=== PATIENT | male | born 1980 | race Caucasian/White ===

== ENCOUNTER 2024-03-30 12:58 | Outpatient (REF) | payer BC, OTHER, SELFPAY | END 2024-03-30 12:59 | disposition home or self-care (01) | LOC: HO.BBR 12:58 | PROVIDERS: PCP Internal Medicine; Visit Provider Internal Medicine | DX: Z13.89 Encounter for screening for other disorder (principal) ==

== ENCOUNTER 2024-04-08 13:11 | Outpatient (REF) | payer BC, OTHER, SELFPAY ==
[2024-04-08 13:31] LABS: MANUAL DIFF FLAG NO
[2024-04-08 13:33] LABS: Basophils Percent Auto 0.6 % (0-2); Eosinophils Percent Auto 0.8 % (0-4); Hematocrit 43.4 % (42.0-52.0); Hemoglobin 16.1 g/dl (14.0-18.0); Imm Gran Abs Auto 0.01 X10*3/uL (0.00-0.03); Imm Gran Pct Auto 0.2 % (0.0-0.4); Lymphocytes Absolute Auto 2.3 X10*3/uL (1.2-4.9); Lymphocytes Percent Auto 45.6 % (20-40); Mean Corpuscular HGB Conc 37.1 g/dl (31.0-36.0); Mean Corpuscular Hemoglobin 33.1 pg (27.0-33.0); Mean Corpuscular Volume 89.1 fL (80.0-98.0); Mean Platelet Volume 9.3 fL (9.4-12.4); Monocytes Absolute Auto 0.5 X10*3/uL (0.1-1.2); Neutrophils Absolute Auto 2.3 x10*3/uL (2.0-8.3); Neutrophils Percent Auto 43.8 % (45-73); Platelet Count 163 X10*3/uL (160-400); Red Blood Count 4.87 X10*6/uL (4.60-5.80); Red Cell Distribution Width 12.1 % (11.0-16.0); White Blood Count 5.1 X10*3/uL (4.8-10.8)
[2024-04-08 14:31] LABS: Iron 127 mcg/dL (45-160); Percent Iron Saturation 64 % (15-50); Total Iron Binding Capacity 197 mcg/dL (228-428); Unsaturated Iron Binding 70 ug/dL
[2024-04-08 14:41] LABS: Ferritin 592 ng/mL (20-250)
== END 2024-04-08 13:12 | disposition home or self-care (01) ==
LOC: HO.BBR 13:11
PROVIDERS: PCP Internal Medicine; Visit Provider Internal Medicine
DX: E83.110 Hereditary hemochromatosis (principal)
CPT/HCPCS: 36415; 82728; 83540; 85025

== ENCOUNTER 2024-05-15 08:05 | Outpatient (REF) | payer BC, OTHER, SELFPAY ==
[2024-05-15 08:32] LABS: MANUAL DIFF FLAG NO
[2024-05-15 08:33] LABS: Basophils Percent Auto 0.7 % (0-2); Eosinophils Percent Auto 0.9 % (0-4); Hematocrit 46.5 % (42.0-52.0); Imm Gran Abs Auto 0.01 X10*3/uL (0.00-0.03); Imm Gran Pct Auto 0.2 % (0.0-0.4); Lymphocytes Absolute Auto 2.1 X10*3/uL (1.2-4.9); Lymphocytes Percent Auto 47.6 % (20-40); Mean Corpuscular HGB Conc 36.6 g/dl (31.0-36.0); Mean Corpuscular Hemoglobin 33.2 pg (27.0-33.0); Mean Corpuscular Volume 90.8 fL (80.0-98.0); Mean Platelet Volume 9.5 fL (9.4-12.4); Monocytes Absolute Auto 0.3 X10*3/uL (0.1-1.2); Monocytes Percent Auto 7.8 % (2-11); Neutrophils Absolute Auto 1.9 x10*3/uL (2.0-8.3); Neutrophils Percent Auto 42.8 % (45-73); Platelet Count 190 X10*3/uL (160-400); Red Blood Count 5.12 X10*6/uL (4.60-5.80); Red Cell Distribution Width 12.2 % (11.0-16.0); White Blood Count 4.4 X10*3/uL (4.8-10.8)
[2024-05-15 09:01] LABS: Iron 145 mcg/dL (45-160); Percent Iron Saturation 69 % (15-50); Total Iron Binding Capacity 210 mcg/dL (228-428); Unsaturated Iron Binding 65 ug/dL
[2024-05-15 09:15] LABS: Ferritin 560 ng/mL (20-250)
== END 2024-05-15 08:06 | disposition home or self-care (01) ==
LOC: HO.BBR 08:05
PROVIDERS: PCP Internal Medicine; Visit Provider Internal Medicine
DX: E83.110 Hereditary hemochromatosis (principal)
CPT/HCPCS: 36415; 82728; 83540; 85025

== ENCOUNTER 2024-06-26 12:56 | Outpatient (REF) | payer BC, OTHER, SELFPAY ==
[2024-06-26 13:06] LABS: MANUAL DIFF FLAG NO
[2024-06-26 13:11] LABS: Basophils Percent Auto 0.5 % (0-2); Eosinophils Percent Auto 0.6 % (0-4); Hematocrit 43.8 % (42.0-52.0); Hemoglobin 15.9 g/dl (14.0-18.0); Imm Gran Abs Auto 0.01 X10*3/uL (0.00-0.03); Imm Gran Pct Auto 0.2 % (0.0-0.4); Lymphocytes Absolute Auto 2.8 X10*3/uL (1.2-4.9); Lymphocytes Percent Auto 44.7 % (20-40); Mean Corpuscular HGB Conc 36.3 g/dl (31.0-36.0); Mean Corpuscular Hemoglobin 32.9 pg (27.0-33.0); Mean Corpuscular Volume 90.5 fL (80.0-98.0); Mean Platelet Volume 9.3 fL (9.4-12.4); Monocytes Absolute Auto 0.5 X10*3/uL (0.1-1.2); Monocytes Percent Auto 8.1 % (2-11); Neutrophils Absolute Auto 2.9 x10*3/uL (2.0-8.3); Neutrophils Percent Auto 45.9 % (45-73); Platelet Count 217 X10*3/uL (160-400); Red Blood Count 4.84 X10*6/uL (4.60-5.80); Red Cell Distribution Width 11.7 % (11.0-16.0); White Blood Count 6.3 X10*3/uL (4.8-10.8)
[2024-06-26 13:59] LABS: Iron 161 mcg/dL (45-160); Percent Iron Saturation 81 % (15-50); Total Iron Binding Capacity 200 mcg/dL (228-428); Unsaturated Iron Binding 39 ug/dL
[2024-06-26 14:03] LABS: Ferritin 426 ng/mL (20-250)
== END 2024-06-26 12:57 | disposition home or self-care (01) ==
LOC: HO.BBR 12:56
PROVIDERS: PCP Internal Medicine; Visit Provider Internal Medicine
DX: E83.110 Hereditary hemochromatosis (principal)
CPT/HCPCS: 36415; 82728; 83540; 85025

== ENCOUNTER 2024-07-27 14:12 | Outpatient (REF) | payer BC, OTHER, SELFPAY ==
[2024-07-27 14:31] LABS: MANUAL DIFF FLAG NO
[2024-07-27 14:32] LABS: Basophils Percent Auto 0.3 % (0-2); Eosinophils Percent Auto 0.2 % (0-4); Hemoglobin 17.2 g/dl (14.0-18.0); Imm Gran Abs Auto 0.04 X10*3/uL (0.00-0.03); Imm Gran Pct Auto 0.4 % (0.0-0.4); Lymphocytes Percent Auto 18.7 % (20-40); Mean Corpuscular HGB Conc 36.6 g/dl (31.0-36.0); Mean Corpuscular Hemoglobin 32.8 pg (27.0-33.0); Mean Corpuscular Volume 89.5 fL (80.0-98.0); Mean Platelet Volume 9.3 fL (9.4-12.4); Monocytes Absolute Auto 0.8 X10*3/uL (0.1-1.2); Monocytes Percent Auto 7.5 % (2-11); Neutrophils Absolute Auto 7.8 x10*3/uL (2.0-8.3); Neutrophils Percent Auto 72.9 % (45-73); Platelet Count 197 X10*3/uL (160-400); Red Blood Count 5.25 X10*6/uL (4.60-5.80); Red Cell Distribution Width 11.9 % (11.0-16.0); White Blood Count 10.7 X10*3/uL (4.8-10.8)
[2024-07-27 15:06] LABS: Iron 198 mcg/dL (45-160); Percent Iron Saturation 85 % (15-50); Total Iron Binding Capacity 234 mcg/dL (228-428); Unsaturated Iron Binding 36 ug/dL
[2024-07-27 15:20] LABS: Ferritin 333 ng/mL (20-250)
--- OUTSIDE RECORDS SUMMARY | 2024-07-27 18:51 | XMS_ITS | Encounter Summary ---
Author Organization [facility] Address [phone] [facility] [place] [address] Care Team Providers Care Molding Engineer Name Role Phone Alvaro Blue MD Primary Care Provider [phone] Arnold Cox MD Primary Care Provider [phone] Arnold Cox MD Unavailable Encounter Details Date Type Department Care Team (Late Contact Info) Description 11/24/2022 Procedure Pass [facility] [address] [place] [address] Social History Tobacco Use Types Packs/Day Years Used Date Smoking Tobacco: Never Smokeless Tobacco: Never Alcohol Use Standard Drinks/Week Comments Yes 0 (1 standard drink = 0.6 oz pur e alcohol) occas Education Answer Date Recorded Are you interested in more education? Not on rula e 11/23/2022 Are you concerned about learning? Not on file 11/23/2022 No 11/23/2022 No 11/23/2022 Digital Access Answer Date Recorded No 11/23/2022 No 11/23/2022 Reliable internet access at home? Not on file 11/23/2022 Device with a working camera? Not on file Sex and Gender Information Value Date Recorded Sex Assigned at Male 11/23/2022 1:59 PM EDT Gender Identity Male 11/23/2022 1:59 PM EDT Sexual Orientation Not on file documented as of this encounter Plan of Treatment Upcoming Encounters Date Type Department Care Team (Late st Contact Info) Description 03/16/2024 Procedure Pass [facility] Card[facility] US [address] [place] [address] 06/02/2024 Procedure Pass [facility] Echo Lab 30 [place] [address] 09/08/2024 11:30 AM EDT Appointment [facility] Cardiac US 55 [place] [address] Frances Prescott MD [address] [place], [place] [phone] [place] [address] [email or web address] 09/08/2024 1:00 PM EDT Office Visit [facility]pertension Clinic 55 [facility] 201 [place] [address] Frances Prescott MD [address] [place] [address] [email or web address]@[email or web address] 09/22/2024 1:00 PM EDT Telemedicine [facility] Center for Hematology [address] [place] [address] 7[address] [place] [address] Sadia Santos MD [address] [place] [address] [email or web address] 12/01/2024 10:00 AM EDT Appointment Non-Invasive Cardiology 30 [place] [address] Ivy Ramires FNP [address] [place] [address] [email or web address] 12/01/2024 11:30 AM EDT Appointment [facility] Echo Lab 30 [place] [address] Ivy Ramires FNP [address] [place] [address] [email or web address]@[facility] 12/30/2024 1:30 PM EDT Appointment [facility] Internal Medicine 40 [place] [address] Arnold Cox MD 40 [place], [place] [phone] [email or web address] documented as of this encounter Visit Diagnoses Not on filedocumented in this encounter Care Teams Molding Engineer Relationship Specialty Start Date End Date Alvaro Blue MD [address] [place] [address] PCP - General Internal Medicine 11/24/22 01/23/24 Arnold Cox MD [address] [place] [address] PCP - General Internal Medicine 01/24/24 Arnold Cox MD [address] [place] [address] [email or web address] Insurance Assigned Provider 02/08/24 documented as of this encounter Additional Source Comments The information contained in this document represents components of the legal health record. It is not the complete legal health record.[facility]
--- OUTSIDE RECORDS SUMMARY | 2024-07-27 18:51 | XMS_ITS | Encounter Summary ---
Author Organization [facility] Address [phone] [facility] [employer] [place] [address] Care Team Providers Care Ui Application Developer Name Role Phone Alvaro Blue MD Primary Care Provider [phone] Arnold Cox MD Primary Care Provider [phone] Arnold Cox MD Unavailable Reason for Referral * Outpatient Procedure - Closed Specialty Diagnoses / Procedures Referred By Pete cline Referred To Contact Diagnoses Acute saddle pulmonary embolism with acute cor pulmonale Procedures Stress Echo Exercise Stress Echo Dobutamine Frances Prescott MD [address] [place] [address] Email: [email or web address] Referral ID Status Reason Start Date Expiration Date Visits Re quested Visits Authorized [id number] Closed 04/15/2023 1 1 Encounter Details Date Type Department Care Team (Late st Contact Info) Description 05/24/2023 Ancillary Orders [facility] [address] [place] [address] [address] [place] [address] Frances Prescott MD [address] [place] [address] CRUZ@ [facility] Acute saddle pulmonary embolism with acute cor pulmonale Social History Tobacco Use Types Packs/Day Years [...] st Contact Info) Description 03/16/2024 Procedure Pass [facility] Cardiac US 55 [place] [address] 06/02/2024 Procedure Pass [facility] Echo Lab [address] [place] [address] 09/08/2024 11:30 AM EDT Appointment [facility] Cardiac US 55 [place] [address] Frances Prescott MD 55 [facility] [address] [place] [address] [email or web address]@[facility] 09/08/2024 1:00 PM EDT Office Visit [facility] Pulmonary Hypertension Clinic [address] [place] [address] Frances Prescott MD 55 [facility] [address] [place] [address] [email or web address]@[facility] 09/22/2024 1:00 PM EDT Telemedicine [facility] Center for Hematology 55 [facility] [address] [place] [address] Sadia Santos MD 55 [facility] [address] [place] [address] [email or web address] 12/01/2024 10:00 AM EDT Appointment Non-Invasive Cardiology 30 [place] [address] Ivy Ramires, [facility] 55 [place] [address] [email or web address]@[facility] 12/01/2024 11:30 AM EDT Appointment [facility] Echo Lab 30 [place] [address] Ivy Ramires, [address] [address] [email or web address]@[facility] 12/30/2024 1:30 PM EDT Appointment [facility] Internal Medicine 40 [place] [address] Arnold Cox MD 40 [place] [address] [email or web address] documented as of this encounter Results * STRESS ECHO EXERCISE (05/24/2023 12:02 PM EST) Body Surface Area 2.25 m2 Raw LV EF% 60 % Left Ventricle Internal Diameter End Diastole 49 42 - 58 mm Left Ventricle Internal Diameter End Systole 31 25 - 40 mm Right Atrium Pressure Estimated 10 mmHg Left Ventricular Posterior Wall Thickness 10 mm Interventricular Septum Thickness 9 mm Left Atrium Dimension Anterior-Posterior 32 15 - 40 mm Ejection Fraction 70 50 - 75 % Resting BP Systolic 144 mmHg Resting BP Diastolic 78 mmHg Patient Age 42 Peak BP Systolic 230 mmHg Peak BP Diastolic 110 mmHg Resting HR 59 bpm Peak HR 120 bpm Anatomical Region Laterality Modality Heart Ultrasound Narrative 05/24/2023 1:10 PM EST ?No ECG or echocardiographic evidence of ischemia at the level of stress achieved (HR reached 68% of age-predicted maximum, peak rate-pressure product 27,600). ?Hypertension at baseline with hypertensive response to exercise (144/78 mmHg at rest ; 230/110 mmHg at peak stress). Stress ECG A stress test was performed following a supine bicycle protocol. The patient reached stage 5 of the protocol, exercising for 15 minutes 29 seconds. The heart rate changed from 59 bpm at rest to 120 bpm at peak stress (68% of the age predicted maximum heart rate). The blood pressure changed from 144/78 mmHg at rest to 230/110 mmHg at peak stress. [place] [address]. The test was terminated due to hypertension (BP 230/110 mmHg). The patient reported no symptoms during the stress test. The patient reported no angina during the stress test. Baseline ECG shows sinus rhythm. ECG during stress shows sinus tachycardia. ECG during stress shows infrequent PACs. ECG at stress shows non-specific ST-T wave changes. Post stress ECG shows sinus rhythm. During recovery infrequent PAC noted. General Findings - Resting The image quality was fair (3) . Comparison Findings - Stress No prior stress echocardiograms for comparison. Stress Study Data At peak stress all the jolly augmented appropriately. Interpretation of the echo images is negative for ischemia at the level of stress achieved. Baseline Echo The left ventricular cavity size is normal. The left ventricular wall thickness is normal. Left ventricular ejection fraction is normal. The ejection fraction at rest was measured by single dimension. The ejection fraction is 70% (Normal 50-75%). At rest, there are no segmental left ventricular wall motion abnormalities. On the limited views available RV systolic function appears to be within normal limits. There is trace mitral regurgitation detected by spectral and color Doppler at rest. There is no evidence of mitral valve prolapse. There is evidence of trace tricuspid regurgitation by color and spectral Doppler at rest. There is an insufficient tricuspid regurgitation Doppler profile to calculate a right ventricular systolic pressure. Stress Echo Left ventricular systolic function is hyperdynamic. There are no new inducible segmental left ventricular wall motion abnormalities noted at stress. Frances Prescott MD CV STRESS O RDERABLES documented in this encounter Visit Diagnoses Diagnosis Acute saddle pulmonary embolism with acute cor pulmonale Acute saddle pulmonary embolism with acute cor pulmonale documented in this encounter Care Teams Ui Application Developer Relationship Specialty Start Date End Date Alvaro Blue MD [address] [place] [address] PCP - General Internal Medicine 11/24/22 01/23/24 Arnold Cox MD [address] [place] [address] [email or web address] PCP - General Internal Medicine 01/24/24 Arnold Cox MD [address] [place] [address] [email or web address] Insurance Assigned Provider 02/08/24 documented as of this encounter Additional Source Comments The information contained in this document represents components of the legal health record. It is not the complete legal health record.[facility]
--- OUTSIDE RECORDS SUMMARY | 2024-07-27 18:51 | XMS_ITS | Encounter Summary ---
Author Organization [facility] Address [phone] [facility] [place] [address] Care Team Providers Care Senior Chemist Name Role Phone Alvaro Blue MD Primary Care Provider [phone] Arnold Cox MD Primary Care Provider [phone] Arnold Cox MD Unavailable Encounter Details Date Type Department Care Team ([facility] st Contact Info) Description 04/09/2023 Telephone [facility] Center for Hematology [address] [address] Ashley Polo MD, MPH 55 [place] [address] [email or web address] du Social History Tobacco Use Types Packs/Day Years [...] st Contact Info) Description 03/16/2024 Procedure Pass [facility] Cardiac US 55 [place] [address] 06/02/2024 Procedure Pass [facility] Echo Lab 30 [place] [address] 09/08/2024 11:30 AM EDT Appointment [facility] Cardiac US 55 [place] [address] Frances Prescott MD [address] [address] [email or web address] 09/08/2024 1:00 PM EDT Office Visit [facility] Pulmonary Hypertension Clinic 55 [facility] 201 [place] [address] Frances Prescott MD [address] [place] [address] [email or web address] 09/22/2024 1:00 PM EDT Telemedicine [facility] Center for Hematology [address] [place] [address] Sadia Santos MD [address] [place] [address] [email or web address] 12/01/2024 10:00 AM EDT Appointment Non-Invasive Cardiology 30 [place] [address] Ivy Ramires FNP [address] [place] [address] [email or web address] 12/01/2024 11:30 AM EDT Appointment [facility] Echo Lab 30 [place] [address] Ivy Ramires FNP [address] [place] [address] [email or web address] 12/30/2024 1:30 PM EDT Appointment [facility] Internal Medicine 40 [place] [address] Arnold Cox MD 40 [place], [place] [phone] [email or web address] documented as of this encounter Visit Diagnoses Not on filedocumented in this encounter Care Teams Senior Chemist Relationship Specialty Start Date End Date Alvaro Blue MD [address] [place] [address] PCP - General Internal Medicine 11/24/22 01/23/24 Arnold Cox MD [address] [place] [address] PCP - General Internal Medicine 01/24/24 Arnold Cox MD [address] [place] [address] [email or web address] Insurance Assigned Provider 02/08/24 documented as of this encounter Additional Source Comments The information contained in this document represents components of the legal health record. It is not the complete legal health record.[facility]
--- OUTSIDE RECORDS SUMMARY | 2024-07-27 18:51 | XMS_ITS | Encounter Summary ---
Author Organization [facility] Address [phone] [place] [address] Care Team Providers Care International Flight Attendant Name Role Phone Alvaro Blue MD Primary Care Provider [phone] Arnold Cox MD Primary Care Provider [phone] Arnold Cox MD Unavailable Encounter Details Date Type Department Care Team (Late st Contact Info) Description 04/09/2023 Telephone [facility] Center for Hematology 55 [facility] [address] [place] [address] Sadia Santos MD 55 [facility] [address] [place] [address] [email or web address] du Social History Tobacco Use Types Packs/Day [...] st Contact Info) Description 03/16/2024 Procedure Pass [facility] Cardiac US 55 [place] [address] 06/02/2024 Procedure Pass [facility] Echo Lab 30 [place] [address] 09/08/2024 11:30 AM EDT Appointment [facility] Cardiac US 55 [place] [address] Frances Prescott MD [address] [address] [email or web address]@[facility] 09/08/2024 1:00 PM EDT Office Visit [facility] Pulmonary Hypertension Clinic 55 [facility] 201 [place] [address] Frances Prescott MD [address] [place] [address] [email or web address]@[facility] 09/22/2024 1:00 PM EDT Telemedicine [facility] Center for Hematology [address] [place] [address] Sadia Santos MD [address] [place] [address] [email or web address] 12/01/2024 10:00 AM EDT Appointment Non-Invasive Cardiology 30 [place] [address] Ivy Ramires FNP [address] [place] [address] [email or web address] 12/01/2024 11:30 AM EDT Appointment [facility] Echo Lab 30 [place] [address] Ivy Ramires FNP [address] [place] [address] [email or web address]@[email or web address] 12/30/2024 1:30 PM EDT Appointment [facility] Internal Medicine 40 [place] [address] Arnold Cox MD 40 [place], [place] [phone] [email or web address] documented as of this encounter Visit Diagnoses Not on filedocumented in this encounter Care Teams International Flight Attendant Relationship Specialty Start Date End Date Alvaro Blue MD [address] [place] [address] PCP - General Internal Medicine 11/24/22 01/23/24 Arnold Cox MD [address] [place] [address] PCP - General Internal Medicine 01/24/24 Arnold Cox MD [address] [place] [address] [email or web address] Insurance Assigned Provider 02/08/24 documented as of this encounter Additional Source Comments The information contained in this document represents components of the legal health record. It is not the complete legal health record.[facility]
--- OUTSIDE RECORDS SUMMARY | 2024-07-27 18:51 | XMS_ITS | Encounter Summary ---
Author Organization [facility] Address [phone] [facility] [place] [address] Care Team Providers Care Principal Administrative Clerk Name Role Phone Alvaro Blue MD Primary Care Provider [phone] Arnold Cox MD Primary Care Provider [phone] Arnold Cox MD Unavailable Encounter Details Date Type Department Care Team (Late Contact Info) Description 06/13/2023 Procedure Pass [facility] 30 [place] [address] Social History Tobacco Use Types Packs/Day Years [...] st Contact Info) Description 03/16/2024 Procedure Pass [facility] Cardiac US [address] [place] [address] 06/02/2024 Procedure Pass [facility] Echo Lab 30 [place] [address] 09/08/2024 11:30 AM EDT Appointment [facility] Cardiac US [address] [place] [address] Frances Prescott MD [address] [place] [address] [email or web address] 09/08/2024 1:00 PM EDT Office Visit [facility] Pulmonary Hypertension Clinic 55 [facility] 201 [place] [address] Frances Prescott MD [address] [place] [address] [email or web address]@[facility] 09/22/2024 1:00 PM EDT Telemedicine [facility] Center for Hematology [address] [place] [address] 7[address] [place] [address] Sadia Santos MD [address] [place] [address] [email or web address] 12/01/2024 10:00 AM EDT Appointment Non-Invasive Cardiology 30 [place] [address] Ivy Ramires FNP [address] [place] [address] [email or web address]@[email or web address] 12/01/2024 11:30 AM EDT Appointment [facility] Echo Lab 30 [place] [address] Ivy Ramires FNP [address] [place] [address] FAVIOLA@[facility] 12/30/2024 1:30 PM EDT Appointment [facility] Internal Medicine 40 [place] [address] Arnold Cox MD 40 [place], [place] [phone] [email or web address] documented as of this encounter Visit Diagnoses Not on filedocumented in this encounter Care Teams Principal Administrative Clerk Relationship Specialty Start Date End Date Alvaro Blue MD [address] [place] [address] PCP - General Internal Medicine 11/24/22 01/23/24 Arnold Cox MD [address] [place] [address] PCP - General Internal Medicine 01/24/24 Arnold Cox MD [address] [place] [address] [email or web address] Insurance Assigned Provider 02/08/24 documented as of this encounter Additional Source Comments The information contained in this document represents components of the legal health record. It is not the complete legal health record.[facility]
--- OUTSIDE RECORDS SUMMARY | 2024-07-27 18:51 | XMS_ITS | Encounter Summary ---
Author Organization [facility] Address [phone] [facility] [employer] [place] [address] Care Team Providers Care Recreational Therapy Aide Name Role Phone Alvaro Blue MD Primary Care Provider [phone] Arnold Cox MD Primary Care Provider [phone] Arnold Cox MD Unavailable Encounter Details Date Type Department Care Team (Late st Contact Info) Description 01/19/2023 Telephone [facility] Center for Hematology 55 [facility] 7B [place] [address] Sadia Santos MD 55 [facility] [address] [place] [address] [email or web address] du Social History Tobacco Use Types Packs/Day [...] st Contact Info) Description 03/16/2024 Procedure Pass [facility] Cardiac US 55 [place] [address] 06/02/2024 Procedure Pass [facility] Echo Lab 30 [place] [address] 09/08/2024 11:30 AM EDT Appointment [facility] Cardiac US 55 [place] [address] Frances Prescott MD [address] [address] [email or web address] 09/08/2024 1:00 PM EDT Office Visit [facility] Pulmonary Hypertension Clinic 55 [facility] 201 [place] [address] Frances Prescott MD [address] [place] [address] CRUZ@[facility] 09/22/2024 1:00 PM EDT Telemedicine [facility] Center for Hematology [address] [place] [address] Sadia Santos MD [address] [place] [address] [email or web address] 12/01/2024 10:00 AM EDT Appointment Non-Invasive Cardiology 30 [place] [address] Ivy Ramires FNP [address] [place] [address] [email or web address]@[facility] 12/01/2024 11:30 AM EDT Appointment [facility] Echo Lab 30 [place] [address] Ivy Ramires FNP [address] [place] [address] [email or web address]@[email or web address] 12/30/2024 1:30 PM EDT Appointment [facility] Internal Medicine 40 [place] [address] Arnold oCx MD 40 [place], [place] [phone] [email or web address] documented as of this encounter Visit Diagnoses Not on filedocumented in this encounter Care Teams Recreational Therapy Aide Relationship Specialty Start Date End Date Alvaro Blue MD [address] [place] [address] PCP - General Internal Medicine 11/24/22 01/23/24 Arnold Cox MD [address] [place] [address] PCP - General Internal Medicine 01/24/24 Arnold Cox MD [address] [place] [address] [email or web address] Insurance Assigned Provider 02/08/24 documented as of this encounter Additional Source Comments The information contained in this document represents components of the legal health record. It is not the complete legal health record.[facility]
--- OUTSIDE RECORDS SUMMARY | 2024-07-27 18:51 | XMS_ITS | Clinical Summary ---
Author Organization [facility] [employer] Address [address] [place] [address] Care Team Providers Care Computer Field Technician Name Role Phone Pcp, No Primary Care Provider [phone] Social History Tobacco Use Types Packs/Day Years Used Date Smoking Tobacco: Never Assessed Sex and Gender Information Value Date Recorded Sex Assigned at Male 01/15/2022 11:40 AM EDT Legal Sex Male 2:34 PM EST Gender Identity Male 01/15/2022 11:40 AM EDT Sexual Orientation Straight 01/15/2022 11 :40 AM EDT Plan of Treatment Health Maintenance Due Date Last Done Comments Depression: Screening Annual ly using PHQ-2/9 in Adults 18 yrs or above (or HM Modifier)([facility]) 11/20/1997 Hepatitis C Virus Infection in Adolescents and Adults: Screening (or Modifier) ([facility]) 11/20/1997 SDOH Screening Reminder: Claudia chelsie for all adults ([facility]) 11/20/1997 Tobacco Smoking Cessation: i n Adults excluding Women: Behavioral and Pharmacotherapy Interventions ([facility]) 11/20/1997 DTaP/Tdap/Td Vaccines ([facility]) (1 - Tdap) 11/20/1998 Lipid Screening: Every 5 yrs for Men aged 35+ (or HM Modifier) ([facility]) 2015 Flu Vaccination: Yearly for ages 18mos through 64 years (or Modifier)([facility]) 01/30/2024 COVID-19 Vaccine Screening: Initial Series and Booster Status ([facility]) ( - 2023- season) 2024 Zoster/Shingles Vaccine Seri es Screening: Adults aged 18+ yrs (or HM Modifiers)([facility]) (1 of 2) 11/20/2029 Pneumococcal Vaccination Scr eening: Pts 0-19 & 19-64 yrs of age ([facility]) Aged Out No longer eligible based on patient's age to complete this topic Medical Devices Not on file Insurance [facility] Care Teams Computer Field Technician Relationship Specialty Start Date End Date Pcp, Neeru PCP - General Family Medicine 06/20/20
--- OUTSIDE RECORDS SUMMARY | 2024-07-27 18:52 | XMS_ITS | Encounter Summary ---
Author Organization [facility] Address [phone] [facility] [place] [address] Care Team Providers Care Consumer Loan Processor Name Role Phone Arnold Cox MD Primary Care Provider [phone] Arnold Cox MD Unavailable Encounter Details Date Type Department Care Team (Late st Contact Info) Description 01/24/2024 Procedure Pass [facility] [place] Imaging, [place] [address] [address] Social History Tobacco Use Types Packs/Day Years Used Date Smoking Tobacco: Never Passive Smoke Exposure: Never Smokeless Tobacco: Never Alcohol Use Standard Drinks/Week Comments Yes 0 (1 standard drink = 0.6 oz pur e alcohol) occas Child or Family Care Answer Date Record ed Do you have problems with on e of the following making it difficult for you to work, study, or receive health care? No 11/15/2023 Education Answer Date Recorded Are you interested in help w ith more adult education (for example, completing high school, GED, job training, learning the Nauruan language, technical skills, or developing parenting skills)? No 11/15/2023 Are you concerned about learning? Not on file 11/15/2023 No 11/15/2023 Yes 11/15/2023 Food Answer Date Recorded Within the past 6 months we worried whether our food would run out before we got money to buy more. Never True 11/15/2023 Within the past 6 months the food we bought just didn't last and we didn't have enough money to get more. Never True Residential Stability Answer Date Recor ded What is your housing situation today? I have maritza moses 11/15/2023 How many times have you move d in the past 12 months? Zero (I did not move) 11/15/2023 Paying for Meds Answer Date Recorded Do you have trouble paying for medicines? No 11/15/2023 Paying Utility Bills Answer Date Record ed Do you have trouble paying your heating or elect ricity bill? No 11/15/2023 Transportation Answer Date Recorded Has the lack of transportati on kept you from medical appointments or from getting medications? No 11/15/2023 Unemployment Answer Date Recorded Are you currently unemployed or working on a part-time or temporary basis, and looking for work? No 11/15/2023 Digital Access Answer Date Recorded No 11/15/2023 Yes 11/15/2023 Do you have reliable internet access at home? Ye s 11/15/2023 Do you have a device (e.g., phone, tablet, computer) with a working camera? Yes 11/15/2023 Intimate Partner Violence Answer Date R ecorded Are you denied basic needs s uch as food, clothing, or medical care? No 01/24/2024 In the past 12 months have y ou been in a relationship with a person who hurts, threatens, or tries to control you? No 01/24/2024 Are you denied basic needs s uch as food, clothing, or medical care? No 01/24/2024 In the past 12 months have y ou been in a relationship with a person who hurts, threatens, or tries to control you? No 01/24/2024 Sex and Gender Information Value Date Recorded Sex Assigned at Male 11/23/2022 1:59 PM EDT Gender Identity Male 11/23/2022 1:59 PM EDT Sexual Orientation Not on file documented as of this encounter Plan of Treatment Upcoming Encounters Date Type Department Care Team (Late st Contact Info) Description 03/16/2024 Procedure Pass [facility] [place] [facility] Cardiac US [address] [place] [address] 06/02/2024 Procedure Pass [facility] Echo Lab [address] [place] [address] 09/08/2024 11:30 AM EDT Appointment [facility] [place] [facility] Cardiac US 55 [place] [address] Frances Prescott MD 55 [facility] [place] [address] [email or web address] 09/08/2024 1:00 PM EDT Office Visit [facility] [place] Pulmonary Hypertension Clinic 55 [facility] [address] [place] [address] Frances Prescott MD 55 [facility] [place] [address] [email or web address] 09/22/2024 1:00 PM EDT Telemedicine [facility] [place] [facility] Center for Hematology 55 [facility] [address] [place] [address] Sadia Santos MD [address] [address] [email or web address] 12/01/2024 10:00 AM EDT Appointment Non-Invasive Cardiology 30 [place] [address] Ivy Ramires FNP 55 [place] [address] [email or web address] 12/01/2024 11:30 AM EDT Appointment [facility] Echo Lab 30 [place] [address] Ivy Ramires FNP [address] [place] [address] [email or web address] 12/30/2024 1:30 PM EDT Appointment [facility] [place] Internal Medicine 40 [place] [address] Arnold Cox MD 40 [place], [place] [id number] [email or web address] documented as of this encounter Visit Diagnoses Not on filedocumented in this encounter Additional Health Concerns Assessment Noted Time PHQ-2 Depression Total Score: 0 11/15/19 11:33 AM EDT documented as of this encounter Care Teams Consumer Loan Processor Relationship Specialty Start Date End Date Arnold Cox MD 40 [place] [address] PCP - General Internal Medicine 01/24/24 Arnold Cox MD 40 [place] [address] Insurance Assigned Provider 02/08/24 documented as of this encounter Additional Source Comments The information contained in this document represents components of the legal health record. It is not the complete legal health record.[facility]
--- OUTSIDE RECORDS SUMMARY | 2024-07-27 18:52 | XMS_ITS | Clinical Summary ---
Author Organization [facility] Address [phone] [facility] [employer] [place] [address] Care Team Providers Care Accounts Payables Clerk Name Role Phone Arnold Cox MD Primary Care Provider [phone] Arnold Cox MD Unavailable Allergies No known active allergies Medications Medication Sig Dispensed Refills Start Date End Date Status loratadine (CLARITIN) 10 mg tablet Take 10 mg by mouth daily. Active glucosamine-chondroi tin 500-400 mg Cap Take 1 capsule by mouth 3 (three) times a day. Active ascorbic acid, vitamin C, (VITAMIN C) 250 MG tablet Take 500 mg by mouth 2 (two) times a day. Active mometasone (ELOCON) 0.1 % cream Apply topically 2 (two) times a day. Apply to the hands BID x 2 weeks, break for 1 week, repeat prn 45 g 1 01/27/2024 Active omega-3 fatty acids-fish oil 340-1,000 mg Cap Take by mouth daily. Active metoprolol succinate (TOPROL-XL) 25 MG 24 hr tablet Take 1 tablet (25 mg total) by mouth daily. 90 tablet 3 04/06/2024 Active ELIQUIS 5 mg tablet Take 1 tablet (5 mg total) by mouth 2 (two) times a day. 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 Dx with hemochromatosis - f/u by heme Indefinite eliquis Persistent SHORTNESS OF BREATH in previously fit man CPET - developed WCT during test and was sent to the ED W/U included cCTA - CAD/RADs score of zero cMRI - normal Zio patch - no NSVT / VT Assessment & Plan (06/02/2024 2:40 PM EST): Will obtain ETT and echo and await those results No exercise restrictions at this time Elevated ferritin 01/31/2024 Assessment & Plan (01/31/2024 9:25 AM EDT): The most recent ferritin was in the 900s, with prominent maternal history of hemochromatosis including his uncle maternal and cousins a total of 5 people that he knew of. As such I have asked the patient to message to the program paraprofessional who is seeing him about hypercoagulation workup and see if lab work can be ordered regarding the hemochromatosis. That lab work can be done at [facility] and if patient is positive we can put in a referral locally. Arrhythmia 01/24/2024 Assessment & Plan (01/31/2024 9:23 AM EDT): Today heart rate is mildly bradycardic and regular rhythm. Continue metoprolol and patient has Zio patch ordered to assess for arrhythmias over time. He will follow the district sales manager order of not over exercising and limiting caffeine intake. He will continue on the Eliquis to prevent thromboi. Right ventricular enlargement 03/26/2023 Acute deep vein thrombosis ( DVT) of popliteal vein of right lower extremity 11/24/2022 Acute saddle pulmonary embolism with acute cor p ulmonale 11/23/2022 Assessment & Plan (11/22/2023 3:34 PM EDT): The patient is being managed with Eliquis for pulmonary embolism recurrence. At this point he will be on Eliquis indefinitely. Pulmonology is currently working up whether there is a strain on the right ventricle. That test is in December. 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 Going forward I can see him once a year for repeat physical. This visit was 35 minutes in length of [id number]-fi-[id number] time and 10 additional minutes to review chart. Encounters Date Type Department Care Team Description 06/02/2024 8:30 AM EST Office Visit [facility] Cardiac Arrhythmia Service [address] [place] [place] [address] Ivy Ramires FNP V tach (Primary Dx); Ventricular tachycardia 06/01/2024 Orders Only [facility] Cardiac Arrhythmia Service [address] [place] [address] Ivy Ramires FNP from Last 3 Months Immunizations Name Administration Dates Next Due Anthrax 04/13/2010, 4,09/05/2003,12/02,11/03/2002,10/15/2002 COVID-19 (Pre-04/22) Moderna Vaccine, mRNA, PF 03/29/2022 COVID-19 Moderna Spikevax Vaccine 12+ 05/22/2021 ,08/26/2020,07/25/2020 Hepatitis A, Adult 04/25/2001,10/18/2000 Hepatitis B Adult 11/12/1997,08/13/1997,07/09/18 98 IPV 10/10/2000 Influenza Quadrivalent Intranasal 04/04/2009,05/2005 Influenza Quadrivalent MDCK Preservative Free IM 04/26/2013 Influenza Quadrivalent MDCK w/Preservative IM 05/31/2017 Influenza Quadrivalent Prese rvative Free IM 04/15/2023,04/11/2022,05/30/2020,06/07,05/20/2018 Influenza Quadrivalent w/ Pr eservative IM 04/21/2016 Influenza Split (Incl. Purif ied Surface Antigen) 05/13/2008,05/30/2006 Influenza Trivalent w/ Preservative IM 4 Influenza, Injectable,aditya valent, Preservative Free, Ped 03/15/2021 Influenza, Unspecified Formulation 05/30,05/20/2018,05/06/2016,04/21,04/14/2015,03/07/2014,04/11/2012 ,05/06/2011,04/13/2010,05/03/2007,05/03,05/07/2005,06/21/2003, 2,09/05/2001,10/10/2000 Meningococcal MCV4P 11/16/2020,12/03/2015,2010 Meningococcal MPSV4 11/18/2005,10/10/2000 Novel [id number], Injectable 07/24/2009 PPD Test 11/13/2003, 3,11/11/2001,10/10 Smallpox 04/13/2010 Td (adult), not adsorbed 04/25/2001 Td (adult),2 Lf Tetanus Toxo id, PF, Adsorbed 01/31/2021,05/06/2011 Typhoid, ViCPs 07/11/2021, 9,05/31/2017,05/21,04/26/2013,05/06/2011,04/20/2009 ,06/04/2007 Typhoid, parenteral 06/04/2005,06/21/2003,2000 Yellow Fever 05/06/2011,04/25/2001 Family History Medical History Relation Comments No Known Problems Brother No Known Problems Father No Known Problems Mother No Known Problems Sister Venous thrombosis Neg Hx Relation Status Comments Brother Father Mother Sister Social History Tobacco Use Types Packs/Day Years Used Date Smoking Tobacco: Never Passive Smoke Exposure: Never Smokeless Tobacco: Never Tobacco Cessation:Counseling Given: Not Answered Alcohol Use Standard Drinks/Week Comments Not Currently 0 (1 standard drink = 0.6 oz pur e alcohol) none for the past year Child or Family Care Answer Date Record ed Do you have problems with on e of the following making it difficult for you to work, study, or receive health care? No 11/15/2023 Education Answer Date Recorded Are you interested in help w ith more adult education (for example, completing high school, GED, job training, learning the Hungarian language, technical skills, or developing parenting skills)? [...] your housing situation today? I have maritza sing 11/15/2023 How many times have you move [...] PM EDT Sexual Orientation Not on file Last Filed Vital Signs Vital Sign Reading Time Taken Comments Blood Pressure 147/91 06/02/2024 9:08 AM EST Pulse 64 06/02/2024 9:08 AM EST Temperature 36.2 ??C (97.1 ??F) 01/26/2024 12:20 PM E DT Respiratory Rate 19 01/31/2024 8:36 AM EDT Oxygen Saturation 98% 01/31/2024 8:36 AM EDT Inhaled Oxygen Concentration - - Weight 97.5 kg (215 lb) 06/02/2024 9:08 AM EST Height 193 cm (6' 3.98 ) 01/31/2024 8:36 AM EDT Body Mass Index 26.18 01/31/2024 8:36 AM EDT Plan of Treatment Upcoming Encounters Date Type Department Care Team (Late st Contact Info) Description 03/16/2024 Procedure Pass [facility] Cardiac US 55 [place] [address] 06/02/2024 Procedure Pass [facility] Echo Lab 30 [place] [address] 09/08/2024 11:30 AM EDT Appointment [facility] Cardiac US 55 [place] [address] Frances Prescott MD 55 [facility]148 [place] [address] [email or web address] 09/08/2024 1:00 PM EDT Office Visit [facility] Pulmonary Hypertension Clinic 55 [facility] [address] [place] [address] Frances Prescott MD 55 [facility] [address] [place] [address] [email or web address] 09/22/2024 1:00 PM EDT Telemedicine [facility] Center for Hematology 55 [facility] [address] [place] [address] Sadia Santos MD 55 [facility] [address] [place] [address] [email or web address] 12/01/2024 10:00 AM EDT Appointment Non-Invasive Cardiology 30 [place] [address] Ivy Ramires, [address] [address] [email or web address] 12/01/2024 11:30 AM EDT Appointment [facility] Echo Lab 30 [place] [address] Ivy Ramires, [address] [address] [email or web address] 12/30/2024 1:30 PM EDT Appointment [facility] Internal Medicine 40 [place] [address] Arnold Cox MD 40 [place] [address] [email or web address] Health Maintenance Due Date Last Done Comments HEPATITIS B SCREENING 11/20/1997 HEPATITIS C SCREENING 11/20/1997 HIV ONE-TIME SCREENING (18-65 YEARS) 11/20/1997 INFLUENZA VACCINE (#1) 2024 , 04/11/2022, 03/15/2021, Additional history exists COVID-19 VACCINE ( season) 2024 03/29/2022, 05/22/2021, 08/26/2020, Additional history exists DEPRESSION SCREENING 11/14/2024 11/15/2023 CREATININE LEVEL 01/23/2025 01/24/2024, , 06/03/2023, Additional history exists SCREENING FOR DIABETES 01/23/2027 01/24/2024, 2022 LIPID PANEL 06/03/2028 06/03/2023, 1209/2022, 06/03/2023 Adult Td,Tdap Booster 01/31/2031 01/31/2021 , 05/06/2011, 04/25/2001 HEPATITIS B VACCINES Completed 11/12/1997, 08/13/1997, 07/09/1997 HEPATITIS A VACCINES Aged Out 04/25/2001, 10/19/19 01 No longer eligible based on patient's age to complete this topic MENINGOCOCCAL VACCINES (ACWY) Aged Out 11/16/2020, 12/03/2015, 11/12/2010, Additional history exists No longer eligible based on patient's age to complete this topic SMOKING STATUS SCREENING (Once After 26 Yrs) Completed 06/02/2024 HIB VACCINES Aged Out No longer eligi ble based on patient's age to complete this topic PNEUMOCOCCAL VACCINES (0-49 years) Aged Out No longer eligible based on patient's age to complete this topic Medical Devices Not on file Procedures Procedure Name Priority Date/Time Associated Diagnosis Comments BASIC METABOLIC PANEL STAT 01/24/2024 12:57 PM EDT OUTSIDE HDL Routine 06/03/2023 OUTSIDE GLUCOSE FASTING Routine 06/03/2023 from Last 3 Months or Most Recently Relevant to Health Maintenance Results * (ABNORMAL) Basic metabolic panel (01/24/2024 12:57 PM EDT) SODIUM 136 135 - 145 mmol/L [facility] POTASSIUM 4.1 3.4 - 5.0 mmol/L [facility] CHLORIDE 99 98 - 108 mmol/L [facility] CO2 26 23 - 32 mmol/L [facility] BUN 13 8 - 25 mg/dL [facility] CREATININE 0.90 0.60 - 1.50 mg/dL [facility] GLUCOSE 116(H) 70 - 110 mg/dL [facility] CALCIUM 9.4 8.5 - 10.5 mg/dL [facility] EGFR 108 >59 mL/min/1. 73m2 [facility] Comment:Estimated glomerular filtration rate calculated using the CKD-EPI refit equation. ANION GAP 11 3 - 17 mmol/L [facility] Blood 01/24/2024 12:5 7 PM EDT 01/24/2024 1:08 PM EDT Rafita Yates MD LAB BLOOD ORDERABLES [facility] [address] [place] [address] * (ABNORMAL) Outside Glucose,Fasting (06/03/2023) Glucose, fasting - External 106(A) 65 - 99 mg/dL Historical Provider LAB BLOOD ORDERAB LES * Outside HDL (06/03/2023) HDL - External 52 40 - 80 mg/dL Historical Provider LAB BLOOD ORDERAB LES from Last 3 Months or Most Recently Relevant to Health Maintenance Advance Directives Documents on File Type Date Recorded Patient Crm Architect Expl anation Healthcare Proxy 11/28/2022 1:09 PM * Full Code (Latest Code Status on File) Date Activated Date Inactivated Comments 11/23/2022 8:36 PM Question Answer Comments Code Status Confirmed With: Patient Care Teams Accounts Payables Clerk Relationship Specialty Start Date End Date Arnold Cox MD [address] [place] [address] PCP - General Internal Medicine 01/24/24 Arnold Cox MD [address] [place] [address] [email or web address] Insurance Assigned Provider 02/08/24 Additional Source Comments The information contained in this document represents components of the legal health record. It is not the complete legal health record.[facility]
--- OUTSIDE RECORDS SUMMARY | 2024-07-27 18:52 | XMS_ITS | Encounter Summary ---
Author Organization [facility] Address [phone] [facility] [place] [address] Care Team Providers Care Bee Worker Name Role Phone Arnold Cox MD Primary Care Provider [phone] Arnold Cox MD Unavailable Encounter Details Date Type Department Care Team (Late st Contact Info) Description 01/25/2024 Procedure Pass [facility] [address] [place] [address] Social History Tobacco Use Types Packs/Day Years Used Date Smoking Tobacco: Never Passive Smoke Exposure: Never Smokeless Tobacco: Never Alcohol Use Standard Drinks/Week Comments Not Currently [...] high school, GED, job training, learning the Anguillan language, technical skills, or developing parenting skills)? [...] Contact Info) Description 03/16/2024 Procedure Pass [facility] Cardiac US 55 [place] [address] 06/02/2024 Procedure Pass [facility] Echo Lab [address] [place] [address] 09/08/2024 11:30 AM EDT Appointment [facility] Cardiac US 55 [place] [address] Frances Prescott MD 55 [facility] [address] [place] [address] [email or web address] 09/08/2024 1:00 PM EDT Office Visit [facility] Pulmonary Hypertension Clinic 55 [facility] 201 [place] [address] Frances Prescott MD 55 [facility] [place] [address] [email or web address] 09/22/2024 1:00 PM EDT Telemedicine [facility] Center for Hematology [address] [facility] [address] [place] [address] Sadia Santos MD [address] [address] [email or web address] 12/01/2024 10:00 AM EDT Appointment Non-Invasive Cardiology 30 [place] [address] Ivy Ramires FNP [address] [place] [address] [email or web address] 12/01/2024 11:30 AM EDT Appointment [facility] Echo Lab 30 [place] [address] Ivy Ramires FNP [address] [place] [address] [email or web address] 12/30/2024 1:30 PM EDT Appointment [facility] [place] Internal Medicine [address] [place] [address] Arnold Cox MD 40 [place] [address] [email or web address] documented as of this encounter Visit Diagnoses Not on filedocumented in this encounter Additional Health Concerns Assessment Noted Time PHQ-2 Depression Total Score: 0 11/15/19 11:33 AM EDT documented as of this encounter Care Teams Bee Worker Relationship Specialty Start Date End Date Arnold Cox MD 40 [place] [address] [email or web address] PCP - General Internal Medicine 01/24/24 Arnold Cox MD 40 [place] [address] [email or web address] Insurance Assigned Provider 02/08/24 documented as of this encounter Additional Source Comments The information contained in this document represents components of the legal health record. It is not the complete legal health record.[facility]
--- OUTSIDE RECORDS SUMMARY | 2024-07-27 18:52 | XMS_ITS | Encounter Summary ---
Author Organization [facility] Address [phone] Critical access [place] [address] Care Team Providers Care Distribution Associate Name Role Phone Arnold Cox MD Primary Care Provider [phone] Arnold Cox MD Unavailable Encounter Details Date Type Department Care Team (Late st Contact Info) Description 02/03/2024 Telephone [facility] Center for Hematology [address] [facility] [address] [place] [address] Sadia Santos MD [address] [place] [address] [email or web address] du Social History Tobacco Use Types Packs/Day [...] high school, GED, job training, learning the Qatari language, technical skills, or developing parenting skills)? [...] st Contact Info) Description 03/16/2024 Procedure Pass [facility] Cardiac US [address] [place] [address] 06/02/2024 Procedure Pass [facility] [address] [place] [address] 09/08/2024 11:30 AM EDT Appointment [facility] Cardiac US 55 [place] [address] Frnaces Prescott MD 55 [facility]148 [place] [address] [email or web address] 09/08/2024 1:00 PM EDT Office Visit [facility] Pulmonary Hypertension Clinic 55 [facility] 201 [place] [address] Frances Prescott MD [address] [place], [place] [id number] [place] [address] [email or web address]@[facility] 09/22/2024 1:00 PM EDT Telemedicine [facility] Center for Hematology 55 [facility] 7B [place] [address] Sadia Santos MD [address] [address] [email or web address] 12/01/2024 10:00 AM EDT Appointment Non-Invasive Cardiology 30 [place] [address] Ivy Ramires FNP 55 [place] [address] [email or web address] 12/01/2024 11:30 AM EDT Appointment [facility] 30 [place] [address] Ivy Ramires FNP 55 [place] [address] [email or web address] 12/30/2024 1:30 PM EDT Appointment [facility] Internal Medicine 40 [place] [address] Arnold Cox MD 40 [place] [address] [email or web address] documented as of this encounter Visit Diagnoses Not on filedocumented in this encounter Additional Health Concerns Assessment Noted Time PHQ-2 Depression Total Score: 0 11/15/19 11:33 AM EDT documented as of this encounter Care Teams Distribution Associate Relationship Specialty Start Date End Date Arnold Cox MD 40 [place] [address] [email or web address] PCP - General Internal Medicine 01/24/24 Arnold Cox MD 40 [place] [address] [email or web address] Insurance Assigned Provider 02/08/24 documented as of this encounter Additional Source Comments The information contained in this document represents components of the legal health record. It is not the complete legal health record.[facility]
--- OUTSIDE RECORDS SUMMARY | 2024-07-27 18:52 | XMS_ITS | Encounter Summary ---
Author Organization [facility] Address [phone] [facility] [place] [address] Care Team Providers Care Clearing Distribution Clerk Name Role Phone Arnold Cox MD Primary Care Provider Arnold Cox MD Unavailable Encounter Details Date Type Department Care Team (Late st Contact Info) Description 01/24/2024 Procedure Pass [facility] Cardiac Saw Superintendent [address] [place] [address] Social History Tobacco Use Types Packs/Day Years [...] high school, GED, job training, learning the Swazi language, technical skills, or developing parenting skills)? [...] st Contact Info) Description 03/16/2024 Procedure Pass [facility] Cardiac US 55 [place] [address] 06/02/2024 Procedure Pass [facility] Echo Lab [address] [place] [address] 09/08/2024 11:30 AM EDT Appointment [facility] Cardiac US 55 [place] [address] Frances Prescott MD 55 [facility]148 [place] [address] [email or web address]@[email or web address] 09/08/2024 1:00 PM EDT Office Visit [facility] Pulmonary Hypertension Clinic 55 [facility] 201 [place] [address] Frances Pres[place] MD 55 [facility]148 [place] [address] [email or web address]@[email or web address] 09/22/2024 1:00 PM EDT Telemedicine [facility] Center for Hematology [facility] [address] [place] [address] Sadia Santos MD [address] [address] [email or web address] 12/01/2024 10:00 AM EDT Appointment Non-Invasive Cardiology 30 [place] [address] Ivy Ramires FN[address] [address] [email or web address] 12/01/2024 11:30 AM EDT Appointment [facility] 30 [place] [address] Ivy Ramires FNP [address] [place] [address] [email or web address]@[facility] 12/30/2024 1:30 PM EDT Appointment [facility] Medical [facility] Internal Medicine 40 [place] [address] Arnold Cox MD 40 [place], [place] [id number] [email or web address] documented as of this encounter Visit Diagnoses Not on filedocumented in this encounter Additional Health Concerns Assessment Noted Time PHQ-2 Depression Total Score: 0 11/15/19 11:33 AM EDT documented as of this encounter Care Teams Clearing Distribution Clerk Relationship Specialty Start Date End Date Arnold Cox MD 40 [place] [address] [email or web address] PCP - General Internal Medicine 01/24/24 Arnold Cox MD 40 [place] [address] Insurance Assigned Provider 02/08/24 documented as of this encounter Additional Source Comments The information contained in this document represents components of the legal health record. It is not the complete legal health record.[facility]
--- OUTSIDE RECORDS SUMMARY | 2024-07-27 18:52 | XMS_ITS | Encounter Summary ---
Author Organization [facility] Address [phone] [facility] [place] [address] Care Team Providers Care Geriatric Assistant Name Role Phone Arnold Cox MD Primary Care Provider [phone] Arnold Cox MD Unavailable Encounter Details Date Type Department Care Team (Late st Contact Info) Description 03/09/2024 Telephone [facility] Center for Hematology [address] [facility] 7B [place] [address] Sadia Santos MD [address] [place] [address] [email or web address]. du Social History Tobacco Use Types Packs/Day [...] high school, GED, job training, learning the Dominican language, technical skills, or developing parenting skills)? [...] st Contact Info) Description 03/16/2024 Procedure Pass [facility] Cardiac US [address] [place] [address] 06/02/2024 Procedure Pass [facility] [address] [place] [address] 09/08/2024 11:30 AM EDT Appointment [facility] Cardiac US 55 [place] [address] Frances Prescott MD 55 [facility]148 [place] [address] [email or web address]@[facility] 09/08/2024 1:00 PM EDT Office Visit [facility] Pulmonary Hypertension Clinic 55 [facility] 201 [place] [address] Frances Prescott MD [address] [place], [place] [address] [place] [address] CRUZ@[facility] 09/22/2024 1:00 PM EDT Telemedicine [facility] Center for Hematology 55 [facility] 7B [place] [address] Sadia Santos MD [address] [address] [email or web address] 12/01/2024 10:00 AM EDT Appointment Non-Invasive Cardiology 30 [place] [address] Ivy Ramires FNP 55 [place] [address] [email or web address]@[email or web address] 12/01/2024 11:30 AM EDT Appointment [facility] 30 [place] [address] Ivy Ramires FNP 55 [place] [address] FAVIOLA@[email or web address] 12/30/2024 1:30 PM EDT Appointment [facility] Internal Medicine 40 [place] [address] Arnold Cox MD 40 [place] [address] [email or web address] documented as of this encounter Visit Diagnoses Not on filedocumented in this encounter Additional Health Concerns Assessment Noted Time PHQ-2 Depression Total Score: 0 11/15/19 11:33 AM EDT documented as of this encounter Care Teams Geriatric Assistant Relationship Specialty Start Date End Date Arnold Cox MD 40 [place] [address] [email or web address] PCP - General Internal Medicine 01/24/24 Arnold Cox MD 40 [place] [address] [email or web address] Insurance Assigned Provider 02/08/24 documented as of this encounter Additional Source Comments The information contained in this document represents components of the legal health record. It is not the complete legal health record.[facility]
--- OUTSIDE RECORDS SUMMARY | 2024-07-27 18:52 | XMS_ITS | Encounter Summary ---
Author Organization [facility] Address [phone] [facility] [place] [address] Care Team Providers Care Service Or Work Dispatcher Name Role Phone Arnold Cox MD Primary Care Provider [phone] Arnold Cox MD Unavailable Encounter Details Date Type Department Care Team (Late st Contact Info) Description 03/03/2024 Telephone [facility] Center for Hematology [address] [facility] 7[address] [place] [address] Sadia Santos MD [address] [place] [address] [email or web address]. du Social History Tobacco Use Types Packs/Day [...] high school, GED, job training, learning the British language, technical skills, or developing parenting skills)? [...] Contact Info) Description 03/16/2024 Procedure Pass [facility] Cardiac US [address] [place] [address] 06/02/2024 Procedure Pass [facility] [address] [place] [address] 09/08/2024 11:30 AM EDT Appointment [facility] Cardiac US 55 [place] [address] Frances Pres[place] MD 55 [facility]148 [place] [address] [email or web address]@[facility] 09/08/2024 1:00 PM EDT Office Visit [facility] Pulmonary Hypertension Clinic 55 [facility] 201 [place] [address] Frances [place] MD [address] [place], [place] [address] [place] [address] CRUZ@[facility] 09/22/2024 1:00 PM EDT Telemedicine [facility] Center for Hematology [address] [facility] 7B [place] [address] Sadia Santos MD [address] [address] [email or web address] 12/01/2024 10:00 AM EDT Appointment Non-Invasive Cardiology 30 [place] [address] Ivy Ramires FNP 55 [place] [address] [email or web address]@[facility] 12/01/2024 11:30 AM EDT Appointment [facility] Echo [facility] 30 [place] [address] Ivy Ramires FNP 55 [place] [address] [email or web address]@[facility] 12/30/2024 1:30 PM EDT Appointment [facility] Internal Medicine 40 [place] [address] Arnold Cox MD 40 [place] [address] [email or web address] documented as of this encounter Visit Diagnoses Not on filedocumented in this encounter Additional Health Concerns Assessment Noted Time PHQ-2 Depression Total Score: 0 11/15/19 11:33 AM EDT documented as of this encounter Care Teams Service Or Work Dispatcher Relationship Specialty Start Date End Date Arnold Cox MD 40 [place] [address] [email or web address] PCP - General Internal Medicine 01/24/24 Arnold Cox MD 40 [place] [address] [email or web address] Insurance Assigned Provider 02/08/24 documented as of this encounter Additional Source Comments The information contained in this document represents components of the legal health record. It is not the complete legal health record.[facility]
--- OUTSIDE RECORDS SUMMARY | 2024-07-27 18:52 | XMS_ITS | Encounter Summary ---
Author Organization [facility] Address [phone] [facility] [place] [address] Care Team Providers Care Wall Taper Helper Name Role Phone Pcp, Unknown Primary Care Provider UnavailAlvaro Shea MD Primary Care Provider [phone] Arnold Cox MD Primary Care Provider Arnold Cox MD Unavailable Encounter Details Date Type Department Care Team (Late st Contact Info) Description 11/23/2022 Procedure Pass [facility] 30 [place] [address] Social History Tobacco Use Types Packs/Day Years [...] st Contact Info) Description 03/16/2024 Procedure Pass [facility] Cardiac US [address] [place] [address] 06/02/2024 Procedure Pass [facility] Echo Lab 30 [place] [address] 09/08/2024 11:30 AM EDT Appointment [facility] Cardiac US 55 [place] [address] Frances [place] MD [address] [place], [place] [id number] [place] [address] CRUZ@[facility] 09/08/2024 1:00 PM EDT Office Visit [facility] Pulmonary Hypertension Clinic [address] [facility] 201 [place] [address] Frances [place] MD [address] [place] [address] CRUZ@[facility] 09/22/2024 1:00 PM EDT Telemedicine [facility] Center for Hematology [address] [place] [address] 7[address] [place] [address] Sadia Santos MD [address] [place] [address] [email or web address] 12/01/2024 10:00 AM EDT Appointment Non-Invasive Cardiology 30 [place] [address] Ivy Ramires FNP 55 [place] [address] FAVIOLA@[facility] 12/01/2024 11:30 AM EDT Appointment [facility] 30 [place] [address] Ivy Ramires FNP [address] [place] [address] FAVIOLA@[facility] 12/30/2024 1:30 PM EDT Appointment [facility] Internal Medicine 40 [place], [place] [phone] Arnold Cox MD 40 [place], [place] [address] [email or web address] documented as of this encounter Visit Diagnoses Not on filedocumented in this encounter Care Teams Wall Taper Helper Relationship Specialty Start Date End Date Pcp, Unknown PCP - General 11/23/22 11/23/22 Alvaro Blue MD [address] [place] [address] PCP - General Internal Medicine 11/24/22 01/23/24 Arnold Cox MD 40 [place] [address] PCP - General Internal Medicine 01/24/24 Arnold Cox MD [address] [place] [address] [email or web address] Insurance Assigned Provider 02/08/24 documented as of this encounter Additional Source Comments The information contained in this document represents components of the legal health record. It is not the complete legal health record.[facility]
--- OUTSIDE RECORDS SUMMARY | 2024-07-27 18:52 | XMS_ITS | Encounter Summary ---
Author Organization [facility] Address [phone] [facility] [place] [address] Care Team Providers Care Wash Driller Helper Name Role Phone Arnold Cox MD Primary Care Provider Arnold Cox MD Unavailable Encounter Details Date Type Department Care Team (Late st Contact Info) Description 01/26/2024 Procedure Pass [facility] Holter Lab [address] [place] [address] [place] [address] Social History Tobacco Use Types Packs/Day Years [...] high school, GED, job training, learning the Palauan language, technical skills, or developing parenting skills)? [...] st Contact Info) Description 03/16/2024 Procedure Pass [facility] Cardiac US 55 [place] [address] 06/02/2024 Procedure Pass [facility] Echo Lab 30 [place] [address] 09/08/2024 11:30 AM EDT Appointment [facility] Cardiac US 55 [place] [address] Frances [place] MD 55 [facility]148 [place] [address] CRUZ@[facility] 09/08/2024 1:00 PM EDT Office Visit [facility] Pulmonary Hypertension Clinic 55 [facility] 201 [place] [address] Frances [place] MD 55 [facility]148 [place] [address] CRUZ@[facility] 09/22/2024 1:00 PM EDT Telemedicine [facility] Center for Hematology 55 [facility] 7B [place] [address] Sadia Santos MD [address] [address] [email or web address]@[email or web address] 12/01/2024 10:00 AM EDT Appointment Non-Invasive Cardiology 30 [place] [address] Ivy Ramires FNP 55 [place] [address] FAVIOLA@[facility] 12/01/2024 11:30 AM EDT Appointment [facility] Echo [facility] 30 [place] [address] Ivy Ramires FNP [address] [place] [address] FAVIOLA@[facility] 12/30/2024 1:30 PM EDT Appointment [facility] [place] Internal Medicine 40 [place] [address] Arnold Cox MD 40 [place], [place] [phone] [email or web address] documented as of this encounter Visit Diagnoses Not on filedocumented in this encounter Additional Health Concerns Assessment Noted Time PHQ-2 Depression Total Score: 0 11/15/19 11:33 AM EDT documented as of this encounter Care Teams Wash Driller Helper Relationship Specialty Start Date End Date Arnold Cox MD 40 [place] [address] PCP - General Internal Medicine 01/24/24 Arnold Cox MD 40 [place] [address] Insurance Assigned Provider 02/08/24 documented as of this encounter Additional Source Comments The information contained in this document represents components of the legal health record. It is not the complete legal health record.[facility]
--- OUTSIDE RECORDS SUMMARY | 2024-07-27 18:52 | XMS_ITS | Continuity of Care Document ---
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 It does not include entries that were removed or entered in error. 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 Immunization Series Date Given Administered By Site Reaction Lot Number CVX Code Drug Ophthalmic Surgeon Status Comments Source influenza, injectable, quadrivalent- pf 2021 [id number] GlaxoSmithKli ne complet ed influenza , injectabl e, quadrival ent-pf 04/11/22 Given Ambulat ory Pharmac y SARS-CoV-2 (COVID-19) mRNA-Bivalent 2021 [id number] complet ed SARS-CoV- 2 (COVID-19 ) mRNA-Biva lent 03/29/22 Given Ambulat ory Pharmac y typhoid Vi capsular polysaccharid e vac 2021 [id number] 101 sanofi pasteur complet ed typhoid Vi capsular polysacch aride vac 07/11/21 Given Ambulat ory Pharmac y COVID Vaccine Moderna 2020 [id number] 207 complet ed COVID Vaccine Moderna 05/22/21 Given Ambulat ory Pharmac y influenza, injectable, quadrivalent 2020 [id number] 158 GlaxoSmithKli ne complet ed influenza , injectabl e, quadrival ent 03/15/21 Given Ambulat ory Pharmac y tetanus, diphtheria, acellular pertu is 2020 [id number] 115 sanofi pasteur complet ed tetanus, diphtheri a, acellular pertussis 01/31/21 Given Ambulat ory Pharmac y meningococcal A,C,Y,W-135 (MCV4P) 2020 [id number] 114 sanofi pasteur complet ed meningoco ccal A,C,Y,W-1 35 (MCV4P) 11/16/20 Given Ambulat ory Pharmac y COVID Vaccine Moderna 2020 [id number] 207 complet ed COVID Vaccine Moderna 08/26/20 Given Ambulat ory Pharmac y COVID Vaccine Moderna 2020 [id number] 207 complet ed COVID Vaccine Moderna 07/25/20 Given Ambulat ory Pharmac y influenza, seasonal, injectable 2019 [id number] 141 GlaxoSmithKli ne complet ed influenza , seasonal, injectabl e 05/30/20 Given Ambulat ory Pharmac y typhoid Vi capsular polysaccharid e vac 2018 [id number] 101 sanofi pasteur complet ed typhoid Vi capsular polysacch aride vac 06/07/19 Given Ambulat ory Pharmac y influenza, injectable, quadrivalent- pf 2018 [id number] 150 Seqirus complet ed influenza , injectabl e, quadrival ent-pf 06/07/19 Given Ambulat ory Pharmac y influenza, seasonal, injectable 2017 [id number] 141 sanofi pasteur complet ed influenza , seasonal, injectabl e 05/20/18 Given Ambulat ory Pharmac y typhoid Vi capsular polysaccharid e vac 2016 [id number] 101 sanofi pasteur complet ed typhoid Vi capsular polysacch aride vac 05/31/17 Given Ambulat ory Pharmac y Influenza, inj, MDCK, quadrivalent- pf 2016 [id number] 171 Seqirus complet ed Influenza , inj, MDCK, quadrival ent-pf 05/31/17 Given Ambulat ory Pharmac y influenza, seasonal, injectable-pf 2015 [id number] 140 CSL Behring complet ed influenza , seasonal, injectabl e-pf 05/06/16 Given Ambulat ory Pharmac y meningococcal A,C,Y,W-135 (MCV4P) 2015 [id number] 114 sanofi pasteur complet ed meningoco ccal A,C,Y,W-1 35 (MCV4P) 12/03/15 Given Ambulat ory Pharmac y typhoid Vi capsular polysaccharid e vac 2014 [id number] 101 sanofi pasteur complet ed typhoid Vi capsular polysacch aride vac 05/21/15 Given Ambulat ory Pharmac y influenza, seasonal, injectable-pf 2014 [id number] 140 CSL Behring complet ed influenza , seasonal, injectabl e-pf 04/14/15 Given Ambulat ory Pharmac y influenza, seasonal, injectable 2013 [id number] 141 CSL Behring complet ed influenza , seasonal, injectabl e 03/07/14 Given Ambulat ory Pharmac y typhoid Vi capsular polysaccharid e vac 2012 P5938-3 101 sanofi pasteur complet ed typhoid Vi capsular polysacch aride vac 04/26/13 Given Ambulat ory Pharmac y Influenza, injectable, MDCK-pf 2012 [id number] 153 Novartis Pharmaceutica complet ed Influenza , injectabl e, MDCK-pf 04/26/13 Given Ambulat ory Pharmac y influenza, seasonal, injectable-pf 2011 [id number] 140 L Behring complet ed influenza , seasonal, injectabl e-pf 04/11/12 Given Ambulat ory Pharmac y influenza, seasonal, injectable-pf 2010 [id number] 140 CSL Behring complet ed influenza , seasonal, injectabl e-pf 05/06/11 Given Ambulat ory Pharmac y tetanus, diphtheria, acellular pertu is 2010 [id number] 115 sanofi pasteur complet ed tetanus, diphtheri a, acellular pertussis 05/06/11 Given Ambulat ory Pharmac y typhoid Vi capsular polysaccharid e vac 2010 [id number] 101 sanofi pasteur complet ed typhoid Vi capsular polysacch aride vac 05/06/11 Given Ambulat ory Pharmac y yellow fever vaccine 2010 [id number] 37 sanofi pasteur complet ed yellow fever vaccine 05/06/11 Given Ambulat ory Pharmac y yellow fever vaccine 1 2010 [id number] 37 Sanofi Pasteur ([facility]) complet ed yellow fever vaccine DoD typhoid Vi capsular polysaccharid e vaccine 6 2010 [id number] 101 Sanofi Pasteur ([facility]) complet ed typhoid Vi capsular polysacch aride vaccine DoD tetanus toxoid, reduced diphtheria toxoid, and acellular pertu is vaccine, adsorbed 0 2010 [id number] 115 Sanofi Pasteur ([facility]) complet ed tetanus toxoid, reduced diphtheri a toxoid, and acellular pertussis vaccine, adsorbed DoD Influenza, seasonal, injectable, preservative free 12 2010 [id number] 140 [facility] [employer] (CS) complet ed Influenza , seasonal, injectabl e, preservat joelle free DoD meningococcal A,C,Y,W-135 (MCV4P) 2010 [id number] 114 sanofi pasteur complet ed meningoco ccal A,C,Y,W-1 35 (MCV4P) 11/12/10 Given Ambulat ory Pharmac y meningococcal polysaccharid e (groups A, C, Y and W-135) diphtheria toxoid conjugate vaccine (MCV4P) 1 2010 [id number] 114 Sanofi Pasteur ([facility]) complet ed meningoco ccal polysacch aride (groups A, C, Y and W-135) diphtheri a toxoid conjugate vaccine (MCV4P) DoD vaccinia (smallpox) vaccine 2009 VV04-00 3A 75 [employer] complet ed vaccinia (smallpox ) vaccine 04/13/10 Given Ambulat ory Pharmac y anthrax vaccine 2009 [id number] Emergent [employer] complet ed anthrax vaccine 04/13/10 Given Ambulat ory Pharmac y influenza virus vaccine,split 2009 [id number] 15 CSL Behring complet ed influenza virus vaccine,s plit 04/13/10 Given Ambulat ory Pharmac y influenza virus vaccine, split virus (incl. purified surface antigen)-reti red CODE 1 2009 [id number] 15 CS [employer] (CS) complet ed influenza virus vaccine, split virus (incl. purified surface antigen)- retired CODE DoD anthrax vaccine 5 2009 [id number] 24 [employer] [place] ([facility]) complet ed anthrax vaccine DoD vaccinia (smallpox) vaccine 1 2009 VV04-00 3A 75 [facility] ([facility]) complet ed vaccinia (smallpox ) vaccine DoD Novel influenza-H1N 1-09, injectable 2009 [id number] 1 127 Novartis Pharmaceutica ls complet ed Novel influenza -D1Y8-39, injectabl e 07/24/09 Given Ambulat ory Pharmac y Novel influenza-H1N 1-09, injectable 1 2009 [id number] 1 127 Novartis Pharmaceutica l Alec. (NOV) complet ed Novel influenza -J7B2-76, injectabl e DoD typhoid Vi capsular polysaccharid e vac 2008 [id number] 101 sanofi pasteur complet ed typhoid Vi capsular polysacch aride vac 04/20/09 Given Ambulat ory Pharmac y typhoid Vi capsular polysaccharid e vaccine 1 2008 [id number] 101 Sanofi Pasteur ([facility]) complet ed typhoid Vi capsular polysacch aride vaccine DoD influenza virus vaccine, live 2008 [id number] 111 [employer] comple t ed influenza virus vaccine, live 04/04/09 Given Ambulat ory Pharmac y influenza virus vaccine, live, attenuated, for intranasal use 1 2008 [id number] 111 [employer] (MED) complet ed influenza virus vaccine, live, attenuate d, for intranasa l use DoD influenza virus vaccine,split 2007 [id number] 15 GlaxoSmithKli ne complet ed influenza virus vaccine,s plit 05/13/08 Given Ambulat ory Pharmac y influenza virus vaccine, split virus (incl. purified surface antigen)-reti red CODE 1 2007 [id number] 15 [facility] (SKB) complet ed influenza virus vaccine, split virus (incl. purified surface antigen)- retired CODE DoD typhoid Vi capsular polysaccharid e vac 2006 [id number] 101 sanofi pasteur complet ed typhoid Vi capsular polysacch aride vac 06/04/07 Given Ambulat ory Pharmac y typhoid Vi capsular polysaccharid e vaccine 1 2006 [id number] 101 Sanofi Pasteur ([facility]) complet ed typhoid Vi capsular polysacch aride vaccine DoD influenza virus vaccine,split 2006 [id number] 15 GlaxoSmithKli ne complet ed influenza virus vaccine,s plit 05/03/07 Given Ambulat ory Pharmac y influenza virus vaccine, split virus (incl. purified surface antigen)-reti red CODE 1 2006 [id number] 15 [facility] (SKB) complet ed influenza virus vaccine, split virus (incl. purified surface antigen)- retired CODE DoD influenza virus vaccine, whole virus 2005 16 complet ed influenza virus vaccine, whole virus 05/30/06 Given Ambulat ory Pharmac y influenza virus vaccine,split 2005 15 complet ed influenza virus vaccine,s plit 05/30/06 Given Ambulat ory Pharmac y influenza virus vaccine, split virus (incl. purified surface antigen)-reti red CODE 1 2005 15 () complet ed influenza virus vaccine, split virus (incl. purified surface antigen)- retired CODE [facility] meningococcal polysaccharid e (MPSV4) 2005 [id number] 32 sanofi pasteur complet ed meningoco ccal polysacch aride (MPSV4) 11/18/05 Given Ambulat ory Pharmac y meningococcal polysaccharid e vaccine (MPSV4) 1 2005 [id number] 32 Sanofi Pasteur ([facility]) complet ed meningoco ccal polysacch aride vaccine (MPSV4) [facility] typhoid vaccine, parenteral 2004 [id number] 41 sanofi pasteur complet ed typhoid vaccine, parentera l 06/04/05 Given Ambulat ory Pharmac y typhoid vaccine, parenteral, other than acetone-kille d, dried 1 2004 [id number] 41 Sanofi Pasteur ([facility]) complet ed typhoid vaccine, parentera l, other than acetone-k illed, dried DoD influenza virus vaccine,split 2004 [id number] 15 sanofi pasteur complet ed influenza virus vaccine,s plit 05/07/05 Given Ambulat ory Pharmac y influenza virus vaccine, split virus (incl. purified surface antigen)-reti red CODE 1 2004 [id number] 15 Sanofi Pasteur ([facility]) complet ed influenza virus vaccine, split virus (incl. purified surface antigen)- retired CODE DoD influenza virus vaccine, live 2004 [id number] 111 [facility] comple t ed influenza virus vaccine, live 07/12/04 Given Ambulat ory Pharmac y influenza virus vaccine, live, attenuated, for intranasal use 0 2004 [id number] 111 [employer] ([facility]) complet ed influenza virus vaccine, live, attenuate d, for intranasa l use DoD anthrax vaccine 2003 [id number] 24 [employer] complet ed anthrax vaccine 04/15/04 Given Ambulat ory Pharmac y anthrax vaccine 5 2003 [id number] 24 [facility] ([facility]) complet ed anthrax vaccine DoD tuberculin purified protein derivative 2003 [id number] 96 sanofi pasteur complet ed tuberculi n purified protein derivativ e 11/13/03 Given Ambulat ory Pharmac y anthrax vaccine 2003 [id number] 24 [employer] complet ed anthrax vaccine 09/05/03 Given Ambulat ory Pharmac y anthrax vaccine 4 2003 [id number] 24 [facility] ([facility]) complet ed anthrax vaccine DoD typhoid vaccine, parenteral 2002 [id number] 41 sanofi pasteur complet ed typhoid vaccine, parentera l 06/21/03 Given Ambulat ory Pharmac y influenza virus vaccine, whole virus 2002 [id number] 16 sanofi pasteur complet ed influenza virus vaccine, whole virus 06/21/03 Given Ambulat ory Pharmac y influenza virus vaccine, whole virus 0 2002 [id number] 16 Sanofi Pasteur ([facility]) complet ed influenza virus vaccine, whole virus DoD typhoid vaccine, parenteral, other than acetone-kille d, dried 0 2002 [id number] 41 Sanofi Pasteur ([facility]) complet ed typhoid vaccine, parentera l, other than acetone-k illed, dried DoD anthrax vaccine 2002 [id number] 24 [employer] complet ed anthrax vaccine 12/02/02 Given Ambulat ory Pharmac y anthrax vaccine 3 2002 [id number] 24 [facility]) complet ed anthrax vaccine DoD tuberculin purified protein derivative 2002 [id number] 96 sanofi pasteur complet ed tuberculi n purified protein derivativ e 11/03/02 Given Ambulat ory Pharmac y anthrax vaccine 2002 [id number] 24 [employer] complet ed anthrax vaccine 11/03/02 Given Ambulat ory Pharmac y anthrax vaccine 2 2002 [id number] 24 [employer] [place] ([facility]) complet ed anthrax vaccine DoD anthrax vaccine 2002 [id number] 24 [employer] complet ed anthrax vaccine 10/15/02 Given Ambulat ory Pharmac y anthrax vaccine 1 2002 [id number] 24 Emergent Bio[employer] [facility] ([facility]) complet ed anthrax vaccine DoD influenza virus vaccine, whole virus 2001 [id number] 16 sanofi pasteur complet ed influenza virus vaccine, whole virus 04/05/02 Given Ambulat ory Pharmac y influenza virus vaccine, whole virus 0 2001 [id number] 16 Sanofi Pasteur ([facility]) complet ed influenza virus vaccine, whole virus DoD tuberculin purified protein derivative 2001 [id number] 96 sanofi pasteur complet ed tuberculi n purified protein derivativ e 11/11/01 Given Ambulat ory Pharmac y influenza virus vaccine, whole virus 2001 [id number] 16 sanofi pasteur complet ed influenza virus vaccine, whole virus 09/05/01 Given Ambulat ory Pharmac y influenza virus vaccine, whole virus 0 2001 [id number] 16 Sanofi Pasteur ([facility]) complet ed influenza virus vaccine, whole virus DoD typhoid vaccine, parenteral 2000 [id number] 41 GlaxoSmithKli ne complet ed typhoid vaccine, parentera l 04/25/01 Given Ambulat ory Pharmac y yellow fever vaccine 2000 [id number] 37 sanofi pasteur complet ed yellow fever vaccine 04/25/01 Given Ambulat ory Pharmac y hepatitis A adult vaccine 2000 [id number] 52 Merck & Company Inc complet ed hepatitis A adult vaccine 04/25/01 Given Ambulat ory Pharmac y tetanus-dipht h toxoids (Td) adult/adol 2000 [id number] 09 sanofi pasteur complet ed tetanus-d iphth toxoids (Td) adult/ado l 04/25/01 Given Ambulat ory Pharmac y tetanus and diphtheria toxoids, adsorbed, preservative free, for adult use (2 Lf of tetanus toxoid and 2 Lf of diphtheria toxoid) 0 2000 [id number] 09 Sanofi Pasteur ([facility]) complet ed tetanus and diphtheri a toxoids, adsorbed, preservat joelle free, for adult use (2 Lf of tetanus toxoid and 2 Lf of diphtheri a toxoid) DoD yellow fever vaccine 0 2000 [id number] 37 Sanofi Pasteur ([facility]) complet ed yellow fever vaccine DoD typhoid vaccine, parenteral, other than acetone-kille d, dried 0 2000 [id number] 41 [facility] ([facility]) complet ed typhoid vaccine, parentera l, other than acetone-k illed, dried DoD hepatitis A vaccine, adult dosage 2 2000 [id number] 52 Merck (MSD) complet ed hepatitis A vaccine, adult dosage DoD hepatitis A adult vaccine 2000 [id number] 52 Merck & Company Inc complet ed hepatitis A adult vaccine 10/18/00 Given Ambulat ory Pharmac y measles, mumps and rubella virus vaccine 0 2000 03 () Not Given measles, mumps and rubella virus vaccine DoD varicella virus vaccine 1 2000 21 () Not Given varicella virus vaccine DoD hepatitis A vaccine, adult dosage 1 2000 [id number] 52 Merck (MSD) complet ed hepatitis A vaccine, adult dosage DoD tuberculin purified protein derivative 2000 [id number] 96 [facility] ed tuberculi n purified protein derivativ e 10/10/00 Given Ambulat ory Pharmac y meningococcal polysaccharid e (MPSV4) 2000 [id number] 32 [facility] complet ed meningoco ccal polysacch aride (MPSV4) 10/10/00 Given Ambulat ory Pharmac y influenza virus vaccine, whole virus 2000 [id number] 16 [employer] complet ed influenza virus vaccine, whole virus 10/10/00 Given Ambulat ory Pharmac y poliovirus vaccine, inactivated 2000 [id number] 10 sanofi pasteur complet ed polioviru s vaccine, inactivat ed 10/10/00 Given Ambulat ory Pharmac y measles, mumps and rubella virus vaccine 0 2000 03 () Not Given measles, mumps and rubella virus vaccine DoD poliovirus vaccine, inactivated 0 2000 [id number] 10 Sanofi Pasteur ([facility]) complet ed polioviru s vaccine, inactivat ed DoD influenza virus vaccine, whole virus 0 2000 [id number] 16 Adelina ([facility]) complet ed influenza virus vaccine, whole virus DoD meningococcal polysaccharid e vaccine (MPSV4) 0 2000 [id number] 32 Mary (CON) complet ed meningoco ccal polysacch aride vaccine (MPSV4) DoD hepatitis B adult vaccine 1997 42 complet ed hepatitis B adult vaccine 11/12/97 Given Ambulat ory Pharmac y hepatitis B vaccine, adult dosage 3 1997 43 () complet ed hepatitis B vaccine, adult dosage DoD hepatitis B adult vaccine 1997 43 complet ed hepatitis B adult vaccine 08/13/97 Given Ambulat ory Pharmac y hepatitis B vaccine, adult dosage 2 1997 42 () complet ed hepatitis B vaccine, adult dosage DoD hepatitis B adult vaccine 1997 [id number] 43 complet ed hepatitis B adult vaccine 07/09/97 Given Ambulat ory Pharmac y hepatitis B vaccine, adult dosage 1 1997 [id number] 42 () complet ed hepatitis B vaccine, adult dosage DoD Vital Signs Combined list of inpatient and outpatient Vital Signs from Department of Defense and Veterans Affairs, ranging from 12 months to all on record, depending upon the facility. Vital Sign Value Date Comments Source No data available for this section Ambulatory Pharmacy Encounters Combined list of: 1) Encounters from Department of Veterans Affairs facilities going back up to thelast 18 months. 2) Encounters from the Department of Defense facilities going back up to 280 months. Location Location Details Encounter Type Encounter Number Reason For Visit Attending Provider ADM Date DC Date Status Disposition Source [id number] AMDS Outpatient [id number] CARA DENNIS 11/06 Discharge Disposition: Home or Self Care 8344R-4 39 AMDS [id number] AMDS Between Visit [id number] 11/07 Discharge Disposition: Home or Self Care 8344R-4 [id number] for examina tion and observa tion for other specifi ed reasons [place] 12/01 Discharge Disposition: Home or Self Care 0035C-N [facility] [id number] AMDS Between Visit [id number] 03/17 Discharge Disposition: Home or Self Care 8344R-4 39 AMDS [id number] AMDS Between Visit [id number] 05/13 Discharge Disposition: Home or Self Care 8344R-4 39 AMDS Procedures Combined list of: 1) Procedures from Department of Veterans Affairs facilities going back up to [facility], not all VA non-surgical procedures are included; 2) All procedures from the Department of Defense facilities. Procedure Procedure Type Code Date Perfomer Comments Sourc e INFECTIOUS AGENT ANTIGEN DETECTION BY IMMUNOASSAY WITH DIRECT OPTICAL (IE, VISUAL) OBSERVATION; INFLUENZA 06/24/2008 [facility] No data available for this section Ambulato ry Pharmacy Social History Combined list of available smoking, tobacco, and other social history from Department of Defense and Veterans Affairs facilities. 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 [facility] Sexual Orientation Ambula tory Pharmacy Gender identity Ambulator y Pharmacy Assessment and Plan Combined list of future care activities from Department of Defense and Veterans Affairs facilities (e.g., assessment and plan notes, appointments, orders, and referrals). Additional future care activities may be listed in the Plan of Care section. Result Assessment and Plan Date Source Assessment and Plan Extracted from:Title : Office Clinic Note Author: STEVEN WALDEN Date: 12/02/23 Encounter for examination and observation for other specified reasons Hearing WNL. Patient's left ear reference audiogram was re-established after follow-up program. A copy of hearing test was given to patient, and uploaded into [employer]. 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 ? Extracted from:Title: FLY PHA Author: WAN PEDRO Date: 11/07/23 Member arrived for FLY PHA. History of Refractive Surgery-?NO Contact Lenses-?N/A Enrolled in Contact Lens Program-?N/A Gas Mask Inserts ordered-?N/A Current SRX on file-?N/A DVA (uncorrected) OD: 20/20 OS:?20/20 NVA (uncorrected) OD: 20/20 OS: 20/20 Phorias: ESO _0_ EXO _0__ RH _0__ LH _0.5__ Depth Perception Uncorrected?Pass through _F__ IOP OD:11 OS:12 Time:?0930 Optometry findings meet standards- Yes Addendum by ANTONY VALDEZ on November 07, 2023 09:50 EDT ?Vitals: Blood Pressure:?130/84 Heart Rate: 51 Height: 76 Weight: 210lb BMI: 25.56 Medications: Eliquis Elocon cream Claritin Vit C Glucosamine Chondroitin Tylenol Chronic Problems: ?R leg DVT R ventricular enlargement SF 507: N/A Comments: No concerns Addendum by CARA NICOLE MD on November 07, 2023 10:55 EDT Chief Complaint: Member here for annual fly PHA. Patient is able to complete duties required by [employer]. No acute complaints.NO: Fly?waiver. Initial Waiver Date: Waiver Exp Date: ALANA?sharlene. Test results reviewed: Audio: Audiogram H-1, no asymmetric hearing loss, no significant threshhold shift Optometry:Meets vision standards for: Near and distant visual acuity, IOP, Depth perception, Phorias EKG:?Not Required PHYSICAL EXAM: HEENT:?Normal Valsalva:?Normal Joints:?Normal Spine:Normal Skin:Normal Neuro:?Normal Lungs:?Normal Heart:?Normal Abdomen:?Normal Comments: ANNUAL PERIODIC HEALTH ASSESSMENT I. 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 Last Name: MARK 2. First Name: JORDON 3. Middle Name: EDIL 4. Assessment Date: 5. : 6. Age: 42 7. Gender: M 8. DoD ID Number: [id number] 9. Service Branch: [employer] 10. 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 Unit Name: [address] [employer] 14. Duty Station/Location: [place] 15. UIC: [id number] 16. Is this your first Periodic Health Assessment (PHA)?: N 17. Are you enrolled in a secure messaging system with your health care provider?: Y 18. Current contact information: Preferred Method: Email 1 DSN: [id number] Day Time Phone: [phone] Night Time Phone: [phone] Email 1: [email or web address] Email 2: [email or web address] Address: [address] [place] [address]: [place] State: [place] Zip Code: [address] 19. Point of contact who can always reach you: Name: Cara Kramer Phone 1: [phone] Phone 2: EMAIL: [email or web address] Address: [address] [place] [address] City: [place] State: [place] Zip Code: [address] II. DEPLOYMENT INFORMATION (DEP) 1. [ 0 ] Total number of deployments in the PAST 5 YEARS 4. [ N ] Are you going to deploy within the NEXT 120 DAYS? III. 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 [ Yes ] Does your specialty require an operational duty physical exam? 4. [ Don't Know ] Are you currently enrolled in a medical surveillance/occupational health program?: Don't Know IV. MEDICAL CONDITIONS (EDDA): 1. Since your last PHA, have you experienced any of the following health conditions, and if so, what is your status? [ ] Conditions with no medical care [ ] Conditions with medical care, but no longer under treatment [ Chest pain, High blood pressure, Other lung problems ] Conditions with medical care, and NOW under treatment 2. Since your last PHA, have you experienced any of the following health conditions, and if so, what is your status? [ Recurring muscle, joint, or low back pain ] Conditions with no medical care [ ] Conditions with medical care, but no longer under treatment [ Wheezing, shortness of breath ] Conditions with medical care, and NOW under treatment 3. For any condition marked YES in question 1 or 2, are you currently on any profile or limited duty for that condition? [ Chest pain, High blood pressure, Other lung problems, Wheezing, shortness of breath ] Conditions 4. [ Yes ] Have you been based or stationed at a location where an open burn pit was used? 5. [ Yes ] Have you been exposed to toxic airborne chemicals or other airborne contaminants? 6. [ Yes ] Are you enrolled in the Airborne Hazards and Open Burn Pit Registry? 8. Have you had any surgery since your last PHA?: No 10.a. [ No ] Since your last PHA, has a health care provider recommended surgery(s) that you have not had? 11.a. [ No ] Do you currently require hearing aids, special medical supplies, CPAP, adaptive equipment, assistive technology devices, and/or other special accommodations? 12.a. [ Yes ] Do you have a waiver or profile for any part of your Service's physical fitness test? 12.b. [ Cardio EventCrunches/Sit-Ups, Push-Ups ] Which component(s) of your physical fitness test are waived/profiled? 13.a. [ No ] Do you have any problems wearing a gas mask, ballistic helmet, body armor, and/or chemical/biological protective garments? 14.a. [ No ] Have you ever been told by a health care provider that you SHOULD NOT receive an immunization for medical reasons? 15.a. [ Don't Know ] Do you have a permanent profile or an Assignment Limitation Code C? 16.a. [ No ] Are you on a temporary profile or limited duty? 17. [ 1 ] During the PAST 2 years, how many times have you been placed on a temporary profile or on limited duty? V. INDIVIDUAL MEDICAL READINESS (IMR) 1. [ Yes ] Do you have any allergies? 2. [ Adhesive ta ] Allergy List 3. [ Not required ] Do you have red medical warning dog tags? 4. [ No ] Do you wear corrective lenses? . BEHAVIORAL HEALTH (MHA) 1. a. [ financial, family/relationship, sleep financial, family/relationship, sleep ] Over the PAST MONTH, what major life stressors have you experienced that are a cause of significant concern or make it difficult for you to do your work, take care of things at home, or get along with other people (for example, serious conflicts with others, relationship problems, or a legal, disciplinary or financial problem)? 1. b. [ No ] Are you currently in treatment or getting professional help for this concern? 2. a. [ No ] In the PAST YEAR did you receive care for any mental health condition or concern such as, but not limited to post traumatic stress disorder (PTSD), depression, anxiety disorder, alcohol abuse or substance abuse? 3. [ None ] What prescription or over-the counter medications (including herbals/supplements) for sleep, pain, combat stress, or a mental health problem are you CURRENTLY taking? 4. a. [ No ] In the past 12 months, have you gambled? 5. a. [ Monthly or less ] How often do you have a drink containing alcohol? 5. b. [ 1 or 2 ] How many drinks containing alcohol do you have on a typical day when you are drinking? 5. c. [ Never ] How often do you have six or more drinks on one occasion? 6. Have you ever had any experience that was so frightening, horrible, or upsetting that in the PAST MONTH, you: 6. a. [ No ] Have had nightmares about it or thought about it when you did not want to? 6. b. [ No ] Tried hard not to think about it or went out of your way to avoid situations that remind you of it? 6. c. [ No ] Were constantly on guard, watchful or easily startled? 6. d. [ No ] [place] numb or detached from others, activities, or your surroundings? 6. e. [ Not answered ] [place] guilt or unable to stop blaming yourself or others for the event(s) or any problems the event(s) may have caused? 7. Over the LAST 2 WEEKS, how often have you been bothered by the following problems? 7. a. [ Not at all ] Little interest or pleasure in doing things 7. b. [ Not at all ] Feeling down, depressed, or hopeless 8. [ No ] Would you like to schedule an appointment with a health care provider to discuss any health concern(s)? 9. [ No ] Are you interested in receiving information or assistance for a stress, emotional or alcohol concern? 10. [ No ] Are you interested in receiving assistance for a family or relationship concern? 11. [ No ] Would you like to schedule a visit with a bundling machine operator, mental health care provider, or a community support counselor? VII. FAMILY HISTORY AND LIFESTYLE (LIF) 1. [ Fair ] Overall, how would you rate your health during the PAST MONTH? 2. [ Cancer, Heart-related conditio ] Member indicates that family members have the following problems 3. The following family members has/had a history of cancer: Unknown Type of Cancer: Grandmother, Grandfather 4. The following family members has/had a history of heart-related conditions: High Blood Pressure: Father, Brother 6. [ No ] I participate in moderate intensity physical activites at least 2.5 hours, or a combination of moderate and vigorous aerobic activites, for at least 75 minutes per week. 7. In a typical week, I do physical activities specifically designed to STRENGTHEN my muscles: [ 0 ] Day(s) per week 8. [ Tylenol ] What prescriptions or qdiv-tko-leafpan medications are you CURRENTLY taking for health problems on a ROUTINE BASIS? 9. Which of the following products have you taken since your last PHA: Individual Vitamins or Minerals: Two or more times a day [employer] Supplements: Two or more times a day Joint Care Supplements: Two or more times a day 11. Think about the PAST 30 DAYS. How often did you eat/drink the following foods/beverages? [ 1 serving per day ] Fruits [ 2 servings per day ] Vegetables [ 2 servings per day ] Starchy Vegetables [ 1 serving per day ] Whole Grains [ 1 serving per day ] Dairy and Calcium Containing Foods [ 1 or 2 servings per week ] Fish [ 3 to 6 servings per week ] Lean Protein [ Rarely or Never ] Sugar-Sweetened Beverages ] Have you had a cholesterol check by a health urgent care physician assistant within the PAST 5 YEARS? 13.a. In the PAST 30 DAYS, which of the following products have you used on at least one day? None 15. Which of the following best describes your past tobacco use? I have never used tobacco products. 16. [ No ] Are you regularly exposed to secondhand smoke? 17. [ 5 to less than 7 hours ] During the LAST 2 WEEKS, how many hours of sleep did you get on most days? 18. [ No ] During the LAST 2 WEEKS, have you felt impaired or unable to adequately perform due to sleepiness or poor quality sleep? 19. [ No ] Have you had any unexplained weight loss or gain since your last PHA? 20. Member is not at risk for sexually transmitted infections. 22. Since your last PHA, what, if anything, have you and your partner used to keep from getting ? [ Sterilization ] I am actively taking steps to prevent , including 23. [ No ] In the last year, have you or your partner had a scare, where you were not trying to get but were worried enough to use a home test? X. OTHER MEDICAL (OTH) 1. [ 4 ] Rate the amount of pain you have had, on average, over the PAST 24 HOURS 2. [ No ] Are you receiving treatment for pain? 3. [ No ] Since your last PHA, have you received care or treatment for any medical and/or mental health condition(s) from a civilian or non- facility? 5. Member acknowledged responsibility for reporting health issues. 6. [ Shoulder and back pain ] Member's concerns about health condition(s) or health risk exposures not already addressed 7. [ No ] Woud you like to schedule an appointment with a health care provider to discuss any health concerns? XI. SEPARATION AND USP 1. [ Yes ] Are you planning to separate or retire within the next year from Active Duty or [place] Duty (activated for greater than 30 continuous days) OR do you intend to file a claim for disability compensation with the [employer]? PART B. RECORD REVIEW AND RECOMMENDATIONS I. RECORD REVIEWER INFORMATION 1. Last Name: BRAULIO 2. First Name: SHILPA 3. Middle Name: CARMEN 4. Service Branch: [employer] 5. Status: 6. 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 EMAIL: [email or web address] 8. Facility: [facility] 9. Unit: [facility] 10. Address: [address] [place] [address] 11. State: [place] 12. Zip Code: [address] 13. Phone: [phone] 14. Date Record Review: II. MEDICAL SCREENING 1. [ ] Date of administrative appeals tribunal member's most recent PHA 2. [ 6 feet 2 inches Date: ] administrative appeals tribunal member's most recently documented height 3. [ 207 pounds Date: ] administrative appeals tribunal member's most recently documented weight 4. [ 133/84 Date: ] administrative appeals tribunal member's most recently documented blood pressure reading 5. [ Yes ] Does the administrative appeals tribunal member have a history of abnormal blood pressure since their last PHA? 6. [ Yes ] Does the administrative appeals tribunal member have a laboratory test of sickle cell trait documented in their permanent medical record? 7. [ No Cholesterol Test Documented ] What is the date of the administrative appeals tribunal member's most recently documented cholesterol test? 9. [ tylenol PRN Eliquis 5 mg, elocon 0.1% cream, Claritin 10 mg, glucosamine-chondroitin 500-400 mg, vitamin C 250 mg ] List of administrative appeals tribunal member's active medications listed in their permanent medical record 10. [ No ] Is there a discrepancy between the active medication record review and the administrative appeals tribunal member's self-reported list of medications? 11. [ Cardiac work ups following PE ] List documented significant care the administrative appeals tribunal member has received since their last PHA from a provider OUTSIDE the Health System 12. [ No ] Is there a discrepancy between the administrative appeals tribunal member's list of OUTSIDE care (from OTH5), and the OUTSIDE care found in the record? 13. [ No Inside Care Documented ] List documented significant care the administrative appeals tribunal member has received since their last PHA from a provider INSIDE the Health System 15. [ Not Answered ] Confirm that vaccine exemptions are listed in the medical record for each vaccine listed 16. [ No Discrepancies Noted ] Review available medical documentation of allergies and compare with administrative appeals tribunal member responses. Document any discrepancies III. OCCUPATION-SPECIFIC EXAMINATIONS 1. [ ] When was the administrative appeals tribunal member's most recently documented special operational duty physical exam? IV. FAMILY HISTORY AND LIFESTYLE 1. [ Yes ] Does the HI8207 reflect the administrative appeals tribunal member's reported family history? VII. INDIVIDUAL MEDICAL READINESS 1. [ No ] Does the administrative appeals tribunal member have an Assignment Limitation Code C? 3. [ Classification: 1 ] Most recently documented dental exam 4. [ Yes ] Is the administrative appeals tribunal member current on all required immunizations in the immunization tracking system? 6. Does the administrative appeals tribunal member have the following laboratory tests documented in their permanent medical record? [ Yes ] HIV test within the PAST 24 months [ Yes ] G6PD results on file [ Yes ] Blood type and Rh on file [ Yes ] DNA test on file IX. ADDITIONAL RECORD REVIEWER COMMENTS 1. This record review does NOT have a need for provider notification or referral.2. Additional comments about this record review that need to be forwarded to the Health Senior Integration Developer completing PART C: Currently DNIF and AF 469 (Code 37) for PE. Stressors: financial, family/relationship, sleep. Negative MH screening. Reports shoulder and back pain, cp, high bp, wheezing/dyspnea/SOB/other lung problems. Pain 10/08. Takes tylenol PRN. Supplements: individual vitamin/minerals, omega-3, joint care. Date Record Review Completed: --------- PART C. HEALTH CARE PROVIDER I. MENTAL HEALTH ASSESSMENT (MHA) PROVIDER INFORMATION 1. Last Name: COLLIN 2. First Name: CARA 3. Middle Name: 4. Service Branch: [employer] 5. 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 EMAIL: [email or web address] 8. Facility: [facility] 9. Unit: [facility] 10. Address: [address] [place] [address] 11. State: [place] 12. Zip Code: [address] 13. Phone: [phone] 14. Date HCP Review initiated: 09/May/2024 1. Member marked that they have a concern or a difficulty with a major life stressor: financial, family/relationship, sleep Additional info: Referral is not indicated because there is no significant impairment. 2. Address concerns identified on member questions 2 and 3. History of mental health care: N/A Member's response: Provider's comments: Medications: N/A Member's response: Provider's comments: 3. Member's AUDIT-C screening score was 1. (nothing required) 4. Member did not shameka yes on two or more of questions 6a through 6e. 5. Member did not shameka More than half the days or nearly every day on question 7a or 7b. 6. Suicide risk evaluation. 6. a. Ask: Over the past month, have you wished you were or wished you could go to sleep and not wake up?: No 6. b. Ask: Have you actually had any thoughts of killing yourself?: No 6. f. 1. Ask: In you lifetime, have you done anything, started to do anything, or prepared to do anything to end your life?: No 6. g. Further risk assessment comments: 7. Member states that they have not had thoughts or concerns over the past month that they might hurt or lose control with someone. 9. Summary of Provider's identified concerns needing referrals: None 11. Comments: no concerns 13. Supplemental services recommended/information provided: No supplemental services required Date MHA Certified: III. PERIODIC HEALTH ASSESSMENT (PHA) PROVIDER INFORMATION 1. Last Name: COLLIN 2. First Name: CARA 3. Middle Name: 4. 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 EMAIL: [email or web address] 8. Facility: 9 [facility] 9. Unit: [facility] 10. Address: [address] [place] [address] 11. State: [place] 12. Zip Code: [address] 13. Phone: [phone] 14. Date HCP Review initiated: IV. PERIODIC HEALTH ASSESSMENT PROVIDER RECOMMENDATIONS and REFERRALS 1. Provider concerns with this assessment: No issues or concerns identified V. SUMMARY AND COMMENTS 1. Additional information summarizing findings during the administrative appeals tribunal member assessment: 2. Provider Comments: Member continues to be followed by cardiology and heme. Next appt this month. . INDIVIDUAL MEDICAL READINESS DISPOSITION DETERMINATION EDDA: Not Ready DEN: Ready IMM: Ready LAB: Ready ME: Ready IMR Status: Partially Medically Ready VII. SERVICE MEDICAL DEPLOYABILITY EVALUATION INDICATED Based on your review of all documentation, is the administrative appeals tribunal member medically deployable without limitations? Reference Vinny 6490.07 No (administrative appeals tribunal member currently has a medical condition that DOES require duty limitation(s) AND limits deployability) Date PHA Completed: END OF LV9327 REPORT Impression: Does not Meet?FCIII?medical standards per DAFJUDY 48-123/MSD. Aeromedical Disposition: Continue DNIF. DD 2992?signed. No AF469 changes based on this encounter. Member is mobility restricted/C-coded. Code 37. 07/27/2024 Ambulatory Pharmacy Functional Status Combined list of recent functional and cognitive assessments recorded at Department of Defense and Veterans Affairs (VA).VA Functional [place] Measurement (FIM) Scale: 1 = Total Assistance (Subject = 0% +), 2 = Maximal Assistance (Subject = 25% +), 3 = Moderate Assistance (Subject = 50% +), 4 = Minimal Assistance (Subject = 75% +), 5 = Supervision, 6 = Modified [place] (Device), 7 = Complete [place] (Timely, Safely). Assessment Date/Time Source Assessment Type Assessment Skill Assessment Score Assessment Details No data available for this section
--- OUTSIDE RECORDS SUMMARY | 2024-07-27 18:52 | XMS_ITS | Encounter Summary ---
Author Organization [facility] Address [phone] [facility] [place] [address] Care Team Providers Care Day Care Home Provider Name Role Phone Arnold Cox MD Primary Care Provider [phone] Arnold Cox MD Unavailable Encounter Details Date Type Department Care Team (Late st Contact Info) Description 02/03/2024 Telephone [facility] [address] [facility] [address] [place] [address] Sadia Santos MD [address] [place] [address] [email or web address] Social History Tobacco Use Types Packs/Day [...] high school, GED, job training, learning the Armenian language, technical skills, or developing parenting skills)? [...] Contact Info) Description 03/16/2024 Procedure Pass [facility] [address] [place] [address] 06/02/2024 Procedure Pass [facility] [address] [place] [address] 09/08/2024 11:30 AM EDT Appointment [facility] 55 [place] [address] Frances Prescott MD [address] [facility] [place] [address] [email or web address] 09/08/2024 1:00 PM EDT Office Visit [facility] 55 [facility] 201 [place] [address] Frances Prescott MD [address] [place], [place] [id number] [place] [address] [email or web address] 09/22/2024 1:00 PM EDT Telemedicine [facility] 55 [facility] [address] [place] [address] Sadia Santos MD [address] [address] [email or web address] 12/01/2024 10:00 AM EDT Appointment Non-Invasive Cardiology 30 [place] [address] Ivy Ramires FNP 55 [place] [address] [email or web address] 12/01/2024 11:30 AM EDT Appointment [facility] 30 [place] [address] Ivy Ramires FNP 55 [place] [address] [email or web address] 12/30/2024 1:30 PM EDT Appointment [facility] Internal Medicine 40 [place] [address] Arnold Cox MD 40 [place] [address] [email or web address] documented as of this encounter Visit Diagnoses Not on filedocumented in this encounter Additional Health Concerns Assessment Noted Time PHQ-2 Depression Total Score: 0 11/15/19 11:33 AM EDT documented as of this encounter Care Teams Day Care Home Provider Relationship Specialty Start Date End Date Arnold Cox MD 40 [place] [address] [email or web address] PCP - General Internal Medicine 01/24/24 Arnold Cox MD 40 [place] [address] [email or web address] Insurance Assigned Provider 02/08/24 documented as of this encounter Additional Source Comments The information contained in this document represents components of the legal health record. It is not the complete legal health record.[facility]
--- OUTSIDE RECORDS SUMMARY | 2024-07-27 18:52 | XMS_ITS | Encounter Summary ---
Author Organization [facility] Address [phone] [facility] [place] [address] Care Team Providers Care Production Potter Name Role Phone Arnold Cox MD Primary Care Provider [phone] Arnold Cox MD Unavailable Reason for Visit * Reason Comments Medication Refill Encounter Details Date Type Department Care Team (Late st Contact Info) Description 04/06/2024 Refill [facility] Internal Medicine 40 [place], [place] [phone] Arnold Cox MD 40 [place], [place] [id number] [email or web address] Medication Refill Social History Tobacco Use Types Packs/Day Years [...] high school, GED, job training, learning the Croatian language, technical skills, or developing parenting skills)? [...] 01/24/2024 Are you denied basic needs [facility] as food, clothing, or medical care? No [...] st Contact Info) Description 03/16/2024 Procedure Pass [facility] [address] [place] [address] 06/02/2024 Procedure Pass [facility] 30 [place] [address] 09/08/2024 11:30 AM EDT Appointment [facility] 55 [place] [address] Frances Prescott MD [address] [place], [place] [id number] [place] [address] [email or web address] 09/08/2024 1:00 PM EDT Office Visit [facility] 55 [facility] 201 [place] [address] Frances Prescott MD [address] [place] [id number] [email or web address] 09/22/2024 1:00 PM EDT Telemedicine [facility] for Hematology [address] [place] [address] [address] [place] [address] Sadia Santos MD [address] [place] [email or web address] 12/01/2024 10:00 AM EDT Appointment Non-Invasive Cardiology 30 [place] [address] Ivy Ramires FNP [address] [place] [address] [email or web address] 12/01/2024 11:30 AM EDT Appointment [facility] 30 [place] [address] Ivy Ramires FNP [address] [place] [address] [email or web address] 12/30/2024 1:30 PM EDT Appointment [facility] Internal Medicine 40 [place] [address] Arnold Cox MD 40 [place], [place] [id number] [email or web address] documented as of this encounter Visit Diagnoses Not on filedocumented in this encounter Additional Health Concerns Assessment Noted Time PHQ-2 Depression Total Score: 0 11/15/19 11:33 AM EDT documented as of this encounter Care Teams Production Potter Relationship Specialty Start Date End Date Arnold Cox MD 40 [place] [address] [email or web address] PCP - General Internal Medicine 01/24/24 Arnold Cox MD 40 [place] [address] [email or web address] Insurance Assigned Provider 02/08/24 documented as of this encounter Additional Source Comments The information contained in this document represents components of the legal health record. It is not the complete legal health record.[facility]
== END 2024-07-27 14:13 | disposition home or self-care (01) ==
LOC: HO.BBR 14:12
PROVIDERS: PCP Internal Medicine; Visit Provider Internal Medicine
DX: E83.110 Hereditary hemochromatosis (principal)
CPT/HCPCS: 36415; 82728; 83540; 85025

== ENCOUNTER 2024-08-31 13:50 | Outpatient (REF) | payer BC, OTHER, SELFPAY ==
[2024-08-31 14:00] LABS: MANUAL DIFF FLAG NO
[2024-08-31 14:01] LABS: Basophils Percent Auto 0.5 % (0-2); Eosinophils Percent Auto 0.3 % (0-4); Hematocrit 45.9 % (42.0-52.0); Hemoglobin 16.9 g/dl (14.0-18.0); Imm Gran Abs Auto 0.01 X10*3/uL (0.00-0.03); Imm Gran Pct Auto 0.2 % (0.0-0.4); Lymphocytes Absolute Auto 2.5 X10*3/uL (1.2-4.9); Lymphocytes Percent Auto 41.4 % (20-40); Mean Corpuscular HGB Conc 36.8 g/dl (31.0-36.0); Mean Corpuscular Hemoglobin 33.3 pg (27.0-33.0); Mean Corpuscular Volume 90.5 fL (80.0-98.0); Mean Platelet Volume 9.1 fL (9.4-12.4); Monocytes Absolute Auto 0.4 X10*3/uL (0.1-1.2); Monocytes Percent Auto 7.2 % (2-11); Neutrophils Percent Auto 50.4 % (45-73); Platelet Count 204 X10*3/uL (160-400); Red Blood Count 5.07 X10*6/uL (4.60-5.80); Red Cell Distribution Width 11.9 % (11.0-16.0)
[2024-08-31 14:43] LABS: Iron 159 mcg/dL (45-160); Percent Iron Saturation 66 % (15-50); Total Iron Binding Capacity 242 mcg/dL (228-428); Unsaturated Iron Binding 83 ug/dL
[2024-08-31 14:59] LABS: Ferritin 206 ng/mL (20-250)
--- OUTSIDE RECORDS SUMMARY | 2024-08-31 16:22 | XMS_ITS | Encounter Summary ---
Author Organization [facility] Address [phone] [facility] [place] [address] Care Team Providers Care Scaffold Setter Name Role Phone Alvaro Blue MD Primary Care Provider [phone] Arnold Cox MD Primary Care Provider [phone] Arnold Cox MD Unavailable Encounter Details Date Type Department Care Team (Late st Contact Info) Description 04/09/2023 Telephone [facility] Center for Hematology 55 [facility] 7B [place] [address] Sadia Santos MD 55 [facility] 7[address] [place] [address] [email or web address]. du Social History Tobacco Use Types Packs/Day [...] [facility] [place] Cardiac US 55 [place] [address] 06/02/2024 Procedure Pass [facility] 30 [place] [address] 09/08/2024 11:30 AM EDT Appointment [facility] Cardiac US 55 [place] [address] Frances Prescott MD 55 [facility] [address]UL148 [place] [address] CRUZ@[facility] 09/08/2024 1:00 PM EDT Office Visit [facility] Pulmonary Hypertension Clinic 55 [facility] 201 [place] [address] Frances Prescott MD 55 [facility]148 [place] [address] CRUZ@[facility] 09/22/2024 1:00 PM EDT Telemedicine [facility] Center for Hematology 55 [facility] [address] [place] [address] Sadia Santos MD [address] [address] [email or web address] 10/14/2024 1:00 PM EDT Appointment [facility] [place] Internal Medicine 40 [place] [address] Arnold Cox MD 40 [place] [address] 12/01/2024 10:00 AM EDT Appointment Non-Invasive Cardiology 30 [place] [address] Ivy Ramires FNP 55 [place] [address] FAVIOLA@[facility] 12/01/2024 11:30 AM EDT Appointment [facility] Echo [facility] 30 [place] [address] Ivy Ramires Claudia, [facility] 55 [place] [address] FAVIOLA@[facility] documented as of this encounter Visit Diagnoses Not on filedocumented in this encounter Care Teams Scaffold Setter Relationship Specialty Start Date End Date Alvaro Blue MD [address] [place] [address] PCP - General Internal Medicine 11/24/22 01/23/24 Arnold Cox MD [address] [place] [address] [email or web address] PCP - General Internal Medicine 01/24/24 Arnold Cox MD [address] [place] [address] [email or web address] Insurance Assigned Provider 02/08/24 documented as of this encounter Additional Source Comments The information contained in this document represents components of the legal health record. It is not the complete legal health record.[facility]
--- OUTSIDE RECORDS SUMMARY | 2024-08-31 16:23 | XMS_ITS | Encounter Summary ---
Author Organization [facility] Address [phone] [facility] [place] [address] Care Team Providers Care Special Education Professional Name Role Phone Alvaro Blue MD Primary Care Provider [phone] Arnold Cox MD Primary Care Provider Arnold Cox MD Unavailable Encounter Details Date Type Department Care Team (Late Contact Info) Description 06/13/2023 Procedure Pass [facility] 30 [place] [address] Social History Tobacco Use Types Packs/Day Years [...] st Contact Info) Description 03/16/2024 Procedure Pass [facility] Cardiac US 55 [place] [address] 06/02/2024 Procedure Pass [facility] Echo [facility] 30 [place] [address] 09/08/2024 11:30 AM EDT Appointment [facility] Cardiac US 55 [place] [address] Frances Prescott MD [address] [place], [place] [address] [place] [address] CRUZ@[facility] 09/08/2024 1:00 PM EDT Office Visit [facility] Pulmonary Hypertension Clinic 55 [facility] 201 [place] [address] Frances Prescott MD [address] [place] [address] CRUZ@[facility] 09/22/2024 1:00 PM EDT Telemedicine [facility] Center for Hematology 55 [facility] 7B [place] [address] Sadia Santos MD [address] [place] [address] [email or web address] 10/14/2024 1:00 PM EDT Appointment [facility] [place] Internal Medicine 40 [place] [address] Arnold Cox MD 40 [place] [address] 12/01/2024 10:00 AM EDT Appointment Non-Invasive Cardiology 30 [place] [address] Ivy Ramires FNP 55 [place] [address] FAVIOLA@[email or web address] 12/01/2024 11:30 AM EDT Appointment [facility] Echo [facility] 30 [place] [address] Ivy Ramires, [address] [address] FAVIOLA@[email or web address].PRISCILLA [facility] documented as of this encounter Visit Diagnoses Not on filedocumented in this encounter Care Teams Special Education Professional Relationship Specialty Start Date End Date Alvaro Blue MD [address] [place] [address] PCP - General Internal Medicine 11/24/22 01/23/24 Arnold Cox MD 40 [place] [address] [email or web address] PCP - General Internal Medicine 01/24/24 Arnold Cox MD 40 [place] [address] [email or web address] Insurance Assigned Provider 02/08/24 documented as of this encounter Additional Source Comments The information contained in this document represents components of the legal health record. It is not the complete legal health record.[facility]
--- OUTSIDE RECORDS SUMMARY | 2024-08-31 16:23 | XMS_ITS | Encounter Summary ---
Author Organization [facility] Address [phone] [facility] [place] [address] Care Team Providers Care Accounting Reconciliation Clerk Name Role Phone Alvaro Blue MD Primary Care Provider [phone] Arnold Cox MD Primary Care Provider [phone] Arnold Cox MD Unavailable Encounter Details Date Type Department Care Team (Late Contact Info) Description 11/24/2022 Procedure Pass [facility] [place] [place] [address] Social History Tobacco Use Types Packs/Day Years [...] Contact Info) Description 03/16/2024 Procedure Pass [facility] Cardiac US [address] [place] [address] 06/02/2024 Procedure Pass [facility] 30 [place] [address] 09/08/2024 11:30 AM EDT Appointment [facility] Cardiac US 55 [place] [address] Frances Prescott MD 55 [facility]148 [place] [address] CRUZ@[facility] 09/08/2024 1:00 PM EDT Office Visit [facility] Pulmonary Hypertension Clinic 55 [facility] 201 [place] [address] Frances Prescott MD [address] [place] [address] CRUZ@[facility] 09/22/2024 1:00 PM EDT Telemedicine [facility] Center for Hematology 55 [facility] 7B [place] [address] Sadia Santos MD [address] [place] [address] RENE@[facility] 10/14/2024 1:00 PM EDT Appointment [facility] [place] Internal Medicine 40 [place] [address] Arnold Cox MD 40 [place] [address] 12/01/2024 10:00 AM EDT Appointment Non-Invasive Cardiology 30 [place] [address] Ivy Ramires FNP 55 [place] [address] FAVIOLA@[facility] 12/01/2024 11:30 AM EDT Appointment [facility] Echo [facility] 30 [place] [address] Ivy Ramires, [address] [address] FAVIOLA@[facility] documented as of this encounter Visit Diagnoses Not on filedocumented in this encounter Care Teams Accounting Reconciliation Clerk Relationship Specialty Start Date End Date Alvaro Blue MD [address] [place] [address] PCP - General Internal Medicine 11/24/22 01/23/24 Arnold Cox MD 40 [place] [address] [email or web address] PCP - General Internal Medicine 01/24/24 Arnold Cox MD 40 [place] [address] [email or web address] Insurance Assigned Provider 02/08/24 documented as of this encounter Additional Source Comments The information contained in this document represents components of the legal health record. It is not the complete legal health record.[facility]
--- OUTSIDE RECORDS SUMMARY | 2024-08-31 16:23 | XMS_ITS | Encounter Summary ---
Author Organization [facility] Address [phone] [facility] [place] [address] Care Team Providers Care Street Sweeper Name Role Phone Arnold Cox MD Primary Care Provider [phone] Arnold Cox MD Unavailable Encounter Details Date Type Department Care Team (Latest Contact Info) Description 08/10/2024 9:25 AM EST - 08/10/2024 11:59 PM [facility] Hospital Encounter [facility] EKG 30 [place] [address] Ivy Ramires, [facility] 55 [place] [address] [email or web address]@[facility] Discharge Disposition: Home or Self Care Social History Tobacco Use Types Packs/Day Years [...] high school, GED, job training, learning the [place]ots[place] language, technical skills, or developing parenting skills)? [...] on file documented as of this encounter Medications at Time of Discharge Medication Sig Dispensed Refills Start Date End Date ascorbic acid, vitamin C, (VITAMIN C) 250 MG tablet Take 500 mg by mouth 2 (two) times a day. ELIQUIS 5 mg tablet Take 1 tablet (5 mg total) by mouth 2 (two) times a day. 60 tablet 5 04/06/2024 glucosamine-chondroitin 500-400 mg Cap Take 1 capsule by mouth 3 (three) times a day. loratadine (CLARITIN) 10 mg tablet Take 10 mg by mouth daily. metoprolol succinate (TOPROL-XL) 25 MG 24 hr tablet Take 1 tablet (25 mg total) by mouth daily. 90 tablet 3 04/06/2024 mometasone (ELOCON) 0.1 % cream Apply topically 2 (two) times a day. Apply to the hands BID x 2 weeks, break for 1 week, repeat prn 45 g 1 01/27/2024 omega-3 fatty acids-fish oil 340-1,000 mg Cap Take by mouth daily. documented as of this encounter Plan of Treatment Upcoming Encounters Date Type Department Care Team (Late st Contact Info) Description 03/16/2024 Procedure Pass [facility] Cardiac US 55 [place] [address] 06/02/2024 Procedure Pass [facility] 30 [place] [address] 09/08/2024 11:30 AM EDT Appointment [facility] Cardiac US 55 [place] [address] Frances Prescott MD [address] [address] CRUZ@[facility] 09/08/2024 1:00 PM EDT Office Visit [facility] Pulmonary Hypertension Clinic 55 [facility] Ruth [facility]p 201 [place] [address] Frances Prescott MD 55 [facility]148 [place] [address] CRUZ@[facility] 09/22/2024 1:00 PM EDT Telemedicine [facility] Center for Hematology 55 [facility] [address] [facility] 7B [place] [address] Sadia Santos MD [address] [address] RENE@[email or web address] 10/14/2024 1:00 PM EDT Appointment [facility] [place] Internal Medicine 40 [place] [address] Arnold Cox MD 40 [place] [address] [email or web address] 12/01/2024 10:00 AM EDT Appointment Non-Invasive Cardiology 30 [place] [address] Ivy Ramires [address] [address] FAVIOLA@[email or web address] 12/01/2024 11:30 AM EDT Appointment [facility] Echo [facility] 30 [place] [address] Ivy Ramires [address] [address] FAVIOLA@[email or web address] documented as of this encounter Procedures Procedure Name Priority Date/Time Associated Diagnosis Comments ECG 12-LEAD Routine 08/10/2024 9:48 AM EST documented in this encounter Results * ECG 12-LEAD (08/10/2024 9:48 AM EST) Ventricular Rate EKG/MIN 55 BPM [facility] Atrial Rate 48 BPM [facility] NV Interval 206 ms [facility] QRS Duration 90 ms [facility] QT Interval 422 ms [facility] QTC Interval 403 ms [facility] P [place] 51 degrees [facility] R Wave [place] 55 degrees [facility] T Wave [place] 42 degrees [facility] 08/10/2024 9:48 AM EST 08/10/2024 3:28 PM EST Narrative [facility] - 08/10/2024 3:28 PM EST Sinus bradycardia with Premature atrial complexes with Aberrant conduction Otherwise normal ECG When compared with ECG of 20-Jan-2024 12:01, Aberrant conduction is now Present Confirmed by Chandan Raya ([id number]) on 08/10/2024 3:28:45 PM Ivy Ramires EXTENSION DIVISION DIRECTOR ECG ORDERABLES [facility] documented in this encounter Visit Diagnoses Not on filedocumented in this encounter Additional Health Concerns Assessment Noted Time PHQ-2 Depression Total Score: 0 11/15/19 11:33 AM EDT documented as of this encounter Care Teams Street Sweeper Relationship Specialty Start Date End Date Arnold Cox MD 40 [place] [address] PCP - General Internal Medicine 01/24/24 Arnold Cox MD 40 [place] [address] Insurance Assigned Provider 02/08/24 documented as of this encounter Additional Source Comments The information contained in this document represents components of the legal health record. It is not the complete legal health record.[facility]
--- OUTSIDE RECORDS SUMMARY | 2024-08-31 16:23 | XMS_ITS | Encounter Summary ---
Author Organization [facility] Address [phone] [facility] [place] [address] Care Team Providers Care Bottle And Glass Inspector Name Role Phone Arnold Cox MD Primary Care Provider [phone] Arnold Cox MD Unavailable Encounter Details Date Type Department Care Team (Late st Contact Info) Description 03/09/2024 Telephone [facility] for Hematology 55 [address] [facility] 7B [place] [address] Sadia Santos MD [address] [place] [address] [place] [address] RENE@[email or web address] du Social History Tobacco Use Types Packs/Day [...] high school, GED, job training, learning the [place] language, technical skills, or developing parenting skills)? [...] Contact Info) Description 03/16/2024 Procedure Pass [facility] [place] [address] [place] [address] 06/02/2024 Procedure Pass [facility] [address] [place] [address] 09/08/2024 11:30 AM EDT Appointment [facility] Cardiac US 55 [place] [address] Frances Prescott MD 55 [facility]148 [place] [address] [email or web address]@[facility] 09/08/2024 1:00 PM EDT Office Visit [facility]monary Hypertension Clinic 55 [facility] 201 [place] [address] Frances Prescott MD 55 [facility]148 [place] [address] CRUZ@[facility] 09/22/2024 1:00 PM EDT Telemedicine [facility] Center for Hematology 55 [facility] 7B [place] [address] Sadia Santos MD [address] [address] RENE@[email or web address] 10/14/2024 1:00 PM EDT Appointment [facility] [place] Internal Medicine 40 [place] [address] Arnold Cox MD 40 [place] [address] 12/01/2024 10:00 AM EDT Appointment Non-Invasive Cardiology 30 [place] [address] Ivy Ramires FNP 55 [place] [address] FAVIOLA@[facility]PRISCILLA [facility] 12/01/2024 11:30 AM EDT Appointment [facility] Echo Lab 30 [place] [address] Ivy Ramires, [address] [address] FAVIOLA@[facility]ellST[facility] documented as of this encounter Visit Diagnoses Not on filedocumented in this encounter Additional Health Concerns Assessment Noted Time PHQ-2 Depression Total Score: 0 11/15/19 24 11:33 AM EDT documented as of this encounter Care Teams Bottle And Glass Inspector Relationship Specialty Start Date End Date Arnold Cox MD 40 [place] [address] [email or web address] PCP - General Internal Medicine 01/24/24 Arnold Cox MD 40 [place] [address] [email or web address] Insurance Assigned Provider 02/08/24 documented as of this encounter Additional Source Comments The information contained in this document represents components of the legal health record. It is not the complete legal health record.[facility]
--- OUTSIDE RECORDS SUMMARY | 2024-08-31 16:23 | XMS_ITS | Encounter Summary ---
Author Organization [facility] Address [phone] [facility] [place] [address] Care Team Providers Care Database Management System Specialist Name Role Phone Alvaro Blue MD Primary Care Provider [phone] Arnold Cox MD Primary Care Provider [phone] Arnold Cox MD Unavailable Encounter Details Date Type Department Care Team ([facility] st Contact Info) Description 04/09/2023 Telephone [facility] Center for Hematology [address] [address] Ashley Polo MD, MPH 55 [place] [address] [email or web address] du Social History Tobacco Use Types Packs/Day [...] st Contact Info) Description 03/16/2024 Procedure Pass [facility] Cardiac US 55 [place] [address] 06/02/2024 Procedure Pass [facility] Echo [facility] 30 [place] [address] 09/08/2024 11:30 AM EDT Appointment [facility] Cardiac US 55 [place] [address] Frances Prescott MD 55 [facility] BUL148 [place] [address] CRUZ@[facility] 09/08/2024 1:00 PM EDT Office Visit [facility] Pulmonary Hypertension Clinic 55 [facility] 201 [place] [address] Frances Prescott MD 55 [facility]148 [place] [address] CRUZ@[facility] 09/22/2024 1:00 PM EDT Telemedicine [facility] Center for Hematology 55 [facility] 7[address] [place] [address] Sadia Santos MD [address] [address] RENE@[email or web address] 10/14/2024 1:00 PM EDT Appointment [facility] [place] Internal Medicine [address] [place] [address] Arnold Cox MD 40 [place] [address] 12/01/2024 10:00 AM EDT Appointment Non-Invasive Cardiology 30 [place] [address] Ivy Ramires FNP 55 [place] [address] FAVIOLA@[facility] 12/01/2024 11:30 AM EDT Appointment [facility] Echo [facility] 30 [place] [address] Ivy Ramires Claudia, [facility] 55 [place] [address] FAVIOLA@[facility] documented as of this encounter Visit Diagnoses Not on filedocumented in this encounter Care Teams Database Management System Specialist Relationship Specialty Start Date End Date Alvaro Blue MD [address] [place] [address] PCP - General Internal Medicine 11/24/22 01/23/24 Arnold Cox MD [address] [place] [address] [email or web address] PCP - General Internal Medicine 01/24/24 Arnold Cox MD [address] [place] [address] [email or web address] Insurance Assigned Provider 02/08/24 documented as of this encounter Additional Source Comments The information contained in this document represents components of the legal health record. It is not the complete legal health record.[facility]
--- OUTSIDE RECORDS SUMMARY | 2024-08-31 16:23 | XMS_ITS | Encounter Summary ---
Author Organization [facility] Address [phone] [facility] [address] Care Team Providers Care Battery Assembler Dry Cell Name Role Phone Arnold Cox MD Primary Care Provider [phone] Arnold Cox MD Unavailable Encounter Details Date Type Department Care Team (Late st Contact Info) Description 02/03/2024 Telephone [facility] [place] [facility] [address] [facility] 7[address] [place] [address] Sadia Santos MD [address] [place] [address] [place] [address] RENE@[email or web address]. du Social History Tobacco Use Types Packs/Day [...] high school, GED, job training, learning the [place] language, technical skills, or developing parenting skills)? [...] Info) Description 03/16/2024 Procedure Pass [facility] [place] [address] [place] [address] 06/02/2024 Procedure Pass [facility] Echo [facility] [address] [place] [address] 09/08/2024 11:30 AM EDT Appointment [facility] Cardiac US 55 [place] [address] Frances Prescott MD 55 [facility]148 [place] [address] CRUZ@[facility] 09/08/2024 1:00 PM EDT Office Visit [facility]monary Hypertension Clinic 55 [facility] 201 [place] [address] Frances Prescott MD 55 [facility]148 [place] [address] CRUZ@[facility] 09/22/2024 1:00 PM EDT Telemedicine [facility] for Hematology 55 [facility] 7B [place] [address] Sadia Santos MD [address] [address] [email or web address] 10/14/2024 1:00 PM EDT Appointment [facility] [place] Internal Medicine 40 [place] [address] Arnold Cox MD 40 [place] [address] 12/01/2024 10:00 AM EDT Appointment Non-Invasive Cardiology 30 [place] [address] Ivy Ramires FNP 55 [place] [address] FAVIOLA@[facility]LL[facility]sonAD[facility] 12/01/2024 11:30 AM EDT Appointment [facility] Echo [facility] 30 [place] [address] Ivy Ramires, [address] [address] FAVIOLA@[facility]ST[facility] documented as of this encounter Visit Diagnoses Not on filedocumented in this encounter Additional Health Concerns Assessment Noted Time PHQ-2 Depression Total Score: 0 11/15/19 24 11:33 AM EDT documented as of this encounter Care Teams Battery Assembler Dry Cell Relationship Specialty Start Date End Date Arnold Cox MD 40 [place] [address] [email or web address] PCP - General Internal Medicine 01/24/24 Arnold Cox MD 40 [place] [address] [email or web address] Insurance Assigned Provider 02/08/24 documented as of this encounter Additional Source Comments The information contained in this document represents components of the legal health record. It is not the complete legal health record.[facility]
--- OUTSIDE RECORDS SUMMARY | 2024-08-31 16:23 | XMS_ITS | Encounter Summary ---
Author Organization [facility] Address [phone] [facility] [place] [address] Care Team Providers Care Mental Health Clinician Name Role Phone Arnold Cox MD Primary Care Provider [phone] Arnold Cox MD Unavailable Encounter Details Date Type Department Care Team (Late st Contact Info) Description 01/24/2024 Procedure Pass [facility] Cardiac Supervisor Asbestos Removal [address] [place] [address] Social History Tobacco Use Types [...] high school, GED, job training, learning the Angolan language, technical skills, or developing parenting skills)? [...] st Contact Info) Description 03/16/2024 Procedure Pass [facility] Cardiac US 55 [place] [address] 06/02/2024 Procedure Pass [facility] Echo Lab [address] [place] [address] 09/08/2024 11:30 AM EDT Appointment [facility] Cardiac US 55 [place] [address] Frances Prescott MD 55 [facility] [place] [address] [email or web address] 09/08/2024 1:00 PM EDT Office Visit [facility] Pulmonary Hypertension Clinic [address] [facility] 201 [place] [address] Frances Prescott MD 55 [facility] [place] [address] [email or web address]@[facility] 09/22/2024 1:00 PM EDT Telemedicine [facility] Center for Hematology [address] [facility] 7B [place] [address] Sadia Santos MD 55 [facility] 7B [place] [address] [email or web address] 10/14/2024 1:00 PM EDT Appointment [facility] [place] Internal Medicine 40 [place] [address] Arnold Cox MD 40 [place] [address] [email or web address] 12/01/2024 10:00 AM EDT Appointment Non-Invasive Cardiology 30 [place] [address] Ivy Ramires [facility] 55 [place] [address] [email or web address]@[email or web address] 12/01/2024 11:30 AM EDT Appointment [facility] Echo Lab 30 [place] [address] Ivy Ramires [facility] 55 [place] [address] [email or web address]@[email or web address] documented as of this encounter Visit Diagnoses Not on filedocumented in this encounter Additional Health Concerns Assessment Noted Time PHQ-2 Depression Total Score: 0 11/15/19 11:33 AM EDT documented as of this encounter Care Teams Mental Health Clinician Relationship Specialty Start Date End Date Arnold Cox MD 40 [place] [address] [email or web address] PCP - General Internal Medicine 01/24/24 Arnold Cox MD 40 [place] [address] [email or web address] Insurance Assigned Provider 02/08/24 documented as of this encounter Additional Source Comments The information contained in this document represents components of the legal health record. It is not the complete legal health record.[facility]
--- OUTSIDE RECORDS SUMMARY | 2024-08-31 16:23 | XMS_ITS | Encounter Summary ---
Author Organization [facility] Address [phone] [facility] [place] [address] Care Team Providers Care Application Development Consultant Name Role Phone Alvaro Blue MD Primary Care Provider [phone] Arnold Cox MD Primary Care Provider [phone] Arnold Cox MD Unavailable Encounter Details Date Type Department Care Team (Late st Contact Info) Description 01/19/2023 Telephone [facility] Center for Hematology 55 [facility] 7B [place] [address] Sadia Santos MD 55 [facility] [address] [place] [address] [email or web address]. du Social History Tobacco Use Types Packs/Day [...] st Contact Info) Description 03/16/2024 Procedure Pass [facility] Cardiac US 55 [place] [address] 06/02/2024 Procedure Pass [facility] Echo Lab 30 [place] [address] 09/08/2024 11:30 AM EDT Appointment [facility] Cardiac US 55 [place] [address] Frances Prescott MD 55 [facility] [address]UL[address] [place] [address] [email or web address]@[email or web address] 09/08/2024 1:00 PM EDT Office Visit [facility] Pulmonary Hypertension Clinic 55 [facility] 201 [place] [address] Frances Prescott MD 55 [facility]148 [place] [address] [email or web address]@[email or web address] 09/22/2024 1:00 PM EDT Telemedicine [facility] Center for Hematology 55 [facility] 7B [place] [address] Sadia Santos MD [address] [address] [email or web address] 10/14/2024 1:00 PM EDT Appointment [facility] [place] Internal Medicine 40 [place] [address] Arnold Cox MD 40 [place] [address] 12/01/2024 10:00 AM EDT Appointment Non-Invasive Cardiology 30 [place] [address] Ivy Ramires FNP 55 [place] [address] [email or web address]@[facility] 12/01/2024 11:30 AM EDT Appointment [facility] Echo Lab 30 [place] [address] Ivy Ramires Claudia, [facility] 55 [place] [address] [email or web address]@[facility] documented as of this encounter Visit Diagnoses Not on filedocumented in this encounter Care Teams Application Development Consultant Relationship Specialty Start Date End Date Alvaro Blue MD [address] [place] [address] PCP - General Internal Medicine 11/24/22 01/23/24 Arnold Cox MD [address] [place] [address] [email or web address] PCP - General Internal Medicine 01/24/24 Arnold Cox MD [address] [place] [address] [email or web address] Insurance Assigned Provider 02/08/24 documented as of this encounter Additional Source Comments The information contained in this document represents components of the legal health record. It is not the complete legal health record.[facility]
--- OUTSIDE RECORDS SUMMARY | 2024-08-31 16:23 | XMS_ITS | Encounter Summary ---
Author Organization [facility] Address [phone] [facility] [place] [address] Care Team Providers Care Top Lift Compresser Name Role Phone Arnold Cox MD Primary Care Provider [phone] Arnold Cox MD Unavailable Encounter Details Date Type Department Care Team (Late st Contact Info) Description 01/26/2024 Procedure Pass [facility]ter [facility] [address] [place] [address] [place] [address] Social History Tobacco Use Types Packs/Day Years [...] high school, GED, job training, learning the Senegalese language, technical skills, or developing parenting skills)? [...] [facility] Cardiac US 55 [place] [address] 06/02/2024 Procedure Pass [facility] Echo Lab 30 [place] [address] 09/08/2024 11:30 AM EDT Appointment [facility] Card[facility] US 55 [place] [address] Frances Prescott MD 55 [facility] [address] [place] [address] [email or web address]@[facility] 09/08/2024 1:00 PM EDT Office Visit [facility] Pulmonary Hypertension Clinic 55 [facility] 201 [place] [address] Frances Prescott MD 55 [facility] [address] [place] [address] CRUZ@[facility] 09/22/2024 1:00 PM EDT Telemedicine [facility] Center for Hematology 55 [facility] 7B [place] [address] Sadia Santos MD 55 [facility] 7[address] [place] [address] [email or web address] 10/14/2024 1:00 PM EDT Appointment [facility] [place] Internal Medicine 40 [place] [address] Arnold Cox MD 40 [place] [address] [email or web address] 12/01/2024 10:00 AM EDT Appointment Non-Invasive Cardiology 30 [place] [address] Ivy Ramires [facility] 55 [place] [address] [email or web address] 12/01/2024 11:30 AM EDT Appointment [facility] Echo Lab 30 [place] [address] Ivy Ramires CLAIMS ADJUSTER 55 [place] [address] [email or web address]@[email or web address] documented as of this encounter Visit Diagnoses Not on filedocumented in this encounter Additional Health Concerns Assessment Noted Time PHQ-2 Depression Total Score: 0 11/15/19 11:33 AM EDT documented as of this encounter Care Teams Top Lift Compresser Relationship Specialty Start Date End Date Arnold Cox MD 40 [place] [address] [email or web address] PCP - General Internal Medicine 01/24/24 Arnold Cox MD 40 [place] [address] [email or web address] Insurance Assigned Provider 02/08/24 documented as of this encounter Additional Source Comments The information contained in this document represents components of the legal health record. It is not the complete legal health record.[facility]
--- OUTSIDE RECORDS SUMMARY | 2024-08-31 16:23 | XMS_ITS | Encounter Summary ---
Author Organization [facility] Address [phone] Replaced by [facility] [place] [address] Care Team Providers Care Yard Brakeman Name Role Phone Arnold Cox MD Primary Care Provider [phone] Arnold Cox MD Unavailable Encounter Details Date Type Department Care Team (Late st Contact Info) Description 02/03/2024 Telephone [facility] Center for Hematology [address] [facility] 7B [place] [address] Sadia Santos MD [address] [place] [address] [email or web address]. du Social History Tobacco Use Types Packs/Day [...] [facility] [address] [place] [address] 06/02/2024 Procedure Pass [facility] Echo [facility] [address] [place] [address] 09/08/2024 11:30 AM EDT Appointment [facility] Cardiac US 55 [place] [address] Frances Prescott MD 55 [facility]148 [place] [address] CRUZ@[facility] 09/08/2024 1:00 PM EDT Office Visit [facility] Pulmonary Hypertension Clinic 55 [facility] 201 [place] [address] Frances Prescott MD 55 [facility]148 [place] [address] CRUZ@[facility] 09/22/2024 1:00 PM EDT Telemedicine [facility] Center for Hematology 55 [facility] 7B [place] [address] Sadia Santos MD [address] [address] [email or web address] 10/14/2024 1:00 PM EDT Appointment [facility] [place] Internal Medicine 40 [place] [address] Arnold Cox MD 40 [place] [address] 12/01/2024 10:00 AM EDT Appointment Non-Invasive Cardiology 30 [place] [address] Ivy Ramires FNP 55 [place] [address] [email or web address].PRISCILLA [facility] 12/01/2024 11:30 AM EDT Appointment [facility] Echo Lab 30 [place] [address] Ivy Ramires, [address] [address] [email or web address]@[email or web address] documented as of this encounter Visit Diagnoses Not on filedocumented in this encounter Additional Health Concerns Assessment Noted Time PHQ-2 Depression Total Score: 0 11/15/19 24 11:33 AM EDT documented as of this encounter Care Teams Yard Brakeman Relationship Specialty Start Date End Date Arnold Cox MD 40 [place] [address] [email or web address] PCP - General Internal Medicine 01/24/24 Arnold Cox MD 40 [place] [address] [email or web address] Insurance Assigned Provider 02/08/24 documented as of this encounter Additional Source Comments The information contained in this document represents components of the legal health record. It is not the complete legal health record.[facility]
--- OUTSIDE RECORDS SUMMARY | 2024-08-31 16:23 | XMS_ITS | Encounter Summary ---
Author Organization [facility] Address [phone] [facility] [place] [address] Care Team Providers Care Ceramic Mold Designer Name Role Phone Arnold Cox MD Primary Care Provider [phone] Arnold Cox MD Unavailable Encounter Details Date Type Department Care Team (Late st Contact Info) Description 01/25/2024 Procedure Pass [facility] 70 [place] [address] Social History Tobacco Use Types Packs/Day Years [...] high school, GED, job training, learning the Surinamese language, technical skills, or developing parenting skills)? [...] st Contact Info) Description 03/16/2024 Procedure Pass [facility] Cardiac US 55 [place] [address] 06/02/2024 Procedure Pass [facility] Echo Lab [address] [place] [address] 09/08/2024 11:30 AM EDT Appointment [facility] Cardiac US 55 [place] [address] Frances Prescott MD [address] [facility] [address] [place] [address] CRUZ@Dway[facility] 09/08/2024 1:00 PM EDT Office Visit [facility] Pulmonary Hypertension Clinic 55 [facility] Ruth Jp 201 [place] [address] Frances Prescott MD 55 [facility] [address] [place] [address] CRUZ@[facility] 09/22/2024 1:00 PM EDT Telemedicine [facility] Center for Hematology 55 [facility] 7B [place] [address] Sadia Santos MD 55 [facility] 7B [place] [address] RENE@[email or web address] 10/14/2024 1:00 PM EDT Appointment [facility] [place] Internal Medicine 40 [place] [address] Arnold Cox MD 40 [place] [address] [email or web address] 12/01/2024 10:00 AM EDT Appointment Non-Invasive Cardiology 30 [place] [address] Ivy Ramires FNP 55 [place] [address] [email or web address]@[facility] 12/01/2024 11:30 AM EDT Appointment [facility] Echo Lab 30 [place] [address] Ivy Ramires FNP 55 [place] [address] [email or web address] documented as of this encounter Visit Diagnoses Not on filedocumented in this encounter Additional Health Concerns Assessment Noted Time PHQ-2 Depression Total Score: 0 11/15/19 11:33 AM EDT documented as of this encounter Care Teams Ceramic Mold Designer Relationship Specialty Start Date End Date Arnold Cox MD 40 [place] [address] [email or web address] PCP - General Internal Medicine 01/24/24 Arnold Cox MD 40 [place] [address] [email or web address] Insurance Assigned Provider 02/08/24 documented as of this encounter Additional Source Comments The information contained in this document represents components of the legal health record. It is not the complete legal health record.[facility]
--- OUTSIDE RECORDS SUMMARY | 2024-08-31 16:23 | XMS_ITS | Encounter Summary ---
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 Procedures Stress Echo Exercise Stress Echo Dobutamine Frances Prescott MD [address] [place] [address] Email: [email or web address] Referral ID Status Reason Start Date Expiration Date Visits Re quested Visits Authorized [id number] Closed 04/15/2023 1 1 Encounter Details Date Type Department Care Team (Late st Contact Info) Description 05/24/2023 Ancillary Orders [facility] [address] [place] [address] Jp 201 [place] [address] Frances Prescott MD [address] [place] [address] CRUZ@ [facility] Acute saddle pulmonary embolism with acute cor [...] [facility] Card[facility] [place] 55 [place] [address] 06/02/2024 Procedure Pass [facility] Echo Lab [address] [place] [address] 09/08/2024 11:30 AM EDT Appointment [facility] Cardiac US 55 [place] [address] Frances Prescott MD 55 [facility] [address] [place] [address] CRUZ[facility] 09/08/2024 1:00 PM EDT Office Visit [facility] Pulmonary Hypertension Clinic [address] [place] [address] Franecs Prescott MD 55 [facility] [address] [place] [address] CRUZ@[facility] 09/22/2024 1:00 PM EDT Telemedicine [facility] Center for Hematology 55 [facility] [address] [place] [address] Sadia Santos MD 55 [facility] YAW [address] [place] [address] RENE@[email or web address] 10/14/2024 1:00 PM EDT Appointment [facility] Internal Medicine 40 [place] [address] Arnold Cox MD 40 [place] [address] [email or web address] 12/01/2024 10:00 AM EDT Appointment Non-Invasive Cardiology 30 [place] [address] Ivy Ramires, [address] [address] FAVIOLA@[facility] 12/01/2024 11:30 AM EDT Appointment [facility] Echo Lab 30 [place] [address] Ivy Ramires, [address] [address] FAVIOLA@[facility] documented as of this encounter Results * [...] peak [place] [address]. The test was terminated due to hypertension [...] pulmonale documented in this encounter Care Teams Tick Sewer Relationship Specialty Start Date End Date Alvaro Blue MD [address] [place] [address] PCP - General Internal Medicine 11/24/22 01/23/24 Arnold Cox MD [address] [place] [address] [email or web address] PCP - General Internal Medicine 01/24/24 Arnold Cox MD [address] [place] [address] [email or web address] Insurance Assigned Provider 02/08/24 documented as of this encounter Additional Source Comments The information contained in this document represents components of the legal health record. It is not the complete legal health record.[facility]
--- OUTSIDE RECORDS SUMMARY | 2024-08-31 16:23 | XMS_ITS | Encounter Summary ---
Author Organization [facility] Address [phone] [facility] [place] [address] Care Team Providers Care Computer Specialist Name Role Phone Pcp, Unknown Primary Care Provider UnavailAlvaro Shea MD Primary Care Provider [phone] Arnold Cox MD Primary Care Provider [phone] Arnold Cox MD Unavailable Encounter Details Date Type Department Care Team (Late st Contact Info) Description 11/23/2022 Procedure Pass [facility] 30 [place] [address] Social History Tobacco Use Types Packs/Day Years [...] st Contact Info) Description 03/16/2024 Procedure Pass [facility] Card[facility] US [address] [place] [address] 06/02/2024 Procedure Pass [facility] Echo Lab 30 [place] [address] 09/08/2024 11:30 AM EDT Appointment [facility] Cardiac US 55 [place] [address] Frances Prescott MD 55 [facility]148 [place] [address] CRUZ@[facility] 09/08/2024 1:00 PM EDT Office Visit [facility] Hypertension Clinic 55 [facility] Ruth [facility] 201 [place] [address] Frances Prescott MD [address] [place], [place] [address] [place] [address] CRUZ@[facility] 09/22/2024 1:00 PM EDT Telemedicine [facility] Center for Hematology 55 [facility] 7B [place] [address] Sadia Santos MD [address] [address] RENE@[email or web address] 10/14/2024 1:00 PM EDT Appointment [facility] [place] Internal Medicine 40 [place] [address] Arnold Cox MD 40 [place] [address] 12/01/2024 10:00 AM EDT Appointment Non-Invasive Cardiology 30 [place] [address] Ivy Ramires, PARTS PICKER 55 [place] [address] FAVIOLA@[email or web address] 12/01/2024 11:30 AM EDT Appointment [facility] Echo Lab 30 [place] [address] Ivy Ramires, [address] [address] [email or web address]@[facility] documented as of this encounter Visit Diagnoses Not on filedocumented in this encounter Care Teams Computer Specialist Relationship Specialty Start Date End Date Pcp, Unknown PCP - General 11/23/22 11/23/22 Alvaro Blue MD [address] [place] [address] PCP - General Internal Medicine 11/24/22 01/23/24 Arnold Cox MD 40 [place] [address] [email or web address] PCP - General Internal Medicine 01/24/24 Arnold Cox MD 40 [place] [address] [email or web address] Insurance Assigned Provider 02/08/24 documented as of this encounter Additional Source Comments The information contained in this document represents components of the legal health record. It is not the complete legal health record.[facility]
--- OUTSIDE RECORDS SUMMARY | 2024-08-31 16:23 | XMS_ITS | Encounter Summary ---
Author Organization Formerly [facility] Address [phone] [facility] [place] [address] Care Team Providers Care Global Marketing Coordinator Name Role Phone Arnold Cox MD Primary Care Provider [phone] Arnold Cox MD Unavailable Encounter Details Date Type Department Care Team (Late st Contact Info) Description 01/24/2024 Procedure Pass [facility] Emergency Imaging, [place] [address] [address] Social History Tobacco Use Types Packs/Day Years [...] high school, GED, job training, learning the Mongolian language, technical skills, or developing parenting skills)? [...] Contact Info) Description 03/16/2024 Procedure Pass [facility] Cardiac US [address] [place] [address] 06/02/2024 Procedure Pass [facility] Echo Lab [address] [place] [address] 09/08/2024 11:30 AM EDT Appointment [facility] Cardiac US 55 [place] [address] Frances Prescott MD 55 [facility] [address] [place] [address] [email or web address]@[email or web address] [facility] 09/08/2024 1:00 PM EDT Office Visit [facility] Pulmonary Hypertension Clinic 55 [facility] 201 [place] [address] Frances Prescott MD 55 [facility] [address] [place] [address] [email or web address]@[email or web address] [facility] 09/22/2024 1:00 PM EDT Telemedicine [facility] Center for Hematology 55 [facility] [place] [address] [place] [address] Sadia Santos MD 55 [facility] [address] [place] [address] [email or web address] 10/14/2024 1:00 PM EDT Appointment [facility] [place] Internal Medicine 40 [place] [address] Arnold Cox MD 40 [place] [address] [email or web address] 12/01/2024 10:00 AM EDT Appointment Non-Invasive Cardiology 30 [place] [address] Ivy Ramires [facility] 55 [place] [address] [email or web address] 12/01/2024 11:30 AM EDT Appointment [facility] Echo Lab 30 [place] [address] Ivy Ramires SCHEDULING SPECIALIST 55 [place] [address] [email or web address] documented as of this encounter Visit Diagnoses Not on filedocumented in this encounter Additional Health Concerns Assessment Noted Time PHQ-2 Depression Total Score: 0 11/15/19 11:33 AM EDT documented as of this encounter Care Teams Global Marketing Coordinator Relationship Specialty Start Date End Date Arnold Cox MD 40 [place] [address] [email or web address] PCP - General Internal Medicine 01/24/24 Arnold Cox MD 40 [place] [address] [email or web address] Insurance Assigned Provider 02/08/24 documented as of this encounter Additional Source Comments The information contained in this document represents components of the legal health record. It is not the complete legal health record.[facility]
--- OUTSIDE RECORDS SUMMARY | 2024-08-31 16:23 | XMS_ITS | Encounter Summary ---
Author Organization [facility] Address [phone] [facility] [place] [address] Care Team Providers Care Growth Media Mixer Mushroom Name Role Phone Arnold Cox MD Primary Care Provider [phone] Arnold Cox MD Unavailable Encounter Details Date Type Department Care Team (Late st Contact Info) Description 08/10/2024 Transcribe Orders Non-Invasive Cardiology 30 [place] [address] Ivy Ramires, [facility] 55 [place] [address] [email or web address] Social History Tobacco Use Types Packs/Day Years [...] high school, GED, job training, learning the Jamaican language, technical skills, or developing parenting skills)? [...] st Contact Info) Description 03/16/2024 Procedure Pass [facility] Cardiac US [address] [place] [address] 06/02/2024 Procedure Pass [facility] Echo Lab 30 [place] [address] 09/08/2024 11:30 AM EDT Appointment [facility] Cardiac US 55 [place] [address] Frances Prescott MD 55 [facility]148 [place] [address] [email or web address] 09/08/2024 1:00 PM EDT Office Visit [facility] Pulmonary Hypertension Clinic 55 [facility] 201 [place] [address] Frances Prescott MD 55 [facility] [place] [address] [email or web address] [facility] 09/22/2024 1:00 PM EDT Telemedicine [facility] Center for Hematology 55 [facility] [address]B [place] [address] Sadia Santos MD [address] [address] [email or web address] 10/14/2024 1:00 PM EDT Appointment [facility] [place] Internal Medicine 40 [place] [address] Arnold Cox MD 40 [place] [address] 12/01/2024 10:00 AM EDT Appointment Non-Invasive Cardiology 30 [place] [address] Ivy Ramires FNP 55 [place] [address] [email or web address] 12/01/2024 11:30 AM EDT Appointment [facility] Echo Lab 30 [place] [address] Ivy Ramires FNP [address] [place] [address] [email or web address]@[email or web address] documented as of this encounter Procedures Procedure Name Priority Date/Time Associated Diagnosis Comments ECG 12-LEAD Routine 08/10/2024 9:48 AM EST documented in this encounter Results * ECG 12-LEAD (08/10/2024 9:48 AM EST) Ventricular Rate EKG/MIN 55 BPM [facility] Atrial Rate 48 BPM [facility] IA Interval 206 ms [facility] QRS Duration 90 ms [facility] QT Interval 422 ms [facility] QTC Interval 403 ms [facility] P [place] 51 degrees [facility] R Wave [place] 55 degrees [facility] T Wave [place] 42 degrees [facility] 08/10/2024 9:48 AM EST 08/10/2024 3:28 PM EST Narrative [facility] - 08/10/2024 3:28 PM EST Sinus bradycardia with Premature atrial complexes with Aberrant conduction Otherwise normal ECG When compared with ECG of 20-Jan-2024 12:01, Aberrant conduction is now Present Confirmed by Chandan Raya ([id number]) on 08/10/2024 3:28:[address] [facility] ECG ORDERABLES [facility] documented in this encounter Visit Diagnoses Not on filedocumented in this encounter Additional Health Concerns Assessment Noted Time PHQ-2 Depression Total Score: 0 11/15/19 24 11:33 AM EDT documented as of this encounter Care Teams Growth Media Mixer Mushroom Relationship Specialty Start Date End Date Arnold Cox MD 40 [place] [address] [email or web address] PCP - General Internal Medicine 01/24/24 Arnold Cox MD 40 [place] [address] [email or web address] Insurance Assigned Provider 02/08/24 documented as of this encounter Additional Source Comments The information contained in this document represents components of the legal health record. It is not the complete legal health record.[facility]
--- OUTSIDE RECORDS SUMMARY | 2024-08-31 16:23 | XMS_ITS | Clinical Summary ---
Author Organization [facility] Address [phone] [facility] [place] [address] Care Team Providers Care Stator Tester Name Role Phone Arnold Cox MD Primary Care Provider [phone] Arnold Cox MD Unavailable Allergies No known [...] asked the patient to message to the link trainer mechanic who is seeing him about hypercoagulation workup and see if lab work can be ordered regarding the hemochromatosis. That lab work can be done at [place] and if patient is positive we can put in a referral locally. Arrhythmia 01/24/2024 Assessment & Plan (01/31/2024 9:23 AM EDT): Today heart rate is mildly bradycardic and regular rhythm. Continue metoprolol and patient has Zio patch ordered to assess for arrhythmias over time. He will follow the storage worker order of not over exercising and limiting [...] December. 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 Going forward I can see him once a year for repeat physical. This visit was 35 minutes in length of uiui-hr-[id number] time and 10 additional minutes to review chart. Encounters Date Type Department Care Team Description 08/10/2024 9:25 AM EST - 08/10/2024 11:59 PM EST Hospital Encounter [facility] EKG 30 [place] [address] Ivy Ramires FNP Discharge Disposition: Home or Self Care 08/10/2024 Transcribe Orders Non-Invasive Cardiology 30 [place] [address] Ivy Ramires FNP 06/02/2024 8:30 AM EST Office Visit [facility] Cardiac Arrhythmia Service [address] [address] Ivy Ramires FNP V tach (Primary Dx); Ventricular tachycardia from Last 3 Months Immunizations Name Administration [...] Meningococcal MCV4P 11/16/2020,12/03/2015,2010 Meningococcal MPSV4 11/18/2005,10/10/2000 Novel [id number], Injectable 07/24/2009 PPD Test 11/13/2003, 3,11/11/2001,10/10 Smallpox [...] high school, GED, job training, learning the Bhutanese language, technical skills, or developing parenting skills)? [...] st Contact Info) Description 03/16/2024 Procedure Pass [facility] Cardiac US 55 [place] [address] 06/02/2024 Procedure Pass [place] Echo Lab 30 [place] [address] 09/08/2024 11:30 AM EDT Appointment [facility] Cardiac US 55 [place] [address] Frances Prescott MD 55 [facility] [place] [address] [email or web address] 09/08/2024 1:00 PM EDT Office Visit [facility] Pulmonary Hypertension Clinic 55 [facility] [place] [address] Frances Prescott MD 55 [facility] [address] [place] [address] [email or web address]@Dwayne [facility] 09/22/2024 1:00 PM EDT Telemedicine [facility] Center for Hematology 55 [facility] [address] [place] [address] Sadia Santos MD [address] [address] [email or web address] 10/14/2024 1:00 PM EDT Appointment [facility] Internal Medicine 40 [place] [address] Arnold Cox MD 40 [place] [address] [email or web address] 12/01/2024 10:00 AM EDT Appointment Non-Invasive Cardiology 30 [place] [address] Ivy Ramires [address] [address] [email or web address] 12/01/2024 11:30 AM EDT Appointment [facility] Echo Lab 30 [place] [address] Ivy Ramires [address] [address] [email or web address] Health Maintenance Due Date Last Done Comments [...] ECG 12-LEAD Routine 08/10/2024 9:48 AM EST BASIC METABOLIC PANEL STAT 01/24/2024 12:57 PM EDT OUTSIDE HDL Routine 06/03/2023 OUTSIDE GLUCOSE FASTING Routine 06/03/2023 from Last 3 Months or Most Recently Relevant to Health Maintenance Results * ECG 12-LEAD (08/10/2024 9:48 AM EST) Ventricular Rate EKG/MIN 55 BPM [facility] Atrial Rate 48 BPM [facility] CO Interval 206 ms [facility] QRS Duration 90 ms [facility] QT Interval 422 ms [facility] QTC Interval 403 ms [facility] P [place] 51 degrees [facility] R Wave [place] 55 degrees [facility] T Wave [place] 42 degrees [facility] 08/10/2024 9:48 AM EST 08/10/2024 3:28 PM EST Narrative [facility] - 08/10/2024 3:28 PM EST Sinus bradycardia with Premature atrial complexes with Aberrant conduction Otherwise normal ECG When compared with ECG of 20-Jan-2024 12:01, Aberrant conduction is now Present Confirmed by Chandan Raya ([id number]) on 08/10/2024 3:28:45 PM Ivy Ramires MID LEVEL PROJECT MANAGER ECG ORDERABLES SANGEETA_WEN * (ABNORMAL) Basic metabolic panel (01/24/2024 12:57 PM EDT) SODIUM 136 135 - 145 mmol/L [facility] POTASSIUM 4.1 3.4 - 5.0 mmol/L [facility] CHLORIDE 99 98 - 108 mmol/L [facility] CO2 26 23 - 32 mmol/L [facility] BUN 13 8 - 25 mg/dL [facility] CREATININE 0.90 0.60 - 1.50 mg/dL [facility] GLUCOSE 116(H) 70 - 110 mg/dL [facility] CALCIUM 9.4 8.5 - 10.5 mg/dL [facility] EGFR 108 >59 mL/min/1. 73m2 [facility] Comment:Estimated glomerular filtration rate calculated using the CKD-EPI refit equation. ANION GAP 11 3 - 17 mmol/L [facility] Blood 01/24/2024 12:5 7 PM EDT 01/24/2024 1:08 PM EDT Rafita Yates MD LAB BLOOD ORDERABLES [facility] 55 [place] [address] * (ABNORMAL) Outside Glucose,Fasting (06/03/2023) Glucose, fasting - External 106(A) 65 - 99 mg/dL Historical Provider LAB BLOOD ORDERAB LES * Outside HDL (06/03/2023) HDL - External 52 40 - 80 mg/dL Historical Provider LAB BLOOD ORDERAB LES from Last 3 Months or Most Recently Relevant to Health Maintenance Advance Directives Documents on File Type Date Recorded Patient Newspaper Stuffer Expl anation Healthcare Proxy 11/28/2022 1:09 PM * Full Code (Latest Code Status on File) Date Activated Date Inactivated Comments 11/23/2022 8:36 PM Question Answer Comments Code Status Confirmed With: Patient Care Teams Stator Tester Relationship Specialty Start Date End Date Arnold Cox MD 40 [place] [address] [email or web address] PCP - General Internal Medicine 01/24/24 Arnold Cox MD 40 [place] [address] [email or web address] Insurance Assigned Provider 02/08/24 Additional Source Comments The information contained in this document represents components of the legal health record. It is not the complete legal health record.[facility]
== END 2024-08-31 13:51 | disposition home or self-care (01) ==
LOC: HO.BBR 13:50
PROVIDERS: PCP Internal Medicine; Visit Provider Internal Medicine
DX: E83.110 Hereditary hemochromatosis (principal)
CPT/HCPCS: 36415; 82728; 83540; 85025

== ENCOUNTER 2024-10-02 13:47 | Outpatient (REF) | payer BC, OTHER, SELFPAY ==
[2024-10-02 14:00] LABS: Basophils Percent Auto 0.4 % (0-2); Eosinophils Percent Auto 0.2 % (0-4); Hemoglobin 15.9 g/dl (14.0-18.0); Lymphocytes Absolute Auto 2.4 X10*3/uL (1.2-4.9); Lymphocytes Percent Auto 46.9 % (20-40); MANUAL DIFF FLAG NO; Mean Corpuscular HGB Conc 36.1 g/dl (31.0-36.0); Mean Corpuscular Hemoglobin 33.2 pg (27.0-33.0); Mean Corpuscular Volume 91.9 fL (80.0-98.0); Mean Platelet Volume 9.1 fL (9.4-12.4); Monocytes Absolute Auto 0.4 X10*3/uL (0.1-1.2); Monocytes Percent Auto 8.5 % (2-11); Neutrophils Absolute Auto 2.3 x10*3/uL (2.0-8.3); Platelet Count 176 X10*3/uL (160-400); Red Blood Count 4.79 X10*6/uL (4.60-5.80); Red Cell Distribution Width 12.1 % (11.0-16.0); White Blood Count 5.2 X10*3/uL (4.8-10.8)
[2024-10-02 14:56] LABS: Iron 207 mcg/dL (45-160); Percent Iron Saturation 89 % (15-50); Total Iron Binding Capacity 232 mcg/dL (228-428); Unsaturated Iron Binding < 25 ug/dL
[2024-10-02 15:12] LABS: Ferritin 155 ng/mL (20-250)
--- OUTSIDE RECORDS SUMMARY | 2024-10-02 15:34 | XMS_ITS | Encounter Summary ---
Author Organization [facility] Address [address] [place] [address] [place] [address] Phone Care Team Providers Care Seasonal Package Handler Name Role Phone Alvaro Blue MD Primary Care Provider [phone] Arnold Cox MD Primary Care Provider [phone] Arnold Cox MD Unavailable Encounter Details Date Type Department Care Team ([facility] st Contact Info) Description 04/09/2023 Telephone [facility] Center for Hematology 32 [facility] [address] [place] [address] Sadia Santos MD 55 [facility] [address] [place] [address] [email or web address] Social History Tobacco Use Types Packs/Day [...] Upcoming Encounters Date Type Department Care Team (Latest Contact Info) Description 06/02/2024 Procedure Pass [facility] Echo Lab 30 [place] [address] 10/14/2024 1:00 PM EDT Appointment [facility] Internal Medicine 40 [place] [address] Arnold Cox MD 40 [place] [address] [email or web address] 10/15/2024 Procedure Pass [facility] Cardiac Hand Plug Shaper 55 [place] [address] 10/15/2024 11:55 AM EDT Hospital Encounter [facility] Cardiac Hand Plug Shaper 55 [place] [address] Praful Torres MD, MSc 55 [facility] [address] [address] [email or web address] 10/15/2024 11:55 AM EDT - 10/15/2024 3:45 PM EDT Surgery [facility] Cardiac Hand Plug Shaper 55 [place] [address] Praful Torres MD, MSc [address] [place] [address] [address] [email or web address] Balloon Pulmonary Angioplasty with Possible Additional Vessels 12/01/2024 10:00 AM EDT Appointment Non-Invasive Cardiology 30 [place] [address] Ivy Ramires FNP 55 [place] [address] [email or web address] 12/01/2024 11:30 AM EDT Appointment [facility] Echo Lab 30 [place] [address] Ivy Ramires FNP 55 [place] [address] [email or web address] 03/23/2025 11:00 AM EDT Office Visit [facility] Pulmonary Hypertension Clinic 55 [facility] Ruth [facility] [place] [address] Frances Prescott MD 55 [facility] [address] [place] [address] MISAEL [email or web address] [place] documented as of this encounter Visit Diagnoses Not on filedocumented in this encounter Care Teams Seasonal Package Handler Relationship Specialty Start Date End Date Alvaro Blue MD 95 [place] [address] PCP - General Internal Medicine 11/24/22 01/23/24 Arnold Cox MD 40 [place] [address] [email or web address] PCP - General Internal Medicine 01/24/24 Arnold Cox MD 40 [place] [address] [email or web address] Insurance Assigned Provider 02/08/24 documented as of this encounter Additional Source Comments The information contained in this document represents components of the legal health record. It is not the complete legal health record.[facility]
--- OUTSIDE RECORDS SUMMARY | 2024-10-02 15:35 | XMS_ITS | Encounter Summary ---
Author Organization [facility] Address [address] [place] [address] Phone Care Team Providers Care Acetone Button Paster Name Role Phone Arnold Cox MD Primary Care Provider Arnold Cox MD Unavailable Encounter Details Date Type Department Care Team (Late st Contact Info) Description 08/10/2024 Transcribe Orders Non-Invasive Cardiology 30 [place] [address] Ivy Ramires, [facility] 55 [place] [address] [email or web address] Social History Tobacco Use Types Packs/Day Years [...] high school, GED, job training, learning the Sammarinese language, technical skills, or developing parenting skills)? [...] 06/02/2024 Procedure Pass [facility] Echo Lab 30 [place] [address] 10/14/2024 1:00 PM EDT Appointment [facility] [place] Internal Medicine 40 [place] [address] Arnold Cox MD 40 [place] [address] [email or web address] 10/15/2024 Procedure Pass [facility] Cardiac Machinery Engineer 55 [place] [address] 10/15/2024 11:55 AM EDT Hospital Encounter [facility] Cardiac Machinery Engineer 55 [place] [address] Praful Torres MD, MSc [address] [place] [address] [address] [email or web address] 10/15/2024 11:55 AM EDT - 10/15/2024 3:45 PM EDT Surgery [facility] Cardiac Machinery Engineer 55 [place] [address] Praful Torres MD, MSc [address] [place] [address] [address] [email or web address] Balloon Pulmonary Angioplasty with Possible Additional Vessels 12/01/2024 10:00 AM EDT Appointment Non-Invasive Cardiology 30 [place] [address] Ivy Ramires FNP 55 [place] [address] [email or web address] 12/01/2024 11:30 AM EDT Appointment [facility] Echo Lab 30 [place] [address] Ivy Ramires FNP [address] [place] [address] [email or web address]@[email or web address] 03/23/2025 11:00 AM EDT Office Visit [facility] Pulmonary Hypertension Clinic 55 [facility] [address] [place] [address] Frances Prescott MD 55 [facility] [address] [place] [address] MISAEL [email or web address] [place] documented as of this encounter Procedures Procedure [...] [facility] QTC Interval 403 ms [facility] P [place] 51 degrees [facility] R Wave [place] 55 degrees [facility] T Wave [facility] [place] 42 degrees [facility] 08/10/2024 9:48 AM EST 08/10/2024 3:28 PM EST Narrative [facility] - 08/10/2024 3:28 PM EST Sinus bradycardia with Premature atrial complexes with Aberrant conduction Otherwise normal ECG When compared with ECG of 20-Jan-2024 12:01, Aberrant conduction is now Present Confirmed by Chandan Raya ([id number]) on 08/10/2024 3:28:45 PM Ivy Ramires TOLL LINE REPAIRER ECG ORDERABLES [facility] documented in this encounter Visit Diagnoses Not on filedocumented in this encounter Additional Health Concerns Assessment Noted Time PHQ-2 Depression Total Score: 0 11/15/19 24 11:33 AM EDT documented as of this encounter Care Teams Acetone Button Paster Relationship Specialty Start Date End Date Arnold Cox MD 40 [place] [address] [email or web address] PCP - General Internal Medicine 01/24/24 Arnold Cox MD [address] [place] [address] [email or web address] Insurance Assigned Provider 02/08/24 documented as of this encounter Additional Source Comments The information contained in this document represents components of the legal health record. It is not the complete legal health record.[facility]
--- OUTSIDE RECORDS SUMMARY | 2024-10-02 15:35 | XMS_ITS | Encounter Summary ---
Author Organization [facility] Address [address] [place] [address] [place] [address] Phone Care Team Providers Care Sql Data Architect Name Role Phone Alvaro Blue MD Primary Care Provider [phone] Arnold Cox MD Primary Care Provider [phone] Arnold Cox MD Unavailable Encounter Details Date Type Department Care Team ([facility] st Contact Info) Description 04/09/2023 Telephone [facility] [address] [facility] [address] [place] [address] Ashley Polo MD, MPH [address] [place] [address] [email or web address] Social History Tobacco Use Types Packs/Day [...] 06/02/2024 Procedure Pass [facility] [address] [place] [address] 10/14/2024 1:00 PM EDT Appointment [facility] Internal Medicine 40 [place] [address] Arnold Cox MD 40 [place] [address] [email or web address] 10/15/2024 Procedure Pass [facility] Cardiac General Office Clerk [address] [place] [address] 10/15/2024 11:55 AM EDT Hospital Encounter [facility] Cardiac General Office Clerk [address] [place] [address] Praful Torres MD, MSc 55 [facility] [address] [address] [email or web address] 10/15/2024 11:55 AM EDT - 10/15/2024 3:45 PM EDT Surgery [facility] Cardiac General Office Clerk 55 [place] [address] Praful Torres MD, MSc [address] [place] [address] [address] [email or web address] Pulmonary Angioplasty with Possible Additional Vessels 12/01/2024 10:00 AM EDT Appointment Non-Invasive Cardiology 30 [place] [address] Ivy Ramires FNP 55 [place] [address] [email or web address] 12/01/2024 11:30 AM EDT Appointment [facility] [address] [place] [address] Ivy Ramires FNP [address] [place] [address] [email or web address] 03/23/2025 11:00 AM EDT Office Visit [facility]pertension [facility] 55 [facility] Ruth Jp [address] [place] [address] Frances Prescott MD 55 [facility] [address] [place] [address] MISAEL [email or web address] documented as of this encounter Visit Diagnoses Not on filedocumented in this encounter Care Teams Sql Data Architect Relationship Specialty Start Date End Date Alvaro Blue MD 95 [place] [address] PCP - General Internal Medicine 11/24/22 01/23/24 Arnold Cox MD [address] [place] [address] [email or web address] PCP - General Internal Medicine 01/24/24 Arnold Cox MD 40 [place] [address] [email or web address] Insurance Assigned Provider 02/08/24 documented as of this encounter Additional Source Comments The information contained in this document represents components of the legal health record. It is not the complete legal health record.[facility]
--- OUTSIDE RECORDS SUMMARY | 2024-10-02 15:35 | XMS_ITS | Encounter Summary ---
Author Organization [facility] Address [address] [place] [address] Phone Care Team Providers Care Hydraulic Oil Tool Operator Name Role Phone Alvaro Blue MD Primary Care Provider [phone] Arnold Cox MD Primary Care Provider [phone] Arnold Cox MD Unavailable Encounter Details Date Type Department Care Team (Late st Contact Info) Description 11/24/2022 Procedure Pass [facility] [address] [place], [place] [id number] Social History Tobacco Use Types Packs/Day Years [...] (Latest Contact Info) Description 06/02/2024 Procedure Pass [facility] Echo Lab [address] [place] [address] 10/14/2024 1:00 PM EDT Appointment [facility] Internal Medicine 40 [place] [address] Arnold Cox MD 40 [place] [address] 10/15/2024 Procedure Pass [facility]iac Veneer Splicer 55 [place] [address] 10/15/2024 11:55 AM EDT Hospital Encounter [facility] Cardiac Veneer Splicer 55 [place] [address] Praful Torres MD, MSc [address] [place] [address] [address] [email or web address] 10/15/2024 11:55 AM EDT - 10/15/2024 3:45 PM EDT Surgery [facility] Cardiac Veneer Splicer 55 [place] [address] Praful Torres MD, MSc [address] [place] [address] [email or web address] Balloon Pulmonary Angioplasty with Possible Additional Vessels 12/01/2024 10:00 AM EDT Appointment Non-Invasive Cardiology 30 [place] [address] Ivy Ramires FNP 55 [place] [address] [email or web address] 12/01/2024 11:30 AM EDT Appointment [facility] 30 [place] [address] Ivy Ramires FNP 55 [place] [address] [email or web address] 03/23/2025 11:00 AM EDT Office Visit [facility]pertension Clinic 55 [facility] Ruth Jp [address] [place] [address] Frances Prescott MD 55 [facility] [address] [place] [address] MISAEL [email or web address] [place] documented as of this encounter Visit Diagnoses Not on filedocumented in this encounter Care Teams Hydraulic Oil Tool Operator Relationship Specialty Start Date End Date Alvaro Blue MD 95 [place] [address] PCP - General Internal Medicine 11/24/22 01/23/24 Arnold Cox MD 40 [place] [address] [email or web address] PCP - General Internal Medicine 01/24/24 Arnold Cox MD 40 [place] [address] [email or web address] Insurance Assigned Provider 02/08/24 documented as of this encounter Additional Source Comments The information contained in this document represents components of the legal health record. It is not the complete legal health record.[facility]
--- OUTSIDE RECORDS SUMMARY | 2024-10-02 15:35 | XMS_ITS | Encounter Summary ---
Author Organization [facility] Address [address] [place] [address] Phone Care Team Providers Care Strip Feeder Name Role Phone Alvaro Blue MD Primary Care Provider [phone] Arnold Cox MD Primary Care Provider [phone] Arnold Cox MD Unavailable Reason for Referral * Outpatient Procedure - Closed Specialty Diagnoses / Procedures Referred By Pete cline Referred To Contact Diagnoses Acute saddle pulmonary embolism with acute cor pulmonale Procedures Stress Echo Exercise Stress Echo Dobutamine Frances Prescott MD [address] [place] [address] Email: [email or web address] Referral ID Status Reason Start Date Expiration Date Visits Re quested Visits Authorized [id number] Closed 04/15/2023 1 1 Encounter Details Date Type Department Care Team (Late st Contact Info) Description 05/24/2023 Ancillary Orders [facility] 55 [facility] [address] [place] [address] Frances Prescott MD [address] [place], [place] [id number] [place] [address] [email or web address] Acute saddle pulmonary embolism with acute [...] (Latest Contact Info) Description 06/02/2024 Procedure Pass [facility] Echo Lab 30 [place] [address] 10/14/2024 1:00 PM EDT Appointment [facility] Internal Medicine 40 [place] [address] Arnold Cox MD 40 [place] [address] [email or web address] 10/15/2024 Procedure Pass [facility] Cardiac Technical Expert 55 [place] [address] 10/15/2024 11:55 AM EDT Hospital Encounter [facility] Cardiac Technical Expert 55 [place] [address] Praful Torres MD, MSc 55 [facility] [address] [place] [address] [email or web address] 10/15/2024 11:55 AM EDT - 10/15/2024 3:45 PM EDT Surgery [facility] Cardiac Technical Expert 55 [place] [address] Praful Torres MD, MSc 55 [facility] GRB [address] [place] [address] [email or web address] Balloon Pulmonary Angioplasty with Possible Additional Vessels 12/01/2024 10:00 AM EDT Appointment Non-Invasive Cardiology 30 [place] [address] Ivy Ramires [facility] 55 [place] [address] [email or web address] 12/01/2024 11:30 AM EDT Appointment [facility] 30 [place] [address] Iyv Ramires [facility] 55 [place] [address] [email or web address] 03/23/2025 11:00 AM EDT Office Visit [facility] Pulmonary Hypertension Clinic 55 [facility] Ruth [address]p [address] [place] [address] Frances Prescott MD [address] [place] [address] [address] [place] [address] [email or web address] [email or web address] documented as of this encounter Results * [...] [place] [address]. 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 It is not the complete legal health record.[facility]
--- OUTSIDE RECORDS SUMMARY | 2024-10-02 15:36 | XMS_ITS | Continuity of Care Document ---
Author Name [facility] Organization [facility] Care Team Providers Care Film Reader Name Role Phone [facility] Unavailable Unavailable Problems Combined list of problems from Department of Defense and Veterans Affairs facilities. It does not include entries that were removed or entered in error. 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 Immunization Series Date Given Administered By Site Reaction Lot Number CVX Code Drug Profiler Status Comments Source influenza, injectable, quadrivalent- pf 2021 [id number] GlaxoSmithKli ne complet ed influenza , injectabl e, quadrival ent-pf 04/11/22 Given Ambulat ory Pharmac y SARS-CoV-2 (COVID-19) mRNA-Bivalent 2021 [id number] 229 complet ed SARS-CoV- 2 (COVID-19 ) mRNA-Biva lent 03/29/22 Given Ambulat ory Pharmac y typhoid Vi capsular polysaccharid e vac 2021 [id number] 101 sanofi pasteur complet ed typhoid Vi capsular polysacch aride vac 07/11/21 Given Ambulat ory Pharmac y COVID Vaccine Moderna 2020 [id number] 207 complet ed COVID Vaccine Moderna 05/22/21 Given Ambulat ory Pharmac y influenza, injectable, quadrivalent 2020 [id number] 158 GlaxoSmithKli ne complet ed influenza , injectabl e, quadrival ent 03/15/21 Given Ambulat ory Pharmac y tetanus, diphtheria, acellular pertu is 2020 [id number] 115 sanofi pasteur complet ed tetanus, diphtheri a, acellular pertussis 01/31/21 Given Ambulat ory Pharmac y meningococcal A,C,Y,W-135 (MCV4P) 2020 [id number] 114 sanofi pasteur complet ed meningoco ccal A,C,Y,W-1 35 (MCV4P) 11/16/20 Given Ambulat ory Pharmac y COVID Vaccine Moderna 2020 [id number] 207 complet ed COVID Vaccine Moderna 08/26/20 Given Ambulat ory Pharmac y COVID Vaccine Moderna 2020 [id number] 207 complet ed COVID Vaccine Moderna 07/25/20 Given Ambulat ory Pharmac y influenza, seasonal, injectable 2019 [id number] 141 GlaxoSmithKli ne complet ed influenza , seasonal, injectabl e 05/30/20 Given Ambulat ory Pharmac y typhoid Vi capsular polysaccharid e vac 2018 [id number] 101 sanofi pasteur complet ed typhoid Vi capsular polysacch aride vac 06/07/19 Given Ambulat ory Pharmac y influenza, injectable, quadrivalent- pf 2018 [id number] 150 Seqirus complet ed influenza , injectabl e, quadrival ent-pf 06/07/19 Given Ambulat ory Pharmac y influenza, seasonal, injectable 2017 [id number] 141 sanofi pasteur complet ed influenza , seasonal, injectabl e 05/20/18 Given Ambulat ory Pharmac y typhoid Vi capsular polysaccharid e vac 2016 [id number] 101 sanofi pasteur complet ed typhoid Vi capsular polysacch aride vac 05/31/17 Given Ambulat ory Pharmac y Influenza, inj, MDCK, quadrivalent- pf 2016 [id number] 171 Seqirus complet ed Influenza , inj, MDCK, quadrival ent-pf 05/31/17 Given Ambulat ory Pharmac y influenza, seasonal, injectable-pf 2015 [id number] 140 CSL Behring complet ed influenza , seasonal, injectabl e-pf 05/06/16 Given Ambulat ory Pharmac y meningococcal A,C,Y,W-135 (MCV4P) 2015 [id number] 114 sanofi pasteur complet ed meningoco ccal A,C,Y,W-1 35 (MCV4P) 12/03/15 Given Ambulat ory Pharmac y typhoid Vi capsular polysaccharid e vac 2014 [id number] 101 sanofi pasteur complet ed typhoid Vi capsular polysacch aride vac 05/21/15 Given Ambulat ory Pharmac y influenza, seasonal, injectable-pf 2014 [id number] 140 CSL Behring complet ed influenza , seasonal, injectabl e-pf 04/14/15 Given Ambulat ory Pharmac y influenza, seasonal, injectable 2013 [id number] 141 CSL Behring complet ed influenza , seasonal, injectabl e 03/07/14 Given Ambulat ory Pharmac y typhoid Vi capsular polysaccharid e vac 2012 [id number] 101 sanofi pasteur complet ed typhoid Vi capsular polysacch aride vac 04/26/13 Given Ambulat ory Pharmac y Influenza, injectable, MDCK-pf 2012 [id number] 153 Novartis Pharmaceutica complet ed Influenza , injectabl e, MDCK-pf 04/26/13 Given Ambulat ory Pharmac y influenza, seasonal, injectable-pf 2011 [id number] 140 CSL Behring complet ed influenza , seasonal, injectabl e-pf 04/11/12 Given Ambulat ory Pharmac y influenza, seasonal, injectable-pf 2010 [id number] 140 CSL Behring complet ed influenza , seasonal, injectabl e-pf 05/06/11 Given Ambulat ory Pharmac y tetanus, diphtheria, acellular pertu is 2010 [id number] 115 sanofi pasteur complet ed tetanus, diphtheri a, acellular pertussis 05/06/11 Given Ambulat ory Pharmac y typhoid Vi capsular polysaccharid e vac 2010 [id number] 101 sanofi pasteur complet ed typhoid Vi capsular polysacch aride vac 05/06/11 Given Ambulat ory Pharmac y yellow fever vaccine 2010 [id number] 37 sanofi pasteur complet ed yellow fever vaccine 05/06/11 Given Ambulat ory Pharmac y meningococcal A,C,Y,W-135 (MCV4P) 2010 [id number] 114 sanofi pasteur complet ed meningoco ccal A,C,Y,W-1 35 (MCV4P) 11/12/10 Given Ambulat ory Pharmac y vaccinia (smallpox) vaccine 2009 [id number] 75 [employer] complet ed vaccinia (smallpox ) vaccine 04/13/10 Given Ambulat ory Pharmac y anthrax vaccine 2009 [id number] 24 Emergent [employer] complet ed anthrax vaccine 04/13/10 Given Ambulat ory Pharmac y influenza virus vaccine,split 2009 [id number] 15 CSL Behring complet ed influenza virus vaccine,s plit 04/13/10 Given Ambulat ory Pharmac y Novel influenza-H1N 1-09, injectable 2009 [id number] 127 Novartis Pharmaceutica ls complet ed Novel influenza -Q0E8-07, injectabl e 07/24/09 Given Ambulat ory Pharmac y typhoid Vi capsular polysaccharid e vac 2008 [id number] 101 sanofi pasteur complet ed typhoid Vi capsular polysacch aride vac 04/20/09 Given Ambulat ory Pharmac y influenza virus vaccine, live 2008 [id number] 111 Naehas comple t ed influenza virus vaccine, live 04/04/09 Given Ambulat ory Pharmac y influenza virus vaccine,split 2007 [id number] 15 GlaxoSmithKli ne complet ed influenza virus vaccine,s plit 05/13/08 Given Ambulat ory Pharmac y typhoid Vi capsular polysaccharid e vac 2006 [id number] 101 sanofi pasteur complet ed typhoid Vi capsular polysacch aride vac 06/04/07 Given Ambulat ory Pharmac y influenza virus vaccine,split 2006 [id number] 15 GlaxoSmithKli ne complet ed influenza virus vaccine,s plit 05/03/07 Given Ambulat ory Pharmac y influenza virus vaccine, whole virus 2005 16 complet ed influenza virus vaccine, whole virus 05/30/06 Given Ambulat ory Pharmac y influenza virus vaccine,split 2005 15 complet ed influenza virus vaccine,s plit 05/30/06 Given Ambulat ory Pharmac y meningococcal polysaccharid e (MPSV4) 2005 [id number] 32 sanofi pasteur complet ed meningoco ccal polysacch aride (MPSV4) 11/18/05 Given Ambulat ory Pharmac y typhoid vaccine, parenteral 2004 [id number] 41 sanofi pasteur complet ed typhoid vaccine, parentera l 06/04/05 Given Ambulat ory Pharmac y influenza virus vaccine,split 2004 [id number] 15 sanofi pasteur complet ed influenza virus vaccine,s plit 05/07/05 Given Ambulat ory Pharmac y influenza virus vaccine, live 2004 [id number] 111 Naehas comple t ed influenza virus vaccine, live 07/12/04 Given Ambulat ory Pharmac y anthrax vaccine 2003 [id number] 24 [employer] complet ed anthrax vaccine 04/15/04 Given Ambulat ory Pharmac y tuberculin purified protein derivative 2003 [id number] 96 sanofi pasteur complet ed tuberculi n purified protein derivativ e 11/13/03 Given Ambulat ory Pharmac y anthrax vaccine 2003 [id number] 24 [employer] complet ed anthrax vaccine 09/05/03 Given Ambulat ory Pharmac y typhoid vaccine, parenteral 2002 [id number] 41 sanofi pasteur complet ed typhoid vaccine, parentera l 06/21/03 Given Ambulat ory Pharmac y influenza virus vaccine, whole virus 2002 [id number] 16 sanofi pasteur complet ed influenza virus vaccine, whole virus 06/21/03 Given Ambulat ory Pharmac y anthrax vaccine 2002 [id number] 24 [employer] complet ed anthrax vaccine 12/02/02 Given Ambulat ory Pharmac y tuberculin purified protein derivative 2002 [id number] 96 sanofi pasteur complet ed tuberculi n purified protein derivativ e 11/03/02 Given Ambulat ory Pharmac y anthrax vaccine 2002 [id number] 24 [employer] complet ed anthrax vaccine 11/03/02 Given Ambulat ory Pharmac y anthrax vaccine 2002 [id number] 24 [employer] complet ed anthrax vaccine 10/15/02 Given Ambulat ory Pharmac y influenza virus vaccine, whole virus 2001 [id number] 16 sanofi pasteur complet ed influenza virus vaccine, whole virus 04/05/02 Given Ambulat ory Pharmac y tuberculin purified protein derivative 2001 [id number] 96 sanofi pasteur complet ed tuberculi n purified protein derivativ e 11/11/01 Given Ambulat ory Pharmac y influenza virus vaccine, whole virus 2001 [id number] 16 sanofi pasteur complet ed influenza virus vaccine, whole virus 09/05/01 Given Ambulat ory Pharmac y typhoid vaccine, parenteral 2000 [id number] 41 GlaxoSmithKli ne complet ed typhoid vaccine, parentera l 04/25/01 Given Ambulat ory Pharmac y yellow fever vaccine 2000 [id number] 37 sanofi pasteur complet ed yellow fever vaccine 04/25/01 Given Ambulat ory Pharmac y hepatitis A adult vaccine 2000 [id number] 52 Merck & Company Inc complet ed hepatitis A adult vaccine 04/25/01 Given Ambulat ory Pharmac y tetanus-dipht h toxoids (Td) adult/adol 2000 [id number] 09 sanofi pasteur complet ed tetanus-d iphth toxoids (Td) adult/ado l 04/25/01 Given Ambulat ory Pharmac y hepatitis A adult vaccine 2000 [id number] 52 Merck & Company Inc complet ed hepatitis A adult vaccine 10/18/00 Given Ambulat ory Pharmac y tuberculin purified protein derivative 2000 [id number] 96 [employer] complet ed tuberculi n purified protein derivativ e 10/10/00 Given Ambulat ory Pharmac y meningococcal polysaccharid e (MPSV4) 2000 [id number] 32 [employer] complet ed meningoco ccal polysacch aride (MPSV4) 10/10/00 Given Ambulat ory Pharmac y influenza virus vaccine, whole virus 2000 [id number] 16 [email or web address] complet ed influenza virus vaccine, whole virus 10/10/00 Given Ambulat ory Pharmac y poliovirus vaccine, inactivated 2000 [id number] 10 sanofi pasteur complet ed polioviru s vaccine, inactivat ed 10/10/00 Given Ambulat ory Pharmac y hepatitis B adult vaccine 1997 43 complet ed hepatitis B adult vaccine 11/12/97 Given Ambulat ory Pharmac y hepatitis B adult vaccine 1997 43 complet ed hepatitis B adult vaccine 08/13/97 Given Ambulat ory Pharmac y hepatitis B adult vaccine 1997 [id number] complet ed hepatitis B adult vaccine 07/09/97 Given Ambulat ory Pharmac y Encounters Combined list of: 1) Encounters from Department of Veterans Affairs facilities going backup to the last 18 months, not all ID inpatient encounters are included; 2) Encounters from the [facility] facilities going backup to 280 months. Location Location Details Encounter Type Encounter Number Reason For Visit Attending Provider ADM Date DC Date Status Disposition Source [id number] AMDS Between Visit [id number] 11/07 Discharge Disposition: Home or Self Care 8344R[id number] for examina tion and observa tion for other specifi ed reasons [place] 12/01 Discharge Disposition: Home or Self Care 0035C-[facility] 8344R-439 AMDS Between Visit [id number] 03/17 Discharge Disposition: Home or Self Care 8344R-4 39 AMDS 8344R-439 AMDS Between Visit [id number] 05/13 Discharge Disposition: Home or Self Care 8344R-4 39 AMDS 8344R-439 AMDS Preclinic [id number] 10/02 8344R-4 39 AMDS Procedures Combined list of: 1) Procedures from Department of Veterans Affairs facilities going back up to thelast 18 months, not all ID non-surgical procedures are included; 2) All procedures from the [facility] facilities. Procedure Procedure Type Code Date Perfomer Comments Sourc e No data available for this section Ambulatory P harmacy Social History Combined list of available smoking, tobacco, and other social history from Department of [facility] and Veterans Affairs facilities. Social History Type Response Date Comment Sourc e Sex Representation Male (finding) 07/12/2022 Un known Organization Tobacco smoking status NHIS LIFETIME NON-SMOKER 02/13/2005 [facility] History of tobacco use LIFETIME NON-TOBACCO USER 02/13/2005 [facility] Sexual Orientation Ambula tory Pharmacy Gender identity Ambulator y Pharmacy Assessment and Plan Combined list of future care activities from Department of Defense and Veterans Affairs facilities (e.g., assessment and plan notes, appointments, orders, and referrals). Additional future care activities may be listed in the Plan of Care section. Result Assessment and Plan Date Source Assessment and Plan Extracted from:Title : SHPE/PHA Author: ROYA DERAS Date: 10/02/24 Mbr came in for appointment. Addendum by ANTONY VALDEZ on October 02, 2024 09:20 EDT ?Vitals: Blood Pressure:???130/78 Heart Rate: 51 Height: 76 Weight: 212lbs BMI: 25.81 Medications: eliquis, metoprolol, claritin, vit c, glucosamine, [place] cream, tylenol Chronic Problems: PE, vtech SF 507: N/A Comments: Additional heart cath procedure needed. MEB complete, member waiting for usp order. Addendum by CARA NICOLE MD on October 02, 2024 10:27 EDT Chief Complaint: Member here for annual PHA.?No acute complaints.?IMR?green. HEENT:?Normal Joints:?Normal Lungs:?Normal Heart:?Normal Comments: ?ANNUAL PERIODIC HEALTH ASSESSMENT I. 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 Last Name: MARK 2. First Name: JORDON 3. Middle Name: EDIL 4. Assessment Date: 5. : 6. Age: 43 7. Sex: M 8. DoD ID Number: [id number] 9. Service Branch: [employer] 10. 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 Status: Active [employer] [place] 12. 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 Unit Name: [address] [employer] 14. Duty Station/Location: [place] 15. UIC: [id number] 16. Is this your first Periodic Health Assessment (PHA)?: N 17. Are you enrolled in a secure messaging system with your health care provider?: Y 18. Current contact information: Preferred Method: Email 1 DSN: [id number] Day Time Phone: [phone] Night Time Phone: [phone] Email 1: [email or web address] Email 2: Address: [address] [place] [address] City: [place] State: [place] Zip Code: [address] 19. Point of contact who can always reach you: Name: Cara Kramer Phone 1: [phone] Phone 2: EMAIL: [email or web address] Address: [address] [place] [address] City: [place] State: [place] Zip Code: [address] II. DEPLOYMENT INFORMATION (DEP) 1. [ 0 ] Total number of deployments in the PAST 5 YEARS 4. [ N ] Are you going to deploy within the NEXT 120 DAYS? III. 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 [ Yes ] Does your specialty require an operational duty physical exam? 4. [ Don't Know ] Are you currently enrolled in a medical surveillance/occupational health program?: Don't Know IV. MEDICAL CONDITIONS (EDDA): 1. Since your last PHA, have you experienced any of the following health conditions, and if so, what is your status? [ Persistent or recurring noises in head or ears ] Conditions with no medical care [ ] Conditions with medical care, but no longer under treatment [ Chest pain, Abnormal heart beat, High blood pressure, Other lung problems, Periods of dizziness, fainting, or loss of consciousness ] Conditions with medical care, and NOW under treatment 2. Since your last PHA, have you experienced any of the following health conditions, and if so, what is your status? [ Recurring muscle, joint, or low back pain ] Conditions with no medical care [ ] Conditions with medical care, but no longer under treatment [ Wheezing, shortness of breath, New skin condition, Blood problems ] Conditions with medical care, and NOW under treatment 3. For any condition marked YES in question 1 or 2, are you currently on any profile or limited duty for that condition? [ Chest pain, Abnormal heart beat, High blood pressure, Other lung problems, Periods of dizziness, fainting, or loss of consciousness, Wheezing, shortness of breath ] Conditions 4. [...] had any surgery since your last PHA?: Yes 9. What was the condition(s) for which you had surgery and the type of surgery? 9.a. Condition: Chronic Pulmonary Embolisms 5.a.1 Type of Surgery: Right Heart Catheterization with PA Line 9.b. Condition: 5.b.1 Type of Surgery: 9.c. Condition: 5.c.1 Type of Surgery: 10.a. [ Yes ] Since your last PHA, has a health care provider recommended surgery(s) that you have not had? 10.b. [ Chronic Pulm. Embolisms ] For what condition(s) was surgery recommended? 11.a. [ No ] Do you currently require hearing aids, special medical supplies, CPAP, adaptive equipment, assistive technology devices, and/or other special accommodations? 12.a. [ Yes ] Do you have a waiver or profile for any part of your Service's physical fitness test? 12.b. [ Cardio EventCrunches/Sit-Ups, Push-Ups ] Which component(s) of your physical fitness test are waived/profiled? 13.a. [ Yes ] Do you have any problems wearing a gas mask, ballistic helmet, body armor, and/or chemical/biological protective garments? 13.b. [ SOB due to Embolisms ] Please comment on these problems 14.a. [ No ] Have you ever been told by a health care provider that you SHOULD NOT receive an immunization for medical reasons? 15.a. [ Yes ] Do you have a permanent profile or an Assignment Limitation Code C? 15.b. [ Chronic Pulmonary Embolisms ] Why 16.a. [ No ] Are you on a temporary profile or limited duty? 17. [ 0 ] During the PAST 2 years, how many times have you been placed on a temporary profile or on limited duty? V. INDIVIDUAL MEDICAL READINESS (IMR) 1. [ No ] Do you have any allergies? 3. [ Not required ] Do you have red medical warning dog tags? 4. [ No ] Do you wear corrective lenses? . BEHAVIORAL HEALTH (MHA) 1. a. [ None ] Over the PAST MONTH, what major life stressors have you experienced that are a cause of significant concern or make it difficult for you to do your work, take care of things at home, or get along with other people (for example, serious conflicts with others, relationship problems, or a legal, disciplinary or financial problem)? 2. a. [ No ] In the [...] months, have you gambled? 5. a. [ Never ] How often do you have a drink containing alcohol? 6. Have you ever had any experience [...] easily startled? 6. d. [ No ] [place] numb or detached from others, activities, or your surroundings? 6. e. [ Not answered ] [place] guilt or unable to stop blaming yourself [...] like to schedule a visit with a manager case management, mental health care provider, or a community [...] High Blood Pressure: Father, Brother 6. [ Yes ] I participate in moderate intensity physical activites at least 2.5 hours, or a combination of moderate and vigorous aerobic activites, for at least 75 minutes per week. 7. In a typical week, I do physical activities specifically designed to STRENGTHEN my muscles: [ 4 ] Day(s) per week 8. [ Metoprolol, Eliquis ] What prescriptions or kfid-cjs-tplxocw medications are you CURRENTLY taking for health problems on a ROUTINE BASIS? 9. Which of the following products have you taken since your last PHA: Protein Supplements/Creatine: Once a day Joint Care Supplements: Once a day 11. Think about the PAST 30 DAYS. How often did you eat/drink the following foods/beverages? [ 1 serving per day ] Fruits [ 1 serving per day ] Vegetables [ 1 serving per day ] Starchy Vegetables [ 1 or 2 servings per week ] Whole Grains [ 1 serving per day ] Dairy and Calcium Containing Foods [ 1 or 2 servings per week ] Fish [ 3 to 6 servings per week ] Lean Protein [ Rarely or Never ] Sugar-Sweetened Beverages ] Have you had a cholesterol check by a health critical care paramedic within the PAST 5 YEARS? 13.a. In [...] test? X. OTHER MEDICAL (OTH) 1. [ 2 ] Rate the amount of pain you have had, on average, over the PAST 24 HOURS 2. [ No ] Are you receiving treatment for pain? 3. [ Yes ] Since your last PHA, have you received care or treatment for any medical and/or mental health condition(s) from a civilian or non- facility? 4. List the condition(s) treated and where the care was provided: Conditions: [facility] Where: Chronic Pulm. Embolism, Arrythmia / Phlebotomy 5. Member acknowledged responsibility for reporting health issues. 6. [ Lower Back Pain ] Member's concerns about health condition(s) or health risk exposures not already addressed 7. [ No ] Woud you like to schedule an appointment with a health care provider to discuss any health concerns? XI. SEPARATION AND CARE HOME 1. [ Yes ] Are you planning to separate or retire within the next year from Active Duty or [place] Duty (activated for greater than 30 continuous days) OR do you intend to file a claim for disability compensation with the [employer]? ---- PART B. RECORD REVIEW AND RECOMMENDATIONS I. RECORD REVIEWER INFORMATION 1. Last Name: KEVIN 2. First Name: CASIE 3. Middle Name: Ashley 4. Service Branch: [employer] 5. 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 EMAIL: [email or web address] 8. Facility: [facility] 9. Unit: [address] [facility] 10. Address: [place] 11. State: [place] 12. Zip Code: [address] 13. 14. Date Record Review: II. MEDICAL SCREENING 1. 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 [ 6 feet 3 inches Date: ] adjunct communications faculty member's most recently documented height 3. [ 213 pounds Date: ] adjunct communications faculty member's most recently documented weight 4. 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 [ Yes ] Does the adjunct communications faculty member have a history of abnormal blood pressure since their last PHA? 6. [ Yes ] Does the adjunct communications faculty member have a laboratory test of sickle cell trait documented in their permanent medical record? 7. [ ] What is the date of the adjunct communications faculty member's most recently documented cholesterol test? 9. [ Eliquis 5mg metoprolol ] List of adjunct communications faculty member's active medications listed in their permanent medical record 10. [ No ] Is there a discrepancy between the active medication record review and the adjunct communications faculty member's self-reported list of medications? 11. [ seen for hemochromatosis, PE, dyspnea, V tach, HTN, DVT ] List documented significant care the adjunct communications faculty member has received since their last PHA from a provider OUTSIDE the Health System 12. [ Yes: seen for hemochromatosis, PE, dyspnea, V tach, HTN, DVT ] Is there a discrepancy between the adjunct communications faculty member's list of OUTSIDE care (from OT5), and the OUTSIDE care found in the record? 13. 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 Is there documentation in the record for each surgery listed below? Chronic Pulmonary Embolisms/Right Heart Catheterization with PA Line: Yes 15. [ Not Answered ] Confirm that vaccine exemptions are listed in the medical record for each vaccine listed III. OCCUPATION-SPECIFIC EXAMINATIONS 1. 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 IV. FAMILY HISTORY AND LIFESTYLE 1. [ Yes ] Does the [id number] reflect the adjunct communications faculty member's reported family history? VII. INDIVIDUAL MEDICAL READINESS 1. [ Yes ] Does the adjunct communications faculty member have an Assignment Limitation Code C? 3. [ Classification: 1 ] Most recently documented dental exam 4. [ Yes ] Is the adjunct communications faculty member current on all required immunizations in the immunization tracking system? 6. Does the adjunct communications faculty member have the following laboratory tests documented in their permanent medical record? [ Yes ] HIV test within the PAST 24 months [ Yes ] G6PD results on file [ Yes ] Blood type and Rh on file [ Yes ] DNA test on file IX. ADDITIONAL RECORD REVIEWER COMMENTS 1. This record review indicates the potential need for provider notification or referral: Provider Notified 2. Additional comments about this record review that need to be forwarded to the [facility] completing PART C: Pending MEB pulmonary embolism Concerns about lower back pain. Reported multiple health conditions Surgery since last PHA R heart catheterization w/ PA line Medication: metoprolol, Eliquis. Supplements: protein/creatine, joint care Pain scale 2/10 seen for hemochromatosis, PE, dyspnea, V tach, HTN, DVT per JLV Date Record Review Completed: - PART C. HEALTH CARE PROVIDER I. MENTAL HEALTH ASSESSMENT (MHA) PROVIDER INFORMATION 1. Last Name: COLLIN 2. First Name: CARA 3. Middle Name: 4. Service Branch: [employer] 5. 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 EMAIL: [email or web address] 8. Facility: [facility] 9. Unit: [address] [place], [place] [address] 10. Address: [address] [place] [address] 11. State: [place] 12. Zip Code: [address] 13. Phone: [phone] 14. Date HCP Review initiated: 1. Member marked that they did not have a concern or a difficulty with a major life stressor. 2. Address concerns identified on member questions 2 and 3. History of mental health care: N/A Member's response: Provider's comments: Medications: N/A Member's response: Provider's comments: 3. Member's AUDIT-C screening score was 0. (nothing required) 4. Member did not shameka [...] identified concerns needing referrals: None 11. Comments: 13. Supplemental services recommended/information provided: No supplemental services required Date MHA Certified: ------ III. PERIODIC HEALTH ASSESSMENT (PHA) PROVIDER INFORMATION 1. Last Name: COLLIN 2. First Name: CARA 3. Middle Name: 4. 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 EMAIL: [email or web address] 8. Facility: [facility] 9. Unit: [facility] 10. Address: [address] [place] [address] 11. State: [place] 12. Zip Code: [address] 13. Phone: [phone] 14. Date HCP Review initiated: IV. PERIODIC HEALTH ASSESSMENT PROVIDER RECOMMENDATIONS and REFERRALS 1. Provider concerns with this assessment: No issues or concerns identified V. SUMMARY AND COMMENTS 1. 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 Provider Comments: Member is stable on current regimen. MEB October 2024. . INDIVIDUAL MEDICAL READINESS DISPOSITION DETERMINATION EDDA: Not Ready DEN: Ready IMM: Ready LAB: Ready ME: Ready IMR Status: Not Medically Ready VII. SERVICE MEDICAL DEPLOYABILITY EVALUATION INDICATED Based on your review of all documentation, is the adjunct communications faculty member medically deployable without limitations? Reference [facility] 6490.07 No (adjunct communications faculty member currently has a medical condition that DOES require duty limitation(s) AND limits deployability) Date PHA Completed: END OF [id number] REPORT Impression:Does not meet?medical standards per DAFMAN 48-123/MSD. Disposition:?No AF469 changes based on this encounter.Member is mobility restricted/C-coded.pending MEB Extracted from:Title: Office Clinic Note Author: STEVEN WALDEN Date: 12/02/23 Encounter for examination and observation for other specified reasons Hearing WNL. Patient's left ear reference audiogram was re-established after follow-up program. A copy of hearing test was given to patient, and uploaded into [employer]. Steven Walden, Procurement Specialist Moto Mix Operator [facility], [place], [place] ? ? Extracted from:Title: FLY PHA [...] Perception Uncorrected?Pass through _F__ IOP OD:11 OS:12 Time:?929 Optometry findings meet standards- Yes Addendum by [...] is able to complete duties required by AFAK. No acute complaints.NO: Fly?waiver. Initial Waiver Date: Waiver Exp Date: ?. Test results reviewed: Audio: Audiogram H-1, no asymmetric hearing loss, no significant threshhold shift Optometry:Meets vision standards for: Near and distant visual acuity, IOP, Depth perception, Phorias EKG:?Not Required PHYSICAL EXAM: HEENT:?Normal Valsalva:?Normal Joints:?Normal Spine:Normal Skin:Normal Neuro:?Normal Lungs:?Normal Heart:?Normal Abdomen:?Normal Comments: ANNUAL PERIODIC HEALTH ASSESSMENT I. 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 Last Name: MARK 2. First Name: JORDON 3. Middle Name: EDIL 4. Assessment Date: 5. : 6. Age: 42 7. Gender: M 8. DoD ID Number: [id number] 9. Service Branch: [employer] 10. 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 Unit Name: [address] 14. Duty Station/Location: [place] 15. UIC: [id number] 16. Is this your first Periodic Health Assessment (PHA)?: N 17. Are you enrolled in a secure messaging system with your health care provider?: Y 18. Current contact information: Preferred Method: Email 1 DSN: [id number] Day Time Phone: [phone] Night Time Phone: [phone] Email 1: [email or web address] Email 2: [email or web address] Address: [address] [place] [address]: [place] Zip Code: [address] 19. Point of contact who can always reach you: Name: Cara Gera Kramer Phone 1: [phone] Phone 2: EMAIL: [email or web address] Address: [address] [place] [address]: [facility]: [place] Zip Code: [address] II. DEPLOYMENT INFORMATION (DEP) 1. [ 0 ] Total number of deployments in the PAST 5 YEARS 4. [ N ] Are you going to deploy within the NEXT 120 DAYS? III. OCCUPATIONAL INFORMATION (OCC) 1 [ [id number] ] What is your occupational code 2. [...] easily startled? 6. d. [ No ] [place] numb or detached from others, activities, or your surroundings? 6. e. [ Not answered ] [place] guilt or unable to stop blaming yourself [...] like to schedule a visit with a manager case management, mental health care provider, or a community [...] 8. [ Tylenol ] What prescriptions or rtmu-qjd-vgfainw medications are you CURRENTLY taking for health problems on a ROUTINE BASIS? 9. Which of the following products have you taken since your last PHA: Individual Vitamins or Minerals: Two or more times a day [place]-3 Supplements: Two or more times a day [...] had a cholesterol check by a health critical care paramedic within the PAST 5 YEARS? 13.a. In [...] discuss any health concerns? XI. SEPARATION AND CARE HOME 1. [ Yes ] Are you planning to separate or retire within the next year from Active Duty or [place] Duty (activated for greater than 30 continuous days) OR do you intend to file a claim for disability compensation with the Veterans Benefits Administration? ---- PART B. RECORD REVIEW AND RECOMMENDATIONS I. RECORD REVIEWER INFORMATION 1. Last Name: BRAULIO 2. First Name: SHILPA 3. Middle Name: CARMEN 4. Service Branch: [employer] 5. Status: 6. 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 EMAIL: [email or web address] 8. Facility: [facility] 9. Unit: [facility] 10. Address: [address] [place] [address] 11. State: [place] 12. Zip Code: [address] 13. Phone: [phone] 14. Date Record Review: II. MEDICAL SCREENING 1. 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 [ 6 feet 2 inches Date: ] adjunct communications faculty member's most recently documented height 3. [ 207 pounds Date: ] adjunct communications faculty member's most recently documented weight 4. [ 133/84 Date: ] adjunct communications faculty member's most recently documented blood pressure reading 5. [ Yes ] Does the adjunct communications faculty member have a history of abnormal blood pressure since their last PHA? 6. [ Yes ] Does the adjunct communications faculty member have a laboratory test of sickle cell trait documented in their permanent medical record? 7. [ No Cholesterol Test Documented ] What is the date of the adjunct communications faculty member's most recently documented cholesterol test? 9. [ tylenol PRN Eliquis 5 mg, elocon 0.1% cream, Claritin 10 mg, glucosamine-chondroitin 500-400 mg, vitamin C 250 mg ] List of adjunct communications faculty member's active medications listed in their permanent medical record 10. [ No ] Is there a discrepancy between the active medication record review and the adjunct communications faculty member's self-reported list of medications? 11. [ Cardiac work ups following PE ] List documented significant care the adjunct communications faculty member has received since their last PHA from a provider OUTSIDE the Health System 12. [ No ] Is there a discrepancy between the adjunct communications faculty member's list of OUTSIDE care (from OTH5), and the OUTSIDE care found in the record? 13. [ No Inside Care Documented ] List documented significant care the adjunct communications faculty member has received since their last PHA from a provider INSIDE the Health System 15. [ Not Answered ] Confirm that vaccine exemptions are listed in the medical record for each vaccine listed 16. [ No Discrepancies Noted ] Review available medical documentation of allergies and compare with adjunct communications faculty member responses. Document any discrepancies III. OCCUPATION-SPECIFIC EXAMINATIONS 1. 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 IV. FAMILY HISTORY AND LIFESTYLE 1. [ Yes ] Does the [id number] reflect the adjunct communications faculty member's reported family history? VII. INDIVIDUAL MEDICAL READINESS 1. [ No ] Does the adjunct communications faculty member have an Assignment Limitation Code C? 3. [ Classification: 1 ] Most recently documented dental exam 4. [ Yes ] Is the adjunct communications faculty member current on all required immunizations in the immunization tracking system? 6. Does the adjunct communications faculty member have the following laboratory tests documented [...] need to be forwarded to the [facility] completing PART C: Currently DNIF and AF 469 (Code 37) for PE. Stressors: financial, family/relationship, sleep. Negative MH screening. Reports shoulder and back pain, cp, high bp, wheezing/dyspnea/SOB/other lung problems. Pain 4/10. Takes tylenol PRN. Supplements: individual vitamin/minerals, omega-3, joint care. Date Record Review Completed: - PART C. HEALTH CARE PROVIDER I. MENTAL HEALTH ASSESSMENT (MHA) PROVIDER INFORMATION 1. Last Name: COLLIN 2. First Name: CARA 3. Middle Name: 4. Service Branch: [employer] 5. 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 EMAIL: [email or web address] 8. Facility: [facility] 9. Unit: [facility] 10. Address: [place] 11. State: [place] 12. Zip Code: [address] 13. Phone: [phone] 14. Date HCP Review initiated: 1. Member marked that they have a [...] No supplemental services required Date MHA Certified: ------ III. PERIODIC HEALTH ASSESSMENT (PHA) PROVIDER INFORMATION 1. Last Name: COLLIN 2. First Name: CARA 3. Middle Name: 4. Service Branch: [employer] 5. 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 EMAIL: [email or web address] 8. Facility: [facility] 9. Unit: [facility] 10. Address: [address] [place] [address] 11. State: [place] 12. Zip Code: [address] 13. Phone: [phone] 14. Date HCP Review initiated: IV. PERIODIC HEALTH ASSESSMENT PROVIDER RECOMMENDATIONS and REFERRALS 1. Provider concerns with this assessment: No issues or concerns identified V. SUMMARY AND COMMENTS 1. 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 Provider Comments: Member continues to be followed by cardiology and heme. Next appt this month. . INDIVIDUAL MEDICAL READINESS DISPOSITION DETERMINATION EDDA: Not Ready DEN: Ready IMM: Ready LAB: Ready ME: Ready IMR Status: Partially Medically Ready VII. SERVICE MEDICAL DEPLOYABILITY EVALUATION INDICATED Based on your review of all documentation, is the adjunct communications faculty member medically deployable without limitations? Reference [facility] 6490.07 No (adjunct communications faculty member currently has a medical condition that DOES require duty limitation(s) AND limits deployability) Date PHA Completed: END OF [id number] REPORT Impression: Does not Meet?FCIII?medical standards per REJI 48-123/MSD. Aeromedical Disposition: Continue DNIF. DD 2992?signed. No AF469 changes based on this encounter. Member is mobility restricted/C-coded. Code 37. Future Appointments Appointment Date: 10/02/2024 09:00:00 AM Scheduled Provider: Location: [address] [place] [address] Appointment Type: NG/R FTR 10/02/[address] [place] [address] AMDS Assessment and Plan Extracted from:Title : SHPE/PHA Author: ROYA DERAS Date: 10/02/24 Mbr came in for appointment. Addendum by ANTONY VALDEZ on October 02, 2024 09:20 EDT ?Vitals: Blood Pressure:???130/78 Heart Rate: 51 Height: 76 Weight: 212lbs BMI: 25.81 Medications: eliquis, metoprolol, claritin, vit c, glucosamine, elocon cream, tylenol Chronic Problems: PE, vtech SF 507: N/A Comments: Additional heart cath procedure needed. MEB complete, member waiting for usp order. Addendum by CARA NICOLE MD on October 02, 2024 10:27 EDT Chief Complaint: Member here for annual PHA.?No acute complaints.?IMR?green. HEENT:?Normal Joints:?Normal Lungs:?Normal Heart:?Normal Comments: ?ANNUAL PERIODIC HEALTH ASSESSMENT I. 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 Last Name: MARK 2. First Name: JORDON 3. Middle Name: EDIL 4. Assessment Date: 5. : 6. Age: 43 7. Sex: M 8. DoD ID Number: [id number] 9. Service Branch: [employer] 10. 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 Status: Active [employer] [place] 12. 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 Unit Name: [address] 14. Duty Station/Location: [place] 15. [facility]: [id number] 16. Is this your first Periodic Health Assessment (PHA)?: N 17. Are you enrolled in a secure messaging system with your health care provider?: Y 18. Current contact information: Preferred Method: Email 1 DSN: [id number] Day Time Phone: [phone] Night Time Phone: [phone] Email 1: [email or web address] Email 2: Address: [address] [place] [address]: [place] State: [place] Zip Code: [address] 19. Point of contact who can always reach you: Name: Cara Kramer Phone 1: [phone] Phone 2: EMAIL: [email or web address] Address: [address] [place] [address]: [place] State: [place] Zip Code: [address] II. DEPLOYMENT INFORMATION (DEP) 1. [ 0 ] Total number of deployments in the PAST 5 YEARS 4. [ N ] Are you going to deploy within the NEXT 120 DAYS? III. 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 [ Yes ] Does your specialty require an operational duty physical exam? 4. [ Don't Know ] Are you currently enrolled in a medical surveillance/occupational health program?: Don't Know IV. MEDICAL CONDITIONS (EDDA): 1. Since your last PHA, have you experienced any of the following health conditions, and if so, what is your status? [ Persistent or recurring noises in head or ears ] Conditions with no medical care [ ] Conditions with medical care, but no longer under treatment [ Chest pain, Abnormal heart beat, High blood pressure, Other lung problems, Periods of dizziness, fainting, or loss of consciousness ] Conditions with medical care, and NOW under treatment 2. Since your last PHA, have you experienced any of the following health conditions, and if so, what is your status? [ Recurring muscle, joint, or low back pain ] Conditions with no medical care [ ] Conditions with medical care, but no longer under treatment [ Wheezing, shortness of breath, New skin condition, Blood problems ] Conditions with medical care, and NOW under treatment 3. For any condition marked YES in question 1 or 2, are you currently on any profile or limited duty for that condition? [ Chest pain, Abnormal heart beat, High blood pressure, Other lung problems, Periods of dizziness, fainting, or loss of consciousness, Wheezing, shortness of breath ] Conditions 4. [...] had any surgery since your last PHA?: Yes 9. What was the condition(s) for which you had surgery and the type of surgery? 9.a. Condition: Chronic Pulmonary Embolisms 5.a.1 Type of Surgery: Right Heart Catheterization with PA Line 9.b. Condition: 5.b.1 Type of Surgery: 9.c. Condition: 5.c.1 Type of Surgery: 10.a. [ Yes ] Since your last PHA, has a health care provider recommended surgery(s) that you have not had? 10.b. [ Chronic Pulm. Embolisms ] For what condition(s) was surgery recommended? 11.a. [ No ] Do you currently require hearing aids, special medical supplies, CPAP, adaptive equipment, assistive technology devices, and/or other special accommodations? 12.a. [ Yes ] Do you have a waiver or profile for any part of your Service's physical fitness test? 12.b. [ Cardio EventCrunches/Sit-Ups, Push-Ups ] Which component(s) of your physical fitness test are waived/profiled? 13.a. [ Yes ] Do you have any problems wearing a gas mask, ballistic helmet, body armor, and/or chemical/biological protective garments? 13.b. [ SOB due to Embolisms ] Please comment on these problems 14.a. [ No ] Have you ever been told by a health care provider that you SHOULD NOT receive an immunization for medical reasons? 15.a. [ Yes ] Do you have a permanent profile or an Assignment Limitation Code C? 15.b. [ Chronic Pulmonary Embolisms ] Why 16.a. [ No ] Are you on a temporary profile or limited duty? 17. [ 0 ] During the PAST 2 years, how many times have you been placed on a temporary profile or on limited duty? V. INDIVIDUAL MEDICAL READINESS (IMR) 1. [ No ] Do you have any allergies? 3. [ Not required ] Do you have red medical warning dog tags? 4. [ No ] Do you wear corrective lenses? . BEHAVIORAL HEALTH (MHA) 1. a. [ None ] Over the PAST MONTH, what major life stressors have you experienced that are a cause of significant concern or make it difficult for you to do your work, take care of things at home, or get along with other people (for example, serious conflicts with others, relationship problems, or a legal, disciplinary or financial problem)? 2. a. [ No ] In the [...] months, have you gambled? 5. a. [ Never ] How often do you have a drink containing alcohol? 6. Have you ever had any experience [...] easily startled? 6. d. [ No ] [place] numb or detached from others, activities, or your surroundings? 6. e. [ Not answered ] [place] guilt or unable to stop blaming yourself [...] like to schedule a visit with a manager case management, mental health care provider, or a community [...] High Blood Pressure: Father, Brother 6. [ Yes ] I participate in moderate intensity physical activites at least 2.5 hours, or a combination of moderate and vigorous aerobic activites, for at least 75 minutes per week. 7. In a typical week, I do physical activities specifically designed to STRENGTHEN my muscles: [ 4 ] Day(s) per week 8. [ Metoprolol, Eliquis ] What prescriptions or zwaw-rcz-ovxcbre medications are you CURRENTLY taking for health problems on a ROUTINE BASIS? 9. Which of the following products have you taken since your last PHA: Protein Supplements/Creatine: Once a day Joint Care Supplements: Once a day 11. Think about the PAST 30 DAYS. How often did you eat/drink the following foods/beverages? [ 1 serving per day ] Fruits [ 1 serving per day ] Vegetables [ 1 serving per day ] Starchy Vegetables [ 1 or 2 servings per week ] Whole Grains [ 1 serving per day ] Dairy and Calcium Containing Foods [ 1 or 2 servings per week ] Fish [ 3 to 6 servings per week ] Lean Protein [ Rarely or Never ] Sugar-Sweetened Beverages ] Have you had a cholesterol check by a health critical care paramedic within the PAST 5 YEARS? 13.a. In [...] test? X. OTHER MEDICAL (OTH) 1. [ 2 ] Rate the amount of pain you have had, on average, over the PAST 24 HOURS 2. [ No ] Are you receiving treatment for pain? 3. [ Yes ] Since your last PHA, have you received care or treatment for any medical and/or mental health condition(s) from a civilian or non- facility? 4. List the condition(s) treated and where the care was provided: Conditions: [facility] Where: Chronic Pulm. Embolism, Arrythmia / Phlebotomy 5. Member acknowledged responsibility for reporting health issues. 6. [ Lower Back Pain ] Member's concerns about health condition(s) or health risk exposures not already addressed 7. [ No ] Woud you like to schedule an appointment with a health care provider to discuss any health concerns? XI. SEPARATION AND CARE HOME 1. [ Yes ] Are you planning to separate or retire within the next year from Active Duty or [place] Duty (activated for greater than 30 continuous days) OR do you intend to file a claim for disability compensation with the Veterans Benefits Administration? ---- PART B. RECORD REVIEW AND RECOMMENDATIONS I. RECORD REVIEWER INFORMATION 1. Last Name: KEVIN 2. First Name: CASIE 3. Middle Name: Ashley 4. Service Branch: [employer] 5. 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 EMAIL: [email or web address] 8. Facility: [facility] 9. Unit: [facility] 10. Address: [place] 11. State: [place] 12. Zip Code: [address] 13. 14. Date Record Review: II. MEDICAL SCREENING 1. 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 [ 6 feet 3 inches Date: ] adjunct communications faculty member's most recently documented height 3. [ 213 pounds Date: ] adjunct communications faculty member's most recently documented weight 4. 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 [ Yes ] Does the adjunct communications faculty member have a history of abnormal blood pressure since their last PHA? 6. [ Yes ] Does the adjunct communications faculty member have a laboratory test of sickle cell trait documented in their permanent medical record? 7. [ ] What is the date of the adjunct communications faculty member's most recently documented cholesterol test? 9. [ Eliquis 5mg metoprolol ] List of adjunct communications faculty member's active medications listed in their permanent medical record 10. [ No ] Is there a discrepancy between the active medication record review and the adjunct communications faculty member's self-reported list of medications? 11. [ seen for hemochromatosis, PE, dyspnea, V tach, HTN, DVT ] List documented significant care the adjunct communications faculty member has received since their last PHA from a provider OUTSIDE the Health System 12. [ Yes: seen for hemochromatosis, PE, dyspnea, V tach, HTN, DVT ] Is there a discrepancy between the adjunct communications faculty member's list of OUTSIDE care (from OTH5), and the OUTSIDE care found in the record? 13. 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 Is there documentation in the record for each surgery listed below? Chronic Pulmonary Embolisms/Right Heart Catheterization with PA Line: Yes 15. [ Not Answered ] Confirm that vaccine exemptions are listed in the medical record for each vaccine listed III. OCCUPATION-SPECIFIC EXAMINATIONS 1. 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 IV. FAMILY HISTORY AND LIFESTYLE 1. [ Yes ] Does the [id number] reflect the adjunct communications faculty member's reported family history? VII. INDIVIDUAL MEDICAL READINESS 1. [ Yes ] Does the adjunct communications faculty member have an Assignment Limitation Code C? 3. [ Classification: 1 ] Most recently documented dental exam 4. [ Yes ] Is the adjunct communications faculty member current on all required immunizations in the immunization tracking system? 6. Does the adjunct communications faculty member have the following laboratory tests documented in their permanent medical record? [ Yes ] HIV test within the PAST 24 months [ Yes ] G6PD results on file [ Yes ] Blood type and Rh on file [ Yes ] DNA test on file IX. ADDITIONAL RECORD REVIEWER COMMENTS 1. This record review indicates the potential need for provider notification or referral: Provider Notified 2. Additional comments about this record review that need to be forwarded to the Health Cage Fighter completing PART C: Pending MEB pulmonary embolism Concerns about lower back pain. Reported multiple health conditions Surgery since last PHA R heart catheterization w/ PA line Medication: metoprolol, Eliquis. Supplements: protein/creatine, joint care Pain scale 2/10 seen for hemochromatosis, PE, dyspnea, V tach, HTN, DVT per [facility] Date Record Review Completed: - PART C. HEALTH CARE PROVIDER I. MENTAL HEALTH ASSESSMENT (MHA) PROVIDER INFORMATION 1. Last Name: COLLIN 2. First Name: CAAR 3. Middle Name: 4. Service Branch: [employer] 5. 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 EMAIL: [email or web address] 8. Facility: [address] 9. Unit: [address] [address] 10. Address: [facility] [address] [place] 11. State: [place] 12. Zip Code: [address] 13. Phone: [phone] 14. Date HCP Review initiated: 1. Member marked that they did not have a concern or a difficulty with a major life stressor. 2. Address concerns identified on member questions 2 and 3. History of mental health care: N/A Member's response: Provider's comments: Medications: N/A Member's response: Provider's comments: 3. Member's AUDIT-C screening score was 0. (nothing required) 4. Member did not shameka [...] identified concerns needing referrals: None 11. Comments: 13. Supplemental services recommended/information provided: No supplemental services required Date MHA Certified: ------ III. PERIODIC HEALTH ASSESSMENT (PHA) PROVIDER INFORMATION 1. Last Name: COLLIN 2. First Name: CARA 3. Middle Name: 4. Service Branch: [employer] 5. 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 EMAIL: [email or web address] 8. Facility: [facility] 9. Unit: [facility] 10. Address: [address] [place] [address] 11. State: [place] 12. Zip Code: [address] 13. Phone: [phone] 14. Date HCP Review initiated: IV. PERIODIC HEALTH ASSESSMENT PROVIDER RECOMMENDATIONS and REFERRALS 1. Provider concerns with this assessment: No issues or concerns identified V. SUMMARY AND COMMENTS 1. 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 Provider Comments: Member is stable on current regimen. MEB October 2024. . INDIVIDUAL MEDICAL READINESS DISPOSITION DETERMINATION EDDA: Not Ready DEN: Ready IMM: Ready LAB: Ready ME: Ready IMR Status: Not Medically Ready VII. SERVICE MEDICAL DEPLOYABILITY EVALUATION INDICATED Based on your review of all documentation, is the adjunct communications faculty member medically deployable without limitations? Reference [facility] 6490.07 No (adjunct communications faculty member currently has a medical condition that DOES require duty limitation(s) AND limits deployability) Date PHA Completed: END OF [id number] REPORT Impression:Does not meet?medical standards per REJI 48-123/MSD. Disposition:?No AF469 changes based on this encounter.Member is mobility restricted/C-coded.pending MEB Extracted from:Title: Office Clinic Note Author: STEVEN WALDEN Date: 12/02/23 Encounter for examination and observation for other specified reasons Hearing WNL. Patient's left ear reference audiogram was re-established after follow-up program. A copy of hearing test was given to patient, and uploaded into [employer]. Steven Walden, Procurement Specialist Moto Mix Operator [facility], [place], [place] ? ? Extracted from:Title: FLY PHA [...] is able to complete duties required by AFAK. No acute complaints.NO: Fly?waiver. Initial Waiver Date: Waiver Exp Date: ALANA?sharlene. Test results reviewed: Audio: Audiogram H-1, no asymmetric hearing loss, no significant threshhold shift Optometry:Meets vision standards for: Near and distant visual acuity, IOP, Depth perception, Phorias EKG:?Not Required PHYSICAL EXAM: HEENT:?Normal Valsalva:?Normal Joints:?Normal Spine:Normal Skin:Normal Neuro:?Normal Lungs:?Normal Heart:?Normal Abdomen:?Normal Comments: ANNUAL PERIODIC HEALTH ASSESSMENT I. 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 Last Name: MARK 2. First Name: JORDON 3. Middle Name: EDIL 4. Assessment Date: 5. : 6. Age: 42 7. Gender: M 8. DoD ID Number: [id number] 9. Service Branch: [employer] 10. 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 Unit Name: [address] 14. Duty Station/Location: [place] 15. UIC: [id number] 16. Is this your first Periodic Health Assessment (PHA)?: N 17. Are you enrolled in a secure messaging system with your health care provider?: Y 18. Current contact information: Preferred Method: Email 1 DSN: [id number] Day Time Phone: [phone] Night Time Phone: [phone] Email 1: [email or web address] Email 2: [email or web address] Address: [address] [place] [address] State: [place] Zip Code: [address] 19. Point of contact who can always reach you: Name: Cara Kramer Phone 1: [phone] Phone 2: EMAIL: [email or web address] Address: [address] [place] [address]: [facility]: [place] Zip Code: [address] II. DEPLOYMENT INFORMATION (DEP) 1. [ 0 ] Total number of deployments in the PAST 5 YEARS 4. [ N ] Are you going to deploy within the NEXT 120 DAYS? III. OCCUPATIONAL INFORMATION (OCC) 1 [ [id number] ] What is your occupational code 2. [...] easily startled? 6. d. [ No ] [place] numb or detached from others, activities, or your surroundings? 6. e. [ Not answered ] [place] guilt or unable to stop blaming yourself [...] like to schedule a visit with a manager case management, mental health care provider, or a community [...] 8. [ Tylenol ] What prescriptions or mowp-qja-whhaosi medications are you CURRENTLY taking for health problems on a ROUTINE BASIS? 9. Which of the following products have you taken since your last PHA: Individual Vitamins or Minerals: Two or more times a day [place]-3 Supplements: Two or more times a day [...] had a cholesterol check by a health critical care paramedic within the PAST 5 YEARS? 13.a. In [...] discuss any health concerns? XI. SEPARATION AND CARE HOME 1. [ Yes ] Are you planning to separate or retire within the next year from Active Duty or [place] Duty (activated for greater than 30 continuous days) OR do you intend to file a claim for disability compensation with the Veterans Benefits Administration? ---- PART B. RECORD REVIEW AND RECOMMENDATIONS I. RECORD REVIEWER INFORMATION 1. Last Name: BRAULIO 2. First Name: SHILPA 3. Middle Name: CARMEN 4. Service Branch: [employer] 5. Status: 6. 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 EMAIL: [email or web address] 8. Facility: [facility] 9. Unit: [address] [facility] 10. Address: [address] [place] [address] 11. State: [place] 12. Zip Code: [address] 13. Phone: [phone] 14. Date Record Review: II. MEDICAL SCREENING 1. 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 [ 6 feet 2 inches Date: ] adjunct communications faculty member's most recently documented height 3. [ 207 pounds Date: ] adjunct communications faculty member's most recently documented weight 4. [ 133/84 Date: ] adjunct communications faculty member's most recently documented blood pressure reading 5. [ Yes ] Does the adjunct communications faculty member have a history of abnormal blood pressure since their last PHA? 6. [ Yes ] Does the adjunct communications faculty member have a laboratory test of sickle cell trait documented in their permanent medical record? 7. [ No Cholesterol Test Documented ] What is the date of the adjunct communications faculty member's most recently documented cholesterol test? 9. [ tylenol PRN Eliquis 5 mg, elocon 0.1% cream, Claritin 10 mg, glucosamine-chondroitin 500-400 mg, vitamin C 250 mg ] List of adjunct communications faculty member's active medications listed in their permanent medical record 10. [ No ] Is there a discrepancy between the active medication record review and the adjunct communications faculty member's self-reported list of medications? 11. [ Cardiac work ups following PE ] List documented significant care the adjunct communications faculty member has received since their last PHA from a provider OUTSIDE the Health System 12. [ No ] Is there a discrepancy between the adjunct communications faculty member's list of OUTSIDE care (from OTH5), and the OUTSIDE care found in the record? 13. [ No Inside Care Documented ] List documented significant care the adjunct communications faculty member has received since their last PHA from a provider INSIDE the Health System 15. [ Not Answered ] Confirm that vaccine exemptions are listed in the medical record for each vaccine listed 16. [ No Discrepancies Noted ] Review available medical documentation of allergies and compare with adjunct communications faculty member responses. Document any discrepancies III. OCCUPATION-SPECIFIC EXAMINATIONS 1. 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 IV. FAMILY HISTORY AND LIFESTYLE 1. [ Yes ] Does the NO6017 reflect the adjunct communications faculty member's reported family history? VII. INDIVIDUAL MEDICAL READINESS 1. [ No ] Does the adjunct communications faculty member have an Assignment Limitation Code C? 3. [ Classification: 1 ] Most recently documented dental exam 4. [ Yes ] Is the adjunct communications faculty member current on all required immunizations in the immunization tracking system? 6. Does the adjunct communications faculty member have the following laboratory tests documented [...] need to be forwarded to the Health Cage Fighter completing PART C: Currently DNIF and AF 469 (Code 37) for PE. Stressors: financial, family/relationship, sleep. Negative MH screening. Reports shoulder and back pain, cp, high bp, wheezing/dyspnea/SOB/other lung problems. Pain 4/10. Takes tylenol PRN. Supplements: individual vitamin/minerals, omega-3, joint care. Date Record Review Completed: - PART C. HEALTH CARE PROVIDER I. MENTAL HEALTH ASSESSMENT (MHA) PROVIDER INFORMATION 1. Last Name: COLLIN 2. First Name: CARA 3. Middle Name: 4. 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 EMAIL: [email or web address] 8. Facility: [facility] 9. Unit: [address] [place], [place] [address] 10. Address: [address] [place] [address] 11. State: [place] 12. Zip Code: [address] 13. Phone: [phone] 14. Date HCP Review initiated: 1. Member marked that they have a [...] No supplemental services required Date MHA Certified: ------ III. PERIODIC HEALTH ASSESSMENT (PHA) PROVIDER INFORMATION 1. Last Name: COLLIN 2. First Name: CARA 3. Middle Name: 4. Service Branch: [employer] 5. 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 EMAIL: [email or web address] 8. Facility: [facility] 9. Unit: [address] [place], [place] [address] 10. Address: [address] [place] [address] 11. State: [place] 12. Zip Code: [address] 13. Phone: [phone] 14. Date HCP Review initiated: IV. PERIODIC HEALTH ASSESSMENT PROVIDER RECOMMENDATIONS and REFERRALS 1. Provider concerns with this assessment: No issues or concerns identified V. SUMMARY AND COMMENTS 1. 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 Provider Comments: Member continues to be followed by cardiology and heme. Next appt this month. . INDIVIDUAL MEDICAL READINESS DISPOSITION DETERMINATION EDDA: Not Ready DEN: Ready IMM: Ready LAB: Ready ME: Ready IMR Status: Partially Medically Ready VII. SERVICE MEDICAL DEPLOYABILITY EVALUATION INDICATED Based on your review of all documentation, is the adjunct communications faculty member medically deployable without limitations? Reference Vinny 6490.07 No (adjunct communications faculty member currently has a medical condition that DOES require duty limitation(s) AND limits deployability) Date PHA Completed: END OF [id number] REPORT Impression: Does not Meet?FCIII?medical standards per REJI 48-123/MSD. Aeromedical Disposition: Continue DNIF. DD 2992?signed. No AF469 changes based on this encounter. Member is mobility restricted/C-coded. Code 37. Future Appointments Appointment Date: 10/02/2024 09:00:00 AM Scheduled Provider: Location: [address] [place] [address] Appointment Type: NG/R FTR 10/02/[address] [place] [address] Functional Status Combined list of recent functional and cognitive assessments recorded at Department of Defense and Veterans Affairs (VA).VA Functional [place] Measurement (FIM) Scale: 1 = Total Assistance (Subject = 0% +), 2 = Maximal Assistance (Subject = 25% +), 3 = Moderate Assistance (Subject = 50% +), 4 = Minimal Assistance (Subject = 75% +), 5 = Supervision, 6 = Modified [place] (Device), 7 = Complete [place] (Timely, Safely). Assessment Date/Time Source Assessment Type Assessment Skill Assessment Score Assessment Details No data available for this section
--- OUTSIDE RECORDS SUMMARY | 2024-10-02 15:36 | XMS_ITS | Encounter Summary ---
Author Organization [facility] Address [address] [place] [address] [place] [address] Phone Care Team Providers Care Smt Machine Operator Name Role Phone Arnold Cox MD Primary Care Provider [phone] Arnold Cox MD Unavailable Encounter Details Date Type Department Care Team (Late st Contact Info) Description 01/25/2024 Procedure Pass [facility] [address] [place] [address] Social History Tobacco Use Types Packs/Day Years [...] high school, GED, job training, learning the Tristanian language, technical skills, or developing parenting skills)? [...] 06/02/2024 Procedure Pass [facility] [address] [place] [address] 10/14/2024 1:00 PM EDT Appointment [facility] [place] Internal Medicine [address] [place] [address] Arnold Cox MD 40 [place] [address] [email or web address] 10/15/2024 Procedure Pass [facility] Cardiac Duck Farmer [address] [place] [address] 10/15/2024 11:55 AM EDT Hospital Encounter [facility] Cardiac Duck Farmer [address] [place] [phone] Praful Torres MD, MSc 55 [facility] [address] [place] [address] [email or web address] 10/15/2024 11:55 AM EDT - 10/15/2024 3:45 PM EDT Surgery [facility] Cardiac Duck Farmer [address] [place] [address] Praful Torres MD, MSc [address] [place] [address] [address] [place] [address] [email or web address] Balloon Pulmonary Angioplasty with Possible Additional Vessels 12/01/2024 10:00 AM EDT Appointment Non-Invasive Cardiology [address] [place] [address] Ivy Ramires [address] [address] [email or web address] 12/01/2024 11:30 AM EDT Appointment [facility] [address] [place] [address] [address]aimres [address] [address] [email or web address] 03/23/2025 11:00 AM EDT Office Visit [facility] Pulmonary Hypertension Clinic 55 [facility] Ruth Jp [address] [place] [address] Frances Prescott MD [address] [place] [address] MISAEL [email or web address] [email or web address]. [place] documented as of this encounter Visit Diagnoses Not on filedocumented in this encounter Additional Health Concerns Assessment Noted Time PHQ-2 Depression Total Score: 0 11/15/19 24 11:33 AM EDT documented as of this encounter Care Teams Smt Machine Operator Relationship Specialty Start Date End Date Arnold Cox MD [address] [place] [address] [email or web address] PCP - General Internal Medicine 01/24/24 Arnold Cox MD [address] [place] [address] [email or web address] Insurance Assigned Provider 02/08/24 documented as of this encounter Additional Source Comments The information contained in this document represents components of the legal health record. It is not the complete legal health record.[facility]
--- OUTSIDE RECORDS SUMMARY | 2024-10-02 15:36 | XMS_ITS | Encounter Summary ---
Author Organization [facility] Address [address] [place] [address] Phone Care Team Providers Care Ditch Worker Name Role Phone Arnold Cox MD Primary Care Provider [phone] Arnold Cox MD Unavailable Encounter Details Date Type Department Care Team ([facility] Contact Info) Description 03/03/2024 Telephone [facility] Center for Hematology 32 [facility] [address] [place] [address] Sadia Santos MD 55 [facility] [address] [place] [address] [email or web address] Social History Tobacco Use Types Packs/Day [...] high school, GED, job training, learning the Macedonian language, technical skills, or developing parenting skills)? [...] 06/02/2024 Procedure Pass [facility] [address] [place] [address] 10/14/2024 1:00 PM EDT Appointment [facility] [place] Internal [facility] 40 [place] [address] Arnodl Cox MD [address] [place] [address] [email or web address] 10/15/2024 Procedure Pass [facility] Cardiac Clinical Nurse Leader [address] [place] [address] 10/15/2024 11:55 AM EDT Hospital Encounter [facility] Cardiac Clinical Nurse Leader [address] [place] [address] Praful Torres MD, MSc [address] [place] [address] [address] [email or web address] 10/15/2024 11:55 AM EDT - 10/15/2024 3:45 PM EDT Surgery [facility] Cardiac Clinical Nurse Leader [address] [place] [address] Praful Torres MD, MSc [address] [place] [address] [address] [email or web address] Balloon Pulmonary Angioplasty with Possible Additional Vessels 12/01/2024 10:00 AM EDT Appointment Non-Invasive Cardiology 30 [place] [address] Ivy Ramires FNP [address] [place] [address] [email or web address] 12/01/2024 11:30 AM EDT Appointment [facility] 30 [place] [address] Ivy Ramires FNP [address] [place] [address] [email or web address] 03/23/2025 11:00 AM EDT Office Visit [facility] Hypertension Clinic 55 [facility] Ruth Jp [address] [place] [address] Frances Prescott MD 55 [facility] [address] [place] [address] [email or web address] [email or web address] documented as of this encounter Visit Diagnoses Not on filedocumented in this encounter Additional Health Concerns Assessment Noted Time PHQ-2 Depression Total Score: 0 11/15/19 11:33 AM EDT documented as of this encounter Care Teams Ditch Worker Relationship Specialty Start Date End Date Arnold Cox MD [address] [place] [address] [email or web address] PCP - General Internal Medicine 01/24/24 Arnold Cox MD [address] [place] [address] [email or web address] Insurance Assigned Provider 02/08/24 documented as of this encounter Additional Source Comments The information contained in this document represents components of the legal health record. It is not the complete legal health record.[facility]
--- OUTSIDE RECORDS SUMMARY | 2024-10-02 15:36 | XMS_ITS | Encounter Summary ---
Author Organization [facility] Address [address] [place] [address] Phone Care Team Providers Care Venetian Blind Installer Name Role Phone Arnold Cox MD Primary Care Provider [phone] Arnold Cox MD Unavailable Encounter Details Date Type Department Care Team (Late st Contact Info) Description 03/16/2024 Procedure Pass [facility] US [address] [place] [address] Social History Tobacco Use Types Packs/Day Years [...] high school, GED, job training, learning the Israeli language, technical skills, or developing parenting skills)? [...] 06/02/2024 Procedure Pass [facility] 30 [place] [address] 10/14/2024 1:00 PM EDT Appointment [facility] [place] [facility] Medicine [address] [place] [address] Arnold Cox MD [address] [place] [address] [email or web address] 10/15/2024 Procedure Pass [facility] Cardiac Nuclear Power Plant Engineer [address] [place] [phone] 10/15/2024 11:55 AM EDT Hospital Encounter [facility] Cardiac Nuclear Power Plant Engineer [address] [place] [phone] Praful Torres MD, MSc [address] [place] [address] [address] [place] [address] [email or web address] 10/15/2024 11:55 AM EDT - 10/15/2024 3:45 PM EDT Surgery [facility] Cardiac Nuclear Power Plant Engineer 55 [place] [address] Praful Torres MD, MSc [address] [place] [address] [address] [email or web address] Pulmonary Angioplasty with Possible Additional Vessels 12/01/2024 10:00 AM EDT Appointment Non-Invasive Cardiology 30 [place] [address] Ivy Ramires FNP [address] [place] [address] [email or web address] 12/01/2024 11:30 AM EDT Appointment [facility] [address] [place] [address] Ivy Ramires [address] [address] [email or web address] 03/23/2025 11:00 AM EDT Office Visit [facility] Hypertension Clinic 55 [facility] Ruth Jp [address] [place] [address] Frances Prescott MD [address] [place] [address] [email or web address] documented as of this encounter Visit Diagnoses Not on filedocumented in this encounter Additional Health Concerns Assessment Noted Time PHQ-2 Depression Total Score: 0 11/15/19 24 11:33 AM EDT documented as of this encounter Care Teams Venetian Blind Installer Relationship Specialty Start Date End Date Arnold Cox MD [address] [place] [address] [email or web address] PCP - General Internal Medicine 01/24/24 Arnold Cox MD [address] [place] [address] [email or web address] Insurance Assigned Provider 02/08/24 documented as of this encounter Additional Source Comments The information contained in this document represents components of the legal health record. It is not the complete legal health record.[facility]
--- OUTSIDE RECORDS SUMMARY | 2024-10-02 15:36 | XMS_ITS | Encounter Summary ---
Author Organization [facility] Address [address] [place] [address] Phone Care Team Providers Care Group Home Manager Name Role Phone Alvaro Blue MD Primary Care Provider [phone] Arnold Cox MD Primary Care Provider [phone] Arnold Cox MD Unavailable Encounter Details Date Type Department Care Team (Late st Contact Info) Description 06/13/2023 Procedure Pass [facility], Ct Scan - [facility] [address] [place] [address] Social History Tobacco Use Types Packs/Day Years [...] 06/02/2024 Procedure Pass [facility] 30 [place] [address] 10/14/2024 1:00 PM EDT Appointment [facility] [place] [facility] 40 [place] [address] Arnold Cox MD 40 [place] [address] [email or web address] 10/15/2024 Procedure Pass [facility] Cardiac Room Clerk [address] [place] [address] 10/15/2024 11:55 AM EDT Hospital Encounter [facility] Cardiac Room Clerk [address] [place] [address] Praful Torres MD, MSc [address] [place] [address] [address] [email or web address] 10/15/2024 11:55 AM EDT - 10/15/2024 3:45 PM EDT Surgery [facility] Cardiac Room Clerk [address] [place] [address] Praful Torres MD, MSc [address] [place] [address] [email or web address] Pulmonary Angioplasty with Possible Additional Vessels 12/01/2024 10:00 AM EDT Appointment Non-Invasive Cardiology 30 [place] [address] Ivy Ramires FNP 55 [place] [address] [email or web address] 12/01/2024 11:30 AM EDT Appointment [facility] [address] [place] [address] Ivy Ramires FNP [address] [place] [address] [email or web address] 03/23/2025 11:00 AM EDT Office Visit [facility] Pulmonary Hypertension Clinic 55 [facility] [address] [place] [address] Frances Prescott MD 55 [facility] [address] [place] [address] [email or web address] [email or web address] [place] documented as of this encounter Visit Diagnoses Not on filedocumented in this encounter Care Teams Group Home Manager Relationship Specialty Start Date End Date Alvaro Blue MD [address] [place] [address] PCP - General Internal Medicine 11/24/22 01/23/24 Arnold Cox MD [address] [place] [address] [email or web address] PCP - General Internal Medicine 01/24/24 Arnold Cox MD [address] [place] [address] [email or web address] Insurance Assigned Provider 02/08/24 documented as of this encounter Additional Source Comments The information contained in this document represents components of the legal health record. It is not the complete legal health record.[facility]
--- OUTSIDE RECORDS SUMMARY | 2024-10-02 15:36 | XMS_ITS | Clinical Summary ---
Author Organization [facility] Address [address] [place] [address] Phone Care Team Providers Care Ticket Dispatcher Name Role Phone Arnold Cox MD Primary Care Provider [phone] Arnold Cox MD Unavailable Allergies No known [...] asked the patient to message to the security tester who is seeing him about hypercoagulation workup and see if lab work can be ordered regarding the hemochromatosis. That lab work can be done at [facility] and if patient is positive we can put in a referral locally. Arrhythmia 01/24/2024 Assessment & Plan (01/31/2024 9:23 AM EDT): Today heart rate is mildly bradycardic and regular rhythm. Continue metoprolol and patient has Zio patch ordered to assess for arrhythmias over time. He will follow the administration clerk order of not over exercising and limiting [...] December. He has lab work for the copywriter, he can do a fasting lipid profile in the context of his physical exam which we will set for May given that the last 1 was done then as well. Going forward I can see him once a year for repeat physical. This visit was 35 minutes in length of grpd-[id number] time and 10 additional minutes to review chart. Encounters Date Type Department Care Team Description 10/01/2024 10:44 AM EDT - 10/01/2024 11:59 PM EDT Hospital Encounter [facility] [address] [place] [address] Frances Prescott MD Discharge Disposition: Home or Self Care 10/01/2024 10:23 AM EDT - 10/01/2024 10:43 AM EDT Hospital Encounter [facility] E[facility] 30 [place] [address] Frances Prescott MD Arrived Discharge Disposition: Home or Self Care 09/30/2024 Telephone [facility]pertension Clinic [address] [place] [address] Cara Guerrero, WU 09/30/2024 Documentation [facility]pertension Clinic [address] [place] [address] Cara Guerrero, WU 09/29/2024 Documentation [facility]ension Clinic [address] [place] [address] Thalia Wang, WU 09/29/2024 Orders Only [facility]pertension Clinic [address] [place] [address] Thalia Wang, WU PAH (pulmonary artery hypertension) (Primary Dx); CTEPH (chronic thromboembolic pulmonary hypertension); Pre-op testing 09/23/2024 1:14 PM EDT - 09/23/2024 11:59 PM EDT Hospital Encounter Non-Invasive Cardiology 30 [place] [address] Rosina Bass FNP Discharge Disposition: Home or Self Care 09/22/2024 1:00 PM EDT Telemedicine [facility] Center for Hematology [address] [facility] [address] [place] [address] Sadia Santos MD Hereditary hemochromatosis (Primary Dx); History of pulmonary embolism 09/14/2024 Procedure Pass Non-Invasive Cardiology 30 [place] [address] 09/14/2024 Documentation [facility] Cardiac Arrhythmia Service [address] [facility] [address] [place] [address] Rosina Bass FNP 09/08/2024 1:00 PM EDT Office Visit [facility] Pulmonary Hypertension Clinic 55 [facility] [address] [place] [address] Frances Prescott MD STILL (dyspnea on exertion) (Primary Dx); Chronic thromboembolic disease; Right ventricular enlargement; V tach 09/08/2024 10:59 AM EDT - 09/08/2024 11:59 PM EDT Hospital Encounter [facility] Cardiac US 55 [place] [address] Frances Prescott MD Discharge Disposition: Home or Self Care 08/10/2024 9:25 AM EST - 08/10/2024 11:59 PM EST Hospital Encounter [facility] EKG 30 [place] [address] Ivy Ramires FNP Discharge Disposition: Home or Self Care 08/10/2024 Transcribe Orders Non-Invasive Cardiology 30 [place] [address] Ivy Ramires FNP 03/16/2024 Procedure Pass [facility] Cardiac US [address] [place] [address] from Last 3 Months Immunizations Name Administration [...] Meningococcal MCV4P 11/16/2020,12/03/2015,2010 Meningococcal MPSV4 11/18/2005,10/10/2000 Novel [id number], Injectable 07/24/2009 PPD Test 11/13/2003, 3,11/11/2001,10/10 Smallpox [...] high school, GED, job training, learning the German language, technical skills, or developing parenting skills)? [...] Sign Reading Time Taken Comments Blood Pressure 124/77 09/08/2024 1:11 PM EDT Pulse 59 09/08/2024 1:11 PM EDT Temperature 36.3 ??C (97.4 ??F) 09/08/2024 1:11 PM ED T Respiratory Rate 19 01/31/2024 8:36 AM EDT Oxygen Saturation 97% 09/08/2024 1:11 PM EDT RA Inhaled Oxygen Concentration - - Weight 97.5 kg (215 lb) 09/08/2024 10:59 AM EDT Height 193 cm (6' 3.98 ) 09/08/2024 10:59 AM EDT Body Mass Index 26.18 09/08/2024 10:59 AM EDT Plan of Treatment Upcoming Encounters Date Type Department Care Team (Latest Contact Info) Description 06/02/2024 Procedure Pass [facility] Echo Lab 30 [place] [address] 10/14/2024 1:00 PM EDT Appointment [facility] [place] Internal Medicine 40 [place] [address] Arnold Cox MD 40 [place] [address] 10/15/2024 Procedure Pass [facility] Cardiac Mechanic Senior [address] [place] [address] 10/15/2024 11:55 AM EDT Hospital Encounter [facility] Cardiac Mechanic Senior [address] [place] [address] Praful Torres MD, MSc 55 [facility] [address] [place] [address] [email or web address] 10/15/2024 11:55 AM EDT - 10/15/2024 3:45 PM EDT Surgery [facility] Cardiac Mechanic Senior [address] [place] [address] Praful Torres MD, MSc [address] [place] [address] [address] [place] [address] [email or web address] Balloon Pulmonary Angioplasty with Possible Additional Vessels 12/01/2024 10:00 AM EDT Appointment Non-Invasive Cardiology 30 [place] [address] Ivy Ramires FNP [address] [place] [address] [email or web address] 12/01/2024 11:30 AM EDT Appointment [facility] Echo [facility] 30 [place] [address] Ivy Ramires FNP [address] [place] [address] [email or web address] 03/23/2025 11:00 AM EDT Office Visit [facility] Pulmonary Hypertension Clinic 55 [facility] [address] [place] [address] Frances Prescott MD [address] [place] [address] [address] [place] [address] [email or web address] Health Maintenance Due Date Last Done Comments HEPATITIS C SCREENING 11/20/1997 HIV ONE-TIME SCREENING (18-65 YEARS) 11/20/1997 INFLUENZA VACCINE (#1) 2024 , 04/11/2022, 03/15/2021, Additional history exists COVID-19 VACCINE ( season) 2024 03/29/2022, 05/22/2021, 08/26/2020, Additional history exists DEPRESSION SCREENING 11/14/2024 11/15/2023 CREATININE LEVEL 10/01/2025 10/01/2024, , 01/20/2024, Additional history exists SCREENING FOR DIABETES 10/02/2027 10/01/2024, 2022 LIPID PANEL 06/03/2028 06/03/2023, 1209/2022, 06/03/2023 Adult Td,Tdap Booster 01/31/2031 01/31/2021 , 05/06/2011, 04/25/2001 HEPATITIS A VACCINES Aged Out 04/25/2001, 10/19/19 No longer eligible based on patient's age [...] Procedure Name Priority Date/Time Associated Diagnosis Comments CBC AND DIFFERENTIAL Routine 10/01/2024 10:48 AM EDT Pre-op testing BASIC METABOLIC PANEL Routine 10/01/2024 10:48 AM EDT Pre-op testing PT-INR Routine 10/01/2024 10:48 AM EDT Pre-op testing NT-PROBNP Routine 10/01/2024 10:48 AM EDT Pre-op testing ECG 12-LEAD Routine 10/01/2024 10:35 AM EDT Pre-op testing TTE COMPREHENSIVE Routine 09/08/2024 12: 19 PM EDT Pulmonary hypertension, unspecified ECG 12-LEAD Routine 08/10/2024 9:48 AM EST OUTSIDE HDL Routine 06/03/2023 OUTSIDE GLUCOSE FASTING Routine 06/03/2023 from Last 3 Months or Most Recently Relevant to Health Maintenance Results * (ABNORMAL) PT-INR (10/01/2024 10:48 AM EDT) PT 13.9(H) 10.2 - 12.9 sec [facility] INR 1.1 0.9 - 1.1 [facility] Comment:Therapeutic range fo r oral Vitamin K antagonists: 2.0-3.5 Blood 10/01/2024 10:4 8 AM EDT 10/01/2024 11:03 AM EDT Frances Prescott MD LAB BLOOD O RDERABLES [address] [address] * (ABNORMAL) CBC and differential (10/01/2024 10:48 AM EDT) WBC 4.53 4.00 - 11.00 K/uL [facility] RBC 5.00 4.50 - 5.90 M/uL [facility] HGB 16.8 13.5 - 17.5 g/dL [facility] HCT 45.8 41.0 - 53.0 % [facility] PLT 184 150 - 450 K/uL [facility] MCV 91.6 80.0 - 100.0 fL [facility] MCH 33.6(H) 27.0 - 31.0 pg [facility] MCHC 36.7(H) 32.0 - 36.0 g/dL [facility] RDW 12.2 11.5 - 14.5 % [facility] MPV 9.2 8.4 - 12.0 fL [facility] NRBC 0.00 0.00 /100 WBCs [facility] ABSOLUTE NRBC 0.00 0.00 K/uL [facility] DIFF METHOD Auto [facility] NEUTS 35.8(L) 48.0 - 76.0 % [facility] LYMPHS 54.7(H) 18.0 - 41.0 % [facility] MONOS 8.6 4.0 - 11.0 % [facility] EOS 0.2 0.0 - 5.0 % [facility] BASOS 0.7 0.0 - 1.5 % [facility] Granulocytes, immature (%) 0.0 0.0 - 0.9 % [facility] ABSOLUTE NEUTS 1.62(L) 1.92 - 7.60 K/uL [facility] ABSOLUTE LYMPHS 2.48 0.72 - 4.10 K/uL [facility] ABSOLUTE MONOS 0.39 0.16 - 1.10 K/uL [facility] ABSOLUTE EOS 0.01 0.00 - 0.50 K/uL [facility] ABSOLUTE BASOS 0.03 0.00 - 0.15 K/uL [facility] Granulocytes, immature 0.00 0.00 - 0.09 K/uL [facility] Blood 10/01/2024 10:4 8 AM EDT 10/01/2024 11:03 AM EDT Frances Prescott MD LAB BLOOD O RDERABLES [facility] [address] [place] [address] * NT-proBNP (10/01/2024 10:48 AM EDT) NT-PROBNP <36 0 - 125 pg/mL [facility] Blood 10/01/2024 10:4 8 AM EDT 10/01/2024 11:03 AM EDT Frances Prescott MD LAB BLOOD O RDERABLES Performing Organization Address City/[facility] Co de Phone Number [address] [address] * Basic metabolic panel (10/01/2024 10:48 AM EDT) SODIUM 139 133 - 146 mmol/L [facility] CHLORIDE 100 96 - 108 mmol/L [facility] POTASSIUM 4.4 3.3 - 5.1 mmol/L [facility] Comment:Specimen slightly he molyzed, result may be falsely elevated. CO2 28 21 - 35 mmol/L [facility] BUN 16 6 - 19 mg/dL [facility] CREATININE 0.90 0.5 - 1.5 mg/dL [facility] GLUCOSE 94 70 - 99 mg/dL [facility] CALCIUM 9.3 8.4 - 10.3 mg/dL [facility] EGFR 108 >59 mL/min/1.7 3m2 [facility] Comment:Estimated glomerular filtration rate calculated using the CKD-EPI refit equation. ANION GAP 15 10 - 20 mmol/L [facility] Blood 10/01/2024 10:4 8 AM EDT 10/01/2024 11:03 AM EDT Frances Prescott MD LAB BLOOD O RDERABLES Performing Organization Address [facility] Co de Phone Number [address] [address] * ECG 12-LEAD (10/01/2024 10:35 AM EDT) Only the most recent of2 resultswithin the time period is included. Ventricular Rate EKG/MIN 51 BPM [facility] Atrial Rate 51 BPM [facility] HI Interval 170 ms [facility] QRS Duration 104 ms [facility] QT Interval 452 ms [facility] QTC Interval 416 ms [facility] P [place] -7 degrees [facility] R Wave [place] 62 degrees [facility] T Wave [place] 41 degrees [facility] 10/01/2024 10:3 5 AM EDT 10/02/2024 9:38 AM EDT Narrative [facility] - 10/02/2024 9:38 AM EDT Sinus bradycardia Otherwise normal ECG When compared with ECG of 10-Aug-2024 09:48, Aberrant conduction is no longer Present Confirmed by Sundar STINSON ([id number]) on 10/02/2024 9:38:18 AM Frances Prescott MD ECG ORDERAB LES [facility] * TTE COMPREHENSIVE (09/08/2024 12:19 PM EDT) Body Surface Area 2.28 m2 Right Ventricle Peak Systolic Pressure 29 mmHg Tricuspid Valve Peak Velocity 2.2 m/s Right Atrium Pressure Estimated 10 mmHg Right Ventricle to Right Atrium Pressure Gradient 19 mmHg Right Ventricle Peak Systolic Pressure (Assuming RAP 10) 29 mmHg MGB CV ECHO TV RVSP (ASSUMING RAP OF 5) 24 mmHg RVSP (Exclusive of RAP) 19 mmHg Right Ventricle TAPSE 19 >=17 mm Right Ventricle Pulse Doppler S Wave 13.0 >=9.5 cm/s Right Ventricle Basal Diameter 37 25 - 41 mm Pulmonary Artery Main - Dimension 21 mm Left Ventricle Internal Diameter End Diastole 45 42 - 58 mm Interventricular Septum Thickness 10 6 - 11 mm Aortic Sinus Diameter 34 <40 mm Height 193 cm Left Ventricle Internal Diameter End Systole 30 <40 mm Left Ventricular Posterior Wall Thickness 8 6 - 11 mm Ascending Aorta Diameter 32 <36 mm Weight 98.00 kg Raw LV EF% 56 % Left Atrium Dimension Anterior-Posterior 36 15 - 40 mm Left Ventricular Apical Contribution 10 Left Atrial Volume Index 18 16 - 34 mL/m2 Ejection Fraction 66 50 - 75 % Relative Wall Thickness 0.36 0.22 - 0.42 Left Ventricular Mass 132.8 g Left Ventricle indexed to BSA 58.3 g/m2 Left Ventricular Outflow Tract Velocity 1.5 m/s Left Atrial Volume 41 mL Left Atrial Volume Index by Height 21 mL/m Right Atrium Dimension Superior-Inferior 53 mm Right Atrium Index Superior-Inferior 23 19 - 30 mm/m2 Right Atrium Dimension Medial-Lateral 37 mm Right Atrium Dimension Medial-Lateral 16 13 - 25 mm/m2 Inferior Vena Cava Diameter 17 <21 mm Aortic Valve Sinus Index by BSA 15 mm/m2 Aorta Sinus Index by Height 1.76 cm/m Aorta Sinus CSA index by Height 4.70 cm2/m Ascending Aorta Index 14 mm/m2 Asc Aorta CSA Index by Height 4.16 cm2/m Ascending Aorta Index 14 mm Aortic Sinus Index 15 mm Ascending Aorta Diameter 14 mm Aortic Valve Sinus Index 1 15 20 - 32 mm AO ASC DIAM BSA INDEX 14.04 Right Atrium Dimension Medial-Lateral 16 mm/m2 Right Atrium Index Superior-Inferior 23 mm/m2 Anatomical Region Laterality Modality Heart Ultrasound Narrative 09/09/2024 8:42 AM EDT -Normal biventricular size and systolic function (LV EF 66%) -No hemodynamically significant valvular disease -Borderline anterior mitral valve prolapse with trace MR -Estimated RVSP 29mmHg Left Ventricle The left ventricle is normal in size. There is normal wall thickness. There is normal left ventricular systolic function. The LV ejection fraction is 66% (calculated via the single dimension method). There are no wall motion abnormalities. Right Ventricle The right ventricle is normal in size. There is a prominent moderator band. There is normal right ventricular systolic function. TAPSE is 19 mm (normal: >= 17 mm). RV S' wave is 13.0 cm/s (normal: >= 9.5 cm/s). Left Atrium The left atrium is normal in size. The left atrial volume is 41 mL. The left atrial volume index by BSA is 18 mL/m2 (normal: 16-34 mL/m2). Right Atrium The right atrium is normal in size. The IVC is normal in size with normal inspiratory collapse. This is consistent with normal RA pressure. Mitral Valve There is anterior borderline mitral valve prolapse. There is diffuse thickening of the anterior mitral leaflet. There is trace mitral regurgitation. Tricuspid Valve There is trace tricuspid regurgitation. The RV systolic pressure was calculated at 29 mmHg (using TR peak velocity of 2.2 m/s and assuming an RA pressure of 10 mmHg). Aortic Valve The aortic valve is tricuspid. There is no aortic stenosis. There is no aortic regurgitation. The visualized portions of the thoracic aorta appear normal in size. Pulmonic Valve There is trace pulmonic regurgitation. There is no echocardiographic evidence of pulmonary hypertension. Pericardium There is no pericardial effusion. Coronary Arteries The origin of the left coronary artery appears to arise normally by 2D echocardiography. The origin of the right coronary artery appears to arise normally by 2D echocardiography. General Findings The image quality was fair (3). Comparison Findings There are no prior [facility] studies for comparison. 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 It is not the complete legal health record.[facility]
--- OUTSIDE RECORDS SUMMARY | 2024-10-02 15:36 | XMS_ITS | Encounter Summary ---
Author Organization [facility] Address [address] [place] [address] [place] [address] Phone Care Team Providers Care Electronic Tech Name Role Phone Alvaro Blue MD Primary Care Provider [phone] Arnold Cox MD Primary Care Provider [phone] Arnold Cox MD Unavailable Encounter Details Date Type Department Care Team (Late st Contact Info) Description 01/19/2023 Telephone [facility] Center for Hematology [address] [facility] [address] [place] [address] Sadia Santos MD [address] [facility] [address] [place] [address] [email or web address] Social History Tobacco Use Types Packs/Day [...] 06/02/2024 Procedure Pass [facility] 30 [place] [address] 10/14/2024 1:00 PM EDT Appointment [facility] Internal Medicine [address] [place] [address] Arnold oCx MD [address] [place] [address] [email or web address] 10/15/2024 Procedure Pass [facility] Cardiac Bridge Inspector [address] [place] [address] 10/15/2024 11:55 AM EDT Hospital Encounter [facility] Cardiac Bridge Inspector [address] [place] [address] Praful Torres MD, MSc 55 [facility] [address] [address] [email or web address] 10/15/2024 11:55 AM EDT - 10/15/2024 3:45 PM EDT Surgery [facility] Cardiac Bridge Inspector [address] [place] [address] Praful Torres MD, MSc [address] [place] [address] [address] [email or web address] Balloon Pulmonary Angioplasty with Possible Additional Vessels 12/01/2024 10:00 AM EDT Appointment Non-Invasive Cardiology [address] [place] [address] Ivy Ramires FNP [address] [place] [address] [email or web address] 12/01/2024 11:30 AM EDT Appointment [facility] [address] [place] [address] Ivy Ramires FNP [address] [place] [address] [email or web address] 03/23/2025 11:00 AM EDT Office Visit [facility] Pulmonary Hypertension Clinic 55 [facility] [address] [place] [address] Frances Prescott MD 55 [facility] [address] [place] [address] MISAEL [email or web address] documented as of this encounter Visit Diagnoses Not on filedocumented in this encounter Care Teams Electronic Tech Relationship Specialty Start Date End Date Alvaro Blue MD [address] [place] [address] PCP - General Internal Medicine 11/24/22 01/23/24 Arnold Cox MD [address] [place] [address] [email or web address] PCP - General Internal Medicine 01/24/24 Arnold Cox MD [address] [place] [address] [email or web address] Insurance Assigned Provider 02/08/24 documented as of this encounter Additional Source Comments The information contained in this document represents components of the legal health record. It is not the complete legal health record.[facility]
--- OUTSIDE RECORDS SUMMARY | 2024-10-02 15:36 | XMS_ITS | Encounter Summary ---
Author Organization [facility] Address [address] [facility] [address] [place] [address] Phone Care Team Providers Care Commercial Lines Insurance Agent Name Role Phone Arnold Cox MD Primary Care Provider [phone] Arnold Cox MD Unavailable Encounter Details Date Type Department Care Team ([facility] Contact Info) Description 02/03/2024 Telephone [facility] Center for Hematology [address] [facility] [address] [place] [address] Sadia Santos MD 55 [facility] [address] [place] [address] [email or web address] Social History Tobacco Use Types Packs/Day [...] 06/02/2024 Procedure Pass [facility] 30 [place] [address] 10/14/2024 1:00 PM EDT Appointment [facility] [place] Internal Medicine 40 [place] [address] Arnold Cox MD 40 [place] [address] [email or web address] 10/15/2024 Procedure Pass [facility] Cardiac Package Sorter 55 [place] [address] 10/15/2024 11:55 AM EDT Hospital Encounter [facility] Cardiac Package Sorter 55 [place] [address] Praful Torres MD, MSc [address] [place] [address] [address] [email or web address] 10/15/2024 11:55 AM EDT - 10/15/2024 3:45 PM EDT Surgery [facility] Cardiac Package Sorter 55 [place] [address] Praful Torres MD, MSc [address] [place] [address] [address] [email or web address] Balloon Pulmonary Angioplasty with Possible Additional Vessels 12/01/2024 10:00 AM EDT Appointment Non-Invasive Cardiology 30 [place] [address] Ivy Ramires FNP 55 [place] [address] [email or web address] 12/01/2024 11:30 AM EDT Appointment [facility] 30 [place] [address] Ivy Ramires FNP [address] [place] [address] [email or web address]@[facility] 03/23/2025 11:00 AM EDT Office Visit [facility] Pulmonary Hypertension Clinic 55 [facility] Ruth Jp 201 [place] [address] Frances Prescott MD 55 [facility] [address] [place] [address] MISAEL [email or web address]@[email or web address].[place].E DU documented as of this encounter Visit Diagnoses Not on filedocumented in this encounter Additional Health Concerns Assessment Noted Time PHQ-2 Depression Total Score: 0 11/15/19 11:33 AM EDT documented as of this encounter Care Teams Commercial Lines Insurance Agent Relationship Specialty Start Date End Date Arnold Cox MD 40 [place] [address] [email or web address] PCP - General Internal Medicine 01/24/24 Arnold Cox MD 40 [place] [address] [email or web address] Insurance Assigned Provider 02/08/24 documented as of this encounter Additional Source Comments The information contained in this document represents components of the legal health record. It is not the complete legal health record.[facility]
--- OUTSIDE RECORDS SUMMARY | 2024-10-02 15:36 | XMS_ITS | Encounter Summary ---
Author Organization [facility] Address [address] [place] [address] Phone Care Team Providers Care Physiotherapy Practice Manager Name Role Phone Arnold Cox MD Primary Care Provider Arnold Cox MD Unavailable Encounter Details Date Type Department Care Team (Late st Contact Info) Description 09/14/2024 Procedure Pass Non-Invasive Cardiology 30 [place] [address] Social History Tobacco Use Types Packs/Day Years [...] high school, GED, job training, learning the Cymraes language, technical skills, or developing parenting skills)? [...] 06/02/2024 Procedure Pass [facility] 30 [place] [address] 10/14/2024 1:00 PM EDT Appointment [facility] [place] Internal Medicine 40 [place] [address] Arnold Cox MD 40 [place] [address] [email or web address] 10/15/2024 Procedure Pass [facility] Cardiac Direct Care Supervisor 55 [place] [address] 10/15/2024 11:55 AM EDT Hospital Encounter [facility] Cardiac Direct Care Supervisor 55 [place] [address] Praful Torres MD, MSc 55 [facility] [address]GRB [address] [place] [address] [email or web address] 10/15/2024 11:55 AM EDT - 10/15/2024 3:45 PM EDT Surgery [facility] Cardiac Direct Care Supervisor 55 [place] [address] Praful Torres MD, MSc [address] [place] [address] [address] [place] [address] [email or web address] Balloon Pulmonary Angioplasty with Possible Additional Vessels 12/01/2024 10:00 AM EDT Appointment Non-Invasive Cardiology 30 [place] [address] Ivy Ramires [address] [address] [email or web address] 12/01/2024 11:30 AM EDT Appointment [facility] 30 [place] [address] Ivy Ramires [address] [address] [email or web address]@[email or web address] 03/23/2025 11:00 AM EDT Office Visit [facility] Pulmonary Hypertension Clinic 55 [facility] Ruth Jp 201 [place] [address] Frances Prescott MD [address] [place] [address] MISAEL [email or web address]@[email or web address]. [place] documented as of this encounter Visit Diagnoses Not on filedocumented in this encounter Additional Health Concerns Assessment Noted Time PHQ-2 Depression Total Score: 0 11/15/19 24 11:33 AM EDT documented as of this encounter Care Teams Physiotherapy Practice Manager Relationship Specialty Start Date End Date Arnold Cox MD [address] [place] [address] [email or web address] PCP - General Internal Medicine 01/24/24 Arnold Cox MD 40 [place] [address] [email or web address] Insurance Assigned Provider 02/08/24 documented as of this encounter Additional Source Comments The information contained in this document represents components of the legal health record. It is not the complete legal health record.[facility]
--- OUTSIDE RECORDS SUMMARY | 2024-10-02 15:36 | XMS_ITS | Encounter Summary ---
Author Organization [facility] Address [address] [facility] [place] [address] Phone Care Team Providers Care Hydramatic Specialist Name Role Phone Arnold Cox MD Primary Care Provider [phone] Arnold Cox MD Unavailable Encounter Details Date Type Department Care Team ([facility] Contact Info) Description 02/03/2024 Telephone [facility] Center for Hematology [address] [facility] [address] [place] [address] Sadia Santos MD 55 [facility] [address] [place] [address] [email or web address] Social History Tobacco Use Types Packs/Day [...] high school, GED, job training, learning the Colombian language, technical skills, or developing parenting skills)? [...] 06/02/2024 Procedure Pass [facility] 30 [place] [address] 10/14/2024 1:00 PM EDT Appointment [facility] [place] Internal Medicine 40 [place] [address] Arnold Cox MD 40 [place] [address] [email or web address] 10/15/2024 Procedure Pass [facility] Cardiac Network Operations Specialist 55 [place] [address] 10/15/2024 11:55 AM EDT Hospital Encounter [facility] Cardiac Network Operations Specialist 55 [place] [address] Praful Torres MD, MSc [address] [place] [address] [address] [email or web address] 10/15/2024 11:55 AM EDT - 10/15/2024 3:45 PM EDT Surgery [facility] Cardiac Network Operations Specialist 55 [place] [address] Praful Torres MD, MSc [address] [place] [address] [address] [email or web address] Balloon Pulmonary Angioplasty with Possible Additional Vessels 12/01/2024 10:00 AM EDT Appointment Non-Invasive Cardiology 30 [place] [address] Ivy Ramires FNP 55 [place] [address] [email or web address] 12/01/2024 11:30 AM EDT Appointment [facility] 30 [place] [address] Ivy Ramires FNP [address] [place] [address] [email or web address]@[facility] 03/23/2025 11:00 AM EDT Office Visit [facility] Pulmonary Hypertension Clinic 55 [facility] Ruth Jp 201 [place] [address] Frances Prescott MD 55 [facility] [address] [place] [address] MISAEL Nix@[email or web address] DU documented as of this encounter Visit Diagnoses Not on filedocumented in this encounter Additional Health Concerns Assessment Noted Time PHQ-2 Depression Total Score: 0 11/15/19 11:33 AM EDT documented as of this encounter Care Teams Hydramatic Specialist Relationship Specialty Start Date End Date Arnold Cox MD 40 [place] [address] [email or web address] PCP - General Internal Medicine 01/24/24 Arnold Cox MD 40 [place] [address] [email or web address] Insurance Assigned Provider 02/08/24 documented as of this encounter Additional Source Comments The information contained in this document represents components of the legal health record. It is not the complete legal health record.[facility]
--- OUTSIDE RECORDS SUMMARY | 2024-10-02 15:37 | XMS_ITS | Encounter Summary ---
Author Organization [facility] Address [address] [place] [address] Phone Care Team Providers Care Horticulturalist Name Role Phone Arnold Cox MD Primary Care Provider [phone] Arnold Cox MD Unavailable Encounter Details Date Type Department Care Team (Late st Contact Info) Description 01/26/2024 Procedure Pass [facility] [address] [place] [address] [place] [address] Social History Tobacco Use Types Packs/Day Years [...] high school, GED, job training, learning the Kosovan language, technical skills, or developing parenting skills)? [...] 06/02/2024 Procedure Pass [facility] Echo [facility] 30 [place] [address] 10/14/2024 1:00 PM EDT Appointment [facility] [place] Internal Medicine 40 [place] [address] Arnold Cox MD 40 [place] [address] [email or web address] 10/15/2024 Procedure Pass [facility] Cardiac Enamel Drier 55 [place] [address] 10/15/2024 11:55 AM EDT Hospital Encounter [facility] Cardiac Enamel Drier 55 [place] [address] Praful Torres MD, MSc [address] [place] [address] [place] [address] [email or web address] 10/15/2024 11:55 AM EDT - 10/15/2024 3:45 PM EDT Surgery [facility] Cardiac Enamel Drier 55 [place] [address] Praful Torres MD, MSc [address] [place] [address] [address] [email or web address] Balloon Pulmonary Angioplasty with Possible Additional Vessels 12/01/2024 10:00 AM EDT Appointment Non-Invasive Cardiology 30 [place] [address] Ivy Ramires FNP [address] [place] [address] [email or web address] 12/01/2024 11:30 AM EDT Appointment [facility] 30 [place] [address] Ivy Ram[address] [address] [email or web address]@[email or web address] 03/23/2025 11:00 AM EDT Office Visit [facility]pertension Clinic 55 [facility] Ruth Jp 201 [place] [address] Frances Prescott MD [address] [place] [address] MISAEL [email or web address]@[email or web address]. [place] documented as of this encounter Visit Diagnoses Not on filedocumented in this encounter Additional Health Concerns Assessment Noted Time PHQ-2 Depression Total Score: 0 11/15/19 24 11:33 AM EDT documented as of this encounter Care Teams Horticulturalist Relationship Specialty Start Date End Date Arnold Cox MD [address] [place] [address] [email or web address] PCP - General Internal Medicine 01/24/24 Arnold Cox MD [address] [place] [address] [email or web address] Insurance Assigned Provider 02/08/24 documented as of this encounter Additional Source Comments The information contained in this document represents components of the legal health record. It is not the complete legal health record.[facility]
--- OUTSIDE RECORDS SUMMARY | 2024-10-02 15:37 | XMS_ITS | Encounter Summary ---
Author Organization [facility] Address [address] [place] [address] Phone Care Team Providers Care Herpetology Teacher Name Role Phone Arnold Cox MD Primary Care Provider [phone] Arnold Cox MD Unavailable Encounter Details Date Type Department Care Team (Late st Contact Info) Description 09/29/2024 Documentation [facility] Hypertension Clinic [address] [facility] Jp 201 [place] [address] Thalia Wang, WU 90 [place] [address] [email or web address] Social History Tobacco Use Types Packs/Day Years [...] high school, GED, job training, learning the Mauritanian language, technical skills, or developing parenting skills)? [...] on file documented as of this encounter Progress Notes * Thalia Wang RN - 09/29/2024 11:54 AM EDT Pt scheduled for RIGHT HEART CATHETERIZATION/Pagram,+/- BPA on 10/[address] Torres Labs/EKG to be done at [facility] this week LD Eliquis 4/16 AM documented in this encounter Plan of Treatment Upcoming Encounters Date Type Department Care Team (Latest Contact Info) Description 06/02/2024 Procedure Pass [facility] Echo [facility] 30 [place] [address] 10/14/2024 1:00 PM EDT Appointment [facility] Internal Medicine 40 [place] [address] Arnodl Cox MD 40 [place] [address] [email or web address] 10/15/2024 Procedure Pass [facility] Cardiac Small Battery Plate Assembler 55 [place] [address] 10/15/2024 11:55 AM EDT Hospital Encounter [facility] Cardiac Small Battery Plate Assembler 55 [place] [address] Praful Torres MD, MSc 55 [facility] [address] [place] [address] [email or web address] 10/15/2024 11:55 AM EDT - 10/15/2024 3:45 PM EDT Surgery [facility] Cardiac Small Battery Plate Assembler 55 [place] [address] Praful Torres MD, MSc [address] [place] [address] [address] [email or web address] Balloon Pulmonary Angioplasty with Possible Additional Vessels 12/01/2024 10:00 AM EDT Appointment Non-Invasive Cardiology 30 [place] [address] Ivy Ramires FNP 55 [place] [address] [email or web address] 12/01/2024 11:30 AM EDT Appointment [facility] Echo [facility] 30 [place] [address] Ivy Ramires FNP 55 [place] [address] [email or web address]@[email or web address] 03/23/2025 11:00 AM EDT Office Visit [facility] Pulmonary Hypertension Clinic 55 [facility] Ruth Jp [address] [place] [address] Frances Prescott MD 55 [facility] [address] [place] [address] MISAEL [email or web address] BYRON documented as of this encounter Visit Diagnoses Not on filedocumented in this encounter Additional Health Concerns Assessment Noted Time PHQ-2 Depression Total Score: 0 11/15/19 11:33 AM EDT documented as of this encounter Care Teams Herpetology Teacher Relationship Specialty Start Date End Date Arnold Cox MD 40 [place] [address] [email or web address] PCP - General Internal Medicine 01/24/24 Arnold Cox MD 40 [place] [address] [email or web address] Insurance Assigned Provider 02/08/24 documented as of this encounter Additional Source Comments The information contained in this document represents components of the legal health record. It is not the complete legal health record.[facility]
--- OUTSIDE RECORDS SUMMARY | 2024-10-02 15:37 | XMS_ITS | Encounter Summary ---
Author Organization [facility] Address [address] [place] [address] Phone Care Team Providers Care Music Composition Teacher Name Role Phone Arnold Cox MD Primary Care Provider [phone] Arnold Cox MD Unavailable Encounter Details Date Type Department Care Team (Late st Contact Info) Description 09/30/2024 Documentation [facility] Pulmonary Hypertension Clinic 55 [facility] [address] [address] Cara Guerrero, RN 100 [place] [address] [email or web address] Social History Tobacco Use Types Packs/Day Years [...] high school, GED, job training, learning the Tanzanian language, technical skills, or developing parenting skills)? [...] as of this encounter Progress Notes * Cara Guerrero, WU - 09/30/2024 9:44 AM EDT Patient reached out to this office via GW to request date change for upcoming BPA. Patient requested date change FROM 10/16/24 TO 10/15/24. CCL accommodated change and patient notified via GW that request was granted and that patient's LD of Eliquis will now be 415 AM. documented in this encounter Plan of Treatment Upcoming Encounters Date Type Department Care Team (Latest Contact Info) Description 06/02/2024 Procedure Pass [facility] 30 [place] [address] 10/14/2024 1:00 PM EDT Appointment [facility] Internal Medicine 40 [place] [address] Arnold Cox MD 40 [place] [address] [email or web address] 10/15/2024 Procedure Pass [facility] Cardiac Pole Peeling Machine Operator Helper 55 [place] [address] 10/15/2024 11:55 AM EDT Hospital Encounter [facility] Cardiac Pole Peeling Machine Operator Helper 55 [place] [address] Praful Torres MD, MSc [address] [place] [address] [email or web address] 10/15/2024 11:55 AM EDT - 10/15/2024 3:45 PM EDT Surgery [facility] Cardiac Pole Peeling Machine Operator Helper 55 [place] [address] Praful Torres MD, MSc [address] [place] [address] [address] [email or web address] Balloon Pulmonary Angioplasty with Possible Additional Vessels 12/01/2024 10:00 AM EDT Appointment Non-Invasive Cardiology 30 [place] [address] Ivy Ramires FNP 55 [place] [address] [email or web address] 12/01/2024 11:30 AM EDT Appointment [facility] 30 [place] [address] Ivy Ramires FNP 55 [place] [address] [email or web address] 03/23/2025 11:00 AM EDT Office Visit [facility] Pulmonary Hypertension Clinic 55 [facility] [address] [address] Frances Prescott MD 55 [facility] [address] [address] MISAEL [email or web address] BYRON documented as of this encounter Visit Diagnoses Not on filedocumented in this encounter Additional Health Concerns Assessment Noted Time PHQ-2 Depression Total Score: 0 11/15/19 11:33 AM EDT documented as of this encounter Care Teams Music Composition Teacher Relationship Specialty Start Date End Date Arnold Cox MD 40 [place] [address] [email or web address] PCP - General Internal Medicine 01/24/24 Arnold Cox MD 40 [place] [address] [email or web address] Insurance Assigned Provider 02/08/24 documented as of this encounter Additional Source Comments The information contained in this document represents components of the legal health record. It is not the complete legal health record.[facility]
--- OUTSIDE RECORDS SUMMARY | 2024-10-02 15:37 | XMS_ITS | Encounter Summary ---
Author Organization [facility] Address [address] [place] [address] Phone Care Team Providers Care Woodenware Assembler Name Role Phone Arnold Cox MD Primary Care Provider [phone] Arnold Cox MD Unavailable Encounter Details Date Type Department Care Team (Late st Contact Info) Description 01/24/2024 Procedure Pass [facility] Emergency Imaging, [facility] [address] [address] Social History Tobacco Use Types Packs/Day Years [...] 06/02/2024 Procedure Pass [facility] Echo [facility] 30 [place] [address] 10/14/2024 1:00 PM EDT Appointment [facility] [place] Internal Medicine 40 [place] [address] Arnold Cox MD 40 [place] [address] [email or web address] 10/15/2024 Procedure Pass [facility] Cardiac Foil Spinner 55 [place] [address] 10/15/2024 11:55 AM EDT Hospital Encounter [facility] Cardiac Foil Spinner 55 [place] [address] Praful Torres MD, MSc [address] [place] [address] [place] [address] [email or web address]@[facility] 10/15/2024 11:55 AM EDT - 10/15/2024 3:45 PM EDT Surgery [facility] Cardiac Foil Spinner 55 [place] [address] Praful Torres MD, MSc [address] [place] [address] [address] [email or web address] Balloon Pulmonary Angioplasty with Possible Additional Vessels 12/01/2024 10:00 AM EDT Appointment Non-Invasive Cardiology 30 [place] [address] Ivy Ramires FNP [address] [place] [address] FAVIOLA@[email or web address] 12/01/2024 11:30 AM EDT Appointment [facility] 30 [place] [address] Ivy Ramires [address] [address] FAVIOLA@[email or web address] 03/23/2025 11:00 AM EDT Office Visit [facility] Pulmonary Hypertension Clinic 55 [facility] Ruth Jp 201 [place] [address] Frances Prescott MD [address] [place] [address] MISAEL [email or web address]. [place] documented as of this encounter Visit Diagnoses Not on filedocumented in this encounter Additional Health Concerns Assessment Noted Time PHQ-2 Depression Total Score: 0 11/15/19 24 11:33 AM EDT documented as of this encounter Care Teams Woodenware Assembler Relationship Specialty Start Date End Date Arnold Cox MD [address] [place] [address] [email or web address] PCP - General Internal Medicine 01/24/24 Arnold Cox MD [address] [place] [address] [email or web address] Insurance Assigned Provider 02/08/24 documented as of this encounter Additional Source Comments The information contained in this document represents components of the legal health record. It is not the complete legal health record.[facility]
--- OUTSIDE RECORDS SUMMARY | 2024-10-02 15:37 | XMS_ITS | Encounter Summary ---
Author Organization Formerly [facility] Address [address] [place] [address] Phone Care Team Providers Care Signal Inspector Name Role Phone Arnold Cox MD Primary Care Provider [phone] Arnold Cox MD Unavailable Encounter Details Date Type Department Care Team (Latest Contact Info) Description 10/01/2024 10:44 AM EDT - 10/01/2024 11:59 PM EDT Hospital Encounter [facility] [address] [place] [address] Frances Prescott MD [address] [place] [id number] [email or web address] Discharge Disposition: Home or Self Care Social [...] high school, GED, job training, learning the Ghanaian language, technical skills, or developing parenting skills)? [...] (Latest Contact Info) Description 06/02/2024 Procedure Pass [facility] Echo Lab 30 [place] [address] 10/14/2024 1:00 PM EDT Appointment [facility] Internal Medicine 40 [place] [address] Arnold Cox MD 40 [place] [address] [email or web address] 10/15/2024 Procedure Pass [facility] Cardiac Button Maker [address] [place] [address] 10/15/2024 11:55 AM EDT Hospital Encounter [facility] Cardiac Button Maker [address] [place] [address] Praful Torres MD, MSc 55 [facility] 800GRB [address] [place] [address] [email or web address] 10/15/2024 11:55 AM EDT - 10/15/2024 3:45 PM EDT Surgery [facility] Cardiac Button Maker [address] [place] [address] Praful Torres MD, MSc [address] [place] [address] GRB 800GRB [address] [place] [address] [email or web address] Balloon Pulmonary Angioplasty with Possible Additional Vessels 12/01/2024 10:00 AM EDT Appointment Non-Invasive Cardiology 30 [place] [address] Ivy Ramires FNP 55 [place] [address] [email or web address] 12/01/2024 11:30 AM EDT Appointment [facility] Echo Lab 30 [place] [address] Ivy Ramires [facility] 55 [place] [address] [email or web address] 03/23/2025 11:00 AM EDT Office Visit [facility] Pulmonary Hypertension Clinic 55 [facility] Ruth Jp [address] [place] [address] Frances Prescott MD [address] [place] [address] [address] [place] [address] [email or web address] [email or web address] DU documented as of this encounter Procedures Procedure Name Priority Date/Time Associated Diagnosis Comments PT-INR Routine 10/01/2024 10:48 AM EDT Pre-op testing CBC AND DIFFERENTIAL Routine 10/01/2024 10:48 AM EDT Pre-op testing NT-PROBNP Routine 10/01/2024 10:48 AM EDT Pre-op testing BASIC METABOLIC PANEL Routine 10/01/2024 10:48 AM EDT Pre-op testing documented in this encounter Results * (ABNORMAL) CBC and differential (10/01/2024 10:48 AM EDT) WBC 4.53 4.00 - 11.00 K/uL [facility] RBC 5.00 4.50 - 5.90 M/uL [facility] HGB 16.8 13.5 - 17.5 g/dL [facility] HCT 45.8 41.0 - 53.0 % [facility] PLT 184 150 - 450 K/uL [facility] MCV 91.6 80.0 - 100.0 fL [facility] MCH 33.6(H) 27.0 - 31.0 pg [facility] MCHC 36.7(H) 32.0 - 36.0 g/dL [facility] RDW 12.2 11.5 - 14.5 % [facility] MPV 9.2 8.4 - 12.0 fL [facility] NRBC 0.00 0.00 /100 WBCs [facility] ABSOLUTE NRBC 0.00 0.00 K/uL [facility] DIFF METHOD Auto [facility] NEUTS 35.8(L) 48.0 - 76.0 % [facility] LYMPHS 54.7(H) 18.0 - 41.0 % [facility] MONOS 8.6 4.0 - 11.0 % [facility] EOS 0.2 0.0 - 5.0 % [facility] BASOS 0.7 0.0 - 1.5 % [facility] Granulocytes, immature (%) 0.0 0.0 - 0.9 % [facility] ABSOLUTE NEUTS 1.62(L) 1.92 - 7.60 K/uL [facility] ABSOLUTE LYMPHS 2.48 0.72 - 4.10 K/uL [facility] ABSOLUTE MONOS 0.39 0.16 - 1.10 K/uL [facility] ABSOLUTE EOS 0.01 0.00 - 0.50 K/uL [facility] ABSOLUTE BASOS 0.03 0.00 - 0.15 K/uL [facility] Granulocytes, immature 0.00 0.00 - 0.09 K/uL [facility] Blood 10/01/2024 10:4 8 AM EDT 10/01/2024 11:03 AM EDT Frances Prescott MD LAB BLOOD O RDGISSELLE Performing Organization Address [facility]/ZIP Co de Phone Number [address] [address] * Basic metabolic panel (10/01/2024 10:48 AM EDT) SODIUM 139 133 - 146 mmol/L [facility] CHLORIDE 100 96 - 108 mmol/L [facility] POTASSIUM 4.4 3.3 - 5.1 mmol/L [facility] Comment:Specimen slightly he molyzed, result may be falsely elevated. CO2 28 21 - 35 mmol/L [facility] BUN 16 6 - 19 mg/dL [facility] CREATININE 0.90 0.5 - 1.5 mg/dL [facility] GLUCOSE 94 70 - 99 mg/dL [facility] CALCIUM 9.3 8.4 - 10.3 mg/dL [facility] EGFR 108 >59 mL/min/1.7 3m2 [facility] Comment:Estimated glomerular filtration rate calculated using the CKD-EPI refit equation. ANION GAP 15 10 - 20 mmol/L [facility] Blood 10/01/2024 10:4 8 AM EDT 10/01/2024 11:03 AM EDT Frances Prescott MD LAB BLOOD O MARK Performing Organization Address City/[facility] Co de Phone Number [address] [address] * (ABNORMAL) PT-INR (10/01/2024 10:48 AM EDT) PT 13.9(H) 10.2 - 12.9 sec [facility] INR 1.1 0.9 - 1.1 [facility] Comment:Therapeutic range fo r oral Vitamin K antagonists: 2.0-3.5 Blood 10/01/2024 10:4 8 AM EDT 10/01/2024 11:03 AM EDT Frances Prescott MD LAB BLOOD O RDERABLES [address] [address] * NT-proBNP (10/01/2024 10:48 AM EDT) NT-PROBNP <36 0 - 125 pg/mL [facility] Blood 10/01/2024 10:4 8 AM EDT 10/01/2024 11:03 AM EDT Frances Prescott MD LAB BLOOD O RDERAPATRICK Performing Organization Address [facility] Co de Phone Number [address] [address] documented in this encounter Visit Diagnoses Diagnosis CTEPH (chronic thromboembolic pulmonary hypertension) Pre-op testing Unspecified pre-operative examination CTEPH (chronic thromboembolic pulmonary hypertension) documented in this encounter Additional Health Concerns Assessment Noted Time PHQ-2 Depression Total Score: 0 11/15/19 24 11:33 AM EDT documented as of this encounter Care Teams Signal Inspector Relationship Specialty Start Date End Date Arnold Cox MD [address] [place] [address] [email or web address] PCP - General Internal Medicine 01/24/24 Arnold Cox MD [address] [place] [address] Insurance Assigned Provider 02/08/24 documented as of this encounter Additional Source Comments The information contained in this document represents components of the legal health record. It is not the complete legal health record.[facility]
--- OUTSIDE RECORDS SUMMARY | 2024-10-02 15:37 | XMS_ITS | Encounter Summary ---
Author Organization [facility] Address [address] [place] [address] Phone Care Team Providers Care Poultry Hatchery Laborer Name Role Phone Arnold Cox MD Primary Care Provider [phone] Arnold Cox MD Unavailable Encounter Details Date Type Department Care Team (Late st Contact Info) Description 09/29/2024 Orders Only [facility] Hypertension Clinic [address] Ruth Jp [address] [place] [address] Thalia Wang, RN 90 [place] [address] [email or web address] PAH (pulmonary artery hypertension) (Primary Dx); CTEPH (chronic thromboembolic pulmonary hypertension); Pre-op testing Social History Tobacco Use Types Packs/Day Years [...] high school, GED, job training, learning the Solomon Islander language, technical skills, or developing parenting skills)? [...] 06/02/2024 Procedure Pass [facility] Echo Lab 30 [place] [address] 10/14/2024 1:00 PM EDT Appointment [facility] Internal Medicine 40 [place] [address] Arnold Cox MD 40 [place] [address] [email or web address] 10/15/2024 Procedure Pass [facility] Cardiac Aeronautics Commission Director 55 [place] [address] 10/15/2024 11:55 AM EDT Hospital Encounter [facility] Cardiac Aeronautics Commission Director 55 [place] [address] Praful Torres MD, MSc [address] [place] [address] [address] [email or web address] 10/15/2024 11:55 AM EDT - 10/15/2024 3:45 PM EDT Surgery [facility] Cardiac Aeronautics Commission Director 55 [place] [address] Praful Torres MD, MSc [address] [place] [address] [address] [email or web address] Balloon Pulmonary Angioplasty with Possible Additional Vessels 12/01/2024 10:00 AM EDT Appointment Non-Invasive Cardiology 30 [place] [address] Ivy Ramires FNP 55 [place] [address] [email or web address] 12/01/2024 11:30 AM EDT Appointment [facility] Echo Lab 30 [place] [address] Ivy Ramires FNP [address] [place] [address] [email or web address] 03/23/2025 11:00 AM EDT Office Visit [facility] Pulmonary Hypertension Clinic 55 [facility] Ruth Jp [address] [place] [address] Frances Prescott MD 55 [facility] [address] [place] [address] HALLIEUMESH [email or web address]. DU documented as of this encounter Results * NT-proBNP (10/01/2024 10:48 AM EDT) NT-PROBNP <36 0 - 125 pg/mL [facility] Blood 10/01/2024 10:4 8 AM EDT 10/01/2024 11:03 AM EDT Frances Prescott MD LAB BLOOD O RDERAPATRICK Performing Organization Address City/[facility]/ZIP Co de Phone Number [address] [address] * (ABNORMAL) PT-INR (10/01/2024 10:48 AM EDT) Pathologist [facility] PT 13.9(H) 10.2 - 12.9 sec [facility] INR 1.1 0.9 - 1.1 [facility] Comment:Therapeutic range fo r oral Vitamin K antagonists: 2.0-3.5 Blood 10/01/2024 10:4 8 AM EDT 10/01/2024 11:03 AM EDT Frances Prescott MD LAB BLOOD O RDERAPATRICK [address] [address] * Basic metabolic panel (10/01/2024 10:48 AM EDT) Pathologist [facility] SODIUM 139 133 - 146 mmol/L [facility] CHLORIDE 100 96 - 108 mmol/L [facility] POTASSIUM 4.4 3.3 - 5.1 mmol/L [facility] Comment:Specimen slightly he molyzed, result may be falsely elevated. CO2 28 21 - 35 mmol/L [facility] BUN 16 6 - 19 mg/dL [facility] CREATININE 0.90 0.5 - 1.5 mg/dL [facility] GLUCOSE 94 70 - 99 mg/dL [facility] CALCIUM 9.3 8.4 - 10.3 mg/dL [facility] EGFR 108 >59 mL/min/1.7 3m2 [facility] Comment:Estimated glomerular filtration rate calculated using the CKD-EPI refit equation. ANION GAP 15 10 - 20 mmol/L [facility] Blood 10/01/2024 10:4 8 AM EDT 10/01/2024 11:03 AM EDT Frances Prescott MD LAB BLOOD O RDERABLES Performing Organization Address City/State/[facility] Co de Phone Number [address] [address] * (ABNORMAL) CBC and differential (10/01/2024 10:48 AM EDT) WBC 4.53 4.00 - 11.00 K/uL [facility] RBC 5.00 4.50 - 5.90 M/uL [facility] HGB 16.8 13.5 - 17.5 g/dL [facility] HCT 45.8 41.0 - 53.0 % [facility] PLT 184 150 - 450 K/uL [facility] MCV 91.6 80.0 - 100.0 fL [facility] MCH 33.6(H) 27.0 - 31.0 pg [facility] MCHC 36.7(H) 32.0 - 36.0 g/dL [facility] RDW 12.2 11.5 - 14.5 % [facility] MPV 9.2 8.4 - 12.0 fL [facility] NRBC 0.00 0.00 /100 WBCs [facility] ABSOLUTE NRBC 0.00 0.00 K/uL [facility] DIFF METHOD Auto [facility] NEUTS 35.8(L) 48.0 - 76.0 % [facility] LYMPHS 54.7(H) 18.0 - 41.0 % [facility] MONOS 8.6 4.0 - 11.0 % [facility] EOS 0.2 0.0 - 5.0 % [facility] BASOS 0.7 0.0 - 1.5 % [facility] Granulocytes, immature (%) 0.0 0.0 - 0.9 % [facility] ABSOLUTE NEUTS 1.62(L) 1.92 - 7.60 K/uL [facility] ABSOLUTE LYMPHS 2.48 0.72 - 4.10 K/uL [facility] ABSOLUTE MONOS 0.39 0.16 - 1.10 K/uL [facility] ABSOLUTE EOS 0.01 0.00 - 0.50 K/uL [facility] ABSOLUTE BASOS 0.03 0.00 - 0.15 K/uL [facility] Granulocytes, immature 0.00 0.00 - 0.09 K/uL [facility] Blood 10/01/2024 10:4 8 AM EDT 10/01/2024 11:03 AM EDT Frances Prescott MD LAB BLOOD O RDERABLES [address] [address] * ECG 12-LEAD (10/01/2024 10:35 AM EDT) Ventricular Rate EKG/MIN 51 BPM [facility] Atrial Rate 51 BPM [facility] HI Interval 170 ms [facility] QRS Duration 104 ms [facility] QT Interval 452 ms [facility] QTC Interval 416 ms [facility] P Docena -7 degrees [facility] R Wave Docena 62 degrees [facility] T Wave Docena 41 degrees [facility] 10/01/2024 10:3 5 AM EDT 10/02/2024 9:38 AM EDT Narrative [facility] - 10/02/2024 9:38 AM EDT Sinus bradycardia Otherwise normal ECG When compared with ECG of 10-Aug-2024 09:48, Aberrant conduction is no longer Present Confirmed by Sundar STINSON ([id number]) on 10/02/2024 9:38:18 AM Frances Prescott MD ECG ORDERAB LES [facility] documented in this encounter Visit Diagnoses Diagnosis PAH (pulmonary artery hypertension)- Primary Other chronic pulmonary heart diseases CTEPH (chronic thromboembolic pulmonary hypertension) Pre-op testing Unspecified pre-operative examination CTEPH (chronic thromboembolic pulmonary hypertension) Pre-op testing Unspecified pre-operative examination CTEPH (chronic thromboembolic pulmonary hypertension) documented in this encounter Additional Health Concerns Assessment Noted Time PHQ-2 Depression Total Score: 0 11/15/19 24 11:33 AM EDT documented as of this encounter Care Teams Poultry Hatchery Laborer Relationship Specialty Start Date End Date Arnold Cox MD [address] [place] [address] [email or web address] PCP - General Internal Medicine 01/24/24 Arnold Cox MD [address] [place] [address] Insurance Assigned Provider 02/08/24 documented as of this encounter Additional Source Comments The information contained in this document represents components of the legal health record. It is not the complete legal health record.[facility]
--- OUTSIDE RECORDS SUMMARY | 2024-10-02 15:37 | XMS_ITS | Encounter Summary ---
Author Organization [facility] Address [address] [place] [address] Phone Care Team Providers Care Processing Talc And Borate Supervisor Name Role Phone Arnold Cox MD Primary Care Provider [phone] Arnold Cox MD Unavailable Encounter Details Date Type Department Care Team (Late st Contact Info) Description 01/24/2024 Procedure Pass [facility] Cardiac Ceramic Tile Setter [address] [place] [address] Social History Tobacco Use Types [...] 06/02/2024 Procedure Pass [facility] Echo Lab 30 [place] [address] 10/14/2024 1:00 PM EDT Appointment [facility] Internal Medicine 40 [place], [place] [id number] Arnold Cox MD 40 [place] [address] [email or web address] 10/15/2024 Procedure Pass [facility] Cardiac Ceramic Tile Setter 55 [place] [address] 10/15/2024 11:55 AM EDT Hospital Encounter [facility] Cardiac Ceramic Tile Setter 55 [place] [address] Praful Torres MD, MSc [address] [place] [address] [place] [address] [email or web address] 10/15/2024 11:55 AM EDT - 10/15/2024 3:45 PM EDT Surgery [facility] Cardiac Ceramic Tile Setter 55 [place] [address] Praful Torres MD, MSc [address] [place] [address] [address] [email or web address] Balloon Pulmonary Angioplasty with Possible Additional Vessels 12/01/2024 10:00 AM EDT Appointment Non-Invasive Cardiology 30 [place] [address] Ivy Ramires FNP [address] [place] [address] [email or web address] 12/01/2024 11:30 AM EDT Appointment [facility] Echo Lab 30 [place] [address] Ivy Ramires PRINTED FORMS PROOFREADER [address] [place] [address] [email or web address] 03/23/2025 11:00 AM EDT Office Visit [facility] Pulmonary Hypertension Clinic 55 [facility] [address] [place] [address] Frances Prescott MD [address] [address] MISAEL [email or web address] documented as of this encounter Visit Diagnoses Not on filedocumented in this encounter Additional Health Concerns Assessment Noted Time PHQ-2 Depression Total Score: 0 11/15/19 11:33 AM EDT documented as of this encounter Care Teams Processing Talc And Borate Supervisor Relationship Specialty Start Date End Date Arnold Cox MD [address] [place] [address] [email or web address] PCP - General Internal Medicine 01/24/24 Arnold Cox MD [address] [place] [address] [email or web address] Insurance Assigned Provider 02/08/24 documented as of this encounter Additional Source Comments The information contained in this document represents components of the legal health record. It is not the complete legal health record.[facility]
--- OUTSIDE RECORDS SUMMARY | 2024-10-02 15:37 | XMS_ITS | Encounter Summary ---
Author Organization [facility] Address [address] [place] [address] Phone Care Team Providers Care Engraver Hand Hard Metals Name Role Phone Arnold Cox MD Primary Care Provider [phone] Arnold Cox MD Unavailable Encounter Details Date Type Department Care Team ([facility] st Contact Info) Description 09/30/2024 Telephone [facility]monary Hypertension Clinic 55 [facility] [address] [place] [address] Cara Guerrero, RN [address] [place] [address] [email or web address] Social History Tobacco Use Types Packs/Day Years [...] high school, GED, job training, learning the Kittitian language, technical skills, or developing parenting skills)? [...] Notes * Cara Guerrero, WU - 09/30/2024 10:32 AM EDT For scheduling purposes, reached out to patient to confirm he was aware request for date change hadbeen granted. Procedure date 4/17/25, LD of Eliquis will be 4/15 AM dose. Patient aware, verbalizedunderstanding, and in agreement with plan. documented in this encounter Plan of Treatment Upcoming Encounters Date Type Department Care Team (Latest Contact Info) Description 06/02/2024 Procedure Pass [facility] Echo Lab [address] [place] [address] 10/14/2024 1:00 PM EDT Appointment [facility] Internal Medicine 40 [place] [address] Arnold Cox MD 40 [place] [address] [email or web address] 10/15/2024 Procedure Pass [facility] Cardiac Tire Rebuilder [address] [place] [address] 10/15/2024 11:55 AM EDT Hospital Encounter [facility] Cardiac Tire Rebuilder [address] [place] [address] Praful Torres MD, MSc [address] [place] [address] [address] [email or web address] 10/15/2024 11:55 AM EDT - 10/15/2024 3:45 PM EDT Surgery [facility] Cardiac Tire Rebuilder [address] [place] [address] Praful Torres MD, MSc [address] [place] [address] [address] [email or web address] Balloon Pulmonary Angioplasty with Possible Additional Vessels 12/01/2024 10:00 AM EDT Appointment Non-Invasive Cardiology [address] [place] [address] Ivy Ramires FNP 55 [place] [address] [email or web address] 12/01/2024 11:30 AM EDT Appointment [facility] Echo Lab [address] [place] [address] Ivy Ramires FNP 55 [place] [address] [email or web address] 03/23/2025 11:00 AM EDT Office Visit [facility] Pulmonary Hypertension Clinic 55 [facility] Ruth Jp [address] [place] [address] Frances Prescott MD 55 [facility] [address] [place] [address] MISAEL [email or web address] DU documented as of this encounter Visit Diagnoses Not on filedocumented in this encounter Additional Health Concerns Assessment Noted Time PHQ-2 Depression Total Score: 0 11/15/19 24 11:33 AM EDT documented as of this encounter Care Teams Engraver Hand Hard Metals Relationship Specialty Start Date End Date Arnold Cox MD [address] [place] [address] [email or web address] PCP - General Internal Medicine 01/24/24 Arnold Cox MD [address] [place] [address] [email or web address] Insurance Assigned Provider 02/08/24 documented as of this encounter Additional Source Comments The information contained in this document represents components of the legal health record. It is not the complete legal health record.[facility]
--- OUTSIDE RECORDS SUMMARY | 2024-10-02 15:37 | XMS_ITS | Encounter Summary ---
Author Organization [facility] Address [address] [place] [address] Phone Care Team Providers Care Manager Inpatient Name Role Phone Arnold Cox MD Primary Care Provider [phone] Arnold Cox MD Unavailable Encounter Details Date Type Department Care Team ([facility] Contact Info) Description 03/09/2024 Telephone [facility] for H[facility]ology [address] [facility] [address] [place] [address] Sadia Santos MD 55 [facility] [address] [place] [address] [email or web address] Social History Tobacco Use Types Packs/Day [...] high school, GED, job training, learning the [place] language, technical skills, or developing parenting skills)? [...] Procedure Pass [facility] Echo Lab 30 [place] [address] 10/14/2024 1:00 PM EDT Appointment [facility] [place] Internal Medicine 40 [place] [address] Arnold Cox MD 40 [place] [address] [email or web address] 10/15/2024 Procedure Pass [facility] Cardiac Sort Supervisor 55 [place] [address] 10/15/2024 11:55 AM EDT Hospital Encounter [facility] Cardiac Sort Supervisor [address] [place] [address] Praful Torres MD, MSc [address] [place] [address] [address] [email or web address] 10/15/2024 11:55 AM EDT - 10/15/2024 3:45 PM EDT Surgery [facility] Cardiac Sort Supervisor 55 [place] [address] Praful Torres MD, MSc [address] [place] [address] [address] [email or web address] Balloon Pulmonary Angioplasty with Possible Additional Vessels 12/01/2024 10:00 AM EDT Appointment Non-Invasive Cardiology 30 [place] [address] Ivy Ramires FNP 55 [place] [address] [email or web address] 12/01/2024 11:30 AM EDT Appointment [facility] Echo Lab 30 [place] [address] Ivy Ramires FNP [address] [place] [address] [email or web address]@[email or web address] 03/23/2025 11:00 AM EDT Office Visit [facility] 55 [facility] Ruth J[address] [place] [address] Frances Prescott MD 55 [facility] [address] [place] [address] MISAEL [email or web address] [place] documented as of this encounter Visit Diagnoses Not on filedocumented in this encounter Additional Health Concerns Assessment Noted Time PHQ-2 Depression Total Score: 0 11/15/19 11:33 AM EDT documented as of this encounter Care Teams Manager Inpatient Relationship Specialty Start Date End Date Arnold Cox MD 40 [place] [address] [email or web address] PCP - General Internal Medicine 01/24/24 Arnold Cox MD 40 [place] [address] [email or web address] Insurance Assigned Provider 02/08/24 documented as of this encounter Additional Source Comments The information contained in this document represents components of the legal health record. It is not the complete legal health record.[facility]
--- OUTSIDE RECORDS SUMMARY | 2024-10-02 15:37 | XMS_ITS | Encounter Summary ---
Author Organization [facility] Address [address] [place] [address] Phone Care Team Providers Care Licensed Mortgage Loan Officer Name Role Phone Arnold Cox MD Primary Care Provider [phone] Arnold Cox MD Unavailable Encounter Details Date Type Department Care Team (Latest Contact Info) Description 10/01/2024 10:23 AM EDT - 10/01/2024 10:43 AM EDT Hospital Encounter [facility] EKG 30 [place] [address] Frances Prescott MD [address] [place] [address] CRUZ @[email or web address] [place] [place] Arrived Discharge Disposition: Home or Self Care Social [...] (Latest Contact Info) Description 06/02/2024 Procedure Pass [facility] Echo Lab 30 [place] [address] 10/14/2024 1:00 PM EDT Appointment [facility] [place] Internal Medicine 40 [place] [address] Arnold Cox MD 40 [place] [address] [email or web address] 10/15/2024 Procedure Pass [facility] [place] [place] Cardiac Corporate Aircraft Mechanic [address] [place] [address] 10/15/2024 11:55 AM EDT Hospital Encounter [facility] [place] [place] Cardiac Corporate Aircraft Mechanic 55 [place] [address] Praful Torres MD, MSc 55 [facility] [address] [place] [address] [email or web address] 10/15/2024 11:55 AM EDT - 10/15/2024 3:45 PM EDT Surgery [facility] [place] [place] Cardiac Corporate Aircraft Mechanic 55 [place] [address] Praful Torres MD, MSc 55 [facility] GRB [address] [place] [address] [email or web address] Balloon Pulmonary Angioplasty with Possible Additional Vessels 12/01/2024 10:00 AM EDT Appointment Non-Invasive Cardiology 30 [place] [address] Ivy Ramires, [facility] 55 [place] [address] [email or web address] 12/01/2024 11:30 AM EDT Appointment [facility] Echo Lab 30 [place] [address] Ivy Ramires [address] [address] [email or web address] 03/23/2025 11:00 AM EDT Office Visit [facility] [place] [place] Pulmonary Hypertension Clinic 55 [facility] Ruth Jp [address] [place] [address] Frances Prescott MD [address] [place] [address] [address] [place] [address] MISAEL [email or web address] DU documented as of this encounter Procedures Procedure Name Priority Date/Time Associated Diagnosis Comments ECG 12-LEAD Routine 10/01/2024 10:35 AM EDT Pre-op testing documented in this encounter Results * ECG 12-LEAD (10/01/2024 10:35 AM EDT) Ventricular Rate EKG/MIN 51 BPM [facility] Atrial Rate 51 BPM [facility] SC Interval 170 ms [facility] QRS Duration 104 ms [facility] QT Interval 452 ms [facility] QTC Interval 416 ms [facility] P Ramsay -7 degrees [facility] R Wave Ramsay 62 degrees [facility] T Wave Ramsay 41 degrees [facility] 10/01/2024 10:3 5 AM [...] documented as of this encounter Care Teams Licensed Mortgage Loan Officer Relationship Specialty Start Date End Date Arnold Cox MD 40 [place] [address] [email or web address] PCP - General Internal Medicine 01/24/24 Arnold Cox MD 40 [place] [address] Insurance Assigned Provider 02/08/24 documented as of this encounter Additional Source Comments The information contained in this document represents components of the legal health record. It is not the complete legal health record.[facility]
--- OUTSIDE RECORDS SUMMARY | 2024-10-02 15:37 | XMS_ITS | Encounter Summary ---
Author Organization [facility] Address [address] [place] [address] Phone Care Team Providers Care Mechanical Project Manager Name Role Phone Pcp, Unknown Primary Care Provider UnavailAlvaro Shea MD Primary Care Provider [phone] Arnold Cox MD Primary Care Provider Arnold Cox MD Unavailable Encounter Details Date Type Department Care Team (Late st Contact Info) Description 11/23/2022 Procedure Pass [facility], Ct Scan - [address] [address] Social History Tobacco Use Types Packs/Day Years [...] 06/02/2024 Procedure Pass [facility] Echo Lab 30 [place] [address] 10/14/2024 1:00 PM EDT Appointment [facility] Internal Medicine 40 [place] [address] Arnold Cox MD 40 [place] [address] [email or web address] 10/15/2024 Procedure Pass [facility] Cardiac Manager Real Estate 55 [place] [address] 10/15/2024 11:55 AM EDT Hospital Encounter [facility] Cardiac Manager Real Estate 55 [place] [address] Praful Torres MD, MSc [address] [place] [address] [address] [email or web address]@[email or web address] 10/15/2024 11:55 AM EDT - 10/15/2024 3:45 PM EDT Surgery [facility] Cardiac Manager Real Estate 55 [place] [address] Praful Torres MD, MSc [address] [place] [address] [email or web address] Balloon Pulmonary Angioplasty with Possible Additional Vessels 12/01/2024 10:00 AM EDT Appointment Non-Invasive Cardiology 30 [place] [address] Ivy Ramires FNP [address] [place] [address] [email or web address] 12/01/2024 11:30 AM EDT Appointment [facility] Echo Lab 30 [place] [address] Ivy Ramires FNP [address] [place] [address] [email or web address] 03/23/2025 11:00 AM EDT Office Visit [facility] Pulmonary Hypertension Clinic [address] [place] [address] Frances Prescott MD 55 [facility] [address] [place] [address] MISAEL [email or web address] documented as of this encounter Visit Diagnoses Not on filedocumented in this encounter Care Teams Mechanical Project Manager Relationship Specialty Start Date End Date Pcp, Unknown PCP - General 11/23/22 11/23/22 Alvaro Blue MD 95 [place] [address] PCP - General Internal Medicine 11/24/22 01/23/24 Arnold Cox MD 40 [place] [address] [email or web address] PCP - General Internal Medicine 01/24/24 Arnold Cox MD 40 [place] [address] [email or web address] Insurance Assigned Provider 02/08/24 documented as of this encounter Additional Source Comments The information contained in this document represents components of the legal health record. It is not the complete legal health record.[facility]
== END 2024-10-02 13:48 | disposition home or self-care (01) ==
LOC: HO.BBR 13:47
PROVIDERS: PCP Internal Medicine; Visit Provider Internal Medicine
DX: E83.110 Hereditary hemochromatosis (principal)
CPT/HCPCS: 36415; 82728; 83540; 85025

== ENCOUNTER 2024-11-06 14:07 | Outpatient (REF) | payer BC, OTHER, SELFPAY ==
--- OUTSIDE RECORDS SUMMARY | 2024-11-06 14:11 | XMS_ITS | Encounter Summary ---
Author Organization [facility] Address [address] [place] [address] [address] [place] [address] Phone Care Team Providers Care Patient Services Specialist Name Role Phone Arnold Cox MD Primary Care Provider [phone] Arnold Cox MD Unavailable Encounter Details Date Type Department Care Team ([facility] Contact Info) Description 03/09/2024 Telephone [facility] Center for Hematology [address] [facility], 7th Floor, [address] [place] [address] Sadia Santos MD 55 [facility] [address] [place] [address] [email or web address] Social History Tobacco Use Types Packs/Day [...] high school, GED, job training, learning the [place] language, technical skills, or developing parenting skills)? [...] 06/02/2024 Procedure Pass [facility] Echo Lab 30 [place] [address] 12/01/2024 10:00 AM EDT Appointment Non-Invasive Cardiology 30 [place] [address] Ivy Ramires FNP 55 [place] [address] [email or web address] 12/01/2024 11:30 AM EDT Appointment [facility] Echo Lab 30 [place] [address] Ivy Ramires DELIVERY TRUCK DRIVER 55 [place] [address] [email or web address] 12/24/2024 10:00 AM EDT Telemedicine - audio only [facility] Cardiac Arrhythmia Service [address] [facility], 5th Floor, [address] [place] [address] Rosina Bass DELIVERY TRUCK DRIVER [address] [place] [address] [email or web address] 01/21/2025 3:30 PM EDT Office Visit [facility] Pulmonary Hypertension Clinic 55 [facility], 2nd Floor, [address] [place] [address] Frances Prescott MD [address] [place] [address] CRUZ @[facility] 03/23/2025 11:00 AM EDT Office Visit [facility] Pulmonary Hypertension Clinic 55 [facility], 2nd Floor, [address] [place] [address] Frances Prescott MD [address] [place] [address] CRUZ @[facility] 10/18/2025 1:30 PM EDT Appointment [facility] Internal Medicine 40 [place] [address] Arnold Cox MD 40 [place] [address] [email or web address] documented as of this encounter Visit Diagnoses Not on filedocumented in this encounter Additional Health Concerns Assessment Noted Time PHQ-2 Depression Total Score: 0 11/15/19 11:33 AM EDT documented as of this encounter Care Teams Patient Services Specialist Relationship Specialty Start Date End Date Arnold Cox MD 40 [place] [address] [email or web address] PCP - General Internal Medicine 01/24/24 Arnold Cox MD 40 [place] [address] Insurance Assigned Provider 02/08/24 documented as of this encounter Additional Source Comments The information contained in this document represents components of the legal health record. It is not the complete legal health record.[facility]
--- OUTSIDE RECORDS SUMMARY | 2024-11-06 14:11 | XMS_ITS | Encounter Summary ---
Author Organization [facility] Address [address] [place] [address] Phone Care Team Providers Care Control Room Agent Name Role Phone Alvaro Blue MD Primary Care Provider Arnold Cox MD Primary Care Provider [phone] Arnold Cox MD Unavailable Encounter Details Date Type Department Care Team (Late st Contact Info) Description 06/13/2023 Procedure Pass [facility], Ct Scan - [facility] 30 [place] [address] Social History Tobacco Use Types Packs/Day Years [...] 06/02/2024 Procedure Pass [facility] Echo Lab 30 [place] [address] 12/01/2024 10:00 AM EDT Appointment Non-Invasive Cardiology 30 [place] [address] Ivy Ramires, [facility] 55 [place] [address] [email or web address] 12/01/2024 11:30 AM EDT Appointment [facility] Echo Lab 30 [place] [address] Ivy Ramires, [facility] 55 [place] [address] [email or web address] 12/24/2024 10:00 AM EDT Telemedicine - audio only [facility] Cardiac Arrhythmia Service 32 [facility], 5th Floor, [address] [place] [address] Rosina Bass, [facility] [address] [place] [address] [email or web address] 01/21/2025 3:30 PM EDT Office Visit [facility] Pulmonary Hypertension Clinic 55 [facility], 2nd Floor, [address] [place] [address] Frances Prescott MD [address] [place] [address] CRUZ @[facility] 03/23/2025 11:00 AM EDT Office Visit [facility] Hypertension Clinic 55 [facility], 2nd Floor, [address] [place] [address] Frances Prescott MD [address] [place] [address] CRUZ @[facility] 10/18/2025 1:30 PM EDT Appointment [facility] Internal Medicine 40 [place] [address] Arnold Cox MD 40 [place], [place] [address] [email or web address] documented as of this encounter Visit Diagnoses Not on filedocumented in this encounter Care Teams Control Room Agent Relationship Specialty Start Date End Date Alvaro Blue MD [address] [place] [address] PCP - General Internal Medicine 11/24/22 01/23/24 Arnold Cox MD [address] [place] [address] PCP - General Internal Medicine 01/24/24 Arnold Cox MD [address] [place] [address] [email or web address] Insurance Assigned Provider 02/08/24 documented as of this encounter Additional Source Comments The information contained in this document represents components of the legal health record. It is not the complete legal health record.[facility]
--- OUTSIDE RECORDS SUMMARY | 2024-11-06 14:11 | XMS_ITS | Clinical Summary ---
Author Organization [facility] Address [address] [place] [address] Phone Care Team Providers Care Sound Truck Operator Name Role Phone Arnold Cox MD Primary Care Provider [phone] Arnold Cox MD Unavailable Allergies Active Allergy Reactions Criticality Noted Date Comments Other Erythema Low 10/15/2024 Medical tape - redness if left on for a day or two Medications Medication Sig Dispensed Refills Start Date End Date Status loratadine (CLARITIN) 10 mg tablet Take 10 mg by mouth daily as needed for allergies. Active glucosamine-cho ndroitin 500-400 mg Cap Take 1 capsule by mouth 3 (three) times a day. Active ascorbic acid, vitamin C, (VITAMIN C) 250 MG tablet Take 500 mg by mouth 3 (three) times a week. Active mometasone (ELOCON) 0.1 % cream Apply topically 2 (two) times a day. Apply to the hands BID x 2 weeks, break for 1 week, repeat prn 45 g 1 4 Active metoprolol succinate (TOPROL-XL) 25 MG 24 hr tablet Take 1 tablet (25 mg total) by mouth daily. 90 tablet 3 4 Active Additional Information Patient taking differently:25 mg OralNightly, Reported on 10/15/2024 ELIQUIS 5 mg tablet Take 1 tablet (5 mg total) by mouth 2 (two) times a day. 180 tablet 3 5 Active omega-3 fatty acids-fish oil 340-1,000 mg Cap Take by mouth daily. 10/15/19 25 Discontinued(No longer taking) ELIQUIS 5 mg tablet Take 1 tablet (5 mg total) by mouth 2 (two) times a day. 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 There was no bruising regarding the Eliquis. Most recent labs done including a Chem-7 CBC and a PT/INR. Last cholesterol was done back in 2022 so we will order a new one. Also order a lumbar x-ray to see if he has malalignment regarding the right lumbar pain. I can see him back in 1 years time but he cautions me he might be 100% going through leads near [place]. That might be due to his insurance changing. Please see HPI for details. Hereditary hemochromatosis 03/09/2024 History of pulmonary embolism [...] results No exercise restrictions at this time Arrhythmia 01/24/2024 Assessment & Plan (01/31/2024 9:23 AM EDT): Today heart rate is mildly bradycardic and regular rhythm. Continue metoprolol and patient has Zio patch ordered to assess for arrhythmias over time. 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 Going forward I can see him once a year for repeat physical. This visit was 35 minutes in length of nldn-sd-lsck time and 10 additional minutes to review chart. Resolved Problems Problem Noted Date Diagnosed Date Resolved Date Elevated ferritin 01/31/2024 10/14/2024 Assessment & Plan (01/31/2024 9:25 AM EDT): The most recent ferritin was in the 900s, with prominent maternal history of hemochromatosis including his uncle maternal and cousins a total of 5 people that he knew of. As such I have asked the patient to message to the audio visual aide who is seeing him about hypercoagulation workup and see if lab work can be ordered regarding the hemochromatosis. That lab work can be done at [facility] and if patient is positive we can put in a referral locally. Encounters Date Type Department Care Team Description 10/27/2024 Orders Only [facility] [address] [place] [address], 7th Floor, [address] [place] [address] Sadia Santos MD 10/23/2024 8:47 AM EDT - 10/23/2024 11:59 PM EDT Hospital Encounter [facility], X-Ray - [facility] [address] [place] [address] Arnold Cox MD Discharge Disposition: Home or Self Care 10/22/2024 Refill [facility] [address] [facility], 7th Floor, [address] [place] [address] Elli Garcias CNP Medication Refill 10/15/2024 2:35 PM EDT - 10/15/2024 6:25 PM EDT Surgery [facility] Cardiac Polymer Chemist [address] [facility], Floor 9, [address] [place] [address] Praful Torres MD, MSc Balloon Pulmonary Angioplasty with Possible Additional Vessels 10/15/2024 10:29 AM EDT - 10/16/2024 11:04 AM EDT Hospital Encounter [facility] [address] [place] [address] Praful Torres MD, MSc Didi See MD Eswarakrishnan, Shekar, MD Discharge Disposition: Home or Self Care 10/15/2024 Procedure Pass [facility] Cardiac Polymer Chemist [address] [facility], Floor 9, [address] [place] [address] 10/14/2024 1:00 PM EDT Office Visit [facility] Internal Medicine [address] [place] [address] Arnold Cox MD Routine general medical examination at a health care facility (Primary Dx); Need for hepatitis C screening test; Screening for human immunodeficiency virus; Acute saddle pulmonary embolism with acute cor pulmonale; Hereditary hemochromatosis; Contact dermatitis, unspecified contact dermatitis type, unspecified trigger; Lumbar pain 10/13/2024 Orders Only [facility] Pul[facility]pertension [facility] [address] [facility], 2nd Floor, [address] [place] [address] Frances Prescott MD 10/01/2024 10:44 AM EDT - 10/01/2024 11:59 PM EDT Hospital Encounter [facility] [address] [place] [address] Frances Prescott MD Discharge Disposition: Home or Self Care 10/01/2024 10:23 AM EDT - 10/01/2024 10:43 AM EDT Hospital Encounter [facility] [address] [place] [address] Frances Prescott MD Discharge Disposition: Home or Self Care 09/30/2024 Telephone [facility] [address] [facility], 2nd Floor, [address] [place] [address] Cara Guerrero, WU 09/30/2024 Documentation [facility] [address] [facility], 2nd Floor, [address] [place] [address] Cara Guerrero, WU 09/29/2024 Documentation [facility] [address] [facility], 2nd Floor, [address] [place] [address] Thalia Wang RN 09/29/2024 Orders Only [facility] [address] [facility], 2nd Floor, [address] [place] [address] Thalia Wang, WU PAH (pulmonary artery hypertension) (Primary Dx); CTEPH (chronic thromboembolic pulmonary hypertension); Pre-op testing 09/23/2024 1:14 PM EDT - 09/23/2024 11:59 PM EDT Hospital Encounter Non-Invasive Cardiology [address] [place] [address] Rosina Bass FNP Discharge Disposition: Home or Self Care 09/22/2024 1:00 PM EDT Telemedicine [facility] [address] [facility], 7th Floor, [address] [place] [address] Sadia Santos MD Hereditary hemochromatosis (Primary Dx); History of pulmonary embolism 09/14/2024 Procedure Pass Non-Invasive Cardiology [address] [place] [address] 09/14/2024 Documentation [facility] Cardiac Arrhythmia Service [address] [facility], 5th Floor, [address] [place] [address] Rsoina Bass FNP 09/08/2024 1:00 PM EDT Office Visit [facility] [address] [facility], 2nd Floor, [address] [place] [address] Frances Prescott MD STILL (dyspnea on exertion) (Primary Dx); Chronic thromboembolic disease; Right ventricular enlargement; V tach 09/08/2024 10:59 AM EDT - 09/08/2024 11:59 PM EDT Hospital Encounter [facility] Cardiac US [address] [place] [address] Frances Prescott MD Discharge Disposition: Home or Self Care 08/10/2024 9:25 AM EST - 08/10/2024 11:59 PM EST Hospital Encounter [facility] [address] [place] [address] Ivy Ramires FNP Discharge Disposition: Home or Self Care 08/10/2024 Transcribe Orders Non-Invasive Cardiology [address] [place] [address] Ivy Ramires FNP 03/16/2024 Procedure Pass [facility] Cardiac US [address] [place] [address] from Last 3 Months Immunizations Name Administration [...] Preservative Free, Ped 03/15/2021 Influenza, Unspecified Formulation 06/23,05/30/2020,05/20/2018,05/06,04/21/2016,04/14/2015,03/07/2014 ,04/11/2012,05/06/2011,04/13/2010,08/2006,05/30/2006,05/07/2005, 3,04/05/2002,09/05/2001,10/10/2000 Meningococcal MCV4P 11/16/2020,12/03/2015,2010 Meningococcal MPSV4 11/18/2005,10/10/2000 Novel [id number], Injectable 07/24/2009 PPD Test 11/13/2003, 3,11/11/2001,10/10 Smallpox [...] high school, GED, job training, learning the Ethiopian language, technical skills, or developing parenting skills)? No 11/15/2023 Are you concerned about learning? Not on file 11/15/2023 No 11/15/2023 Yes 11/15/2023 Food Answer Date Recorded Within the past 6 months we worried whether our food would run out before we got money to buy more. Never True 10/15/2024 Within the past 6 months the food we bought just didn't last and we didn't have enough money to get more. Never True Residential Stability Answer Date Recor ded What is your housing situation today? I have maritza sing 10/15/2024 How many times have you move d in the past 12 months? Zero (I did not move) 10/15/2024 Paying for Meds Answer Date Recorded Do you have trouble paying for medicines? No 10/15/2024 Paying Utility Bills Answer Date Record ed Do you have trouble paying your heating or elect ricity bill? No 10/15/2024 Transportation Answer Date Recorded Has the lack of transportati on kept you from medical appointments or from getting medications? No 10/15/2024 Unemployment Answer Date Recorded Are you currently unemployed or working on a part-time or temporary basis, and looking for work? No 11/15/2023 Digital Access Answer Date Recorded No 10/15/2024 Yes 10/15/2024 Do you have reliable internet access at home? Ye s 10/15/2024 Do you have a device (e.g., phone, tablet, computer) with a working camera? Yes 10/15/2024 Intimate Partner Violence Answer Date R ecorded Are you denied basic needs s uch as food, clothing, or medical care? No 10/15/2024 In the past 12 months have y ou been in a relationship with a person who hurts, threatens, or tries to control you? No 10/15/2024 Are you denied basic needs s uch as food, clothing, or medical care? No 10/15/2024 In the past 12 months have y ou been in a relationship with a person who hurts, threatens, or tries to control you? No 10/15/2024 Sex and Gender Information Value Date Recorded Sex Assigned at Male 11/23/2022 1:59 PM EDT Gender Identity Male 11/23/2022 1:59 PM EDT Sexual Orientation Not on file Last Filed Vital Signs Vital Sign Reading Time Taken Comments Blood Pressure 134/82 10/16/2024 8:07 AM EDT Pulse 74 10/16/2024 10:00 AM EDT Temperature 36.4 ??C (97.6 ??F) 10/16/2024 8:07 AM ED T Respiratory Rate 18 10/16/2024 10:00 AM EDT Oxygen Saturation 98% 10/16/2024 8:07 AM EDT Inhaled Oxygen Concentration - - Weight 96.2 kg (212 lb) 10/15/2024 9:09 PM EDT Height 193 cm (6' 4 ) 10/15/2024 9:09 PM EDT Body Mass Index 25.81 10/15/2024 9:09 PM EDT Plan of Treatment Upcoming Encounters Date Type Department Care Team (Latest Contact Info) Description 06/02/2024 Procedure Pass [facility] Echo Lab [address] [place] [address] 12/01/2024 10:00 AM EDT Appointment Non-Invasive Cardiology [address] [place] [address] Ivy Ramires [address] [address] [email or web address] 12/01/2024 11:30 AM EDT Appointment [facility] Echo Lab [address] [place] [address] Ivy Ramires [address] [address] [email or web address] 12/24/2024 10:00 AM EDT Telemedicine - audio only [facility] Cardiac Arrhythmia Service [address] [facility], 5th Floor, [address] [place] [address] Rosina Bass FNP [address] [facility] [address] [place] [address] [email or web address] 01/21/2025 3:30 PM EDT Office Visit [facility] Pul[facility]pertension Clinic [address] [facility], 2nd Floor, [address] [place] [address] Frances Prescott MD [address] [facility] [address] [place] [address] [email or web address] 03/23/2025 11:00 AM EDT Office Visit [facility]pertension [facility] [address] [facility], 2nd Floor, [address] [place] [address] Frances Prescott MD [address] [facility] [address] [place] [address] [email or web address] 10/18/2025 1:30 PM EDT Appointment [facility] [address] [place] [address] Arnold Cox MD [address] [place] [address] [email or web address] Health Maintenance Due Date Last Done Comments HEPATITIS C SCREENING 11/20/1997 HIV ONE-TIME SCREENING (18-65 YEARS) 11/20/1997 COVID-19 VACCINE ( season) 2024 03/29/2022, 05/22/2021, 08/26/2020, Additional history exists DEPRESSION SCREENING 10/08/2025 10/08/2024 CREATININE LEVEL 10/16/2025 10/16/2024, 08/2024, 01/24/2024, Additional history exists SCREENING FOR DIABETES 10/17/2027 10/16/2024, 2022 LIPID PANEL 10/16/2029 10/16/2024, 12/0 09/2022, 06/03/2023, Additional history exists Adult Td,Tdap Booster 01/31/2031 01/31/2021 , 05/06/2011, 04/25/2001 HEPATITIS A VACCINES Aged Out 04/25/2001, 10/19/19 No longer eligible based on patient's age to complete this topic MENINGOCOCCAL VACCINES (ACWY) Aged Out 11/16/2020, 12/03/2015, 11/12/2010, Additional history exists No longer eligible based on patient's age to complete this topic SMOKING STATUS SCREENING (Once After 26 Yrs) Completed 10/15/2024 HIB VACCINES Aged Out No longer eligi ble based on patient's age to complete this topic PNEUMOCOCCAL VACCINES (0-49 years) Aged Out No longer eligible based on patient's age to complete this topic Medical Devices Not on file Procedures Procedure Name Priority Date/Time Associated Diagnosis Comments MCT (MOBILE CARDIAC TELEMETRY) Routine 10/28/2024 1:39 PM EDT Chest pain, unspecified type XR LUMBOSACRAL SPINE 2-3 VIEWS Routine 10/23/2024 8:56 AM EDT Lumbar pain XR CHEST PA AND LATERAL 2 VIEWS Imaging in AM 10/16/2024 7:24 AM EDT MAGNESIUM Routine 10/16/2024 6:55 AM EDT BASIC METABOLIC PANEL Routine 10/16/2024 6:55 AM EDT PT-INR Routine 10/16/2024 6:55 AM EDT CBC Routine 10/16/2024 6:55 AM EDT LIPID PANEL Routine 10/16/2024 6:55 AM EDT ECG 12-LEAD Routine 10/15/2024 9:04 PM EDT POCT ACTIVATED CLOTTING TIME Routine 10/15/2024 8:46 PM EDT TYPE AND SCREEN (ABO,RH,ANTIBODY SCREEN) STAT 10/15/2024 11:49 AM EDT CBC AND DIFFERENTIAL Routine 10/01/2024 10:48 AM [...] 12-LEAD Routine 08/10/2024 9:48 AM EST OUTSIDE GLUCOSE FASTING Routine 06/03/2023 from Last 3 Months or Most Recently Relevant to Health Maintenance Results * MCT (Mobile Cardiac Telemetry) (10/28/2024 1:39 PM EDT) Anatomical Region Laterality Modality Heart Other Narrative 10/29/2024 7:17 AM EDT Impression: All normal sinus rhythm with a minimum heart rate of 37 bpm being sinus bradycardia the average heart rate was on the lower side of 57 bpm. ??There were brief episodes of asymptomatic SVT but no evidence of atrial fibrillation flutter or heart block. Rosina Bass UR COORDINATOR CV CARDIAC SERV ICES ORDERABLES * XR LUMBOSACRAL SPINE 2-3 VIEWS (10/23/2024 8:56 AM EDT) Anatomical Region Laterality Modality L-spine Computed Radiogr aphy 10/23/2024 2:29 PM EDT Impressions 10/23/2024 2:31 PM EDT No evidence of acute fracture or malalignment. Degenerative change as described above. Narrative 10/23/2024 2:31 PM EDT XR LUMBOSACRAL SPINE 2-3 VIEWS 10/23/2024 8:48 AM Referring clinician's provided indication for this examination in Epic: Pain; right lumbar lateral pain COMPARISON: None FINDINGS: There is straightening of the usual lumbar lordosis. There is no evidence of acute fracture or malalignment. There is minimal anterior degenerative endplate marginal osteophytosis at L4-L5 and L5-S1. There is mild to moderate asymmetric right loss of disc space height at L4-L5. The facet joints are unremarkable. The sacroiliac joints are congruent. Procedure Note Rosemarie Rosales MD - 10/23/2024 XR LUMBOSACRAL SPINE 2-3 VIEWS 10/23/2024 8:48 AM Referring clinician's provided indication for this examination in Epic:Pain; right lumbar lateral pain COMPARISON: None FINDINGS: There is straightening of the usual lumbar lordosis. There is no evidenceof acute fracture or malalignment. There is minimal anterior degenerativeendplate marginal osteophytosis at L4-L5 and L5-S1. There is mild tomoderate asymmetric right loss of disc space height at L4-L5. The facetjoints are unremarkable. The sacroiliac joints are congruent. IMPRESSION: No evidence of acute fracture or malalignment. Degenerative change asdescribed above. Arnold Cox MD IMG XR SPINE * XR CHEST PA AND LATERAL 2 VIEWS (10/16/2024 7:24 AM EDT) Anatomical Region Laterality Modality Chest Computed Radiogr aphy 10/16/2024 9:14 AM EDT Impressions 10/16/2024 9:14 AM EDT Clear lungs. No radiographic evidence of acute or chronic cardiopulmonary disease. 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 Lungs: Normal. The lungs are clear. No focal consolidation or pulmonary edema. Pleura: Normal. No pleural effusion or pneumothorax. Heart/Mediastinum: Normal heart and mediastinum. Bones/Soft Tissues: Normal. No significant skeletal abnormality. 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 Lungs: Normal. The lungs are clear. No focal consolidation or pulmonaryedema. Pleura: Normal. No pleural effusion or pneumothorax. Heart/Mediastinum: Normal heart and mediastinum. Bones/Soft Tissues: Normal. No significant skeletal abnormality. IMPRESSION: Clear lungs. No radiographic evidence of acute or chronic cardiopulmonarydisease. Margaret Adhikari CNP IMG XR CHES T * PT-INR (10/16/2024 6:55 AM EDT) Only the most recent of2 resultswithin the time period is included. PT 12.5 10.0 - 13.0 sec [facility] INR 1.1 0.9 - 1.1 [facility] Blood 10/16/2024 6:55 AM EDT 10/16/2024 7:16 AM EDT Margaret Adhikari CNP LAB BLOOD O RDERABLES [facility] [address] [place] [address] * (ABNORMAL) CBC (10/16/2024 6:55 AM EDT) WBC 6.01 4.00 - 11.00 K/uL [facility] RBC 4.57 4.50 - 5.90 M/uL [facility] HGB 15.3 13.5 - 17.5 g/dL [facility] HCT 41.9 41.0 - 53.0 % [facility] PLT 163 150 - 450 K/uL [facility] MCV 91.7 80.0 - 100.0 fL [facility] MCH 33.5(H) 27.0 - 31.0 pg [facility] MCHC 36.5(H) 32.0 - 36.0 g/dL [facility] RDW 12.2 11.5 - 14.5 % [facility] MPV 9.5 8.4 - 12.0 fL [facility] NRBC 0.00 0.00 /100 WBCs [facility] ABSOLUTE NRBC 0.00 0.00 K/uL [facility] Blood 10/16/2024 6:55 AM EDT 10/16/2024 7:16 AM EDT [facility] R[facility] Performing Organization Address City/[facility] Co de Phone Number [address] [address] * Magnesium (10/16/2024 6:55 AM EDT) Pathologist [facility] MAGNESIUM 1.9 1.7 - 2.4 mg/dL [facility] Blood 10/16/2024 6:55 AM EDT 10/16/2024 7:16 AM EDT [facility] LAB BLOOD O RDERABLES Performing Organization Address City/[facility] Co de Phone Number [address] [address] * Lipid panel (10/16/2024 6:55 AM EDT) HDL 43 35 - 100 mg/dL [facility] CHOLESTEROL 162 <200 mg/dL [facility] TRIGLYCERIDES 109 40 - 150 mg/dL [facility] LDL 97 50 - 129 mg/dL [facility] CARDIAC RISK RATIO 3.8 0.0 - 5.0 [facility] NON-HDL CHOLESTEROL 119 mg/dL [facility] Comment:Guidelines suggest a non-HDL cholesterol goal 30 mg/dL higher than the patient-specific LDL goal. Blood 10/16/2024 6:55 AM EDT 10/16/2024 7:16 AM EDT Margaret Adihkari QUALITY ASSURANCE MONITOR [facility] LAB BLOOD O RDERABLES Performing Organization Address [facility] de Phone Number [address] [address] * Basic metabolic panel (10/16/2024 6:55 AM EDT) Only the most recent of2 resultswithin the time period is included. SODIUM 139 135 - 145 mmol/L [facility] POTASSIUM 4.2 3.4 - 5.0 mmol/L [facility] CHLORIDE 106 98 - 108 mmol/L [facility] CO2 24 23 - 32 mmol/L [facility] BUN 14 8 - 25 mg/dL [facility] CREATININE 0.94 0.60 - 1.30 mg/dL [facility] GLUCOSE 99 70 - 110 mg/dL [facility] CALCIUM 8.8 8.5 - 10.5 mg/dL [facility] EGFR 103 >59 mL/min/1.7 3m2 [facility] Comment:Estimated glomerular filtration rate calculated using the CKD-EPI refit equation. ANION GAP 9 3 - 17 mmol/L [facility] Blood 10/16/2024 6:55 AM EDT 10/16/2024 7:16 AM EDT Margaret Adhikari [facility] LAB BLOOD O RDERABLES Performing Organization Address [facility] Co de Phone Number [address] [address] * ECG 12-LEAD (10/15/2024 9:04 PM EDT) Only the most recent of3 resultswithin the time period is included. Systolic Blood Pressure [facility] Diastolic Blood Pressure [facility] Ventricular Rate EKG/MIN 67 BPM [facility] Atrial Rate 67 BPM [facility] IL Interval 210 ms [facility] QRS Duration 86 ms [facility] QT Interval 404 ms [facility] QTC Interval 426 ms [facility] P Anthon 78 degrees [facility] R Wave Anthon 80 degrees [facility] T Wave Anthon 71 degrees [facility] 10/15/2024 9:04 PM EDT 10/18/2024 8:56 PM EDT Narrative [facility] - 10/18/2024 8:56 PM EDT LOC: ELLD[facility]ruv DX: ARRHYTHMIA REF: MARGARET ADHIKARI SINUS RHYTHM WITH FIRST DEGREE ATRIOVENTRICULAR BLOCK ST SEGMENT AND T WAVE ABNORMALITIES WHEN COMPARED WITH ECG OF 2023 09:06 [place] INTERVAL HAS INCREASED Electronically Signed in MUSE system. Confirmed by MD Vince, Fernando Holden ([id number]) on 10/18/2024 8:56:50 PM Margaret Adhikari QUALITY ASSURANCE MONITOR [facility] ECG ORDERAB LES Performing Organization Address City/[facility]/ZIP Co de Phone Number [facility] * (ABNORMAL) POCT Activated Clotting Time (10/15/2024 8:46 PM EDT) ACTIVATED CLOT TIME 216(H) 90 - 130 sec [facility] 10/15/2024 8:46 PM EDT 10/15/2024 8:50 PM EDT Praful Torres MD, MSc POINT OF CARE TEST ORDERABLES Performing Organization Address [facility] Co de Phone Number [address] [address] * Type and Screen (ABO,Rh,Antibody Screen) (10/15/2024 11:49 AM EDT) Expiration Date of Sample 10/18/2024 11:59 PM Antibody Screen Negative 10/15/2024 1:06 PM EDT [facility] Resulting Agency [facility] ABO A 10/15/2024 12:50 PM EDT [facility] Rh Positive 10/15/2024 12:50 PM EDT [facility] Blood 10/15/2024 11:4 9 AM EDT 10/15/2024 12:03 PM EDT Praful Torres MD, MSc BLOOD BANK TE ST ORDERABLES Performing Organization Address City/[facility] Co de Phone Number [address] [address] * (ABNORMAL) CBC and differential (10/01/2024 10:48 AM EDT) WBC 4.53 4.00 - 11.00 K/uL [facility] RBC 5.00 4.50 - 5.90 M/uL [facility] HGB 16.8 13.5 - 17.5 g/dL [facility] HCT 45.8 41.0 - 53.0 % [facility] PLT 184 150 - 450 K/uL [facility] MCV 91.6 80.0 - 100.0 fL [facility] MCH 33.6(H) 27.0 - 31.0 pg [facility] MCHC 36.7(H) 32.0 - 36.0 g/dL [facility] RDW 12.2 11.5 - 14.5 % [facility] MPV 9.2 8.4 - 12.0 fL [facility] NRBC 0.00 0.00 /100 WBCs [facility] ABSOLUTE NRBC 0.00 0.00 K/uL [facility] DIFF METHOD Auto [facility] NEUTS 35.8(L) 48.0 - 76.0 % [facility] LYMPHS 54.7(H) 18.0 - 41.0 % [facility] MONOS 8.6 4.0 - 11.0 % [facility] EOS 0.2 0.0 - 5.0 % [facility] BASOS 0.7 0.0 - 1.5 % [facility] Granulocytes, immature (%) 0.0 0.0 - 0.9 % [facility] ABSOLUTE NEUTS 1.62(L) 1.92 - 7.60 K/uL [facility] ABSOLUTE LYMPHS 2.48 0.72 - 4.10 K/uL [facility] ABSOLUTE MONOS 0.39 0.16 - 1.10 K/uL [facility] ABSOLUTE EOS 0.01 0.00 - 0.50 K/uL [facility] ABSOLUTE BASOS 0.03 0.00 - 0.15 K/uL [facility] Granulocytes, immature 0.00 0.00 - 0.09 K/uL [facility] Blood 10/01/2024 10:4 8 AM EDT 10/01/2024 11:03 AM EDT Frances Prescott MD LAB BLOOD O RDERABLES [address] [address] * NT-proBNP (10/01/2024 10:48 AM EDT) NT-PROBNP <36 0 - 125 pg/mL [facility] Blood 10/01/2024 10:4 8 AM EDT 10/01/2024 11:03 AM EDT Frances Prescott MD LAB BLOOD O RDERAPATRICK Performing Organization Address City/[facility] Co de Phone Number [address] [address] * TTE COMPREHENSIVE (09/08/2024 12:19 PM EDT) [...] (3). Comparison Findings There are no prior [facility] studies for comparison. 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 Healthcare Proxy 11/28/2022 1:09 PM * Full Code (Latest Code Status on File) Date Activated Date Inactivated Comments 10/15/2024 9:57 PM Question Answer Comments Code Status Confirmed With: PatientFamily * Full Code Date Activated Date Inactivated Comments 11/23/2022 8:36 PM 10/15/2024 9:57 PM Question Answer Comments Code Status Confirmed With: Patient Care Teams Sound Truck Operator Relationship Specialty Start Date End Date Arnold Cox MD [address] [place] [address] PCP - General Internal Medicine 01/24/24 Arnold Cox MD [address] [place] [address] Insurance Assigned Provider 02/08/24 Additional Source Comments The information contained in this document represents components of the legal health record. It is not the complete legal health record.[facility]
--- OUTSIDE RECORDS SUMMARY | 2024-11-06 14:11 | XMS_ITS | Encounter Summary ---
Author Organization [facility] Address [address] [place] [address] Phone Care Team Providers Care Electronic Technician Name Role Phone Alvaro Blue MD Primary Care Provider [phone] Arnold Cox MD Primary Care Provider [phone] Arnold Cox MD Unavailable Encounter Details Date Type Department Care Team (Late st Contact Info) Description 11/24/2022 Procedure Pass [facility] [place] [address] [place], [place] [id number] Social History Tobacco Use Types Packs/Day Years [...] (Latest Contact Info) Description 06/02/2024 Procedure Pass [facility] Echo Lab [address] [place] [address] 12/01/2024 10:00 AM EDT Appointment Non-Invasive Cardiology [address] [place] [address] Ivy Ramires BUDGET ASSISTANT [address] [place] [address] [email or web address] 12/01/2024 11:30 AM EDT Appointment [facility] Echo Lab [address] [place] [address] Ivy Ramires [facility] [address] [place] [address] [email or web address] 12/24/2024 10:00 AM EDT Telemedicine - audio only [facility] Cardiac Arrhythmia Service 32 [facility], 5th Floor, [address] [place] [address] Rosina Bass [facility] [address] [place] [address] [email or web address] 01/21/2025 3:30 PM EDT Office Visit [facility] Pulmonary Hypertension Clinic 55 [facility], 2nd Floor, [address] [place] [address] Frances Prescott MD [address] [place] [phone] CRUZ @[email or web address], located within [facility] 03/23/2025 11:00 AM EDT Office Visit [facility] Pulmonary Hypertension Clinic [address] [facility], 2nd Floor, [address] [place] [address] Frances Prescott MD [address] [place] [address] CRUZ @[email or web address], located within [facility] 10/18/2025 1:30 PM EDT Appointment [facility] Internal Medicine [address] [place] [address] Arnold Cox MD [address] [place], [place] [phone] [email or web address] documented as of this encounter Visit Diagnoses Not on filedocumented in this encounter Care Teams Electronic Technician Relationship Specialty Start Date End Date Alvaro Blue MD [address] [place] [address] PCP - General Internal Medicine 11/24/22 01/23/24 Arnold Cox MD [address] [place] [address] PCP - General Internal Medicine 01/24/24 Arnold Cox MD [address] [place] [address] [email or web address] Insurance Assigned Provider 02/08/24 documented as of this encounter Additional Source Comments The information contained in this document represents components of the legal health record. It is not the complete legal health record.[facility]
--- OUTSIDE RECORDS SUMMARY | 2024-11-06 14:11 | XMS_ITS | Encounter Summary ---
Author Organization [facility] Address [address] [place] [address] [address] [place] [address] Phone Care Team Providers Care Assistant Professor Name Role Phone Arnold Cox MD Primary Care Provider [phone] Arnold Cox MD Unavailable Encounter Details Date Type Department Care Team ([facility] Contact Info) Description 02/03/2024 Telephone [facility] Center for Hematology 32 [facility], 7th Floor, [address] [place] [address] Sadia Santos MD [address] [facility] [address] [place] [address] [email or web address] Social History Tobacco Use Types Packs/Day [...] high school, GED, job training, learning the Samoan language, technical skills, or developing parenting skills)? [...] 06/02/2024 Procedure Pass [facility] Echo Lab [address] [place] [address] 12/01/2024 10:00 AM EDT Appointment Non-Invasive Cardiology [address] [place] [address] Ivy Ramires FNP [address] [place] [address] [email or web address] 12/01/2024 11:30 AM EDT Appointment [facility] Echo Lab [address] [place] [address] Ivy Ramires LAUNDRY WORKER [address] [place] [address] [email or web address] 12/24/2024 10:00 AM EDT Telemedicine - audio only [facility] Cardiac Arrhythmia Service 32 [facility], 5th Floor, [address] [place] [address] Rosina Bass LAUNDRY WORKER [address] [place] [address] [email or web address] 01/21/2025 3:30 PM EDT Office Visit [facility] Pulmonary Hypertension Clinic 55 [facility], 2nd Floor, [address] [place] [address] Frances Prescott MD [address] [place] [phone] CRUZ @[email or web address] 03/23/2025 11:00 AM EDT Office Visit [facility] Pulmonary Hypertension Clinic 55 [facility], 2nd Floor, [address] [place] [address] Frances Prescott MD [address] [place] [phone] CRUZ @[email or web address] 10/18/2025 1:30 PM EDT Appointment [facility] Internal Medicine [address] [place] [address] Arnold Cox MD [address] [place] [address] [email or web address] documented as of this encounter Visit Diagnoses Not on filedocumented in this encounter Additional Health Concerns Assessment Noted Time PHQ-2 Depression Total Score: 0 11/15/19 11:33 AM EDT documented as of this encounter Care Teams Assistant Professor Relationship Specialty Start Date End Date Arnold Cox MD [address] [place] [address] [email or web address] PCP - General Internal Medicine 01/24/24 Arnold Cox MD [address] [place] [address] Insurance Assigned Provider 02/08/24 documented as of this encounter Additional Source Comments The information contained in this document represents components of the legal health record. It is not the complete legal health record.[facility]
--- OUTSIDE RECORDS SUMMARY | 2024-11-06 14:11 | XMS_ITS | Encounter Summary ---
Author Organization [facility] Address [address] [place] [phone] Phone Care Team Providers Care Hooker On Name Role Phone Arnold Cox MD Primary Care Provider [phone] Arnold Cox MD Unavailable Encounter Details Date Type Department Care Team (Late st Contact Info) Description 09/14/2024 Procedure Pass Non-Invasive Cardiology [address] [place] [address] Social History Tobacco Use Types Packs/Day Years [...] high school, GED, job training, learning the Japanese language, technical skills, or developing parenting skills)? [...] 06/02/2024 Procedure Pass [facility] Echo Lab [address] [place] [address] 12/01/2024 10:00 AM EDT Appointment Non-Invasive Cardiology [address] [place] [address] Ivy Ramires, ASHLEIGH [address] [place] [address] [email or web address] 12/01/2024 11:30 AM EDT Appointment [facility] Echo Lab [address] [place] [address] Ivy Ramires, MANAGEMENT LIAISON 55 [place] [address] [email or web address] 12/24/2024 10:00 AM EDT Telemedicine - audio only [facility] Cardiac Arrhythmia Service 32 [facility], 5th Floor, [address] [place] [address] Rosina Bass, [facility] [address] [place] [address] [email or web address] 01/21/2025 3:30 PM EDT Office Visit [facility] Pulmonary Hypertension Clinic 55 [facility], 2nd Floor, [address] [place] [address] Frances Prescott MD [address] [phone] CRUZ @[email or web address] 03/23/2025 11:00 AM EDT Office Visit [facility] Pulmonary Hypertension Clinic 55 [facility], 2nd Floor, [address] [place] [address] Frances Prescott MD [address] [address] CRUZ @[email or web address] 10/18/2025 1:30 PM EDT Appointment [facility] Internal Medicine [address] [place] [address] Arnold Cox MD [address] [place], [place] [email or web address] documented as of this encounter Visit Diagnoses Not on filedocumented in this encounter Additional Health Concerns Assessment Noted Time PHQ-2 Depression Total Score: 0 11/15/19 11:33 AM EDT documented as of this encounter Care Teams Hooker On Relationship Specialty Start Date End Date Arnold Cox MD [address] [place] [address] [email or web address] PCP - General Internal Medicine 01/24/24 Arnold Cox MD [address] [place] [address] [email or web address] Insurance Assigned Provider 02/08/24 documented as of this encounter Additional Source Comments The information contained in this document represents components of the legal health record. It is not the complete legal health record.[facility]
--- OUTSIDE RECORDS SUMMARY | 2024-11-06 14:11 | XMS_ITS | Continuity of Care Document ---
Author Name [facility] Organization [facility] Care Team Providers Care Polarity Tester Name Role Phone [facility] Unavailable Unavailable Problems Combined list of problems from Department of Defense and Veterans Affairs facilities. It does not include entries that were removed or entered in error. 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 Immunization Series Date Given Administered By Site Reaction Lot Number CVX Code Drug Underwater Trapper Status Comments Source influenza, injectable, quadrivalent- pf 2021 [id number] GlaxoSmithKli ne complet ed influenza , injectabl e, quadrival ent-pf 04/11/22 Given Ambulat ory Pharmac y SARS-CoV-2 (COVID-19) mRNA-Bivalent 2021 [id number] complet ed SARS-CoV- 2 (COVID-19 ) mRNA-Biva lent 03/29/22 Given Ambulat ory Pharmac y typhoid Vi capsular polysaccharid e vac 2021 [id number] 101 sanofi pasteur complet ed typhoid Vi capsular polysacch aride vac 07/11/21 Given Ambulat ory Pharmac y COVID Vaccine Moderna 2020 [id number] 207 complet ed COVID Vaccine Moderna 05/22/21 Given Ambulat ory Pharmac y influenza, injectable, quadrivalent 2020 [id number] 158 GlaxoSmithKli ne complet ed influenza , injectabl e, quadrival ent 03/15/21 Given Ambulat ory Pharmac y tetanus, diphtheria, acellular pertu is 2020 [id number] 115 sanofi pasteur complet ed tetanus, diphtheri a, acellular pertussis 01/31/21 Given Ambulat ory Pharmac y meningococcal A,C,Y,W-135 (MCV4P) 2020 [id number] 114 sanofi pasteur complet ed meningoco ccal A,C,Y,W-1 35 (MCV4P) 11/16/20 Given Ambulat ory Pharmac y COVID Vaccine Moderna 2020 [id number] 207 complet ed COVID Vaccine Moderna 08/26/20 Given Ambulat ory Pharmac y COVID Vaccine Moderna 2020 [id number] 207 complet ed COVID Vaccine Moderna 07/25/20 Given Ambulat ory Pharmac y influenza, seasonal, injectable 2019 [id number] 141 NN LABSKli ne complet ed influenza , seasonal, injectabl e 05/30/20 Given Ambulat ory Pharmac y typhoid Vi capsular polysaccharid e vac 2018 [id number] 101 sanofi pasteur complet ed typhoid Vi capsular polysacch aride vac 06/07/19 Given Ambulat ory Pharmac y influenza, injectable, quadrivalent- pf 2018 [id number] 150 Seqirus complet ed influenza , injectabl e, quadrival ent-pf 06/07/19 Given Ambulat ory Pharmac y influenza, seasonal, injectable 2017 [id number] 141 sanofi pasteur complet ed influenza , seasonal, injectabl e 05/20/18 Given Ambulat ory Pharmac y typhoid Vi capsular polysaccharid e vac 2016 [id number] 101 sanofi pasteur complet ed typhoid Vi capsular polysacch aride vac 05/31/17 Given Ambulat ory Pharmac y Influenza, inj, MDCK, quadrivalent- pf 2016 [id number] 171 Seqirus complet ed Influenza , inj, MDCK, quadrival ent-pf 05/31/17 Given Ambulat ory Pharmac y influenza, seasonal, injectable-pf 2015 [id number] 140 CSL Behring complet ed influenza , seasonal, injectabl e-pf 05/06/16 Given Ambulat ory Pharmac y meningococcal A,C,Y,W-135 (MCV4P) 2015 [id number] 114 sanofi pasteur complet ed meningoco ccal A,C,Y,W-1 35 (MCV4P) 12/03/15 Given Ambulat ory Pharmac y typhoid Vi capsular polysaccharid e vac 2014 [id number] 101 sanofi pasteur complet ed typhoid Vi capsular polysacch aride vac 05/21/15 Given Ambulat ory Pharmac y influenza, seasonal, injectable-pf 2014 [id number] 140 CSL Behring complet ed influenza , seasonal, injectabl e-pf 04/14/15 Given Ambulat ory Pharmac y influenza, seasonal, injectable 2013 [id number] 141 CSL Behring complet ed influenza , seasonal, injectabl e 03/07/14 Given Ambulat ory Pharmac y typhoid Vi capsular polysaccharid e vac 2012 [id number] 101 sanofi pasteur complet ed typhoid Vi capsular polysacch aride vac 04/26/13 Given Ambulat ory Pharmac y Influenza, injectable, MDCK-pf 2012 [id number] 153 Novartis Pharmaceutica complet ed Influenza , injectabl e, MDCK-pf 04/26/13 Given Ambulat ory Pharmac y influenza, seasonal, injectable-pf 2011 [id number] 140 CSL Behring complet ed influenza , seasonal, injectabl e-pf 04/11/12 Given Ambulat ory Pharmac y influenza, seasonal, injectable-pf 2010 [id number] 140 CS Behring complet ed influenza , seasonal, injectabl e-pf 05/06/11 Given Ambulat ory Pharmac y tetanus, diphtheria, acellular pertu is 2010 [id number] 115 sanofi pasteur complet ed tetanus, diphtheri a, acellular pertussis 05/06/11 Given Ambulat ory Pharmac y typhoid Vi capsular polysaccharid e vac 2010 [id number] 101 sanofi pasteur complet ed typhoid Vi capsular polysacch aride vac 05/06/11 Given Ambulat ory Pharmac y yellow fever vaccine 2010 [id number] 37 sanofi pasteur complet ed yellow fever vaccine 05/06/11 Given Ambulat ory Pharmac y yellow fever vaccine 1 2010 [id number] 37 Sanofi Pasteur ([facility]) complet ed yellow fever vaccine DoD typhoid Vi capsular polysaccharid e vaccine 6 2010 [id number] 101 Sanofi Pasteur ([facility]) complet ed typhoid Vi capsular polysacch aride vaccine DoD tetanus toxoid, reduced diphtheria toxoid, and acellular pertu is vaccine, adsorbed 0 2010 [id number] 115 Sanofi Pasteur ([facility]) complet ed tetanus toxoid, reduced diphtheri a toxoid, and acellular pertussis vaccine, adsorbed DoD Influenza, seasonal, injectable, preservative free 12 2010 [id number] 140 CS [employer] (CSL) complet ed Influenza , seasonal, injectabl e, preservat joelle free DoD meningococcal A,C,Y,W-135 (MCV4P) 2010 [id number] 114 sanofi pasteur complet ed meningoco ccal A,C,Y,W-1 35 (MCV4P) 11/12/10 Given Ambulat ory Pharmac y meningococcal polysaccharid e (groups A, C, Y and W-135) diphtheria toxoid conjugate vaccine (MCV4P) 1 2010 [id number] 114 Sanofi Pasteur ([facility]) complet ed meningoco ccal polysacch aride (groups A, C, Y and W-135) diphtheri a toxoid conjugate vaccine (MCV4P) DoD vaccinia (smallpox) vaccine 2009 VV04-00 3A 75 28msec complet ed vaccinia (smallpox ) vaccine 04/13/10 Given Ambulat ory Pharmac y anthrax vaccine 2009 [id number] 24 Emergent Biosolutions complet ed anthrax vaccine 04/13/10 Given Ambulat ory Pharmac y influenza virus vaccine,split 2009 [id number] 15 CSL Behring complet ed influenza virus vaccine,s plit 04/13/10 Given Ambulat ory Pharmac y influenza virus vaccine, split virus (incl. purified surface antigen)-reti red CODE 1 2009 [id number] 15 CS [employer] (CS) complet ed influenza virus vaccine, split virus (incl. purified surface antigen)- retired CODE DoD anthrax vaccine 5 2009 [id number] 24 [employer] [place] ([facility]) complet ed anthrax vaccine DoD vaccinia (smallpox) vaccine 1 2009 VV04-00 3A 75 [facility] [employer] [facility] ([facility]) complet ed vaccinia (smallpox ) vaccine DoD Novel influenza-H1N injectable 2009 [id number] 127 Novartis Pharmaceutica ls complet ed Novel influenza -P5R7-73, injectabl e 07/24/09 Given Ambulat ory Pharmac y Novel influenza-H1N 1-09, injectable 1 2009 [id number] 127 Novartis Pharmaceutica l Alec. (NOV) complet ed Novel influenza -B3Y3-32, injectabl e DoD typhoid Vi capsular polysaccharid e vac 2008 [id number] 101 sanofi pasteur complet ed typhoid Vi capsular polysacch aride vac 04/20/09 Given Ambulat ory Pharmac y typhoid Vi capsular polysaccharid e vaccine 1 2008 [id number] 101 Sanofi Pasteur ([facility]) complet ed typhoid Vi capsular polysacch aride vaccine DoD influenza virus vaccine, live 2008 [id number] 111 [employer] Inc. Inc comple t ed influenza virus vaccine, live 04/04/09 Given Ambulat ory Pharmac y influenza virus vaccine, live, attenuated, for intranasal use 1 2008 [id number] 111 Zwamy[employer] Inc. (MED) complet ed influenza virus vaccine, live, attenuate d, for intranasa l use DoD influenza virus vaccine,split 2007 [id number] 15 GlaxoSmithKli ne complet ed influenza virus vaccine,s plit 05/13/08 Given Ambulat ory Pharmac y influenza virus vaccine, split virus (incl. purified surface antigen)-reti red CODE 1 2007 [id number] 15 [facility] ([facility]) complet ed influenza virus vaccine, split [...] red CODE 1 2006 [id number] 15 [facility] ([facility] complet ed influenza virus vaccine, split [...] virus (incl. purified surface antigen)- retired CODE [facility] meningococcal polysaccharid e (MPSV4) 2005 [id number] 32 sanofi pasteur complet ed meningoco ccal polysacch aride (MPSV4) 11/18/05 Given Ambulat ory Pharmac y meningococcal polysaccharid e vaccine (MPSV4) 1 2005 [id number] 32 Sanofi Pasteur ([facility]) complet ed meningoco ccal polysacch aride vaccine (MPSV4) DoD typhoid vaccine, inactivated 2004 [id number] 101 sanofi pasteur complet ed typhoid vaccine, inactivat ed 06/04/05 Given Ambulat ory Pharmac y typhoid vaccine, parenteral, other than acetone-kille d, dried 1 2004 [id number] 41 Sanofi Pasteur ([facility]) complet ed typhoid vaccine, parentera l, other than acetone-k illed, dried DoD influenza virus vaccine,split 2004 [id number] 15 sanofi pasteur complet ed influenza virus vaccine,s plit 05/07/05 Given Ambulat ory Pharmac y influenza virus vaccine, split virus (incl. purified surface antigen)-reti red CODE 1 2004 [id number] 15 Sanofi Pasteur ([facility]) complet ed influenza virus vaccine, split virus (incl. purified surface antigen)- retired CODE DoD influenza virus vaccine, live 2004 [id number] 111 [employer] comple t ed influenza virus vaccine, live 07/12/04 Given Ambulat ory Pharmac y influenza virus vaccine, live, attenuated, for intranasal use 0 2004 [id number] 111 [employer] Inc. (MED) complet ed influenza virus vaccine, live, attenuate d, for intranasa l use DoD anthrax vaccine 2003 [id number] 24 Emergent [employer] complet ed anthrax vaccine 04/15/04 Given Ambulat ory Pharmac y anthrax vaccine 5 2003 [id number] 24 [facility] [place] ([facility]) complet ed anthrax vaccine DoD tuberculin purified protein derivative 2003 [id number] 96 sanofi pasteur complet ed tuberculi n purified protein derivativ e 11/13/03 Given Ambulat ory Pharmac y anthrax vaccine 2003 [id number] 24 [employer] complet ed anthrax vaccine 09/05/03 Given Ambulat ory Pharmac y anthrax vaccine 4 2003 [id number] 24 [facility] complet ed anthrax vaccine DoD typhoid vaccine, inactivated 2002 [id number] 101 sanofi pasteur complet ed typhoid vaccine, inactivat ed 06/21/03 Given Ambulat ory Pharmac y influenza virus vaccine, whole virus 2002 [id number] 16 sanofi pasteur complet ed influenza virus vaccine, whole virus 06/21/03 Given Ambulat ory Pharmac y influenza virus vaccine, whole virus 0 2002 [id number] 16 Sanofi Pasteur ([facility]) complet ed influenza virus vaccine, whole virus DoD typhoid vaccine, parenteral, other than acetone-kille d, dried 0 2002 [id number] 41 Sanofi Pasteur ([facility]) complet ed typhoid vaccine, parentera l, other than acetone-k illed, dried DoD anthrax vaccine 2002 [id number] 24 [employer] complet ed anthrax vaccine 12/02/02 Given Ambulat ory Pharmac y anthrax vaccine 3 2002 [id number] 24 Emer[employer] [facility] ([facility]) complet ed anthrax vaccine DoD tuberculin purified protein derivative 2002 [id number] 96 sanofi pasteur complet ed tuberculi n purified protein derivativ e 11/03/02 Given Ambulat ory Pharmac y anthrax vaccine 2002 [id number] 24 [employer] complet ed anthrax vaccine 11/03/02 Given Ambulat ory Pharmac y anthrax vaccine 2 2002 [id number] 24 [employer] [facility] ([facility]) complet ed anthrax vaccine DoD anthrax vaccine 2002 [id number] 24 [employer] complet ed anthrax vaccine 10/15/02 Given Ambulat ory Pharmac y anthrax vaccine 1 2002 [id number] 24 [employer] [facility] ([facility]) complet ed anthrax vaccine DoD influenza virus vaccine, whole virus 2001 [id number] 16 sanofi pasteur complet ed influenza virus vaccine, whole virus 04/05/02 Given Ambulat ory Pharmac y influenza virus vaccine, whole virus 0 2001 [id number] 16 Sanofi Pasteur ([facility]) complet ed influenza virus vaccine, whole virus DoD tuberculin purified protein derivative 2001 [id number] 96 sanofi pasteur complet ed tuberculi n purified protein derivativ e 11/11/01 Given Ambulat ory Pharmac y influenza virus vaccine, whole virus 2001 [id number] 16 sanofi pasteur complet ed influenza virus vaccine, whole virus 09/05/01 Given Ambulat ory Pharmac y influenza virus vaccine, whole virus 0 2001 [id number] 16 Sanofi Pasteur ([facility]) complet ed influenza virus vaccine, whole virus DoD typhoid vaccine, inactivated 2000 [id number] 101 NN LABSKli ca complet ed typhoid vaccine, inactivat ed 04/25/01 Given Ambulat ory Pharmac y yellow fever vaccine 2000 [id number] 37 sanofi pasteur complet ed yellow fever vaccine 04/25/01 Given Ambulat ory Pharmac y hepatitis A adult vaccine 2000 [id number] 52 [employer]ck & Company Inc complet ed hepatitis A adult vaccine 04/25/01 Given Ambulat ory Pharmac y tetanus-dipht h toxoids (Td) adult/adol 2000 [id number] 09 sanofi pasteur complet ed tetanus-d iphth toxoids (Td) adult/ado l 04/25/01 Given Ambulat ory Pharmac y tetanus and diphtheria toxoids, adsorbed, preservative free, for adult use (2 Lf of tetanus toxoid and 2 Lf of diphtheria toxoid) 0 2000 [id number] 09 Sanofi Pasteur ([facility]) complet ed tetanus and diphtheri a toxoids, adsorbed, preservat joelle free, for adult use (2 Lf of tetanus toxoid and 2 Lf of diphtheri a toxoid) DoD yellow fever vaccine 0 2000 [id number] 37 Sanofi Pasteur ([facility]) complet ed yellow fever vaccine DoD typhoid vaccine, parenteral, other than acetone-kille d, dried 0 2000 [id number] 41 [facility] complet ed typhoid vaccine, parentera l, other [...] dosage DoD tuberculin purified protein derivative 2000 [id number] 96 [facility] complet ed tuberculi n purified protein derivativ e 10/10/00 Given Ambulat ory Pharmac y meningococcal polysaccharid e (MPSV4) 2000 [id number] 32 [facility] complet ed meningoco ccal polysacch aride (MPSV4) 10/10/00 Given Ambulat ory Pharmac y influenza virus vaccine, whole virus 2000 [id number] 16 [facility] complet ed influenza virus vaccine, whole virus 10/10/00 Given Ambulat ory Pharmac y poliovirus vaccine, inactivated 2000 [id number] 10 sanofi pasteur complet ed polioviru s vaccine, inactivat ed 10/10/00 Given Ambulat ory Pharmac y measles, mumps and rubella virus vaccine 0 2000 03 () Not Given measles, mumps and rubella virus vaccine DoD poliovirus vaccine, inactivated 0 2000 [id number] 10 Sanofi Pasteur ([facility]) complet ed polioviru s vaccine, inactivat ed DoD influenza virus vaccine, whole virus 0 2000 [id number] 16 [facility] ([facility]) complet ed influenza virus vaccine, whole virus DoD meningococcal polysaccharid e vaccine (MPSV4) 0 2000 [id number] 32 [place] (CON) complet ed meningoco ccal polysacch aride [...] dosage DoD hepatitis B adult vaccine 1997 [id number] complet ed hepatitis B adult vaccine 07/09/97 Given Ambulat ory Pharmac y hepatitis B vaccine, adult dosage 1 1997 [id number] 43 () complet ed hepatitis B vaccine, adult dosage DoD Results Combined list of recent chemistry, hematology and other laboratory results from Department of Defense and Veterans Affairs, ranging from 15 months to all on record, depending upon the facility. Order Name Results Value Reference Range Date Interpretation Specimen Comments Source Infectiou s Disease HIV-1/O/2 Non-Reac tive 1 (10/01/24 9:42 AM) 10/01 N Interpretiv e Data: INTERPRETAT ION: This method is a screening procedure for the detection of HIV p24 Antigen and Antibodies to HIV-1, including Group O, and/or HIV-2. NON-REACTIV E: HIV-1 antigen and HIV-1 / HIV-2 antibodies were not detected. No laboratory evidence of HIV infection. A negative test result does not exclude the possibility of exposure to or infection with HIV. HIV antibodies and/or p24 antigen may be undetectabl e in some stages of the infection and in some clinical conditions. If acute HIV infection is suspected, consider submitting another specimen to a reference laboratory for HIV-1 RNA. SCREEN REACTIVE - CONFIRMATIO N TO FOLLOW: Possible presence of HIV-1antibo dies, HIV-2 antibodies and/or HIV-1 p24 antigen. Specimen will reflex to the confirmatio n testing that fulfills the Center for Disease Control and Prevention' s HIV diagnostic algorithm. Refer to [facility] Lab Guide for additional information : [email or web address] x Testing performed by [facility] 5600A-U [facility] EP[facility] Miscellan eous Sendouts Repository Sample Received (10/01/24 9:42 AM) 10/01 N [facility]00[facility] Encounters Combined list of: 1) Encounters from Department of [facility] facilities going backup to the last 18 months, not all [facility] inpatient encounters are included; 2) Encounters from the Department of [facility] facilities going backup to 280 months. Location Location Details Encounter Type Encounter Number Reason For Visit Attending Provider ADM Date DC Date Status Disposition Source 8344R-[id number] AMDS Between Visit [id number] 03/17 Discharge Disposition: Home or Self Care 8344R-4 39 AMDS 8344R-439 AMDS Between Visit [id number] 05/13 Discharge Disposition: Home or Self Care 8344R-4 39 AMDS 8344R-439 AMDS Care Not Rendered [id number] 10/02 Discharge Disposition: Home or Self Care 8344R-4 39 AMDS 8344R-439 AMDS Outpatient [id number] CARA COLLINS 10/03 Discharge Disposition: Home or Self Care 8344R-4 39 AMDS 0310C-AF- C-[facility]th [facility] [place] Between Visit [id number] 10/05 Discharge Disposition: Home or Self Care 0310C-A F-C-66t h [facility] [place] Procedures Combined list of: 1) Procedures from Department of Veterans Affairs facilities going back up to thelast 18 months, not all [place] non-surgical procedures are included; 2) All procedures from the Department of [facility] facilities. Procedure Procedure Type Code Date Perfomer Comments Karlac e INFECTIOUS AGENT ANTIGEN DETECTION BY IMMUNOASSAY WITH DIRECT OPTICAL (IE, VISUAL) OBSERVATION; INFLUENZA 06/24/2008 [facility] No data available for this section Ambulato ry Pharmacy Social History Combined list of available smoking, tobacco, and other social history from Department of Defense and Veterans Affairs facilities. Social History Type Response Date Comment Sourc e Sex Representation Male (finding) 07/12/2022 Un known Organization Tobacco smoking status NHIS LIFETIME NON-SMOKER 02/13/2005 [facility] [place] [facility] History of tobacco use LIFETIME NON-TOBACCO USER 02/13/2005 [facility] [place] [facility] This section is an empty social history section. DoD Sexual Orientation Ambula tory Pharmacy Gender identity [...] procedure needed. MEB complete, member waiting for shelter order. Addendum by CARA POLANCO MD on October 02, 2024 10:27 EDT Chief Complaint: Member here for annual PHA.?No acute complaints.?IMR?green. HEENT:?Normal Joints:?Normal Lungs:?Normal Heart:?Normal Comments: ?ANNUAL PERIODIC HEALTH ASSESSMENT I. UROLOGY NURSE INFORMATION AND DEMOGRAPHICS ([facility]) 1. Last Name: MARK 2. First Name: JORDON 3. Middle Name: EDIL 4. Assessment Date: 5. : 6. Age: 43 7. Sex: M 8. DoD ID Number: [id number] 9. Service Branch: [employer] 10. 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 Status: [employer] [place] 12. 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 Unit Name: [address] [employer] 14. Duty Station/Location: [place] 15. C: [id number] 16. Is this your first Periodic Health Assessment (PHA)?: N 17. Are you enrolled in a secure messaging system with your health care provider?: Y 18. Current contact information: Preferred Method: Email 1 DSN: [id number] Day Time Phone: [phone] Night Time Phone: [phone] Email 1: [email or web address] Email 2: Address: [address] [place] [address]: [facility]: [place] Zip Code: [address] 19. Point of contact who can always reach you: Name: Cara Kramer Phone 1: [phone] Phone 2: EMAIL: [email or web address] Address: [address] [place] [address]: [place] State: [place] Zip Code: [address] II. DEPLOYMENT INFORMATION (DEP) 1. [ 0 ] Total number of deployments in the PAST 5 YEARS 4. [ N ] Are you going to deploy within the NEXT 120 DAYS? III. OCCUPATIONAL INFORMATION (OCC) 1 [ [id number] ] What is your occupational code 2. [...] easily startled? 6. d. [ No ] Okay numb or detached from others, activities, or your surroundings? 6. e. [ Not answered ] Okay guilt or unable to stop blaming yourself [...] like to schedule a visit with a centrifuge separator operator, mental health care provider, or a [...] [ Metoprolol, Eliquis ] What prescriptions or btew-rll-dykgwqe medications are you CURRENTLY taking for health [...] had a cholesterol check by a health administrator health care facility within the PAST 5 YEARS? 13.a. In [...] and where the care was provided: Conditions: [facility] Where: Chronic Pulm. Embolism, Arrythmia / Phlebotomy 5. Member acknowledged responsibility for reporting health issues. 6. [ Lower Back Pain ] Member's concerns about health condition(s) or health risk exposures not already addressed 7. [ No ] Woud you like to schedule an appointment with a health care provider to discuss any health concerns? XI. SEPARATION AND HALFWAY 1. [ Yes ] Are you planning to separate or retire within the next year from Active Duty or [place] Duty (activated for greater than 30 continuous days) OR do you intend to file a claim for disability compensation with the Veterans Benefits Administration? ---- PART B. RECORD REVIEW AND RECOMMENDATIONS I. RECORD REVIEWER INFORMATION 1. Last Name: KEVIN 2. First Name: CASIE 3. Middle Name: Ashley 4. Service Branch: [employer] 5. Status: Active [employer] [place] or Full-Time Support 6. 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 EMAIL: [email or web address] 8. Facility: [facility] 9. Unit: [facility] 10. Address: [address] [place] [address] 11. State: [place] 12. Zip Code: [address] 13. 14. Date Record Review: II. MEDICAL SCREENING 1. [ ] Date of research staff member's most recent PHA 2. [ 6 feet 3 inches Date: ] research staff member's most recently documented height 3. [ 213 pounds Date: ] research staff member's most recently documented weight 4. [ 130/84 Date: ] research staff member's most recently documented blood pressure reading 5. [ Yes ] Does the research staff member have a history of abnormal blood pressure since their last PHA? 6. [ Yes ] Does the research staff member have a laboratory test of sickle cell trait documented in their permanent medical record? 7. [ ] What is the date of the research staff member's most recently documented cholesterol test? 9. [ Eliquis 5mg metoprolol ] List of research staff member's active medications listed in their permanent medical record 10. [ No ] Is there a discrepancy between the active medication record review and the research staff member's self-reported list of medications? 11. [ seen for hemochromatosis, PE, dyspnea, V tach, HTN, DVT ] List documented significant care the research staff member has received since their last PHA from a provider OUTSIDE the Health System 12. [ Yes: seen for hemochromatosis, PE, dyspnea, V tach, HTN, DVT ] Is there a discrepancy between the research staff member's list of OUTSIDE care (from [facility]), and the OUTSIDE care found in the record? 13. [ No Inside Care Documented ] List documented significant care the research staff member has received since their last PHA from a provider INSIDE the Health System 14. Is there documentation in the record for each surgery listed below? Chronic Pulmonary Embolisms/Right Heart Catheterization with PA Line: Yes 15. [ Not Answered ] Confirm that vaccine exemptions are listed in the medical record for each vaccine listed III. OCCUPATION-SPECIFIC EXAMINATIONS 1. 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 IV. FAMILY HISTORY AND LIFESTYLE 1. [ Yes ] Does the [id number] reflect the research staff member's reported family history? VII. INDIVIDUAL MEDICAL READINESS 1. [ Yes ] Does the research staff member have an Assignment Limitation Code C? 3. [ Classification: 1 ] Most recently documented dental exam 4. [ Yes ] Is the research staff member current on all required immunizations in the immunization tracking system? 6. Does the research staff member have the following laboratory tests documented [...] need to be forwarded to the Health Molder completing PART C: Pending MEB pulmonary embolism Concerns about lower back pain. Reported multiple health conditions Surgery since last PHA R heart catheterization w/ PA line Medication: metoprolol, Eliquis. Supplements: protein/creatine, joint care Pain scale 2/10 seen for hemochromatosis, PE, dyspnea, V tach, HTN, DVT per [facility] Date Record Review Completed: - PART C. HEALTH CARE PROVIDER I. MENTAL HEALTH ASSESSMENT (MHA) PROVIDER INFORMATION 1. Last Name: COLLIN 2. First Name: CARA 3. Middle Name: 4. 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 EMAIL: [email or web address] 8. Facility: [facility] 9. Unit: [facility] 10. Address: [facility] [address] [place] 11. State: [place] 12. Zip Code: [address] 13. Phone: [phone] 14. Date HCP Review initiated: 1. Member [...] ASSESSMENT (PHA) PROVIDER INFORMATION 1. Last Name: POLANCO 2. First Name: CARA 3. Middle Name: 4. Service Branch: [employer] 5. 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 EMAIL: [email or web address] 8. Facility: [facility] 9. Unit: [facility] 10. Address: [address] [place] [address] 11. State: [place] 12. Zip Code: [address] 13. Phone: [phone] 14. Date HCP Review initiated: IV. PERIODIC HEALTH ASSESSMENT PROVIDER RECOMMENDATIONS and REFERRALS 1. Provider concerns with this assessment: No issues or concerns identified V. SUMMARY AND COMMENTS 1. Additional information summarizing findings during the research staff member assessment: 2. Provider Comments: Member is stable on current regimen. MEB October 2024. . INDIVIDUAL MEDICAL READINESS DISPOSITION DETERMINATION EDDA: Not Ready DEN: Ready IMM: Ready LAB: Ready ME: Ready IMR Status: Not Medically Ready VII. SERVICE MEDICAL DEPLOYABILITY EVALUATION INDICATED Based on your review of all documentation, is the research staff member medically deployable without limitations? Reference [facility] 6490.07 No (research staff member currently has a medical condition that DOES require duty limitation(s) AND limits deployability) Date PHA Completed: END OF [id number] REPORT Impression:Does not meet?medical standards per REJI 48-123/MSD. Disposition:?No AF469 changes based on this encounter.Member is mobility restricted/C-coded.pending MEB Extracted from:Title: Office Clinic Note Author: STEVEN WALDEN Date: 12/02/23 Encounter for examination and observation for other specified reasons Hearing WNL. Patient's left ear reference audiogram was re-established after follow-up program. A copy of hearing test was given to patient, and uploaded into Decision Sciences[employer]. Steven Walden, President [employer] Stapler Machine [facility] and Training [facility], [place], [place] ? ? Extracted from:Title: FLY PHA [...] N/A Comments: No concerns Addendum by CARA POLANCO MD on November 07, 2023 10:55 EDT Chief Complaint: Member here for annual fly PHA. Patient is able to complete duties required by [facility]. No acute complaints.NO: Fly?waiver. Initial Waiver Date: Waiver Exp Date: Loren. Test results reviewed: Audio: Audiogram H-1, no asymmetric hearing loss, no significant threshhold shift Optometry:Meets vision standards for: Near and distant visual acuity, IOP, Depth perception, Phorias EKG:?Not Required PHYSICAL EXAM: HEENT:?Normal Valsalva:?Normal Joints:?Normal Spine:Normal Skin:Normal Neuro:?Normal Lungs:?Normal Heart:?Normal Abdomen:?Normal Comments: ANNUAL PERIODIC HEALTH ASSESSMENT I. UROLOGY NURSE INFORMATION AND DEMOGRAPHICS (SMI) 1. Last Name: MARK 2. First Name: JORDON 3. Middle Name: EDIL 4. Assessment Date: 5. : 6. Age: 42 7. Gender: M 8. DoD ID Number: [id number] 9. Service Branch: [employer] 10. 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 Unit Name: [address] 14. Duty Station/Location: [place] 15. UIC: [id number] 16. Is this your first Periodic Health Assessment (PHA)?: N 17. Are you enrolled in a secure messaging system with your health care provider?: Y 18. Current contact information: Preferred Method: Email 1 DSN: [id number] Day Time Phone: [phone] Night Time Phone: [phone] Email 1: [email or web address] Email 2: [email or web address] Address: [address] [place] [address] State: [place] Zip Code: [address] 19. Point of contact who can always reach you: Name: Cara PazSam Kramer Phone 1: [phone] Phone 2: EMAIL: [email or web address] Address: [address] [place] [address]: [facility]: or Zip Code: [address] II. DEPLOYMENT INFORMATION (DEP) 1. [ 0 ] Total number of deployments in the PAST 5 YEARS 4. [ N ] Are you going to deploy within the NEXT 120 DAYS? III. OCCUPATIONAL INFORMATION (OCC) 1 [ [id number] ] What is your occupational code 2. [...] easily startled? 6. d. [ No ] Okay numb or detached from others, activities, or your surroundings? 6. e. [ Not answered ] Okay guilt or unable to stop blaming yourself [...] like to schedule a visit with a centrifuge separator operator, mental health care provider, or a [...] 8. [ Tylenol ] What prescriptions or tyic-gdr-fcekdik medications are you CURRENTLY taking for health problems on a ROUTINE BASIS? 9. Which of the following products have you taken since your last PHA: Individual Vitamins or Minerals: Two or more times a day Alburtis-3 Supplements: Two or more times a day [...] had a cholesterol check by a health administrator health care facility within the PAST 5 YEARS? 13.a. In [...] discuss any health concerns? XI. SEPARATION AND HALFWAY 1. [ Yes ] Are you planning to separate or retire within the next year from Active Duty or [place] Duty (activated for greater than 30 continuous days) OR do you intend to file a claim for disability compensation with the [employer] Benefits Administration? ---- PART B. RECORD REVIEW AND RECOMMENDATIONS I. RECORD REVIEWER INFORMATION 1. Last Name: BRAULIO 2. First Name: SHILPA 3. Middle Name: CARMEN 4. Service Branch: Dist[employer] 5. Status: 6. 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 EMAIL: [email or web address] 8. Facility: [facility] 9. Unit: [facility] 10. Address: [address] [place] [address] 11. State: [place] 12. Zip Code: [address] 13. Phone: [phone] 14. Date Record Review: II. MEDICAL SCREENING 1. [ ] Date of research staff member's most recent PHA 2. [ 6 feet 2 inches Date: ] research staff member's most recently documented height 3. [ 207 pounds Date: ] research staff member's most recently documented weight 4. [ 133/84 Date: ] research staff member's most recently documented blood pressure reading 5. [ Yes ] Does the research staff member have a history of abnormal blood pressure since their last PHA? 6. [ Yes ] Does the research staff member have a laboratory test of sickle cell trait documented in their permanent medical record? 7. [ No Cholesterol Test Documented ] What is the date of the research staff member's most recently documented cholesterol test? 9. [ tylenol PRN Eliquis 5 mg, elocon 0.1% cream, Claritin 10 mg, glucosamine-chondroitin 500-400 mg, vitamin C 250 mg ] List of research staff member's active medications listed in their permanent medical record 10. [ No ] Is there a discrepancy between the active medication record review and the research staff member's self-reported list of medications? 11. [ Cardiac work ups following PE ] List documented significant care the research staff member has received since their last PHA from a provider OUTSIDE the Health System 12. [ No ] Is there a discrepancy between the research staff member's list of OUTSIDE care (from OT5), and the OUTSIDE care found in the record? 13. [ No Inside Care Documented ] List documented significant care the research staff member has received since their last PHA from a provider INSIDE the Health System 15. [ Not Answered ] Confirm that vaccine exemptions are listed in the medical record for each vaccine listed 16. [ No Discrepancies Noted ] Review available medical documentation of allergies and compare with research staff member responses. Document any discrepancies III. OCCUPATION-SPECIFIC EXAMINATIONS 1. 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 IV. FAMILY HISTORY AND LIFESTYLE 1. [ Yes ] Does the [id number] reflect the research staff member's reported family history? VII. INDIVIDUAL MEDICAL READINESS 1. [ No ] Does the research staff member have an Assignment Limitation Code C? 3. [ Classification: 1 ] Most recently documented dental exam 4. [ Yes ] Is the research staff member current on all required immunizations in the immunization tracking system? 6. Does the research staff member have the following laboratory tests documented [...] need to be forwarded to the Health Molder completing PART C: Currently DNIF and AF [...] CARA 3. Middle Name: 4. Service Branch: [employer] 5. 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 EMAIL: [email or web address] 8. Facility: [facility] 9. Unit: [facility] 10. Address: [address] [place] [address] 11. State: [place] 12. Zip Code: [address] 13. Phone: [phone] 14. Date HCP Review initiated: 1. Member [...] CARA 3. Middle Name: 4. Service Branch: [employer] 5. 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 EMAIL: [email or web address] 8. Facility: [facility] 9. Unit: [facility] 10. Address: [address] [place] [address] 11. State: [place] 12. Zip Code: [address] 13. Phone: [phone] 14. Date HCP Review initiated: IV. PERIODIC HEALTH ASSESSMENT PROVIDER RECOMMENDATIONS and REFERRALS 1. Provider concerns with this assessment: No issues or concerns identified V. SUMMARY AND COMMENTS 1. Additional information summarizing findings during the research staff member assessment: 2. Provider Comments: Member continues to be followed by cardiology and heme. Next appt this month. . INDIVIDUAL MEDICAL READINESS DISPOSITION DETERMINATION EDDA: Not Ready DEN: Ready IMM: Ready LAB: Ready ME: Ready IMR Status: Partially Medically Ready VII. SERVICE MEDICAL DEPLOYABILITY EVALUATION INDICATED Based on your review of all documentation, is the research staff member medically deployable without limitations? Reference [facility] 6490.07 No (research staff member currently has a medical condition that DOES require duty limitation(s) AND limits deployability) Date PHA Completed: END OF [id number] REPORT Impression: Does not Meet?FCIII?medical standards per REJI 48-123/MSD. Aeromedical Disposition: Continue DNIF. DD 2992?signed. No AF469 changes based on this encounter. Member is mobility restricted/C-coded. Code 37. 11/06/2024 [id number] AMDS Assessment and Plan Extracted from:Title : [...] procedure needed. MEB complete, member waiting for shelter order. Addendum by CARA POLANCO MD on October 02, 2024 10:27 EDT Chief Complaint: Member here for annual PHA.?No acute complaints.?IMR?green. HEENT:?Normal Joints:?Normal Lungs:?Normal Heart:?Normal Comments: ?ANNUAL PERIODIC HEALTH ASSESSMENT I. UROLOGY NURSE INFORMATION AND DEMOGRAPHICS (SMI) 1. Last Name: MARK 2. First Name: JORDON 3. Middle Name: EDIL 4. Assessment Date: 5. : 6. Age: 43 7. Sex: M 8. DoD ID Number: [id number] 9. Service Branch: [employer] 10. 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 Status: Active [employer] [place] 12. 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 Unit Name: [address] 14. Duty Station/Location: [place] 15. [facility]: [id number] 16. Is this your first Periodic Health Assessment (PHA)?: N 17. Are you enrolled in a secure messaging system with your health care provider?: Y 18. Current contact information: Preferred Method: Email 1 DSN: [id number] Day Time Phone: [phone] Night Time Phone: [phone] Email 1: [email or web address] Email 2: Address: [address] [place] [address]: [place] State: [place] Zip Code: [address] 19. Point of contact who can always reach you: Name: Cara Kramer Phone 1: [phone] Phone 2: EMAIL: [email or web address] Address: [address] [place] [address]: [place] State: [place] Zip Code: [address] II. DEPLOYMENT INFORMATION (DEP) 1. [ 0 ] Total number of deployments in the PAST 5 YEARS 4. [ N ] Are you going to deploy within the NEXT 120 DAYS? III. OCCUPATIONAL INFORMATION (OCC) 1 [ [id number] ] What is your occupational code 2. [...] easily startled? 6. d. [ No ] Okay numb or detached from others, activities, or your surroundings? 6. e. [ Not answered ] Okay guilt or unable to stop blaming yourself [...] like to schedule a visit with a centrifuge separator operator, mental health care provider, or a [...] [ Metoprolol, Eliquis ] What prescriptions or gkmg-mur-uuxzxug medications are you CURRENTLY taking for health [...] had a cholesterol check by a health administrator health care facility within the PAST 5 YEARS? 13.a. In [...] and where the care was provided: Conditions: [facility] Where: Chronic Pulm. Embolism, Arrythmia / Phlebotomy 5. Member acknowledged responsibility for reporting health issues. 6. [ Lower Back Pain ] Member's concerns about health condition(s) or health risk exposures not already addressed 7. [ No ] Woud you like to schedule an appointment with a health care provider to discuss any health concerns? XI. SEPARATION AND HALFWAY 1. [ Yes ] Are you planning to separate or retire within the next year from Active Duty or [place] Duty (activated for greater than 30 continuous days) OR do you intend to file a claim for disability compensation with the Veterans Benefits Administration? ---- PART B. RECORD REVIEW AND RECOMMENDATIONS I. RECORD REVIEWER INFORMATION 1. Last Name: KEVIN 2. First Name: CASIE 3. Middle Name: Ashley 4. Service Branch: [employer] 5. Status: Active [employer] [place] or Full-Time Support 6. 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 EMAIL: [email or web address] 8. Facility: [facility] 9. Unit: [facility] 10. Address: [address] [place] [address] 11. State: [place] 12. Zip Code: [address] 13. 14. Date Record Review: II. MEDICAL SCREENING 1. [ ] Date of research staff member's most recent PHA 2. [ 6 feet 3 inches Date: ] research staff member's most recently documented height 3. [ 213 pounds Date: ] research staff member's most recently documented weight 4. [ 130/84 Date: ] research staff member's most recently documented blood pressure reading 5. [ Yes ] Does the research staff member have a history of abnormal blood pressure since their last PHA? 6. [ Yes ] Does the research staff member have a laboratory test of sickle cell trait documented in their permanent medical record? 7. [ ] What is the date of the research staff member's most recently documented cholesterol test? 9. [ Eliquis 5mg metoprolol ] List of research staff member's active medications listed in their permanent medical record 10. [ No ] Is there a discrepancy between the active medication record review and the research staff member's self-reported list of medications? 11. [ seen for hemochromatosis, PE, dyspnea, V tach, HTN, DVT ] List documented significant care the research staff member has received since their last PHA from a provider OUTSIDE the Health System 12. [ Yes: seen for hemochromatosis, PE, dyspnea, V tach, HTN, DVT ] Is there a discrepancy between the research staff member's list of OUTSIDE care (from OTH5), and the OUTSIDE care found in the record? 13. [ No Inside Care Documented ] List documented significant care the research staff member has received since their last PHA from a provider INSIDE the Health System 14. Is there documentation in the record for each surgery listed below? Chronic Pulmonary Embolisms/Right Heart Catheterization with PA Line: Yes 15. [ Not Answered ] Confirm that vaccine exemptions are listed in the medical record for each vaccine listed III. OCCUPATION-SPECIFIC EXAMINATIONS 1. 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 IV. FAMILY HISTORY AND LIFESTYLE 1. [ Yes ] Does the [id number] reflect the research staff member's reported family history? VII. INDIVIDUAL MEDICAL READINESS 1. [ Yes ] Does the research staff member have an Assignment Limitation Code C? 3. [ Classification: 1 ] Most recently documented dental exam 4. [ Yes ] Is the research staff member current on all required immunizations in the immunization tracking system? 6. Does the research staff member have the following laboratory tests documented [...] need to be forwarded to the Health Molder completing PART C: Pending MEB pulmonary embolism Concerns about lower back pain. Reported multiple health conditions Surgery since last PHA R heart catheterization w/ PA line Medication: metoprolol, Eliquis. Supplements: protein/creatine, joint care Pain scale 2/10 seen for hemochromatosis, PE, dyspnea, V tach, HTN, DVT per [facility] Date Record Review Completed: - PART C. HEALTH CARE PROVIDER I. MENTAL HEALTH ASSESSMENT (MHA) PROVIDER INFORMATION 1. Last Name: COLLIN 2. First Name: CARA 3. Middle Name: 4. 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 EMAIL: [email or web address] 8. Facility: [facility] 9. Unit: [facility] 10. Address: [address] [place] [address] 11. State: [place] 12. Zip Code: [address] 13. Phone: [phone] 14. Date HCP Review initiated: 1. Member [...] CARA 3. Middle Name: 4. Service Branch: [employer] 5. 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 EMAIL: [email or web address] 8. Facility: [facility] 9. Unit: [facility] 10. Address: [address] [place] [address] 11. State: [place] 12. Zip Code: [address] 13. Phone: [phone] 14. Date HCP Review initiated: IV. PERIODIC HEALTH ASSESSMENT PROVIDER RECOMMENDATIONS and REFERRALS 1. Provider concerns with this assessment: No issues or concerns identified V. SUMMARY AND COMMENTS 1. Additional information summarizing findings during the research staff member assessment: 2. Provider Comments: Member is stable on current regimen. MEB October 2024. . INDIVIDUAL MEDICAL READINESS DISPOSITION DETERMINATION EDDA: Not Ready DEN: Ready IMM: Ready LAB: Ready ME: Ready IMR Status: Not Medically Ready VII. SERVICE MEDICAL DEPLOYABILITY EVALUATION INDICATED Based on your review of all documentation, is the research staff member medically deployable without limitations? Reference [facility] 6490.07 No (research staff member currently has a medical condition that DOES require duty limitation(s) AND limits deployability) Date PHA Completed: END OF [id number] REPORT Impression:Does not meet?medical standards per REJI 48-123/MSD. Disposition:?No AF469 changes based on this encounter.Member is mobility restricted/C-coded.pending MEB Extracted from:Title: Office Clinic Note Author: STEVEN WALDEN Date: 12/02/23 Encounter for examination and observation for other specified reasons Hearing WNL. Patient's left ear reference audiogram was re-established after follow-up program. A copy of hearing test was given to patient, and uploaded into powerchart. Steven Walden, President [employer] Stapler Machine [facility] Readiness and Training [facility] [place], [place] ? ? Extracted from:Title: FLY PHA [...] N/A Comments: No concerns Addendum by CARA POLANCO MD on November 07, 2023 10:55 EDT Chief Complaint: Member here for annual fly PHA. Patient is able to complete duties required by [employer]. No acute complaints.NO: Fly?waiver. Initial Waiver Date: Waiver Exp Date: Loren. Test results reviewed: Audio: Audiogram H-1, no asymmetric hearing loss, no significant threshhold shift Optometry:Meets vision standards for: Near and distant visual acuity, IOP, Depth perception, Phorias EKG:?Not Required PHYSICAL EXAM: HEENT:?Normal Valsalva:?Normal Joints:?Normal Spine:Normal Skin:Normal Neuro:?Normal Lungs:?Normal Heart:?Normal Abdomen:?Normal Comments: ANNUAL PERIODIC HEALTH ASSESSMENT I. UROLOGY NURSE INFORMATION AND DEMOGRAPHICS (SMI) 1. Last Name: MARK 2. First Name: JORDON 3. Middle Name: EDIL 4. Assessment Date: 5. : 6. Age: 42 7. Gender: M 8. DoD ID Number: [id number] 9. Service Branch: [employer] 10. 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 Unit Name: [address] 14. Duty Station/Location: [place] 15. UIC: [id number] 16. Is this your first Periodic Health Assessment (PHA)?: N 17. Are you enrolled in a secure messaging system with your health care provider?: Y 18. Current contact information: Preferred Method: Email 1 DSN: [id number] Day Time Phone: [phone] Night Time Phone: [phone] Email 1: [email or web address] Email 2: [email or web address] Address: [address] [place] [address] State: [place] Zip Code: [address] 19. Point of contact who can always reach you: Name: Cara Kramer Phone 1: [phone] Phone 2: EMAIL: [email or web address] Address: [address] [place] [address]: [place] State: or Zip Code: [address] II. DEPLOYMENT INFORMATION (DEP) 1. [ 0 ] Total number of deployments in the PAST 5 YEARS 4. [ N ] Are you going to deploy within the NEXT 120 DAYS? III. OCCUPATIONAL INFORMATION (OCC) 1 [ [id number] ] What is your occupational code 2. [...] easily startled? 6. d. [ No ] Okay numb or detached from others, activities, or your surroundings? 6. e. [ Not answered ] Okay guilt or unable to stop blaming yourself [...] like to schedule a visit with a centrifuge separator operator, mental health care provider, or a [...] 8. [ Tylenol ] What prescriptions or ixjr-qke-afltkgb medications are you CURRENTLY taking for health problems on a ROUTINE BASIS? 9. Which of the following products have you taken since your last PHA: Individual Vitamins or Minerals: Two or more times a day Alburtis-3 Supplements: Two or more times a day [...] had a cholesterol check by a health administrator health care facility within the PAST 5 YEARS? 13.a. In [...] discuss any health concerns? XI. SEPARATION AND HALFWAY 1. [ Yes ] Are you planning to separate or retire within the next year from Active Duty or [place] Duty (activated for greater than 30 continuous days) OR do you intend to file a claim for disability compensation with the Veterans Benefits Administration? ---- PART B. RECORD REVIEW AND RECOMMENDATIONS I. RECORD REVIEWER INFORMATION 1. Last Name: BRAULIO 2. First Name: SHILPA 3. Middle Name: CARMEN 4. Service Branch: [employer] 5. Status: 6. 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 EMAIL: [email or web address] 8. Facility: [facility] 9. Unit: [facility] 10. Address: [address] [place] [address] 11. State: [place] 12. Zip Code: [address] 13. Phone: [phone] 14. Date Record Review: II. MEDICAL SCREENING 1. [ ] Date of research staff member's most recent PHA 2. [ 6 feet 2 inches Date: ] research staff member's most recently documented height 3. [ 207 pounds Date: ] research staff member's most recently documented weight 4. [ 133/84 Date: ] research staff member's most recently documented blood pressure reading 5. [ Yes ] Does the research staff member have a history of abnormal blood pressure since their last PHA? 6. [ Yes ] Does the research staff member have a laboratory test of sickle cell trait documented in their permanent medical record? 7. [ No Cholesterol Test Documented ] What is the date of the research staff member's most recently documented cholesterol test? 9. [ tylenol PRN Eliquis 5 mg, elocon 0.1% cream, Claritin 10 mg, glucosamine-chondroitin 500-400 mg, vitamin C 250 mg ] List of research staff member's active medications listed in their permanent medical record 10. [ No ] Is there a discrepancy between the active medication record review and the research staff member's self-reported list of medications? 11. [ Cardiac work ups following PE ] List documented significant care the research staff member has received since their last PHA from a provider OUTSIDE the Health System 12. [ No ] Is there a discrepancy between the research staff member's list of OUTSIDE care (from OT5), and the OUTSIDE care found in the record? 13. [ No Inside Care Documented ] List documented significant care the research staff member has received since their last PHA from a provider INSIDE the Health System 15. [ Not Answered ] Confirm that vaccine exemptions are listed in the medical record for each vaccine listed 16. [ No Discrepancies Noted ] Review available medical documentation of allergies and compare with research staff member responses. Document any discrepancies III. OCCUPATION-SPECIFIC EXAMINATIONS 1. 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 IV. FAMILY HISTORY AND LIFESTYLE 1. [ Yes ] Does the BM3293 reflect the research staff member's reported family history? VII. INDIVIDUAL MEDICAL READINESS 1. [ No ] Does the research staff member have an Assignment Limitation Code C? 3. [ Classification: 1 ] Most recently documented dental exam 4. [ Yes ] Is the research staff member current on all required immunizations in the immunization tracking system? 6. Does the research staff member have the following laboratory tests documented [...] need to be forwarded to the Health Molder completing PART C: Currently DNIF and AF [...] CARA 3. Middle Name: 4. Service Branch: [employer] 5. 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 EMAIL: [email or web address] 8. Facility: [facility] 9. Unit: [facility] 10. Address: [address] [place] [address] 11. State: [place] 12. Zip Code: [address] 13. Phone: [phone] 14. Date HCP Review initiated: 1. Member [...] CARA 3. Middle Name: 4. Service Branch: [employer] 5. 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 EMAIL: [email or web address] 8. Facility: [facility] 9. Unit: [facility] 10. Address: [address] [place] [address] 11. State: [place] 12. Zip Code: [address] 13. Phone: [phone] 14. Date HCP Review initiated: IV. PERIODIC HEALTH ASSESSMENT PROVIDER RECOMMENDATIONS and REFERRALS 1. Provider concerns with this assessment: No issues or concerns identified V. SUMMARY AND COMMENTS 1. Additional information summarizing findings during the research staff member assessment: 2. Provider Comments: Member continues to be followed by cardiology and heme. Next appt this month. . INDIVIDUAL MEDICAL READINESS DISPOSITION DETERMINATION EDDA: Not Ready DEN: Ready IMM: Ready LAB: Ready ME: Ready IMR Status: Partially Medically Ready VII. SERVICE MEDICAL DEPLOYABILITY EVALUATION INDICATED Based on your review of all documentation, is the research staff member medically deployable without limitations? Reference Vinny 6490.07 No (research staff member currently has a medical condition that DOES require duty limitation(s) AND limits deployability) Date PHA Completed: END OF AH7985 REPORT Impression: Does not Meet?FCIII?medical standards per REJI 48-123/MSD. Aeromedical Disposition: Continue DNIF. DD 2992?signed. No AF469 changes based on this encounter. Member is mobility restricted/C-coded. Code 37. 11/06/2024 0035[facility] Functional Status Combined list of recent functional and cognitive assessments recorded at Department of Defense and Veterans Affairs (VA).VA Functional [place] Measurement (FIM) Scale: 1 = Total Assistance (Subject = 0% +), 2 = Maximal Assistance (Subject = 25% +), 3 = Moderate Assistance (Subject = 50% +), 4 = Minimal Assistance (Subject = 75% +), 5 = Supervision, 6 = Modified [place] (Device), 7 = Complete [place] (Timely, Safely). Assessment Date/Time Source Assessment Type Assessment Skill Assessment Score Assessment Details No data available for this section
--- OUTSIDE RECORDS SUMMARY | 2024-11-06 14:11 | XMS_ITS | Encounter Summary ---
Author Organization [facility] Address [address] [place] [address] Phone Care Team Providers Care Clinical Documentation Manager Name Role Phone Arnold Cox MD Primary Care Provider [phone] Arnold Cox MD Unavailable Encounter Details Date Type Department Care Team (Late st Contact Info) Description 10/15/2024 Procedure Pass [facility] Cardiac Phonograph Mechanic [address] [facility], Floor 9, [address] [place] [address] Social History Tobacco Use Types [...] high school, GED, job training, learning the Swedish language, technical skills, or developing parenting skills)? [...] housing situation today? I have maritza moses 10/15/2024 How many times have you move [...] 06/02/2024 Procedure Pass [facility] [address] [place] [address] 12/01/2024 10:00 AM EDT Appointment Non-Invasive Cardiology 30 [place] [address] Ivy Ramires, ASHLEIGH [address] [place] [address] [email or web address] 12/01/2024 11:30 AM EDT Appointment [facility] Echo Lab [address] [place] [address] Ivy Ramires, CAMPAIGN ASSOCIATE 55 [place] [address] [email or web address] 12/24/2024 10:00 AM EDT Telemedicine - audio only [facility] Cardiac Arrhythmia Service [address] [facility], 5th Floor, [address] [place] [address] Rosina Bass, [facility] [address] [place] [address] [email or web address] 01/21/2025 3:30 PM EDT Office Visit [facility] Pulmonary Hypertension Clinic [address] [facility], 2nd Floor, [address] [place] [address] Frances Prescott MD [address] [place] [address] CRUZ @[facility] 03/23/2025 11:00 AM EDT Office Visit [facility] Pulmonary Hypertension Clinic [address] [facility], 2nd Floor, [address] [place] [address] Frances Prescott MD [address] [address] CRUZ @[facility] 10/18/2025 1:30 PM EDT Appointment [facility] Medical [facility] Internal Medicine 40 [place] [address] Arnold Cox MD [address] [place] [address] [email or web address] documented as of this encounter Visit Diagnoses Not on filedocumented in this encounter Additional Health Concerns Assessment Noted Time PHQ-2 Depression Total Score: 0 10/09/19 25 9:04 AM EDT documented as of this encounter Care Teams Clinical Documentation Manager Relationship Specialty Start Date End Date Arnold Cox MD [address] [place] [address] [email or web address] PCP - General Internal Medicine 01/24/24 Arnold Cox MD [address] [place] [address] [email or web address] Insurance Assigned Provider 02/08/24 documented as of this encounter Additional Source Comments The information contained in this document represents components of the legal health record. It is not the complete legal health record.[facility]
--- OUTSIDE RECORDS SUMMARY | 2024-11-06 14:11 | XMS_ITS | Encounter Summary ---
Author Organization [facility] Address [address] [place] [address] [address] [place] [address] Phone Care Team Providers Care Glazier Structural Glass Name Role Phone Arnold Cox MD Primary Care Provider [phone] Arnold Cox MD Unavailable Encounter Details Date Type Department Care Team ([facility] st Contact Info) Description 10/13/2024 Orders Only [facility] Pulmonary Hypertension Clinic [address] [place] [address], 2nd Floor, [address] [place] [address] Frances Prescott MD [address] [place] [address] [address] [place] [address] CRUZ@[email or web address] Social History Tobacco Use Types Packs/Day Years [...] high school, GED, job training, learning the Polish language, technical skills, or developing parenting skills)? [...] as of this encounter Progress Notes * Frances Prescott MD - 10/13/2024 10:59 PM EDT Please see my prior note. Will refer for rhc. documented in this encounter Plan of Treatment Upcoming Encounters Date Type Department Care Team (Latest Contact Info) Description 06/02/2024 Procedure Pass [facility] 30 [place] [address] 12/01/2024 10:00 AM EDT Appointment Non-Invasive Cardiology 30 [place] [address] Ivy Ramires FNP 55 [place] [address] [email or web address] 12/01/2024 11:30 AM EDT Appointment [facility] 30 [place] [address] Ivy Ramires YOUTH CARE SPECIALIST 55 [place] [address] [email or web address]@[email or web address] 12/24/2024 10:00 AM EDT Telemedicine - audio only [facility] Cardiac Arrhythmia Service [address] [facility], 5th Floor, [address] [place] [address] Rosina Bass YOUTH CARE SPECIALIST 55 [facility] 5B [place] [address] [email or web address] 01/21/2025 3:30 PM EDT Office Visit [facility] Pulmonary Hypertension Clinic [address] [facility], 2nd Floor, [address] [place] [address] Frances Prescott MD [address] [facility] [address] [place] [address] CRUZ @[facility] 03/23/2025 11:00 AM EDT Office Visit [facility] Pulmonary Hypertension Clinic [address] [facility], 2nd Floor, [address] [place] [address] Frances Prescott MD [address] [facility] [address] [place] [address] CRUZ @[email or web address] 10/18/2025 1:30 PM EDT Appointment [facility] Internal Medicine 40 [place] [address] Arnold Cox MD 40 [place] [address] documented as of this encounter Visit Diagnoses Not on filedocumented in this encounter Additional Health Concerns Assessment Noted Time PHQ-2 Depression Total Score: 0 10/09/19 25 9:04 AM EDT documented as of this encounter Care Teams [employer]ier [employer] Relationship Specialty Start Date End Date Arnold Cox MD 40 [place] [address] PCP - General Internal Medicine 01/24/24 Arnold Cox MD 40 [place] [address] Insurance Assigned Provider 02/08/24 documented as of this encounter Additional Source Comments The information contained in this document represents components of the legal health record. It is not the complete legal health record.[facility]
--- OUTSIDE RECORDS SUMMARY | 2024-11-06 14:11 | XMS_ITS | Encounter Summary ---
Author Organization [facility] Address [address] [facility] [address] [place] [address] Phone Care Team Providers Care Equal Opportunity Counselor Name Role Phone Alvaro Blue MD Primary Care Provider [phone] Arnold Cox MD Primary Care Provider [phone] Arnold Cox MD Unavailable Encounter Details Date Type Department Care Team (Late st Contact Info) Description 04/09/2023 Telephone [facility] Center for Hematology [address] [facility], 7th Floor, [address] [place] [address] Sadia Santos MD [address] [facility] [address] [place] [address] [email or web address] Social History Tobacco Use Types Packs/Day [...] 06/02/2024 Procedure Pass [facility] [address] [place] [address] 12/01/2024 10:00 AM EDT Appointment Non-Invasive Cardiology 30 [place] [address] Ivy Ramires [facility] 55 [place] [address] [email or web address] 12/01/2024 11:30 AM EDT Appointment [facility] 30 [place] [address] Ivy Ramires [address] [address] FAVIOLA@[email or web address] 12/24/2024 10:00 AM EDT Telemedicine - audio only [facility] Cardiac Arrhythmia Service [address] [facility], 5th Floor, [address] [place] [address] Rosina Bass, [facility] [address] [facility] 5B [place] [address] [email or web address] 01/21/2025 3:30 PM EDT Office Visit [facility] Pulmonary Hypertension Clinic [address] [facility], 2nd Floor, [address] [place] [address] Frances Prescott MD [address] [place] [address] CRUZ @[email or web address] 03/23/2025 11:00 AM EDT Office Visit [facility] Pulmonary Hypertension Clinic [address] [facility], 2nd Floor, [address] [place] [address] Frances Prescott MD [address] [place] [address] CRUZ @[email or web address] 10/18/2025 1:30 PM EDT Appointment [facility] Internal Medicine 40 [place] [address] Arnold Cox MD 40 [place] [address] documented as of this encounter Visit Diagnoses Not on filedocumented in this encounter Care Teams Equal Opportunity Counselor Relationship Specialty Start Date End Date Alvaro lBue MD [address] [place] [address] PCP - General Internal Medicine 11/24/22 01/23/24 Arnold Cox MD [address] [place] [address] PCP - General Internal Medicine 01/24/24 Arnold Cox MD [address] [place] [address] Insurance Assigned Provider 02/08/24 documented as of this encounter Additional Source Comments The information contained in this document represents components of the legal health record. It is not the complete legal health record.[facility]
--- OUTSIDE RECORDS SUMMARY | 2024-11-06 14:11 | XMS_ITS | Encounter Summary ---
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 Procedures Stress Echo Exercise Stress Echo Dobutamine Frances Prescott MD [address] [place] [address] Email: [email or web address] Referral ID Status Reason Start Date Expiration Date Visits Re quested Visits Authorized [id number] Closed 04/15/2023 1 1 Encounter Details Date Type Department Care Team (Late st Contact Info) Description 05/24/2023 Ancillary Orders [facility] [address] [place] [address], 2nd Floor, [address] [place] [address] Frances Prescott MD [address] [place] [address] CRUZ@ [facility] Acute saddle pulmonary embolism with acute cor [...] 06/02/2024 Procedure Pass [facility] 30 [place] [address] 12/01/2024 10:00 AM EDT Appointment Non-Invasive Cardiology 30 [place] [address] [facility] 55 [place] [address] [email or web address] 12/01/2024 11:30 AM EDT Appointment [facility] Echo Lab 30 [place] [address] [facility] 55 [place] [address] [email or web address] 12/24/2024 10:00 AM EDT Telemedicine - audio only [facility] Cardiac Arrhythmia Service 32 [facility], 5th Floor, [address] [place] [address] Rosina Bass, [facility] 55 [facility] 5B [place] [address] [email or web address] 01/21/2025 3:30 PM EDT Office Visit [facility] Pulmonary Hypertension Clinic [address] [facility], 2nd Floor, [address] [place] [address] Frances Prescott MD [address] [place] [address] CRUZ @[email or web address] 03/23/2025 11:00 AM EDT Office Visit [facility] Pulmonary Hypertension Clinic [address] [facility], 2nd Floor, [address] [place] [address] Frances Prescott MD [address] [place] [address] CRUZ @[facility] 10/18/2025 1:30 PM EDT Appointment [facility] Internal Medicine 40 [place] [address] Arnodl Cox MD 40 [place] [address] [email or web address] documented as of this encounter Results * [...] peak [place] [address]. The test was terminated due to hypertension [...] pulmonale documented in this encounter Care Teams Topline Beading Machine Tender Relationship Specialty Start Date End Date Alvaro Blue MD 95 [place] [address] PCP - General Internal Medicine 11/24/22 01/23/24 Arnold Cox MD 40 [place] [address] [email or web address] PCP - General Internal Medicine 01/24/24 Arnold Cox MD 40 [place] [address] [email or web address] Insurance Assigned Provider 02/08/24 documented as of this encounter Additional Source Comments The information contained in this document represents components of the legal health record. It is not the complete legal health record.[facility]
--- OUTSIDE RECORDS SUMMARY | 2024-11-06 14:11 | XMS_ITS | Encounter Summary ---
Author Organization [facility] Address [address] [place] [address] [place] [address] Phone Care Team Providers Care Infrastructure Director Name Role Phone Arnold Cox MD Primary Care Provider [phone] Arnold Cox MD Unavailable Encounter Details Date Type Department Care Team (Late st Contact Info) Description 01/24/2024 Procedure Pass [facility] Imaging, [address], Floor 1 [place] [address] Social History Tobacco Use Types Packs/Day Years [...] high school, GED, job training, learning the Tunisian language, technical skills, or developing parenting skills)? [...] your housing situation today? I have maritza mosse 11/15/2023 How many times have you move [...] 06/02/2024 Procedure Pass [facility] 30 [place] [address] 12/01/2024 10:00 AM EDT Appointment Non-Invasive Cardiology 30 [place] [address] Ivy Ramires, ASHLEIGH [address] [place] [address] [email or web address] 12/01/2024 11:30 AM EDT Appointment [facility] 30 [place] [address] Ivy Ramires, PRE PRESS PROOFER 55 [place] [address] [email or web address] 12/24/2024 10:00 AM EDT Telemedicine - audio only [facility] Cardiac Arrhythmia Service [address] [facility], 5th Floor, [address] [place] [address] Rosina Bass, [facility] [address] [place] [address] [email or web address] 01/21/2025 3:30 PM EDT Office Visit [facility] Hypertension Clinic [address] [facility], 2nd Floor, [address] [place] [address] Frances Prescott MD [address] [address] CRUZ @[facility] 03/23/2025 11:00 AM EDT Office Visit [facility]ension Clinic [address] [facility], 2nd Floor, [address] [place] [address] Frances Prescott MD [address] [address] CRUZ @[facility] 10/18/2025 1:30 PM EDT Appointment [facility] 40 [place] [address] Arnold Cox MD 40 [place] [address] [email or web address] documented as of this encounter Visit Diagnoses Not on filedocumented in this encounter Additional Health Concerns Assessment Noted Time PHQ-2 Depression Total Score: 0 11/15/19 24 11:33 AM EDT documented as of this encounter Care Teams Infrastructure Director Relationship Specialty Start Date End Date Arnold Cox MD 40 [place] [address] [email or web address]) PCP - General Internal Medicine 01/24/24 Arnold Cox MD 40 [place] [address] [email or web address] Insurance Assigned Provider 02/08/24 documented as of this encounter Additional Source Comments The information contained in this document represents components of the legal health record. It is not the complete legal health record.[facility]
--- OUTSIDE RECORDS SUMMARY | 2024-11-06 14:11 | XMS_ITS | Encounter Summary ---
Author Organization [facility] Address [address] [place] [address] Phone Care Team Providers Care Log Processor Operator Name Role Phone Arnold Cox MD Primary Care Provider [phone] Arnold Cox MD Unavailable Encounter Details Date Type Department Care Team (Late st Contact Info) Description 03/16/2024 Procedure Pass [facility] Cardiac US [address] [place] [address] Social History Tobacco Use Types Packs/Day Years [...] high school, GED, job training, learning the Northern Irish language, technical skills, or developing parenting skills)? [...] 06/02/2024 Procedure Pass [facility] 30 [place] [address] 12/01/2024 10:00 AM EDT Appointment Non-Invasive Cardiology 30 [place] [address] Ivy Ramires, ASHLEIGH [address] [place] [address] [email or web address] 12/01/2024 11:30 AM EDT Appointment [facility] 30 [place] [address] Ivy Ramires, JOB CHECKER 55 [place] [address] [email or web address] 12/24/2024 10:00 AM EDT Telemedicine - audio only [facility] Cardiac Arrhythmia Service [address] [facility], 5th Floor, [address] [place] [address] Rosina Bass, [facility] [address] [place] [address] [email or web address] 01/21/2025 3:30 PM EDT Office Visit [facility] Pulmonary Hypertension Clinic [address] [facility], 2nd Floor, [address] [place] [address] Frances Prescott MD [address] [place] [address] CRUZ @[facility] 03/23/2025 11:00 AM EDT Office Visit [facility] Pul[facility] Hypertension Clinic [address] [facility], 2nd Floor, [address] [place] [address] Frances Prescott MD [address] [address] CRUZ @[facility] 10/18/2025 1:30 PM EDT Appointment [facility] Internal Medicine 40 [place] [address] Arnold Cox MD 40 [place] [address] [email or web address] documented as of this encounter Visit Diagnoses Not on filedocumented in this encounter Additional Health Concerns Assessment Noted Time PHQ-2 Depression Total Score: 0 11/15/19 11:33 AM EDT documented as of this encounter Care Teams Log Processor Operator Relationship Specialty Start Date End Date Arnold Cox MD 40 [place] [address] PCP - General Internal Medicine 01/24/24 Arnold Cox MD 40 [place] [address] Insurance Assigned Provider 02/08/24 documented as of this encounter Additional Source Comments The information contained in this document represents components of the legal health record. It is not the complete legal health record.[facility]
--- OUTSIDE RECORDS SUMMARY | 2024-11-06 14:11 | XMS_ITS | Encounter Summary ---
Author Organization [facility] Address [address] [facility] [address] [place] [address] Phone Care Team Providers Care Welder/Fabricator Name Role Phone Arnold Cox MD Primary Care Provider [phone] Arnold Cox MD Unavailable Encounter Details Date Type Department Care Team ([facility] st Contact Info) Description 01/26/2024 Procedure Pass [facility] Holter Lab 32 [facility], 5th Floor, [address] [place] [address] Social History Tobacco Use Types Packs/Day Years [...] high school, GED, job training, learning the Paraguayan language, technical skills, or developing parenting skills)? [...] enough money to get more. Never True 05/17/202 4 Residential Stability Answer Date Recor ded What [...] 06/02/2024 Procedure Pass [facility] 30 [place] [address] 12/01/2024 10:00 AM EDT Appointment Non-Invasive Cardiology 30 [place] [address] Ivy Ramires FNP [address] [place] [address] [email or web address] 12/01/2024 11:30 AM EDT Appointment [facility] Echo Lab 30 [place] [address] Ivy Ramires, CHIEF LIBRARIAN WORK WITH BLIND 55 [place] [address] [email or web address] 12/24/2024 10:00 AM EDT Telemedicine - audio only [facility] Cardiac Arrhythmia Service 32 [facility], 5th Floor, [address] [place] [address] Rosina Bass, [facility] [address] [place] [address] [email or web address] 01/21/2025 3:30 PM EDT Office Visit [facility] Pulmonary Hypertension Clinic 55 [facility], 2nd Floor, [address] [place] [address] Frances Prescott MD [address] [address] CRUZ @[facility] 03/23/2025 11:00 AM EDT Office Visit [facility] Pulmonary Hypertension Clinic 55 [facility], 2nd Floor, [address] [place] [address] Frances Prescott MD [address] [address] CRUZ @[facility] 10/18/2025 1:30 PM EDT Appointment [facility] Internal Medicine 40 [place] [address] Arnold Cox MD 40 [place], [place] [id number] .[employer] documented as of this encounter Visit Diagnoses Not on filedocumented in this encounter Additional Health Concerns Assessment Noted Time PHQ-2 Depression Total Score: 0 11/15/19 24 11:33 AM EDT documented as of this encounter Care Teams Welder/Fabricator Relationship Specialty Start Date End Date Arnold Cox MD 40 [place] [address] .[employer] PCP - General Internal Medicine 01/24/24 Arnold Cox MD 40 [place] [address] .[employer] Insurance Assigned Provider 02/08/24 documented as of this encounter Additional Source Comments The information contained in this document represents components of the legal health record. It is not the complete legal health record.[facility]
--- OUTSIDE RECORDS SUMMARY | 2024-11-06 14:11 | XMS_ITS | Encounter Summary ---
Author Organization [facility] Address [address] [place] [address] [address] [place] [address] Phone Care Team Providers Care Air Drier Name Role Phone Arnold Cox MD Primary Care Provider [phone] Arnold Cox MD Unavailable Encounter Details Date Type Department Care Team ([facility] Contact Info) Description 02/03/2024 Telephone [facility] for Hematology 32 [facility], 7th Floor, [address] [place] [address] Sadia Santso MD [address] [facility] [address] [place] [address] [email or web address] du Social History Tobacco Use Types Packs/Day [...] high school, GED, job training, learning the Sierra Leonean language, technical skills, or developing parenting skills)? [...] 06/02/2024 Procedure Pass [facility] 30 [place] [address] 12/01/2024 10:00 AM EDT Appointment Non-Invasive Cardiology 30 [place] [address] Ivy Ramires FNP 55 [place] [address] [email or web address] 12/01/2024 11:30 AM EDT Appointment [facility] 30 [place] [address] Ivy Ramires STORE STANDARDS ASSOCIATE 55 [place] [address] [email or web address] 12/24/2024 10:00 AM EDT Telemedicine - audio only [facility] Cardiac Arrhythmia Service 32 [facility], 5th Floor, [address] [place] [address] Rosina Bass STORE STANDARDS ASSOCIATE [address] [place] [address] [email or web address] [email or web address] [email or web address] 01/21/2025 3:30 PM EDT Office Visit [facility] 55 [facility], 2nd Floor, [address] [place] [address] Frances Prescott MD [address] [place] [address] CRUZ @[facility] 03/23/2025 11:00 AM EDT Office Visit [facility]pert[facility] 55 [facility], 2nd Floor, [address] [place] [address] Frances Prescott MD [address] [place] [address] CRUZ @[facility] 10/18/2025 1:30 PM EDT Appointment [facility] Internal Medicine 40 [place] [address] Arnold Cox MD 40 [place] [address] [email or web address] documented as of this encounter Visit Diagnoses Not on filedocumented in this encounter Additional Health Concerns Assessment Noted Time PHQ-2 Depression Total Score: 0 11/15/19 11:33 AM EDT documented as of this encounter Care Teams Air Drier Relationship Specialty Start Date End Date Arnold Cox MD 40 [place] [address] PCP - General Internal Medicine 01/24/24 Arnold Cox MD 40 [place] [address] Insurance Assigned Provider 02/08/24 documented as of this encounter Additional Source Comments The information contained in this document represents components of the legal health record. It is not the complete legal health record.[facility]
--- OUTSIDE RECORDS SUMMARY | 2024-11-06 14:11 | XMS_ITS | Encounter Summary ---
Author Organization [facility] Address [address] [place] [address] [address] [place] [address] Phone Care Team Providers Care Business Center Representative Name Role Phone Arnold Cox MD Primary Care Provider [phone] Arnold Cox MD Unavailable Encounter Details Date Type Department Care Team ([facility] Contact Info) Description 03/03/2024 Telephone [facility] [place] [place] Center for Hematology 32 [facility], 7th Floor, [address] [place] [address] Sadia Santos MD [address] [facility] [address] [place] [address] [email or web address] Social History Tobacco Use Types Packs/Day [...] 06/02/2024 Procedure Pass [facility] 30 [place] [address] 12/01/2024 10:00 AM EDT Appointment Non-Invasive Cardiology 30 [place] [address] Ivy Ramires FNP 55 [place] [address] [email or web address]@[email or web address] 12/01/2024 11:30 AM EDT Appointment [facility] 30 [place] [address] Ivy Ramires CLIENT CARE MANAGER 55 [place] [address] [email or web address]@[email or web address] 12/24/2024 10:00 AM EDT Telemedicine - audio only [facility] [place] [place] Cardiac Arrhythmia Service 32 [facility], 5th Floor, [address] [place] [address] Rosina Bass CLIENT CARE MANAGER [address] [place] [address] [email or web address] 01/21/2025 3:30 PM EDT Office Visit [facility] [place] [place] Pulmonary Hypertension Clinic [address] [facility], 2nd Floor, [address] [place] [address] Frances Prescott MD [address] [place] [address] CRUZ @[facility] 03/23/2025 11:00 AM EDT Office Visit [facility] [place] [place] [facility]monary Hypertension Clinic 55 [facility], 2nd Floor, [address] [place] [address] Frances Prescott MD [address] [place] [address] CRUZ @[facility] 10/18/2025 1:30 PM EDT Appointment [facility] Internal Medicine 40 [place] [address] Arnold Cox MD 40 [place] [address] [email or web address] documented as of this encounter Visit Diagnoses Not on filedocumented in this encounter Additional Health Concerns Assessment Noted Time PHQ-2 Depression Total Score: 0 11/15/19 11:33 AM EDT documented as of this encounter Care Teams Business Center Representative Relationship Specialty Start Date End Date Arnold Cox MD 40 [place] [address] PCP - General Internal Medicine 01/24/24 Arnold Cox MD 40 [place] [address] Insurance Assigned Provider 02/08/24 documented as of this encounter Additional Source Comments The information contained in this document represents components of the legal health record. It is not the complete legal health record.[facility]
--- OUTSIDE RECORDS SUMMARY | 2024-11-06 14:11 | XMS_ITS | Encounter Summary ---
Author Organization [facility] Address [address] [place] [address] Phone Care Team Providers Care Supervisor Metal Cans Name Role Phone Arnold Cox MD Primary Care Provider [phone] Arnold Cox MD Unavailable Encounter Details Date Type Department Care Team (Late st Contact Info) Description 08/10/2024 Transcribe Orders Non-Invasive Cardiology 30 [place] [address] Ivy Ramires, [facility] 55 [place] [address] [email or web address] Social History Tobacco Use Types [...] high school, GED, job training, learning the Australian language, technical skills, or developing parenting skills)? [...] Procedure Pass [facility] 30 [place] [address] 12/01/2024 10:00 AM EDT Appointment Non-Invasive Cardiology 30 [place] [address] Ivy Ramires FNP 55 [place] [address] [email or web address] 12/01/2024 11:30 AM EDT Appointment [facility] 30 [place] [address] Ivy Ramires FNP 55 [place] [address] [email or web address] 12/24/2024 10:00 AM EDT Telemedicine - audio only [facility] Cardiac Arrhythmia Service 32 [facility], 5th Floor, [address] [place] [address] Rosina Bass FNP [address] [place] [address] [email or web address] 01/21/2025 3:30 PM EDT Office Visit [facility] Pulmonary Hypertension Clinic 55 [facility], 2nd Floor, [address] [place] [address] Frances Prescott MD [address] [place] [address] CRUZ @[facility] 03/23/2025 11:00 AM EDT Office Visit [facility] Pulmonary Hypertension Clinic [address] [facility], 2nd Floor, [address] [place] [address] Frances Prescott MD [address] [place] [address] CRUZ @[facility] 10/18/2025 1:30 PM EDT Appointment [facility] Internal Medicine 40 [place], [place] [phone] Arnold Cox MD 40 [place], [place] [email or web address] documented as of this encounter Procedures Procedure Name Priority Date/Time Associated Diagnosis Comments ECG 12-LEAD Routine 08/10/2024 9:48 AM EST documented in this encounter Results * ECG 12-LEAD (08/10/2024 9:48 AM EST) Ventricular Rate EKG/MIN 55 BPM [facility] Atrial Rate 48 BPM [facility] IN Interval 206 ms [facility] QRS Duration 90 ms [facility] QT Interval 422 ms [facility] QTC Interval 403 ms [facility] P Satin 51 degrees [facility] R Wave Satin 55 degrees [facility] T Wave Satin 42 degrees [facility] 08/10/2024 9:48 AM EST 08/10/2024 3:28 PM EST Narrative [facility] - 08/10/2024 3:28 PM EST Sinus bradycardia with Premature atrial complexes with Aberrant conduction Otherwise normal ECG When compared with ECG of 20-Jan-2024 12:01, Aberrant conduction is now Present Confirmed by Chandan Raya ([id number]) on 08/10/2024 3:28:45 PM Ivy Ramires [facility] ECG ORDERABLES [facility] documented in this encounter Visit Diagnoses Not on filedocumented in this encounter Additional Health Concerns Assessment Noted Time PHQ-2 Depression Total Score: 0 11/15/19 24 11:33 AM EDT documented as of this encounter Care Teams Supervisor Metal Cans Relationship Specialty Start Date End Date Arnold Cox MD 40 [place], [place] [email or web address] PCP - General Internal Medicine 01/24/24 Arnold Cox MD 40 [place], [place] [email or web address] Insurance Assigned Provider 02/08/24 documented as of this encounter Additional Source Comments The information contained in this document represents components of the legal health record. It is not the complete legal health record.[facility]
--- OUTSIDE RECORDS SUMMARY | 2024-11-06 14:11 | XMS_ITS | Encounter Summary ---
Author Organization [facility] Address [address] [facility] [address] [place] [address] Phone Care Team Providers Care Basting Puller Name Role Phone Arnold Cox MD Primary Care Provider [phone] Arnold Cox MD Unavailable Encounter Details Date Type Department Care Team (Late st Contact Info) Description 01/24/2024 Procedure Pass [facility] Cardiac Construction Equipment Mechanic Helper 55 [facility], Floor 9, [address] [place] [address] Social History Tobacco Use Types [...] high school, GED, job training, learning the Ukrainian language, technical skills, or developing parenting skills)? [...] 06/02/2024 Procedure Pass [facility] 30 [place] [address] 12/01/2024 10:00 AM EDT Appointment Non-Invasive Cardiology 30 [place] [address] Ivy Ramires FNP [address] [place] [address] [email or web address] 12/01/2024 11:30 AM EDT Appointment [facility] 30 [place] [address] Ivy Ramires, NEWSPAPER DISTRIBUTOR SUPERVISOR 55 [place] [address] [email or web address] 12/24/2024 10:00 AM EDT Telemedicine - audio only [facility] Cardiac Arrhythmia Service 32 [facility], 5th Floor, [address] [place] [address] Rosina Bass, [facility] 55 [facility] 5B [place] [address] [email or web address] 01/21/2025 3:30 PM EDT Office Visit [facility] Hypertension Clinic [address] [facility], 2nd Floor, [address] [place] [address] Frances Prescott MD [address] [address] CRUZ @[facility] 03/23/2025 11:00 AM EDT Office Visit [facility] Hypertension Clinic [address] [facility], 2nd Floor, [address] [place] [address] Frances Prescott MD [address] [address] CRUZ @[facility] 10/18/2025 1:30 PM EDT Appointment [facility] Internal Medicine 40 [place] [address] Arnold Cox MD 40 [place], [place] [phone] [email or web address] documented as of this encounter Visit Diagnoses Not on filedocumented in this encounter Additional Health Concerns Assessment Noted Time PHQ-2 Depression Total Score: 0 11/15/19 11:33 AM EDT documented as of this encounter Care Teams Basting Puller Relationship Specialty Start Date End Date Arnold Cox MD 40 [place] [address] [email or web address] PCP - General Internal Medicine 01/24/24 Arnold Cox MD 40 [place] [address] [email or web address] Insurance Assigned Provider 02/08/24 documented as of this encounter Additional Source Comments The information contained in this document represents components of the legal health record. It is not the complete legal health record.[facility]
--- OUTSIDE RECORDS SUMMARY | 2024-11-06 14:11 | XMS_ITS | Encounter Summary ---
Author Organization [facility] Address [address] [facility] [address] [place] [address] Phone Care Team Providers Care Ssis Etl Developer Name Role Phone Alvaro Blue MD Primary Care Provider [phone] Arnold Cox MD Primary Care Provider [phone] Arnold Cox MD Unavailable Encounter Details Date Type Department Care Team (Late st Contact Info) Description 01/19/2023 Telephone [facility] Center for Hematology [address] [facility], 7th Floor, [address] [address] Sadia Santos MD 55 [facility] [address] [address] [email or web address] du Social History Tobacco Use Types Packs/Day [...] 06/02/2024 Procedure Pass [facility] 30 [place] [address] 12/01/2024 10:00 AM EDT Appointment Non-Invasive Cardiology 30 [place] [address] Ivy Ramires [facility] 55 [place] [address] [email or web address] 12/01/2024 11:30 AM EDT Appointment [facility] 30 [place] [address] Ivy Ramires [address] [address] [email or web address] 12/24/2024 10:00 AM EDT Telemedicine - audio only [facility] Cardiac Arrhythmia Service 32 [facility], 5th Floor, [address] [address] Rosina Bass, [facility] 55 [facility] [address] [address] [email or web address] 01/21/2025 3:30 PM EDT Office Visit [facility] Pulmonary Hypertension Clinic 55 [facility], 2nd Floor, [address] [address] Frances Prescott MD [address] [place] [address] CRUZ @[facility] 03/23/2025 11:00 AM EDT Office Visit [facility] Pulmonary Hypertension Clinic 55 [facility], 2nd Floor, [address] [address] Frances Prescott MD [address] [place] [address] CRUZ @[facility].mobile.[facility] 10/18/2025 1:30 PM EDT Appointment [facility] Internal Medicine 40 [place] [address] Arnold Cox MD 40 [place] [address] documented as of this encounter Visit Diagnoses Not on filedocumented in this encounter Care Teams Ssis Etl Developer Relationship Specialty Start Date End Date Alvaro Blue MD [address] [place] [address] PCP - General Internal Medicine 11/24/22 01/23/24 Arnold Cox MD [address] [place] [address] PCP - General Internal Medicine 01/24/24 Arnold Cox MD [address] [place] [address] Insurance Assigned Provider 02/08/24 documented as of this encounter Additional Source Comments The information contained in this document represents components of the legal health record. It is not the complete legal health record.[facility]
--- OUTSIDE RECORDS SUMMARY | 2024-11-06 14:11 | XMS_ITS | Encounter Summary ---
Author Organization [facility] Address [address] [place] [phone] Phone Care Team Providers Care Assessment Expert Name Role Phone Pcp, Unknown Primary Care Provider UnavailAlvaro Shea MD Primary Care Provider [phone] Arnold Cox MD Primary Care Provider [phone] Arnold Cox MD Unavailable Encounter Details Date Type Department Care Team (Late st Contact Info) Description 11/23/[address] [facility], Ct Scan - [address] [address] Social History Tobacco Use Types Packs/Day Years [...] 06/02/2024 Procedure Pass [facility] [address] [place] [address] 12/01/2024 10:00 AM EDT Appointment Non-Invasive Cardiology [address] [place] [address] Ivy Ramires SLP [address] [place] [address] [email or web address] 12/01/2024 11:30 AM EDT Appointment [facility] Echo Lab [address] [place] [address] Ivy Ramires [facility] [address] [place] [address] [email or web address] 12/24/2024 10:00 AM EDT Telemedicine - audio only [facility]ia Service 32 [facility], 5th Floor, [address] [place] [address] Rosina Bass, SLP [address] [place] [address] [email or web address] 01/21/2025 3:30 PM EDT Office Visit [facility] 55 [facility], 2nd Floor, [address] [place] [address] Frances Prescott MD [address] [place] [phone] CRUZ [email or web address] 03/23/2025 11:00 AM EDT Office Visit [facility] 55 [facility], 2nd Floor, [address] [place] [address] Frances Prescott MD [address] [place] [phone] CRUZ @[email or web address] 10/18/2025 1:30 PM EDT Appointment [facility] Internal Medicine [address] [place], [place] [phone] Arnold Cox MD [address] [place], [place] [id number] [email or web address] documented as of this encounter Visit Diagnoses Not on filedocumented in this encounter Care Teams Assessment Expert Relationship Specialty Start Date End Date Pcp, Unknown PCP - General 11/23/22 11/23/22 Alvaro Blue MD [address] [place] [id number] PCP - General Internal Medicine 11/24/22 01/23/24 Arnold Cox MD [address] [place] [address] PCP - General Internal Medicine 01/24/24 Arnold Cox MD [address] [place] [address] [email or web address] Insurance Assigned Provider 02/08/24 documented as of this encounter Additional Source Comments The information contained in this document represents components of the legal health record. It is not the complete legal health record.[facility]
--- OUTSIDE RECORDS SUMMARY | 2024-11-06 14:11 | XMS_ITS | Encounter Summary ---
Author Organization [facility] Address [address] [place] [address] [place] [phone] Phone Care Team Providers Care Medical Communication Specialist Name Role Phone Arnold Cox MD Primary Care Provider [phone] Arnold Cox MD Unavailable Encounter Details Date Type Department Care Team (Late st Contact Info) Description 01/25/2024 Procedure Pass [facility] [address] [place] [address] Social History Tobacco Use Types Packs/Day Years [...] high school, GED, job training, learning the [place] language, technical skills, or developing parenting skills)? [...] 06/02/2024 Procedure Pass [facility] [address] [place] [address] 12/01/2024 10:00 AM EDT Appointment Non-Invasive Cardiology [address] [place] [address] Ivy Ramires, ASHLEIGH [address] [place] [phone] [email or web address] 12/01/2024 11:30 AM EDT Appointment [facility] [address] [place] [address] Ivy Ramires, RADIATION PROTECTION SPECIALIST 55 [place] [address] [email or web address] 12/24/2024 10:00 AM EDT Telemedicine - audio only [facility] 32 [facility], 5th Floor, [address] [place] [address] Rosina Bass, [facility] [address] [place] [address] [email or web address] 01/21/2025 3:30 PM EDT Office Visit [facility] 55 [facility], 2nd Floor, [address] [place] [address] Frances Prescott MD [address] [phone] CRUZ @[email or web address] 03/23/2025 11:00 AM EDT Office Visit [facility] 55 [facility], 2nd Floor, [address] [place] [address] Frances Prescott MD [address] [phone] CRUZ @[email or web address] 10/18/2025 1:30 PM EDT Appointment [facility] [place] Internal Medicine [address] [place] [address] Arnold Cox MD [address] [place], [place] [email or web address] documented as of this encounter Visit Diagnoses Not on filedocumented in this encounter Additional Health Concerns Assessment Noted Time PHQ-2 Depression Total Score: 0 11/15/19 11:33 AM EDT documented as of this encounter Care Teams Medical Communication Specialist Relationship Specialty Start Date End Date Arnold Cox MD [address] [place] [address] [email or web address] PCP - General Internal Medicine 01/24/24 Arnold Cox MD [address] [place] [address] [email or web address] Insurance Assigned Provider 02/08/24 documented as of this encounter Additional Source Comments The information contained in this document represents components of the legal health record. It is not the complete legal health record.[facility]
[2024-11-06 14:17] LABS: MANUAL DIFF FLAG NO
[2024-11-06 14:19] LABS: Basophils Percent Auto 0.3 % (0-2); Eosinophils Percent Auto 0.5 % (0-4); Hemoglobin 16.8 g/dl (14.0-18.0); Imm Gran Abs Auto 0.01 X10*3/uL (0.00-0.03); Imm Gran Pct Auto 0.2 % (0.0-0.4); Lymphocytes Absolute Auto 2.5 X10*3/uL (1.2-4.9); Lymphocytes Percent Auto 38.7 % (20-40); Mean Corpuscular HGB Conc 37.3 g/dl (31.0-36.0); Mean Corpuscular Hemoglobin 33.2 pg (27.0-33.0); Mean Corpuscular Volume 88.9 fL (80.0-98.0); Mean Platelet Volume 9.3 fL (9.4-12.4); Monocytes Absolute Auto 0.5 X10*3/uL (0.1-1.2); Monocytes Percent Auto 7.7 % (2-11); Neutrophils Absolute Auto 3.4 x10*3/uL (2.0-8.3); Neutrophils Percent Auto 52.6 % (45-73); Platelet Count 178 X10*3/uL (160-400); Red Blood Count 5.06 X10*6/uL (4.60-5.80); Red Cell Distribution Width 11.8 % (11.0-16.0); White Blood Count 6.5 X10*3/uL (4.8-10.8)
[2024-11-06 15:00] LABS: Iron 235 mcg/dL (45-160); Percent Iron Saturation 90 % (15-50); Total Iron Binding Capacity 260 mcg/dL (228-428); Unsaturated Iron Binding < 25 ug/dL
[2024-11-06 15:13] LABS: Ferritin 95 ng/mL (20-250)
== END 2024-11-06 14:08 | disposition home or self-care (01) ==
LOC: HO.BBR 14:07
PROVIDERS: PCP Internal Medicine; Visit Provider Internal Medicine
DX: E83.119 Hemochromatosis, unspecified (principal)
CPT/HCPCS: 36415; 82728; 83540; 85025

== ENCOUNTER 2025-01-15 13:52 | Outpatient (REF) | payer OTHER, BC, SELFPAY ==
--- OUTSIDE RECORDS SUMMARY | 2025-01-15 13:54 | XMS_ITS | Continuity of Care Document ---
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 Name Role Phone [facility] Unavailable Unavailable Problems Combined list of problems [...] Site Reaction Lot Number CVX Code Drug Bookseamer Blindstitch Status Comments Source influenza, injectable, quadrivalent- pf 2021 [id number] GlaxoSmithKli ne complet ed influenza , injectabl e, quadrival ent-pf 04/11/22 Given Ambulat ory Pharmac y SARS-CoV-2 (COVID-19) mRNA-Bivalent 2021 [id number] complet ed SARS-CoV- 2 (COVID-19 ) mRNA-Biva lent 03/29/22 Given Ambulat ory Pharmac y typhoid Vi capsular polysaccharid e vac 2021 [id number] 101 sanofi pasteur complet ed typhoid Vi capsular polysacch aride vac 07/11/21 Given Ambulat ory Pharmac y COVID Vaccine Moderna 2020 [id number] 207 complet ed COVID Vaccine Moderna 05/22/21 Given Ambulat ory Pharmac y influenza, injectable, quadrivalent 2020 [id number] 158 GlaxoSmithKli ne complet ed influenza , injectabl e, quadrival ent 03/15/21 Given Ambulat ory Pharmac y tetanus, diphtheria, acellular pertu is 2020 [id number] 115 sanofi pasteur complet ed tetanus, diphtheri a, acellular pertussis 01/31/21 Given Ambulat ory Pharmac y meningococcal A,C,Y,W-135 (MCV4P) 2020 [id number] 114 sanofi pasteur complet ed meningoco ccal A,C,Y,W-1 35 (MCV4P) 11/16/20 Given Ambulat ory Pharmac y COVID Vaccine Moderna 2020 [id number] 207 complet ed COVID Vaccine Moderna 08/26/20 Given Ambulat ory Pharmac y COVID Vaccine Moderna 2020 [id number] 207 complet ed COVID Vaccine Moderna 07/25/20 Given Ambulat ory Pharmac y influenza, seasonal, injectable 2019 [id number] 141 PaymateKli ne complet ed influenza , seasonal, injectabl e 05/30/20 Given Ambulat ory Pharmac y typhoid Vi capsular polysaccharid e vac 2018 [id number] 101 sanofi pasteur complet ed typhoid Vi capsular polysacch aride vac 06/07/19 Given Ambulat ory Pharmac y influenza, injectable, quadrivalent- pf 2018 [id number] 150 Seqirus complet ed influenza , injectabl e, quadrival ent-pf 06/07/19 Given Ambulat ory Pharmac y influenza, seasonal, injectable 2017 [id number] 141 sanofi pasteur complet ed influenza , seasonal, injectabl e 05/20/18 Given Ambulat ory Pharmac y typhoid Vi capsular polysaccharid e vac 2016 [id number] 101 sanofi pasteur complet ed typhoid Vi capsular polysacch aride vac 05/31/17 Given Ambulat ory Pharmac y Influenza, inj, MDCK, quadrivalent- pf 2016 [id number] 171 Seqirus complet ed Influenza , inj, MDCK, quadrival ent-pf 05/31/17 Given Ambulat ory Pharmac y influenza, seasonal, injectable-pf 2015 [id number] 140 CSL Behring complet ed influenza , seasonal, injectabl e-pf 05/06/16 Given Ambulat ory Pharmac y meningococcal A,C,Y,W-135 (MCV4P) 2015 [id number] 114 sanofi pasteur complet ed meningoco ccal A,C,Y,W-1 35 (MCV4P) 12/03/15 Given Ambulat ory Pharmac y typhoid Vi capsular polysaccharid e vac 2014 [id number] 101 sanofi pasteur complet ed typhoid Vi capsular polysacch aride vac 05/21/15 Given Ambulat ory Pharmac y influenza, seasonal, injectable-pf 2014 [id number] 140 CSL Behring complet ed influenza , seasonal, injectabl e-pf 04/14/15 Given Ambulat ory Pharmac y influenza, seasonal, injectable 2013 [id number] 141 CSL Behring complet ed influenza , seasonal, injectabl e 03/07/14 Given Ambulat ory Pharmac y typhoid Vi capsular polysaccharid e vac 2012 [id number] 101 sanofi pasteur complet ed typhoid Vi capsular polysacch aride vac 04/26/13 Given Ambulat ory Pharmac y Influenza, injectable, MDCK-pf 2012 [id number] 153 Novartis Pharmaceutica complet ed Influenza , injectabl e, MDCK-pf 04/26/13 Given Ambulat ory Pharmac y influenza, seasonal, injectable-pf 2011 [id number] 140 CSL Behring complet ed influenza , seasonal, injectabl e-pf 04/11/12 Given Ambulat ory Pharmac y influenza, seasonal, injectable-pf 2010 [id number] 140 CS Behring complet ed influenza , seasonal, injectabl e-pf 05/06/11 Given Ambulat ory Pharmac y tetanus, diphtheria, acellular pertu is 2010 [id number] 115 sanofi pasteur complet ed tetanus, diphtheri a, acellular pertussis 05/06/11 Given Ambulat ory Pharmac y typhoid Vi capsular polysaccharid e vac 2010 [id number] 101 sanofi pasteur complet ed typhoid Vi capsular polysacch aride vac 05/06/11 Given Ambulat ory Pharmac y yellow fever vaccine 2010 [id number] 37 sanofi pasteur complet ed yellow fever vaccine 05/06/11 Given Ambulat ory Pharmac y yellow fever vaccine 1 2010 [id number] 37 Sanofi Pasteur ([facility]) complet ed yellow fever vaccine DoD typhoid Vi capsular polysaccharid e vaccine 6 2010 [id number] 101 Sanofi Pasteur ([facility]) complet ed typhoid Vi capsular polysacch aride vaccine DoD tetanus toxoid, reduced diphtheria toxoid, and acellular pertu is vaccine, adsorbed 0 2010 [id number] 115 Sanofi Pasteur ([facility]) complet ed tetanus toxoid, reduced diphtheri a toxoid, and acellular pertussis vaccine, adsorbed DoD Influenza, seasonal, injectable, preservative free 12 2010 [id number] 140 CS Metailherapies[employer] Inc. (CSL) complet ed Influenza , seasonal, injectabl e, preservat joelle free DoD meningococcal A,C,Y,W-135 (MCV4P) 2010 [id number] 114 sanofi pasteur complet ed meningoco ccal A,C,Y,W-1 35 (MCV4P) 11/12/10 Given Ambulat ory Pharmac y meningococcal polysaccharid e (groups A, C, Y and W-135) diphtheria toxoid conjugate vaccine (MCV4P) 1 2010 [id number] 114 Sanofi Pasteur ([facility]) complet ed meningoco ccal polysacch aride (groups A, C, Y and W-135) diphtheri a toxoid conjugate vaccine (MCV4P) DoD vaccinia (smallpox) vaccine 2009 VV04-00 3A 75 Trendyol complet ed vaccinia (smallpox ) vaccine 04/13/10 Given Ambulat ory Pharmac y anthrax vaccine 2009 [id number] 24 Emergent Biosolutions complet ed anthrax vaccine 04/13/10 Given Ambulat ory Pharmac y influenza virus vaccine,split 2009 [id number] 1B 15 CSL Behring complet ed influenza virus vaccine,s plit 04/13/10 Given Ambulat ory Pharmac y influenza virus vaccine, split virus (incl. purified surface antigen)-reti red CODE 1 2009 [id number] 15 CS Metailherapies[employer] Inc. (CS) complet ed influenza virus vaccine, split virus (incl. purified surface antigen)- retired CODE DoD anthrax vaccine 5 2009 [id number] Emergent [employer] [place] ([facility]) complet ed anthrax vaccine DoD vaccinia (smallpox) vaccine 1 2009 VV04-00 3A 75 [facility] [place] [employer] ([facility]) complet ed vaccinia (smallpox ) vaccine DoD Novel influenza-H1N injectable 2009 [id number] 127 Novartis Pharmaceutica ls complet ed Novel influenza -A2U2-92, injectabl e 07/24/09 Given Ambulat ory Pharmac y Novel influenza-H1N 1-09, injectable 1 2009 [id number] 1 127 Novartis Pharmaceutica l Alec. (NOV) complet ed Novel influenza -U4N5-97, injectabl e DoD typhoid Vi capsular polysaccharid e vac 2008 [id number] 101 sanofi pasteur complet ed typhoid Vi capsular polysacch aride vac 04/20/09 Given Ambulat ory Pharmac y typhoid Vi capsular polysaccharid e vaccine 1 2008 [id number] 101 Sanofi Pasteur ([facility]) complet ed typhoid Vi capsular polysacch aride vaccine DoD influenza virus vaccine, live 2008 [id number] 111 Comr.se Inc comple t ed influenza virus vaccine, live 04/04/09 Given Ambulat ory Pharmac y influenza virus vaccine, live, attenuated, for intranasal use 1 2008 [id number] 111 Aeropost, Inc. (MED) complet ed influenza virus vaccine, live, attenuate d, for intranasa l use DoD influenza virus vaccine,split 2007 [id number] 15 GlaxoSmithKli ne complet ed influenza virus vaccine,s plit 05/13/08 Given Ambulat ory Pharmac y influenza virus vaccine, split virus (incl. purified surface antigen)-reti red CODE 1 2007 [id number] 15 [facility] ([facility]) complet ed influenza virus vaccine, split [...] red CODE 1 2006 [id number] 15 [facility] ([facility] complet ed influenza virus vaccine, split [...] virus (incl. purified surface antigen)- retired CODE [facility] meningococcal polysaccharid e (MPSV4) 2005 [id number] 32 sanofi pasteur complet ed meningoco ccal polysacch aride (MPSV4) 11/18/05 Given Ambulat ory Pharmac y meningococcal polysaccharid e vaccine (MPSV4) 1 2005 [id number] 32 Sanofi Pasteur ([facility]) complet ed meningoco ccal polysacch aride vaccine (MPSV4) DoD typhoid vaccine, inactivated 2004 [id number] 101 sanofi pasteur complet ed typhoid vaccine, inactivat ed 06/04/05 Given Ambulat ory Pharmac y typhoid vaccine, parenteral, other than acetone-kille d, dried 1 2004 [id number] 41 Sanofi Pasteur ([facility]) complet ed typhoid vaccine, parentera l, other than acetone-k illed, dried DoD influenza virus vaccine,split 2004 [id number] 15 sanofi pasteur complet ed influenza virus vaccine,s plit 05/07/05 Given Ambulat ory Pharmac y influenza virus vaccine, split virus (incl. purified surface antigen)-reti red CODE 1 2004 [id number] 15 Sanofi Pasteur ([facility]) complet ed influenza virus vaccine, split virus (incl. purified surface antigen)- retired CODE DoD influenza virus vaccine, live 2004 [id number] 111 [employer] comple t ed influenza virus vaccine, live 07/12/04 Given Ambulat ory Pharmac y influenza virus vaccine, live, attenuated, for intranasal use 0 2004 [id number] 111 Aeropost[employer] Inc. (MED) complet ed influenza virus vaccine, live, attenuate d, for intranasa l use DoD anthrax vaccine 2003 [id number] 24 Emergent Biosolutions complet ed anthrax vaccine 04/15/04 Given Ambulat ory Pharmac y anthrax vaccine 5 2003 [id number] 24 [facility]gent [facility] [place] ([facility]) complet ed anthrax vaccine DoD tuberculin purified protein derivative 2003 [id number] 96 sanofi pasteur complet ed tuberculi n purified protein derivativ e 11/13/03 Given Ambulat ory Pharmac y anthrax vaccine 2003 [id number] 24 [employer] complet ed anthrax vaccine 09/05/03 Given Ambulat ory Pharmac y anthrax vaccine 4 2003 [id number] 24 [facility] complet ed anthrax vaccine DoD typhoid vaccine, inactivated 2002 [id number] 101 sanofi pasteur complet ed typhoid vaccine, inactivat ed 06/21/03 Given Ambulat ory Pharmac y influenza virus vaccine, whole virus 2002 [id number] 16 sanofi pasteur complet ed influenza virus vaccine, whole virus 06/21/03 Given Ambulat ory Pharmac y influenza virus vaccine, whole virus 0 2002 [id number] 16 Sanofi Pasteur ([facility]) complet ed influenza virus vaccine, whole virus DoD typhoid vaccine, parenteral, other than acetone-kille d, dried 0 2002 [id number] 41 Sanofi Pasteur ([facility]) complet ed typhoid vaccine, parentera l, other than acetone-k illed, dried DoD anthrax vaccine 2002 [id number] 24 Emergent [employer] complet ed anthrax vaccine 12/02/02 Given Ambulat ory Pharmac y anthrax vaccine 3 2002 [id number] 24 Emergent BioDefense [facility] ([facility]) complet ed anthrax vaccine DoD tuberculin purified protein derivative 2002 [id number] 96 sanofi pasteur complet ed tuberculi n purified protein derivativ e 11/03/02 Given Ambulat ory Pharmac y anthrax vaccine 2002 [id number] 24 [employer] complet ed anthrax vaccine 11/03/02 Given Ambulat ory Pharmac y anthrax vaccine 2 2002 [id number] 24 Emergent Bio[employer] [facility] ([facility]) complet ed anthrax vaccine DoD anthrax vaccine 2002 [id number] 24 Emergent [employer] complet ed anthrax vaccine 10/15/02 Given Ambulat ory Pharmac y anthrax vaccine 1 2002 [id number] 24 Emergent [employer] [facility] ([facility]) complet ed anthrax vaccine DoD influenza virus vaccine, whole virus 2001 [id number] 16 sanofi pasteur complet ed influenza virus vaccine, whole virus 04/05/02 Given Ambulat ory Pharmac y influenza virus vaccine, whole virus 0 2001 [id number] 16 Sanofi Pasteur ([facility]) complet ed influenza virus vaccine, whole virus DoD tuberculin purified protein derivative 2001 [id number] 96 sanofi pasteur complet ed tuberculi n purified protein derivativ e 11/11/01 Given Ambulat ory Pharmac y influenza virus vaccine, whole virus 2001 [id number] 16 sanofi pasteur complet ed influenza virus vaccine, whole virus 09/05/01 Given Ambulat ory Pharmac y influenza virus vaccine, whole virus 0 2001 [id number] 16 Sanofi Pasteur ([facility]) complet ed influenza virus vaccine, whole virus DoD typhoid vaccine, inactivated 2000 [id number] 101 PaymateKli va complet ed typhoid vaccine, inactivat ed 04/25/01 Given Ambulat ory Pharmac y yellow fever vaccine 2000 [id number] 37 sanofi pasteur complet ed yellow fever vaccine 04/25/01 Given Ambulat ory Pharmac y hepatitis A adult vaccine 2000 [id number] 52 Merck & Company Inc complet ed hepatitis A adult vaccine 04/25/01 Given Ambulat ory Pharmac y tetanus-dipht h toxoids (Td) adult/adol 2000 [id number] 09 sanofi pasteur complet ed tetanus-d iphth toxoids (Td) adult/ado l 04/25/01 Given Ambulat ory Pharmac y tetanus and diphtheria toxoids, adsorbed, preservative free, for adult use (2 Lf of tetanus toxoid and 2 Lf of diphtheria toxoid) 0 2000 [id number] 09 Sanofi Pasteur ([facility]) complet ed tetanus and diphtheri a toxoids, adsorbed, preservat joelle free, for adult use (2 Lf of tetanus toxoid and 2 Lf of diphtheri a toxoid) DoD yellow fever vaccine 0 2000 [id number] 37 Sanofi Pasteur ([facility]) complet ed yellow fever vaccine DoD typhoid vaccine, parenteral, other than acetone-kille d, dried 0 2000 [id number] 41 [facility] complet ed typhoid vaccine, parentera l, [...] dosage DoD tuberculin purified protein derivative 2000 [id number] 96 [facility] complet ed tuberculi n purified protein derivativ e 10/10/00 Given Ambulat ory Pharmac y meningococcal polysaccharid e (MPSV4) 2000 [id number] 32 [facility] complet ed meningoco ccal polysacch aride (MPSV4) 10/10/00 Given Ambulat ory Pharmac y influenza virus vaccine, whole virus 2000 [id number] 16 [employer].D. [facility] complet ed influenza virus vaccine, whole virus 10/10/00 Given Ambulat ory Pharmac y poliovirus vaccine, inactivated 2000 [id number] 10 sanofi pasteur complet ed polioviru s vaccine, inactivat ed 10/10/00 Given Ambulat ory Pharmac y measles, mumps and rubella virus vaccine 0 2000 03 () Not Given measles, mumps and rubella virus vaccine DoD poliovirus vaccine, inactivated 0 2000 [id number] 10 Sanofi Pasteur ([facility]) complet ed polioviru s vaccine, inactivat ed DoD influenza virus vaccine, whole virus 0 2000 [id number] 16 [facility] ([facility]) complet ed influenza virus vaccine, whole virus DoD meningococcal polysaccharid e vaccine (MPSV4) 0 2000 [id number] 32 [place] (CON) complet ed meningoco ccal [...] dosage DoD hepatitis B adult vaccine 1997 [id number] complet ed hepatitis B adult vaccine 07/09/97 Given Ambulat ory Pharmac y hepatitis B vaccine, adult dosage 1 1997 [id number] 43 () complet ed hepatitis B vaccine, [...] Prevention' s HIV diagnostic algorithm. Refer to [facility] Lab Guide for additional information : 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 Location Location Details Encounter Type Encounter Number Reason For Visit Attending Provider ADM Date DC Date Status Disposition Source [id number] AMDS Between Visit [id number] 03/17 Discharge Disposition: Home or Self Care 8344R-4 39 AMDS [id number] AMDS Between Visit [id number] 05/13 Discharge Disposition: Home or Self Care 8344R-4 39 AMDS [id number] AMDS Care Not Rendered [id number] 10/02 Discharge Disposition: Home or Self Care 8344R-4 39 AMDS [id number] AMDS Outpatient [id number] CARA COLLINS 10/03 Discharge Disposition: Home or Self Care 8344R-4 39 AMDS 0310C-AF- C-66th [facility] [place] Between Visit [id number] 10/05 Discharge Disposition: Home or Self Care 0310C-A F-C-66t h [facility] [place] Procedures Combined list of: 1) Procedures from 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 Social History Type Response Date Comment Sourc e Sex Representation Male (finding) 07/12/2022 Un known Organization Tobacco smoking status NHIS LIFETIME NON-SMOKER 02[facility]13/2005 [facility] History of tobacco use LIFETIME NON-TOBACCO USER 02/13/2005 [facility] Sexual Orientation Ambula tory Pharmacy Gender identity Ambulator y Pharmacy This section is an empty social history section. [facility] Assessment and Plan Combined list of future [...] VALDEZ on October 02, 2024 09:20 EDT V itals: Blood Pressure: 1 Heart Rate: 51 Height: 76 Weight: 212lbs BMI: 25.81 Medications: eliquis, metoprolol, claritin, vit c, glucosamine, elocon cream, tylenol Chronic Problems: PE, vtech SF 507: N/A Comments: Additional heart cath procedure needed. MEB complete, member waiting for detention order. Addendum by CARA POLANCO MD on October 02, 2024 10:27 EDT Chief Complaint: Member here for annual PHA. N o acute complaints. I MR pushpa grigsby. 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 Last Name: MARK 2. First Name: JORDON 3. Middle Name: EDIL 4. Assessment Date: 5. : 6. Age: 43 7. Sex: M 8. DoD ID Number: [id number] 9. Service Branch: [employer] 10. 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 Unit Name: [address] 14. Duty Station/Location: [place] 15. C: [id number] 16. Is this your first Periodic Health Assessment (PHA)?: N 17. Are you enrolled in a secure messaging system with your health care provider?: Y 18. Current contact information: Preferred Method: Email 1 DSN: [id number] Day Time Phone: [phone] Night Time Phone: [phone] Email 1: [email or web address] Email 2: Address: [address] [place] [address]: [place] State: [place] Zip Code: [address] 19. Point of contact who can always reach you: Name: Cara Kramer Phone 1: [phone] Phone 2: EMAIL: [email or web address] Address: [address] [place] [address]: [place] State: [place] Zip Code: [address] II. DEPLOYMENT INFORMATION (DEP) 1. [ 0 ] Total number of deployments in the PAST 5 YEARS 4. [ N ] Are you going to deploy within the NEXT 120 DAYS? III. OCCUPATIONAL INFORMATION (OCC) 1 [ [id number] ] What is your occupational code 2. [...] easily startled? 6. d. [ No ] Mcgrady numb or detached from others, activities, or your surroundings? 6. e. [ Not answered ] Mcgrady guilt or unable to stop blaming yourself [...] like to schedule a visit with a quenching car operator, mental health care provider, or a [...] [ Metoprolol, Eliquis ] What prescriptions or bily-per-qrnzqlq medications are you CURRENTLY taking for health [...] had a cholesterol check by a health wound care specialist within the PAST 5 YEARS? 13.a. In [...] and where the care was provided: Conditions: [facility] Where: Chronic Pulm. Embolism, Arrythmia / Phlebotomy 5. Member acknowledged responsibility for reporting health issues. 6. [ Lower Back Pain ] Member's concerns about health condition(s) or health risk exposures not already addressed 7. [ No ] Woud you like to schedule an appointment with a health care provider to discuss any health concerns? XI. SEPARATION AND GROUP HOME 1. [ Yes ] Are you planning to separate or retire within the next year from Active Duty or [place] Duty (activated for greater than 30 continuous days) OR do you intend to file a claim for disability compensation with the Veterans Benefits Administration? ---- PART B. RECORD REVIEW AND RECOMMENDATIONS I. RECORD REVIEWER INFORMATION 1. Last Name: KEVIN 2. First Name: CASIE 3. Middle Name: Ashley 4. Service Branch: [employer] 5. Status: Active [employer] [place] or Full-Time Support 6. 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 EMAIL: [email or web address] 8. Facility: [facility] 9. Unit: 9 [facility] 10. Address: [address] [place] [address] 11. State: [place] 12. Zip Code: [address] 13. 14. Date Record Review: II. MEDICAL SCREENING 1. 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 [ 6 feet 3 inches Date: ] landscape crew member's most recently documented height 3. [ 213 pounds Date: ] landscape crew member's most recently documented weight 4. [ 130/84 Date: ] landscape crew member's most recently documented blood pressure reading 5. [ Yes ] Does the landscape crew member have a history of abnormal blood pressure since their last PHA? 6. [ Yes ] Does the landscape crew member have a laboratory test of sickle cell trait documented in their permanent medical record? 7. [ ] What is the date of the landscape crew member's most recently documented cholesterol test? 9. [ Eliquis 5mg metoprolol ] List of landscape crew member's active medications listed in their permanent medical record 10. [ No ] Is there a discrepancy between the active medication record review and the landscape crew member's self-reported list of medications? 11. [ seen for hemochromatosis, PE, dyspnea, V tach, HTN, DVT ] List documented significant care the landscape crew member has received since their last PHA from a provider OUTSIDE the Health System 12. [ Yes: seen for hemochromatosis, PE, dyspnea, V tach, HTN, DVT ] Is there a discrepancy between the landscape crew member's list of OUTSIDE care (from OTH[facility]), and the OUTSIDE care found in the record? 13. [ No Inside Care Documented ] List documented significant care the landscape crew member has received since their last PHA from a provider INSIDE the Health System 14. Is there documentation in the record for each surgery listed below? Chronic Pulmonary Embolisms/Right Heart Catheterization with PA Line: Yes 15. [ Not Answered ] Confirm that vaccine exemptions are listed in the medical record for each vaccine listed III. OCCUPATION-SPECIFIC EXAMINATIONS 1. 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 IV. FAMILY HISTORY AND LIFESTYLE 1. [ Yes ] Does the [id number] reflect the landscape crew member's reported family history? VII. INDIVIDUAL MEDICAL READINESS 1. [ Yes ] Does the landscape crew member have an Assignment Limitation Code C? 3. [ Classification: 1 ] Most recently documented dental exam 4. [ Yes ] Is the landscape crew member current on all required immunizations in the immunization tracking system? 6. Does the landscape crew member have the following laboratory tests documented [...] need to be forwarded to the Health Bus Info Consultant completing PART C: Pending MEB pulmonary embolism Concerns about lower back pain. Reported multiple health conditions Surgery since last PHA R heart catheterization w/ PA line Medication: metoprolol, Eliquis. Supplements: protein/creatine, joint care Pain scale 2/10 seen for hemochromatosis, PE, dyspnea, V tach, HTN, DVT per [facility] Date Record Review Completed: - PART C. HEALTH CARE PROVIDER I. MENTAL HEALTH ASSESSMENT (MHA) PROVIDER INFORMATION 1. Last Name: COLLIN 2. First Name: CARA 3. Middle Name: 4. 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 EMAIL: [email or web address] 8. Facility: [facility] 9. Unit: [facility] 10. Address: [address] [place], [place] [address] 11. State: [place] 12. Zip Code: [address] 13. Phone: [phone] 14. Date HCP Review initiated: 1. Member [...] CARA 3. Middle Name: 4. 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 EMAIL: [email or web address] 8. Facility: [facility] 9. Unit: [facility] 10. Address: [address] [place] [address] 11. State: [place] 12. Zip Code: [address] 13. Phone: [phone] 14. Date HCP Review initiated: IV. PERIODIC HEALTH ASSESSMENT PROVIDER RECOMMENDATIONS and REFERRALS 1. Provider concerns with this assessment: No issues or concerns identified V. SUMMARY AND COMMENTS 1. Additional information summarizing findings during the landscape crew member assessment: 2. Provider Comments: Member is stable on current regimen. MEB October 2024. . INDIVIDUAL MEDICAL READINESS DISPOSITION DETERMINATION EDDA: Not Ready DEN: Ready IMM: Ready LAB: Ready ME: Ready IMR Status: Not Medically Ready VII. 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 Reference [facility] 6490.07 No (landscape crew member currently has a medical condition that DOES require duty limitation(s) AND limits deployability) Date PHA Completed: END OF [id number] REPORT Impression:Does not meet m edical standards per REJI 48-123/MSD. Disposition: N o AF469 changes based on this encounter.Member is mobility restricted/C-coded.pending MEB Extracted from:Title: Office Clinic Note Author: STEVEN WALDEN Date: 12/02/23 Encounter for examination and observation for other specified reasons Hearing WNL. Patient's left ear reference audiogram was re-established after follow-up program. A copy of hearing test was given to patient, and uploaded into [employer]. Steven Walden, Product Strategy Director Publications Production Supervisor [facility], [place], [place] Extracted from:Title: FLY PHA Author: WAN PEDRO Date: 11/07/23 Member arrived for FLY PHA. History of Refractive Surgery- N O Contact Lenses- N /A Enrolled in Contact Lens Program- N /A Gas Mask Inserts ordered- N /A Current SRX on file- N /A DVA (uncorrected) OD: 20/20 OS: 2 0/20 NVA (uncorrected) OD: 20/20 OS: 20/20 Phorias: ESO _0_ EXO _0__ RH _0__ LH _0.5__ Depth Perception Uncorrected P ass through _F__ IOP OD:11 OS:12 Time: 0 930 Optometry findings meet standards- Yes Addendum by ANTONY VALDEZ on November 07, 2023 09:50 EDT V itals: Blood Pressure: 1 30/84 Heart Rate: 51 Height: 76 Weight: 210lb BMI: 25.56 Medications: Eliquis Elocon cream Claritin Vit C Glucosamine Chondroitin Tylenol Chronic Problems: R leg DVT R ventricular enlargement SF 507: N/A Comments: No concerns Addendum by CARA POLANCO MD on November 07, 2023 10:55 EDT Chief Complaint: Member here for annual fly PHA. Patient is able to complete duties required by AF[employer]. No acute complaints.NO: Fly w aiver. Initial Waiver Date: Waiver Exp Date: ALANA grigsby. Test results reviewed: Audio: Audiogram H-1, no asymmetric hearing loss, no significant threshhold shift Optometry:Meets vision standards for: Near and distant visual acuity, IOP, Depth perception, Phorias EKG: N ot Required PHYSICAL EXAM: HEENT: N ormal Valsalva: N ormal Joints: N ormal Spine:Normal Skin:Normal Neuro: N ormal Lungs: N ormal Heart: N ormal Abdomen: N ormal Comments: ANNUAL PERIODIC HEALTH ASSESSMENT I. 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 Last Name: MARK 2. First Name: JORDON 3. Middle Name: EDIL 4. Assessment Date: 5. : 6. Age: 42 7. Gender: M 8. DoD ID Number: [id number] 9. Service Branch: [employer] 10. 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 Unit Name: [address] 14. Duty Station/Location: [place] 15. UIC: [id number] 16. Is this your first Periodic Health Assessment (PHA)?: N 17. Are you enrolled in a secure messaging system with your health care provider?: Y 18. Current contact information: Preferred Method: Email 1 DSN: [id number] Day Time Phone: [phone] Night Time Phone: [phone] Email 1: [email or web address] Email 2: [email or web address] Address: [address] [place] [address] State: [place] Zip Code: [address] 19. Point of contact who can always reach you: Name: Cara Kramer Phone 1: [phone] Phone 2: EMAIL: [email or web address] Address: [address] [place] [address]: [place]: [place] Zip Code: [address] II. DEPLOYMENT INFORMATION (DEP) 1. [ 0 ] Total number of deployments in the PAST 5 YEARS 4. [ N ] Are you going to deploy within the NEXT 120 DAYS? III. OCCUPATIONAL INFORMATION (OCC) 1 [ [id number] ] What is your occupational code 2. [...] easily startled? 6. d. [ No ] Mcgrady numb or detached from others, activities, or your surroundings? 6. e. [ Not answered ] Mcgrady guilt or unable to stop blaming yourself [...] like to schedule a visit with a quenching car operator, mental health care provider, or a [...] 8. [ Tylenol ] What prescriptions or tmov-swj-seoqrkr medications are you CURRENTLY taking for health problems on a ROUTINE BASIS? 9. Which of the following products have you taken since your last PHA: Individual Vitamins or Minerals: Two or more times a day [place]-3 Supplements: Two or more times a day [...] had a cholesterol check by a health wound care specialist within the PAST 5 YEARS? 13.a. In [...] discuss any health concerns? XI. SEPARATION AND GROUP HOME 1. [ Yes ] Are you planning to separate or retire within the next year from Active Duty or [place] Duty (activated for greater than 30 continuous days) OR do you intend to file a claim for disability compensation with the Veterans Benefits Administration? ---- PART B. RECORD REVIEW AND RECOMMENDATIONS I. RECORD REVIEWER INFORMATION 1. Last Name: BRAULIO 2. First Name: SHILPA 3. Middle Name: CARMEN 4. Service Branch: [employer] 5. Status: 6. 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 EMAIL: [email or web address] 8. Facility: [facility] 9. Unit: [facility] 10. Address: [address] [place] [address] 11. State: [place] 12. Zip Code: [address] 13. Phone: [phone] 14. Date Record Review: II. MEDICAL SCREENING 1. 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 [ 6 feet 2 inches Date: ] landscape crew member's most recently documented height 3. [ 207 pounds Date: ] landscape crew member's most recently documented weight 4. [ 133/84 Date: ] landscape crew member's most recently documented blood pressure reading 5. [ Yes ] Does the landscape crew member have a history of abnormal blood pressure since their last PHA? 6. [ Yes ] Does the landscape crew member have a laboratory test of sickle cell trait documented in their permanent medical record? 7. [ No Cholesterol Test Documented ] What is the date of the landscape crew member's most recently documented cholesterol test? 9. [ tylenol PRN Eliquis 5 mg, elocon 0.1% cream, Claritin 10 mg, glucosamine-chondroitin 500-400 mg, vitamin C 250 mg ] List of landscape crew member's active medications listed in their permanent medical record 10. [ No ] Is there a discrepancy between the active medication record review and the landscape crew member's self-reported list of medications? 11. [ Cardiac work ups following PE ] List documented significant care the landscape crew member has received since their last PHA from a provider OUTSIDE the Health System 12. [ No ] Is there a discrepancy between the landscape crew member's list of OUTSIDE care (from OT5), and the OUTSIDE care found in the record? 13. [ No Inside Care Documented ] List documented significant care the landscape crew member has received since their last PHA from a provider INSIDE the Health System 15. [ Not Answered ] Confirm that vaccine exemptions are listed in the medical record for each vaccine listed 16. [ No Discrepancies Noted ] Review available medical documentation of allergies and compare with landscape crew member responses. Document any discrepancies III. OCCUPATION-SPECIFIC EXAMINATIONS 1. 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 IV. FAMILY HISTORY AND LIFESTYLE 1. [ Yes ] Does the [id number] reflect the landscape crew member's reported family history? VII. INDIVIDUAL MEDICAL READINESS 1. [ No ] Does the landscape crew member have an Assignment Limitation Code C? 3. [ Classification: 1 ] Most recently documented dental exam 4. [ Yes ] Is the landscape crew member current on all required immunizations in the immunization tracking system? 6. Does the landscape crew member have the following laboratory tests documented [...] need to be forwarded to the Health Bus Info Consultant completing PART C: Currently DNIF and AF [...] CARA 3. Middle Name: 4. Service Branch: [facility] 5. 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 EMAIL: [email or web address] 8. Facility: [facility] 9. Unit: [facility] 10. Address: [address] [place] [address] 11. State: [place] 12. Zip Code: [address] 13. Phone: [phone] 14. Date HCP Review initiated: 1. Member [...] CARA 3. Middle Name: 4. 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 EMAIL: [email or web address] 8. Facility: [facility] 9. Unit: [facility] 10. Address: [address] [place] [address] 11. State: [place] 12. Zip Code: [address] 13. Phone: [phone] 14. Date HCP Review initiated: IV. PERIODIC HEALTH ASSESSMENT PROVIDER RECOMMENDATIONS and REFERRALS 1. Provider concerns with this assessment: No issues or concerns identified V. SUMMARY AND COMMENTS 1. Additional information summarizing findings during the landscape crew member assessment: 2. Provider Comments: Member continues to be followed by cardiology and heme. Next appt this month. . INDIVIDUAL MEDICAL READINESS DISPOSITION DETERMINATION EDDA: Not Ready DEN: Ready IMM: Ready LAB: Ready ME: Ready IMR Status: Partially Medically Ready VII. 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 Reference [place] 6490.07 No (landscape crew member currently has a medical condition that DOES require duty limitation(s) AND limits deployability) Date PHA Completed: END OF [id number] REPORT Impression: Does not Meet F CIII m edical standards per DAFSUFFOLK 48-123/MSD. Aeromedical Disposition: Continue DNIF. DD 2992 s igned. No AF469 changes based on this encounter. Member is mobility restricted/C-coded. Code 37. 01/15/2025 [id number] AMDS Assessment and Plan Extracted from:Title : SHPE/PHA Author: ROYA DERAS Date: 10/02/24 Mbr came in for appointment. Addendum by ANTONY VALDEZ on October 02, 2024 09:20 EDT V itals: Blood Pressure: 1 Heart Rate: 51 Height: 76 Weight: 212lbs BMI: 25.81 Medications: eliquis, metoprolol, claritin, vit c, glucosamine, elocon cream, tylenol Chronic Problems: PE, vtech SF 507: N/A Comments: Additional heart cath procedure needed. MEB complete, member waiting for detention order. Addendum by CARA POLANCO MD on October 02, 2024 10:27 EDT Chief Complaint: Member here for annual PHA. N o acute complaints. I MR pushpa grigsby. HEENT: N ormal Joints: N ormal Lungs: N ormal Heart: N ormal Comments: A NNUAL PERIODIC HEALTH ASSESSMENT I. 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 Last Name: MARK 2. First Name: JORDON 3. Middle Name: EDIL 4. Assessment Date: 5. : 6. Age: 43 7. Sex: M 8. DoD ID Number: [id number] 9. Service Branch: [employer] 10. 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 Unit Name: [address] 14. Duty Station/Location: [place] 15. [facility]: [id number] 16. Is this your first Periodic Health Assessment (PHA)?: N 17. Are you enrolled in a secure messaging system with your health care provider?: Y 18. Current contact information: Preferred Method: Email 1 DSN: [id number] Day Time Phone: [phone] Night Time Phone: [phone] Email 1: [email or web address] Email 2: Address: [address] [place] [address]: [place] State: [place] Zip Code: [address] 19. Point of contact who can always reach you: Name: Cara Kramer Phone 1: [phone] Phone 2: EMAIL: [email or web address] Address: [address] [place] [address]: [place] State: [place] Zip Code: [address] II. DEPLOYMENT INFORMATION (DEP) 1. [ 0 ] Total number of deployments in the PAST 5 YEARS 4. [ N ] Are you going to deploy within the NEXT 120 DAYS? III. OCCUPATIONAL INFORMATION (OCC) 1 [ [id number] ] What is your occupational code 2. [...] easily startled? 6. d. [ No ] Mcgrady numb or detached from others, activities, or your surroundings? 6. e. [ Not answered ] Mcgrady guilt or unable to stop blaming yourself [...] like to schedule a visit with a quenching car operator, mental health care provider, or a [...] [ Metoprolol, Eliquis ] What prescriptions or seae-wli-nyihyew medications are you CURRENTLY taking for health [...] had a cholesterol check by a health wound care specialist within the PAST 5 YEARS? 13.a. In [...] and where the care was provided: Conditions: [facility] Where: Chronic Pulm. Embolism, Arrythmia / Phlebotomy 5. Member acknowledged responsibility for reporting health issues. 6. [ Lower Back Pain ] Member's concerns about health condition(s) or health risk exposures not already addressed 7. [ No ] Woud you like to schedule an appointment with a health care provider to discuss any health concerns? XI. SEPARATION AND GROUP HOME 1. [ Yes ] Are you planning to separate or retire within the next year from Active Duty or [place] Duty (activated for greater than 30 continuous days) OR do you intend to file a claim for disability compensation with the Veterans Benefits Administration? ---- PART B. RECORD REVIEW AND RECOMMENDATIONS I. RECORD REVIEWER INFORMATION 1. Last Name: KEVIN 2. First Name: CASIE 3. Middle Name: Ashley 4. Service Branch: [employer] 5. Status: Active [employer] [place] or Full-Time Support 6. 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 EMAIL: [email or web address] 8. Facility: [facility] 9. Unit: [facility] 10. Address: [address] [place] [address] [place] 11. State: [place] 12. Zip Code: [address] 13. 14. Date Record Review: II. MEDICAL SCREENING 1. 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 [ 6 feet 3 inches Date: ] landscape crew member's most recently documented height 3. [ 213 pounds Date: ] landscape crew member's most recently documented weight 4. [ 130/84 Date: ] landscape crew member's most recently documented blood pressure reading 5. [ Yes ] Does the landscape crew member have a history of abnormal blood pressure since their last PHA? 6. [ Yes ] Does the landscape crew member have a laboratory test of sickle cell trait documented in their permanent medical record? 7. [ ] What is the date of the landscape crew member's most recently documented cholesterol test? 9. [ Eliquis 5mg metoprolol ] List of landscape crew member's active medications listed in their permanent medical record 10. [ No ] Is there a discrepancy between the active medication record review and the landscape crew member's self-reported list of medications? 11. [ seen for hemochromatosis, PE, dyspnea, V tach, HTN, DVT ] List documented significant care the landscape crew member has received since their last PHA from a provider OUTSIDE the Health System 12. [ Yes: seen for hemochromatosis, PE, dyspnea, V tach, HTN, DVT ] Is there a discrepancy between the landscape crew member's list of OUTSIDE care (from OT5), and the OUTSIDE care found in the record? 13. [ No Inside Care Documented ] List documented significant care the landscape crew member has received since their last PHA from a provider INSIDE the Health System 14. Is there documentation in the record for each surgery listed below? Chronic Pulmonary Embolisms/Right Heart Catheterization with PA Line: Yes 15. [ Not Answered ] Confirm that vaccine exemptions are listed in the medical record for each vaccine listed III. OCCUPATION-SPECIFIC EXAMINATIONS 1. 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 IV. FAMILY HISTORY AND LIFESTYLE 1. [ Yes ] Does the [id number] reflect the landscape crew member's reported family history? VII. INDIVIDUAL MEDICAL READINESS 1. [ Yes ] Does the landscape crew member have an Assignment Limitation Code C? 3. [ Classification: 1 ] Most recently documented dental exam 4. [ Yes ] Is the landscape crew member current on all required immunizations in the immunization tracking system? 6. Does the landscape crew member have the following laboratory tests documented [...] need to be forwarded to the Health Bus Info Consultant completing PART C: Pending MEB pulmonary embolism [...] 6. 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 EMAIL: [email or web address] 8. Facility: [facility] 9. Unit: [facility] 10. Address: [address] [place] [address] 11. State: [place] 12. Zip Code: [address] 13. Phone: [phone] 14. Date HCP Review initiated: 1. Member [...] CARA 3. Middle Name: 4. 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 EMAIL: [email or web address] 8. Facility: [facility] 9. Unit: [facility] 10. Address: [address] [place] [address] 11. State: [place] 12. Zip Code: [address] 13. Phone: [phone] 14. Date HCP Review initiated: IV. PERIODIC HEALTH ASSESSMENT PROVIDER RECOMMENDATIONS and REFERRALS 1. Provider concerns with this assessment: No issues or concerns identified V. SUMMARY AND COMMENTS 1. Additional information summarizing findings during the landscape crew member assessment: 2. Provider Comments: Member is stable on current regimen. MEB October 2024. . INDIVIDUAL MEDICAL READINESS DISPOSITION DETERMINATION EDDA: Not Ready DEN: Ready IMM: Ready LAB: Ready ME: Ready IMR Status: Not Medically Ready VII. 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 Reference [place] 6490.07 No (landscape crew member currently has a medical condition that DOES require duty limitation(s) AND limits deployability) Date PHA Completed: END OF [id number] REPORT Impression:Does not meet m edical standards per REJI 48-123/MSD. Disposition: N o AF469 changes based on this encounter.Member is mobility restricted/C-coded.pending MEB Extracted from:Title: Office Clinic Note Author: STEVEN WALDEN Date: 12/02/23 Encounter for examination and observation for other specified reasons Hearing WNL. Patient's left ear reference audiogram was re-established after follow-up program. A copy of hearing test was given to patient, and uploaded into [employer]. Steven Walden, Product Strategy Director Publications Production Supervisor [facility] Read[facility] Training [facility], [place], [place] Extracted from:Title: FLY PHA Author: WAN PEDRO Date: 11/07/23 Member arrived for FLY PHA. History of Refractive Surgery- N O Contact Lenses- N /A Enrolled in Contact Lens Program- N /A Gas Mask Inserts ordered- N /A Current SRX on file- N /A DVA (uncorrected) OD: 20/20 OS: 2 0/20 NVA (uncorrected) OD: 20/20 OS: 20/20 Phorias: ESO _0_ EXO _0__ RH _0__ LH _0.5__ Depth Perception Uncorrected P ass through _F__ IOP OD:11 OS:12 Time: 0 930 Optometry findings meet standards- Yes Addendum by ANTONY VALDEZ on November 07, 2023 09:50 EDT V itals: Blood Pressure: 1 30/84 Heart Rate: 51 Height: 76 Weight: 210lb BMI: 25.56 Medications: Eliquis Elocon cream Claritin Vit C Glucosamine Chondroitin Tylenol Chronic Problems: R leg DVT R ventricular enlargement SF 507: N/A Comments: No concerns Addendum by CARA POLANCO MD on November 07, 2023 10:55 EDT Chief Complaint: Member here for annual fly PHA. Patient is able to complete duties required by [employer]. No acute complaints.NO: Ronnie wild. Initial Waiver Date: Waiver Exp Date: ALANA grigsby. Test results reviewed: Audio: Audiogram H-1, no asymmetric hearing loss, no significant threshhold shift Optometry:Meets vision standards for: Near and distant visual acuity, IOP, Depth perception, Phorias EKG: N ot Required PHYSICAL EXAM: HEENT: N ormal Valsalva: N ormal Joints: N ormal Spine:Normal Skin:Normal Neuro: N ormal Lungs: N ormal Heart: N ormal Abdomen: N ormal Comments: ANNUAL PERIODIC HEALTH ASSESSMENT I. 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 Last Name: MARK 2. First Name: JORDON 3. Middle Name: EDIL 4. Assessment Date: 5. : 6. Age: 42 7. Gender: M 8. DoD ID Number: [id number] 9. Service Branch: [employer] 10. 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 Unit Name: [address] 14. Duty Station/Location: [place] 15. UIC: [id number] 16. Is this your first Periodic Health Assessment (PHA)?: N 17. Are you enrolled in a secure messaging system with your health care provider?: Y 18. Current contact information: Preferred Method: Email 1 DSN: [id number] Day Time Phone: [phone] Night Time Phone: [phone] Email 1: [email or web address] Email 2: [email or web address] Address: [address] [place] [address] State: [place] Zip Code: [address] 19. Point of contact who can always reach you: Name: Cara Boss Mark Phone 1: [phone] Phone 2: EMAIL: [email or web address] Address: [address] [place] [address]: [facility]: [place] Zip Code: [address] II. DEPLOYMENT INFORMATION (DEP) 1. [ 0 ] Total number of deployments in the PAST 5 YEARS 4. [ N ] Are you going to deploy within the NEXT 120 DAYS? III. OCCUPATIONAL INFORMATION (OCC) 1 [ [id number] ] What is your occupational code 2. [...] easily startled? 6. d. [ No ] Mcgrady numb or detached from others, activities, or your surroundings? 6. e. [ Not answered ] Mcgrady guilt or unable to stop blaming yourself [...] like to schedule a visit with a quenching car operator, mental health care provider, or a [...] 8. [ Tylenol ] What prescriptions or qxvg-ddm-cuitboe medications are you CURRENTLY taking for health problems on a ROUTINE BASIS? 9. Which of the following products have you taken since your last PHA: Individual Vitamins or Minerals: Two or more times a day [place]-3 Supplements: Two or more times a day [...] had a cholesterol check by a health wound care specialist within the PAST 5 YEARS? 13.a. In [...] discuss any health concerns? XI. SEPARATION AND GROUP HOME 1. [ Yes ] Are you planning to separate or retire within the next year from Active Duty or [place] Duty (activated for greater than 30 continuous days) OR do you intend to file a claim for disability compensation with the Veterans Benefits Administration? ---- PART B. RECORD REVIEW AND RECOMMENDATIONS I. RECORD REVIEWER INFORMATION 1. Last Name: BRAULIO 2. First Name: SHILPA 3. Middle Name: CARMEN 4. Service Branch: [employer] 5. Status: 6. 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 EMAIL: [email or web address] 8. Facility: [facility] 9. Unit: [facility] 10. Address: [address] [place] [address] 11. State: [facility]. Zip Code: [address] 13. Phone: [phone] 14. Date Record Review: II. MEDICAL SCREENING 1. 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 [ 6 feet 2 inches Date: ] landscape crew member's most recently documented height 3. [ 207 pounds Date: ] landscape crew member's most recently documented weight 4. [ 133/84 Date: ] landscape crew member's most recently documented blood pressure reading 5. [ Yes ] Does the landscape crew member have a history of abnormal blood pressure since their last PHA? 6. [ Yes ] Does the landscape crew member have a laboratory test of sickle cell trait documented in their permanent medical record? 7. [ No Cholesterol Test Documented ] What is the date of the landscape crew member's most recently documented cholesterol test? 9. [ tylenol PRN Eliquis 5 mg, elocon 0.1% cream, Claritin 10 mg, glucosamine-chondroitin 500-400 mg, vitamin C 250 mg ] List of landscape crew member's active medications listed in their permanent medical record 10. [ No ] Is there a discrepancy between the active medication record review and the landscape crew member's self-reported list of medications? 11. [ Cardiac work ups following PE ] List documented significant care the landscape crew member has received since their last PHA from a provider OUTSIDE the Health System 12. [ No ] Is there a discrepancy between the landscape crew member's list of OUTSIDE care (from OT5), and the OUTSIDE care found in the record? 13. [ No Inside Care Documented ] List documented significant care the landscape crew member has received since their last PHA from a provider INSIDE the Health System 15. [ Not Answered ] Confirm that vaccine exemptions are listed in the medical record for each vaccine listed 16. [ No Discrepancies Noted ] Review available medical documentation of allergies and compare with landscape crew member responses. Document any discrepancies III. OCCUPATION-SPECIFIC EXAMINATIONS 1. 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 IV. FAMILY HISTORY AND LIFESTYLE 1. 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 VII. INDIVIDUAL MEDICAL READINESS 1. [ No ] Does the landscape crew member have an Assignment Limitation Code C? 3. [ Classification: 1 ] Most recently documented dental exam 4. [ Yes ] Is the landscape crew member current on all required immunizations in the immunization tracking system? 6. Does the landscape crew member have the following laboratory tests documented [...] need to be forwarded to the Health Bus Info Consultant completing PART C: Currently DNIF and AF [...] CARA 3. Middle Name: 4. 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 EMAIL: [email or web address] 8. Facility: [facility] 9. Unit: [facility] 10. Address: [address] [place] [address] 11. State: [place] 12. Zip Code: [address] 13. Phone: [phone] 14. Date HCP Review initiated: 1. Member [...] CARA 3. Middle Name: 4. 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 EMAIL: [email or web address] 8. Facility: [facility] 9. Unit: [facility] 10. Address: [address] [place] [address] 11. State: [place] 12. Zip Code: [address] 13. Phone: [phone] 14. Date HCP Review initiated: IV. PERIODIC HEALTH ASSESSMENT PROVIDER RECOMMENDATIONS and REFERRALS 1. Provider concerns with this assessment: No issues or concerns identified V. SUMMARY AND COMMENTS 1. Additional information summarizing findings during the landscape crew member assessment: 2. Provider Comments: Member continues to be followed by cardiology and heme. Next appt this month. . INDIVIDUAL MEDICAL READINESS DISPOSITION DETERMINATION EDDA: Not Ready DEN: Ready IMM: Ready LAB: Ready ME: Ready IMR Status: Partially Medically Ready VII. 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 Reference Vinny 6490.07 No (landscape crew member currently has a medical condition that DOES require duty limitation(s) AND limits deployability) Date PHA Completed: END OF GC6539 REPORT Impression: Does not Meet F CIII m edical standards per REJI 48-123/MSD. Aeromedical Disposition: Continue DNIF. DD 2992 s igned. No AF469 changes based on this encounter. Member is mobility restricted/C-coded. Code 37. [facility] Status Combined list of recent functional and cognitive assessments recorded at [employer] of [employer] and Veterans Affairs (VA).VA Functional Hardy Measurement (FIM) Scale: 1 = Total Assistance (Subject = 0% +), 2 = Maximal Assistance (Subject = 25% +), 3 = Moderate Assistance (Subject = 50% +), 4 = Minimal Assistance (Subject = 75% +), 5 = Supervision, 6 = Modified Hardy (Device), 7 = Complete Hardy (Timely, Safely). Assessment Date/Time Source Assessment Type Assessment Skill Assessment Score Assessment Details No data available for this section
--- OUTSIDE RECORDS SUMMARY | 2025-01-15 13:55 | XMS_ITS | Encounter Summary ---
Author Organization [facility] Address [address] [facility] [address] [place] [address] Phone Care Team Providers Care Truck Body Builder Apprentice Name Role Phone Alvaro Blue MD Primary Care Provider [phone] Arnold Cox MD Primary Care Provider [phone] Arnold Cox MD Unavailable Encounter Details Date Type Department Care Team (Late st Contact Info) Description 04/09/2023 Telephone [facility] [address] [facility], 7th Floor, [address] [place] [address] Sadia Santos MD [address] [facility] [address] [place] [address] [email or web address] Social History Tobacco Use Types Packs/Day [...] Assigned at Male 11/23/2022 1:59 PM EDT Legal Sex Male 9:22 PM EDT Gender Identity Male 11/23/2022 1:59 PM EDT Sexual Orientation Not on file documented as of this encounter Plan of Treatment Upcoming Encounters Date Type Department Care Team (Late st Contact Info) Description 01/21/2025 3:30 PM EDT Office Visit [facility] [facility] [address] [place] [address], 2nd Floor, [address] [place] [address] Frances Prescott MD [address] [place], [place] [id number] [place] [address] [email or web address] 03/23/2025 11:00 AM EDT Office Visit [facility] [place] [facility] [address] [place] [address], 2nd Floor, [address] [place] [address] Franecs Prescott MD [address] [place] [address] [email or web address] 10/18/2025 1:30 PM EDT Office Visit [facility] Internal Medicine [address] [place] [address] Arnold Cox MD [address] [place] [address] [email or web address] documented as of this encounter Visit Diagnoses Not on filedocumented in this encounter Care Teams Truck Body Builder Apprentice Relationship Specialty Start Date End Date Avlaro Blue MD [address] [place] [address] PCP - General Internal Medicine 11/24/22 01/23/24 Arnold Cox MD [address] [place] [address] [email or web address] PCP - General Internal Medicine 01/24/24 Arnold Cox MD [address] [place] [address] [email or web address] Insurance Assigned Provider 02/08/24 documented as of this encounter Additional Source Comments The information contained in this document represents components of the legal health record. It is not the complete legal health record.[facility]
--- OUTSIDE RECORDS SUMMARY | 2025-01-15 13:56 | XMS_ITS | Patient Health Record ---
[facility] Address [address] [place] [address] Care Team Providers Care Poultry Husbandry Worker Name Role Phone Livan Esteban MD Primary Care Provider Unavailab SummersCarolae Unavailable [phone] Reason For Referral No Information Social History Tobacco Use: Social History Observation Description Date Details (start date - stop date) Never Smoker NA - NA Tobacco Use/Smoking Question Answer Notes Are you a: nonsmoker Additional Findings: Tobacco Non-User Current no n-smoker Alcohol Screen Question Answer Notes Did you have a drink containing alcohol in the p ast year? Yes Points 0 Interpretation Negative Tobacco use other than smoking: Question Answer Notes Are you an other tobacco user? No Plan Of Treatment No Information Insurance Providers Payer Name Payer Address Payer Phone Subscriber Number Group Number Insured Name Patient Relationship to Insured Coverage Start Date Coverage End Date [facility] [address] [place] [address] [phone] [id number] Cara Kramer Spouse - patient is the spouse of the insured Medical (General) History Medical History History ICD Code Chicken pox Surgical History Surgery Date(Month/Year)
[2025-01-15 14:00] LABS: MANUAL DIFF FLAG NO
[2025-01-15 14:03] LABS: Hematocrit 44.8 % (42.0-52.0); Hemoglobin 16.2 g/dl (14.0-18.0); Imm Gran Abs Auto 0.02 X10*3/uL (0.00-0.03); Imm Gran Pct Auto 0.3 % (0.0-0.4); Lymphocytes Absolute Auto 2.4 X10*3/uL (1.2-4.9); Mean Corpuscular HGB Conc 36.2 g/dl (31.0-36.0); Mean Corpuscular Hemoglobin 32.5 pg (27.0-33.0); Mean Corpuscular Volume 89.8 fL (80.0-98.0); NRBC Abs Auto 0.000 X10*3/uL (0.0-0.012); NRBC Pct Auto 0.0 /100WBC (0.0-0.2); Platelet Count 176 X10*3/uL (160-400); Red Blood Count 4.99 X10*6/uL (4.60-5.80); White Blood Count 7.6 X10*3/uL (4.8-10.8)
[2025-01-15 14:55] LABS: Iron 215 mcg/dL (45-160); Percent Iron Saturation 90 % (15-50); Total Iron Binding Capacity 240 mcg/dL (228-428); Unsaturated Iron Binding < 25 ug/dL
[2025-01-15 15:08] LABS: Ferritin 87 ng/mL (20-250)
== END 2025-01-15 13:53 | disposition home or self-care (01) ==
LOC: HO.BBR 13:52
PROVIDERS: PCP Internal Medicine; Visit Provider Internal Medicine
DX: E83.110 Hereditary hemochromatosis (principal)
CPT/HCPCS: 36415; 82728; 83540; 85025

== ENCOUNTER 2025-03-19 13:58 | Outpatient (REF) | payer OTHER, BC, SELFPAY ==
[2025-03-19 14:07] LABS: MANUAL DIFF FLAG NO
--- OUTSIDE RECORDS SUMMARY | 2025-03-19 14:07 | XMS_ITS | Encounter Summary ---
Author Organization [facility] Address [address] [place] [address] [address] [place] [address] Phone Care Team Providers Care Urinalysis Technician Name Role Phone Arnold Cox MD Primary Care Provider Arnold Cox MD Unavailable Encounter Details Date Type Department Care Team ([facility] Contact Info) Description 02/03/2024 Telephone [facility] [address], 7th Floor, [address] [place] [address] Sadia Santos MD [address] [facility] [address] [place] [address] [email or web address] Social History Tobacco Use Types Packs/Day [...] high school, GED, job training, learning the Nigerien language, technical skills, or developing parenting skills)? [...] Team (Late st Contact Info) Description 01/21/2025 Procedure Pass [facility] [address] [place] [address] 03/23/2025 11:00 AM EDT Office [place] [facility] [address] [facility], 2nd Floor, [address] [place] [address] Frances Prescott MD [address] [place] [address] [email or web address] 10/18/2025 1:30 PM EDT Office Visit [facility] Internal Medicine [address] [place] [address] Arnold Cox MD [address] [place] [address] [email or web address] 01/21/2026 11:30 AM EDT Appointment [facility] Echo Lab [address] [place] [address] Frances Prescott MD [address] [place] [address] [email or web address] 01/21/2026 12:30 PM EDT Appointment [facility], Nuclear Medicine - [address] [address] Frances Prescott MD [address] [place] [address] [email or web address] 02/03/2026 3:00 PM EDT Telemedicine [facility] [address] [facility], 2nd Floor, [address] [place] [address] Frances Prescott MD [address] [place] [address] [email or web address] documented as of this encounter Visit Diagnoses Not on filedocumented in this encounter Additional Health Concerns Assessment Noted Time PHQ-2 Depression Total Score: 0 11/15/19 11:33 AM EDT documented as of this encounter Care Teams Urinalysis Technician Relationship Specialty Start Date End Date Arnold Cox MD [address] [place] [address] [email or web address] PCP - General Internal Medicine 01/24/24 Arnold Cox MD [address] [place] [address] [email or web address] Insurance Assigned Provider 02/08/24 documented as of this encounter Additional Source Comments The information contained in this document represents components of the legal health record. It is not the complete legal health record.[facility]
--- OUTSIDE RECORDS SUMMARY | 2025-03-19 14:07 | XMS_ITS | Encounter Summary ---
Author Organization [facility] Address [address] [place] [address] Phone Care Team Providers Care Auto Parts Delivery Driver Name Role Phone Alvaro Blue MD Primary Care Provider [phone] Arnold Cox MD Primary Care Provider [phone] Arnold Cox MD Unavailable Encounter Details Date Type Department Care Team (Late st Contact Info) Description 06/13/2023 Procedure Pass [facility], Ct Scan - [address] [address] Social History Tobacco Use Types Packs/Day Years [...] 01/21/2025 Procedure Pass [facility] [address] [place] [address] 03/23/2025 11:00 AM EDT Office Visit [facility] [place] [facility] [address] [facility], 2nd Floor, [address] [place] [address] Frances Prescott MD [address] [place] [address] [email or web address] 10/18/2025 1:30 PM EDT Office Visit [facility] Internal Medicine [address] [place] [address] Arnold Cox MD [address] [place] [address] [email or web address] 01/21/2026 11:30 AM EDT Appointment [facility] Echo Lab [address] [place] [address] Frances Prescott MD [address] [place] [id number] [email or web address] 01/21/2026 12:30 PM EDT Appointment [facility], Nuclear Medicine - [address] [address] Frances Prescott MD [address] [place] [address] [email or web address] 02/03/2026 3:00 PM EDT Telemedicine [facility] [address] [facility], 2nd Floor, [address] [place] [address] Frances Prescott MD [address] [place] [address] [email or web address] documented as of this encounter Visit Diagnoses Not on filedocumented in this encounter Care Teams Auto Parts Delivery Driver Relationship Specialty Start Date End Date Alvaro Blue MD [address] [place] [address] PCP - General Internal Medicine 11/24/22 01/23/24 Arnold Cox MD [address] [place] [address] PCP - General Internal Medicine 01/24/24 Arnold Cox MD [address] [place] [address] Insurance Assigned Provider 02/08/24 documented as of this encounter Additional Source Comments The information contained in this document represents components of the legal health record. It is not the complete legal health record.[facility]
--- OUTSIDE RECORDS SUMMARY | 2025-03-19 14:07 | XMS_ITS | Encounter Summary ---
Author Organization [facility] Address [address] [place] [address] [place] [address] Phone Care Team Providers Care Core Driller Helper Name Role Phone Alvaro Blue MD Primary Care Provider [phone] Arnold Cox MD Primary Care Provider [phone] Arnold Cox MD Unavailable Reason for Referral * Outpatient Procedure - Closed Specialty Diagnoses / Procedures Referred By Pete cline Referred To Contact Diagnoses Acute saddle pulmonary embolism with acute cor pulmonale Procedures Stress Echo Exercise Stress Echo Dobutamine Frances Prescott MD Phone: tel: fax: [email or web address] Referral ID Status Reason Start Date Expiration Date Visits Re quested Visits Authorized [id number] Closed 04/15/2023 1 1 Encounter Details Date Type Department Care Team (Late st Contact Info) Description 05/24/2023 Ancillary Orders [facility] [address] [facility], 2nd Floor, [address] [place] [address] Frances Prescott MD [address] [place] [address] [address] [place] [address] [email or web address] Acute saddle pulmonary embolism with acute cor [...] 01/21/2025 Procedure Pass [facility] [address] [place] [address] 03/23/2025 11:00 AM EDT Office Visit [facility] [address] [place] [address], 2nd Floor, [address] [place] [address] Frances Prescott MD [address] [place] [address] [email or web address] 10/18/2025 1:30 PM EDT Office Visit [facility] [place] Internal Medicine [address] [place] [address] Arnold Cox MD [address] [place] [address] [email or web address] 01/21/2026 11:30 AM EDT Appointment [facility] Echo Lab [address] [place] [address] Frances Prescott MD [address] [place] [address] [email or web address] 01/21/2026 12:30 PM EDT Appointment [facility], Nuclear Medicine - [address] [address] Frances Prescott MD [address] [facility] [place] [address] [email or web address] 02/03/2026 3:00 PM EDT Telemedicine [facility] [address] [place] [address], 2nd Floor, [address] [place] [address] Frances Prescott MD [address] [place], [place] [address] [place] [address] [email or web address] documented as of this encounter Results * [...] Heart Ultrasound Narrative 05/24/2023 1:10 PM EST No ECG or echocardiographic evidence of ischemia at the level of stress achieved (HR reached 68% of age-predicted maximum, peak rate-pressure product 27,600). Hypertension at baseline with hypertensive response to exercise [...] [place] [address]. The test was terminated due to hypertension [...] ventricular wall motion abnormalities noted at stress. us Frances Prescott MD CV STRESS ORDERABLE S Final Result documented in this encounter Visit Diagnoses Diagnosis Acute saddle pulmonary embolism with acute cor pulmonale Acute saddle pulmonary embolism with acute cor pulmonale documented in this encounter Care Teams Core Driller Helper Relationship Specialty Start Date End Date Alvaro Blue MD [address] [place] [address] PCP - General Internal Medicine 11/24/22 01/23/24 Arnold Cox MD [address] [place] [address] [email or web address] PCP - General Internal Medicine 01/24/24 Arnold Cox MD [address] [place] [address] [email or web address] Insurance Assigned Provider 02/08/24 documented as of this encounter Additional Source Comments The information contained in this document represents components of the legal health record. It is not the complete legal health record.[facility]
--- OUTSIDE RECORDS SUMMARY | 2025-03-19 14:07 | XMS_ITS | Encounter Summary ---
Author Organization [facility] Address [address] [place] [address] Phone Care Team Providers Care Educational Diagnostician Name Role Phone Arnold Cox MD Primary Care Provider [phone] Arnold Cox MD Unavailable Encounter Details Date Type Department Care Team (Late st Contact Info) Description 08/10/2024 Transcribe Orders Non-Invasive Cardiology [address] [place] [address] Ivy Ramires, [facility] [address] [place] [address] [email or web address] Social History Tobacco Use Types Packs/Day Years [...] high school, GED, job training, learning the Turkish language, technical skills, or developing parenting skills)? [...] 01/21/2025 Procedure Pass [facility] [address] [place] [address] 03/23/2025 11:00 AM EDT Office Visit [facility] [address] [facility], 2nd Floor, [address] [place] [address] Frances Prescott MD [address] [place] [address] [email or web address] 10/18/2025 1:30 PM EDT Office Visit [facility] Internal Medicine [address] [place] [address] Arnold Cox MD [address] [place] [address] [email or web address] 01/21/2026 11:30 AM EDT Appointment [facility] [address] [place] [address] Frances Prescott MD [address] [place] [address] [email or web address] 01/21/2026 12:30 PM EDT Appointment [facility], Nuclear Medicine - [address] [address] Frances Prescott MD [address] [place] [address] [email or web address] 02/03/2026 3:00 PM EDT Telemedicine [facility]pertension Clinic [address] [facility], 2nd Floor, [address] [place] [address] Frances Prescott MD [address] [place] [address] [email or web address] documented as of this encounter Procedures Procedure [...] [facility] QTC Interval 403 ms [facility] P [place] 51 degrees [facility] R Wave [place] 55 degrees [facility] T Wave [place] 42 degrees [facility] 08/10/2024 9:48 AM EST 08/10/2024 3:28 PM EST Narrative [facility] - 08/10/2024 3:28 PM EST Sinus bradycardia with Premature atrial complexes with Aberrant conduction Otherwise normal ECG When compared with ECG of 20-Jan-2024 12:01, Aberrant conduction is now Present Confirmed by Chandan Raya ([id number]) on 08/10/2024 3:28:45 PM Ivy Ramires BOILER TENDER ECG ORDERABLES Final Result [facility] documented in this encounter Visit Diagnoses Not on filedocumented in this encounter Additional Health Concerns Assessment Noted Time PHQ-2 Depression Total Score: 0 11/15/19 24 11:33 AM EDT documented as of this encounter Care Teams Educational Diagnostician Relationship Specialty Start Date End Date Arnold Cox MD [address] [place] [address] PCP - General Internal Medicine 01/24/24 Arnold Cox MD [address] [place] [address] Insurance Assigned Provider 02/08/24 documented as of this encounter Additional Source Comments The information contained in this document represents components of the legal health record. It is not the complete legal health record.[facility]
--- OUTSIDE RECORDS SUMMARY | 2025-03-19 14:07 | XMS_ITS | Encounter Summary ---
Author Organization [facility] Address [address] [place] [address] [address] [place] [address] Phone Care Team Providers Care Driver Recruiter Name Role Phone Arnold Cox MD Primary Care Provider [phone] Arnold Cox MD Unavailable Encounter Details Date Type Department Care Team ([facility] Contact Info) Description 02/03/2024 Telephone [facility] Center for Hematology [address] [facility], 7th Floor, [address] [place] [address] Sadia Santos MD [address] [facility] [address] [place] [address] [email or web address] Social History Tobacco Use Types Packs/Day [...] high school, GED, job training, learning the [place]se language, technical skills, or developing parenting skills)? [...] 01/21/2025 Procedure Pass [facility] [address] [place] [address] 03/23/2025 11:00 AM EDT Office Visit [facility] Pul[facility] Hypertension Clinic [address] [facility], 2nd Floor, [address] [place] [address] Frances Prescott MD [address] [place] [phone] [email or web address] 10/18/2025 1:30 PM EDT Office Visit [facility] Internal Medicine 40 [place] [address] Arnold Cox MD 40 [place] [address] [email or web address] 01/21/2026 11:30 AM EDT Appointment [facility] Echo Lab 30 [place] [address] Frances Prescott MD [address] [place] [id number] [email or web address] 01/21/2026 12:30 PM EDT Appointment [facility], Nuclear Medicine - [address] [address] Frances Prescott MD [address] [place] [id number] [email or web address] 02/03/2026 3:00 PM EDT Telemedicine [facility] Pul[facility] Hypertension Clinic [address] [facility], 2nd Floor, [address] [place] [address] Frances Prescott MD [address] [place] [address] [email or web address] documented as of this encounter Visit Diagnoses Not on filedocumented in this encounter Additional Health Concerns Assessment Noted Time PHQ-2 Depression Total Score: 0 11/15/19 11:33 AM EDT documented as of this encounter Care Teams Driver Recruiter Relationship Specialty Start Date End Date Arnold Cox MD 40 [place] [address] PCP - General Internal Medicine 01/24/24 Arnold Cox MD 40 [place] [address] Insurance Assigned Provider 02/08/24 documented as of this encounter Additional Source Comments The information contained in this document represents components of the legal health record. It is not the complete legal health record.[facility]
--- OUTSIDE RECORDS SUMMARY | 2025-03-19 14:07 | XMS_ITS | Encounter Summary ---
Author Organization [facility] Address [address] [place] [address] Phone Care Team Providers Care Bakery Deliverer Name Role Phone Arnold Cox MD Primary Care Provider [phone] Arnold Cox MD Unavailable Encounter Details Date Type Department Care Team (Late st Contact Info) Description 09/14/2024 Procedure Pass Non-Invasive Cardiology 30 [place] [address] Social History Tobacco Use Types Packs/Day Years [...] high school, GED, job training, learning the French language, technical skills, or developing parenting skills)? [...] 01/21/2025 Procedure Pass [facility] [address] [place] [address] 03/23/2025 11:00 AM EDT Office Visit [facility] [facility]pertension Clinic [address] [place] [address], 2nd Floor, [address] [place] [address] Frances Prescott MD [address] [place] [phone] [email or web address] 10/18/2025 1:30 PM EDT Office Visit [facility] Internal Medicine 40 [place] [address] Arnold Cox MD 40 [place] [address] [email or web address] 01/21/2026 11:30 AM EDT Appointment [facility] [address] [place] [address] Frances Prescott MD [address] [place] [phone] [email or web address] 01/21/2026 12:30 PM EDT Appointment [facility], Nuclear Medicine - [address] [address] Frances Prescott MD [address] [place] [address] [email or web address] 02/03/2026 3:00 PM EDT Telemedicine [facility]pertension Clinic [address] [place] [address], 2nd Floor, [address] [place] [address] Frances Prescott MD [address] [place] [address] [email or web address] documented as of this encounter Visit Diagnoses Not on filedocumented in this encounter Additional Health Concerns Assessment Noted Time PHQ-2 Depression Total Score: 0 11/15/19 24 11:33 AM EDT documented as of this encounter Care Teams Bakery Deliverer Relationship Specialty Start Date End Date Arnold Cox MD 40 [place] [address] [email or web address] PCP - General Internal Medicine 01/24/24 Arnold Cox MD [address] [place] [address] [email or web address] Insurance Assigned Provider 02/08/24 documented as of this encounter Additional Source Comments The information contained in this document represents components of the legal health record. It is not the complete legal health record.[facility]
--- OUTSIDE RECORDS SUMMARY | 2025-03-19 14:07 | XMS_ITS | Encounter Summary ---
Author Organization [facility] Address [address] [facility] [address] [place] [address] Phone Care Team Providers Care Cabana Attendant Name Role Phone Alvaro Blue MD Primary Care Provider [phone] Arnold Cox MD Primary Care Provider [phone] Arnold Cox MD Unavailable Encounter Details Date Type Department Care Team (Late st Contact Info) Description 04/09/2023 Telephone [facility] [address] [facility], 7th Floor, [address] [place] [address] Sadia Santos MD [address] [facility] [address] [place] [address] [email or web address] Social History Tobacco Use Types Packs/Day [...] st Contact Info) Description 01/21/2025 Procedure Pass [facility] Echo Lab 30 [place] [address] 03/23/2025 11:00 AM EDT Office Visit [facility] [address] [facility], 2nd Floor, [address] [place] [address] Frances Prescott MD [address] [place] [phone] [email or web address] 10/18/2025 1:30 PM EDT Office Visit [facility] Internal Medicine 40 [place] [address] Arnold Cox MD 40 [place] [address] [email or web address] 01/21/2026 11:30 AM EDT Appointment [facility] Echo Lab 30 [place] [address] Frances Prescott MD [address] [place] [address] [email or web address] 01/21/2026 12:30 PM EDT Appointment [facility], Nuclear Medicine - [address] [address] Frances Prescott MD [address] [place] [address] [email or web address] 02/03/2026 3:00 PM EDT Telemedicine [facility] [address] [facility], 2nd Floor, [address] [place] [address] Frances Prescott MD [address] [facility] [address] [place] [address] [email or web address] documented as of this encounter Visit Diagnoses Not on filedocumented in this encounter Care Teams Cabana Attendant Relationship Specialty Start Date End Date Alvaro Blue MD [address] [place] [address] PCP - General Internal Medicine 11/24/22 01/23/24 Arnold Cox MD 40 [place] [address] [email or web address] PCP - General Internal Medicine 01/24/24 Arnold Cox MD 40 [place] [address] [email or web address] Insurance Assigned Provider 02/08/24 documented as of this encounter Additional Source Comments The information contained in this document represents components of the legal health record. It is not the complete legal health record.[facility]
--- OUTSIDE RECORDS SUMMARY | 2025-03-19 14:07 | XMS_ITS | Clinical Summary ---
Author Organization [facility] Address [address] [place] [address] Phone Care Team Providers Care Corporate Safety Coordinator Name Role Phone Arnold Cox MD Primary Care Provider [phone] Arnold Cox MD Unavailable Allergies Active Allergy Reactions Criticality Noted Date Comments Other Erythema Low 10/15/2024 Medical tape - redness if left on for a day or two Medications loratadine (CLARITIN) 10 mg tablet Take 10 [...] mouth daily. 90 tablet 3 4 Active ELIQUIS 5 mg tablet Take 1 tablet (5 mg total) by mouth 2 (two) times a day. 180 tablet 3 5 Active Active Problems Problem Noted Date Diagnosed Date Cervical disc disorder at C6-C7 level with radic ulopathy 03/09/2025 Assessment & Plan (03/09/2025 10:44 AM EDT): Exam and description from the patient consistent with cervical radiculopathy left-sided at the C6-C7 disc space. Will obtain an x-ray and refer patient to physical therapy. With physical therapy after 6 weeks if patient's symptoms are still present or worsening will obtain an MRI. CTEPH (chronic thromboembolic pulmonary hyperten angie) 10/15/2024 [...] might be 100% going through leads near [place]. That might be due to his insurance [...] this time Arrhythmia 01/24/2024 Assessment & Plan (12/28/2024 8:54 AM EDT): He reports feeling much better after his cath October 15. He no longer has any chest discomfort or SOB. He has noticed an increase in his exercise tolerance and feels his breathing has improved. He does feel like he hits a wall when exercising, he feels like his HR is unable to reach where he would expect it. Dr. Steward reviewed stress test results. ST: was overall reassuring despite Up to 1 mm horizontal to downsloping ST depressions in inferior lateral leads. CCTA with CADs-RADS 0 on 01/25/2024. Plan: -No additional signs of concerning arrhythmia -ST overall reassuring -Patient will trial stopping metoprolol to see if his exercise capacity improves. He will update this office if he experiences palpitations or heart racing. -Will plan for routine follow up in 1 year Assessment & Plan (01/31/2024 9:23 AM EDT): Today heart rate is mildly bradycardic and regular rhythm. Continue metoprolol and patient has Zio patch ordered to assess for arrhythmias over time. He will follow the community sports coordinator order of not over exercising and limiting [...] December. 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 Going forward I can see him once a year for repeat physical. This visit was 35 minutes in length of ozza-[id number] time and 10 additional minutes to review [...] asked the patient to message to the water trainer who is seeing him about hypercoagulation workup and see if lab work can be ordered regarding the hemochromatosis. That lab work can be done at [facility] and if patient is positive we can put in a referral locally. Encounters Date Type Department Care Team Description 03/09/2025 11:39 AM EDT - 03/09/2025 11:59 PM EDT Hospital Encounter [facility], X-Ray - [address] [address] Arnold Cox MD Discharge Disposition: Home or Self Care 03/09/2025 10:00 AM EDT Office Visit [facility] Internal Medicine [address] [place] [address] Arnold Cox MD Flu vaccine need (Primary Dx); Need for hepatitis C screening test; Screening for human immunodeficiency virus; Cervical disc disorder at C6-C7 level with radiculopathy 03/08/2025 2:40 PM EDT Telemedicine [facility] Virtual Urgent Care [address] [place] [address] Katie Rm CNP Numbness and tingling in left arm (Primary Dx) 03/08/2025 Telephone [facility] Internal Medicine [address] [place] [address] Lily Vincent RN left arm pain 01/21/2025 3:30 PM EDT Telemedicine [facility] Pulmonary Hypertension Clinic [address] [place] [address], 2nd Floor, [address] [place] [address] Frances Schwarz MD Pulmonary hypertension, unspecified (Primary Dx); Dyspnea on exertion; Chronic thromboembolic disease; Acute deep vein thrombosis (DVT) of popliteal vein of right lower extremity; CTEPH (chronic thromboembolic pulmonary hypertension) 12/24/2024 10:00 AM EDT Telemedicine - audio only [facility] Cardiac Arrhythmia Service [address] [facility], 5th Floor, [address] [place] [address] Rosina Bass, ASHLEIGH Cardiac arrhythmia, unspecified cardiac arrhythmia type (Primary Dx) from Last 3 Months Immunizations Immunization Administration Dates Next Due Anthrax 04/13/2010, 4,09/05/2003,12/02,11/03/2002,10/15/2002 COVID-19 (Pre-04/22) Moderna Vaccine, mRNA, PF 03/29/2022 COVID-19 Moderna Spikevax Vaccine 12+ 05/22/2021 ,08/26/2020,07/25/2020 Hepatitis A, Adult 04/25/2001,10/18/2000 Hepatitis B Adult 11/12/1997,08/13/1997,07/09/18 98 INFLUENZA, SPLIT VIRUS, TRIV ALENT W/ PRESERVATIVE IM 05/01/2014 IPV 10/10/2000 Influenza Quadrivalent Intranasal 04/04/2009,05/2005 Influenza Quadrivalent MDCK Preservative Free IM 04/26/2013 Influenza Quadrivalent MDCK w/Preservative IM 05/31/2017 Influenza Quadrivalent Prese rvative Free IM 04/15/2023,04/11/2022,05/30/2020,06/07,05/20/2018 Influenza Quadrivalent w/ Pr eservative IM 04/21/2016 Influenza Split (Incl. Purif ied Surface Antigen) 05/13/2008,05/30/2006 Influenza, Injectable,aditya valent, Preservative Free, Ped 03/15/2021 Influenza, Unspecified Formulation 06/23,05/30/2020,05/20/2018,05/06,04/21/2016,04/14/2015,03/07/2014 ,04/11/2012,05/06/2011,04/13/2010,08/2006,05/30/2006,05/07/2005, 3,04/05/2002,09/05/2001,10/10/2000 Meningococcal MCV4P 11/16/2020,12/03/2015,2010 Meningococcal MPSV4 11/18/2005,10/10/2000 Novel [id number], Injectable 07/24/2009 PPD Test 11/13/2003, 3,11/11/2001,10/10 Smallpox [...] high school, GED, job training, learning the Icelandic language, technical skills, or developing parenting skills)? [...] Sign Reading Time Taken Comments Blood Pressure 98/62 03/09/2025 9:56 AM EDT Pulse 70 03/09/2025 9:56 AM EDT Temperature 36.3 C (97.4 F) 03/09/2025 9:56 AM EDT Respiratory Rate 14 03/09/2025 9:56 AM EDT Oxygen Saturation 97% 03/09/2025 9:56 AM EDT Inhaled Oxygen Concentration - - Weight 95.7 kg (211 lb) 03/09/2025 9:56 AM EDT Height 193 cm (6' 3.98 ) 03/09/2025 9:56 AM EDT Body Mass Index 25.69 03/09/2025 9:56 AM EDT Plan of Treatment Upcoming Encounters Date Type Department Care Team (Late st Contact Info) Description 01/21/2025 Procedure Pass [facility] Echo Lab [address] [place] [address] 03/23/2025 11:00 AM EDT Office Visit [facility] Pulmonary Hypertension Clinic [address] [place] [address], 2nd Floor, [address] [place] [address] Frances Prescott MD [address] [place] [address] [email or web address] 10/18/2025 1:30 PM EDT Office Visit [facility] Internal Medicine [address] [place] [address] Arnold Cox MD 40 [place] [address] [email or web address] 01/21/2026 11:30 AM EDT Appointment [facility] Echo Lab [address] [place] [address] Frances Prescott MD [address] [place] [address] [email or web address] 01/21/2026 12:30 PM EDT Appointment [facility], Nuclear Medicine - [address] [address] Frances Prescott MD [address] [place] [address] [email or web address] 02/03/2026 3:00 PM EDT Telemedicine [facility] Pulmonary Hypertension Clinic [address] [place] [address] 2nd Floor, [address] [place] [address] Frances Prescott MD [address] [place] [address] [address] [place] [address] [email or web address] Health Maintenance Due Date Last Done Comments HEPATITIS C SCREENING 11/20/1997 HIV ONE-TIME SCREENING (18-65 YEARS) 11/20/1997 COLOGUARD 11/20/2024 COLONOSCOPY 11/20/2024 COLORECTAL CANCER SCREENING 11/20/2024 FIT TEST 11/20/2024 FOBT 11/20/2024 SIGMOIDOSCOPY 11/20/2024 VIRTUAL COLONOSCOPY 11/20/2024 INFLUENZA VACCINE (#1) 2025 , 04/15/2023, 04/11/2022, Additional history exists COVID-19 VACCINE ( season) 2025 03/29/2022, 05/22/2021, 08/26/2020, Additional history exists DEPRESSION SCREENING 10/08/2025 10/08/2024 CREATININE LEVEL 10/16/2025 10/16/2024, 08/2024, 01/24/2024, Additional history exists SCREENING FOR DIABETES 10/17/2027 10/16/2024, 2022 LIPID PANEL 10/16/2029 10/16/2024, 12/09/2022, 06/03/2023, Additional history exists Adult Td,Tdap Booster 01/31/2031 01/31/2021 , 05/06/2011, 04/25/2001 HEPATITIS A VACCINES Aged Out 04/25/2001, 10/19/19 No longer eligible based on patient's age to complete this topic MENINGOCOCCAL VACCINES (ACWY) Aged Out 11/16/2020, 12/03/2015, 11/12/2010, Additional history exists No longer eligible based on patient's age to complete this topic SMOKING STATUS SCREENING (Once After 26 Yrs) Completed 03/09/2025 HIB VACCINES Aged Out No longer eligi ble based on patient's age to complete this topic MENINGOCOCCAL VACCINES (B) Aged Out N o longer eligible based on patient's age to complete this topic PNEUMOCOCCAL VACCINES (0-49 years) Aged Out No longer eligible based on patient's age to complete this topic Medical Devices Not on file Procedures Procedure Name Priority Date/Time Associated Diagnosis Comments XR CERVICAL SPINE 2-3 VIEWS Routine 03/09/2025 12:22 PM EDT Cervical disc disorder at C6-C7 level with radiculopathy LIPID PANEL Routine 10/16/2024 6:55 AM EDT BASIC METABOLIC PANEL Routine 10/16/2024 6:55 AM EDT OUTSIDE GLUCOSE FASTING Routine 06/03/2023 from Last 3 Months or Most Recently Relevant to Health Maintenance Results * XR CERVICAL SPINE 2-3 VIEWS (03/09/2025 12:22 PM EDT) Anatomical Region Laterality Modality C-spine Computed Radiogr aphy 03/09/2025 4:13 PM EDT Impressions 03/09/2025 4:15 PM EDT No evidence of acute fracture or malalignment. Mild degenerative change at C6- C7. Narrative 03/09/2025 4:15 PM EDT XR CERVICAL SPINE 2-3 VIEWS 03/09/2025 12:00 PM Referring clinician's provided indication for this examination in [facility]: Cervical radiculopathy, no red flags; left sided c6/7 COMPARISON: None FINDINGS: There is no evidence of acute fracture or malalignment. There is mild anterior degenerative endplate marginal osteophytosis and loss of disc space height at C6-C7. The prevertebral soft tissues are unremarkable. Procedure Note Rosemarie Rosales MD - 03/09/2025 XR CERVICAL SPINE 2-3 VIEWS 03/09/2025 12:00 PM Referring clinician's provided indication for this examination in [facility]:Cervical radiculopathy, no red flags; left sided c6/7 COMPARISON: None FINDINGS: There is no evidence of acute fracture or malalignment. There is mildanterior degenerative endplate marginal osteophytosis and loss of discspace height at C6- C7. The prevertebral soft tissues are unremarkable. IMPRESSION: No evidence of acute fracture or malalignment. Mild degenerative change atC6-C7. us Arnold Cox MD IMG XR SPINE Final Result * Lipid panel (10/16/2024 6:55 AM EDT) HDL 43 35 - 100 mg/dL [facility] CHOLESTEROL 162 <200 mg/dL [facility] TRIGLYCERIDES 109 40 - 150 mg/dL [facility] LDL 97 50 - 129 mg/dL [facility] CARDIAC RISK RATIO 3.8 0.0 - 5.0 [facility] NON-HDL CHOLESTEROL 119 mg/dL [facility] Comment:Guidelines suggest a non-HDL cholesterol goal 30 mg/dL higher than the patient-specific LDL goal. Blood 10/16/2024 6:55 AM EDT 10/16/2024 7:16 AM EDT us Margaret Camacho OBSERVATION ASSISTANT LAB BLOOD ORDERABLE S Final Result [address] [address] * Basic metabolic panel (10/16/2024 6:55 AM EDT) SODIUM 139 135 - 145 mmol/L [facility] POTASSIUM 4.2 3.4 - 5.0 mmol/L [facility] CHLORIDE 106 98 - 108 mmol/L [facility] CO2 24 23 - 32 mmol/L [facility] BUN 14 8 - 25 mg/dL [facility] CREATININE 0.94 0.60 - 1.30 mg/dL [facility] GLUCOSE 99 70 - 110 mg/dL [facility] CALCIUM 8.8 8.5 - 10.5 mg/dL [facility] EGFR 103 >59 mL/min/1.7 3m2 [facility] Comment:Estimated glomerular filtration rate calculated using the CKD-EPI refit equation. ANION GAP 9 3 - 17 mmol/L [facility] Blood 10/16/2024 6:55 AM EDT 10/16/2024 7:16 AM EDT Margaret Camacho CNP LAB BLOOD ORDERABLE S Final Result [facility] [address] [place] [address] * (ABNORMAL) Outside Glucose,Fasting (06/03/2023) Glucose, fasting - External 106(A) 65 - 99 mg/dL us Historical Provider LAB BLOOD ORDERABLES Melissa l Result from Last 3 Months or Most Recently Relevant to Health Maintenance Insurance [facility] PPO EPO [facility] PPO EPO [place] [address] [place] [address] PPO EPO [facility] PPO EPO [facility] PPO EPO Advance Directives For more information, please contact: [phone] (9AM - 5PM [facility], Saturday-Saturday) Documents on File Type Date Recorded Patient Planning Supervisor Expl anation Healthcare Proxy 11/28/2022 1:09 PM * Full Code (Latest Code Status on File) Date Activated Date Inactivated Comments 10/15/2024 9:57 PM Question Answer Comments Code Status Confirmed With: PatientFamily * Full Code Date Activated Date Inactivated Comments 11/23/2022 8:36 PM 10/15/2024 9:57 PM Question Answer Comments Code Status Confirmed With: Patient Care Teams Corporate Safety Coordinator Relationship Specialty Start Date End Date Arnold Cox MD [address] [place] [address] PCP - General Internal Medicine 01/24/24 Arnold Cox MD [address] [place] [address] Insurance Assigned Provider 02/08/24 Additional Source Comments The information contained in this document represents components of the legal health record. It is not the complete legal health record.[facility]
--- OUTSIDE RECORDS SUMMARY | 2025-03-19 14:07 | XMS_ITS | Encounter Summary ---
Author Organization [facility] Address [address] [place] [address] [place] [address] Phone Care Team Providers Care Foundry Supervisor Name Role Phone Alvaro Blue MD Primary Care Provider [phone] Arnold Cox MD Primary Care Provider [phone] Arnold Cox MD Unavailable Encounter Details Date Type Department Care Team (Late st Contact Info) Description 04/09/2023 Telephone [facility] Center for Hematology [address] [facility], 7th Floor, [address] [place] [address] Ashley Polo MD, MPH [address] [place] [address] [email or web address] Social History Tobacco Use Types Packs/Day [...] st Contact Info) Description 01/21/2025 Procedure Pass [facility] Echo Lab 30 [place] [address] 03/23/2025 11:00 AM EDT Office Visit [facility] Pulmonary Hypertension Clinic [address] [facility], 2nd Floor, [address] [place] [address] Frances Prescott MD [address] [place] [address] CRUZ@[facility] 10/18/2025 1:30 PM EDT Office Visit [facility] Internal Medicine 40 [place] [address] Arnold Cox MD 40 [place] [address] [email or web address] 01/21/2026 11:30 AM EDT Appointment [facility] Echo Lab 30 [place] [address] Frances Prescott MD [address] [place] [address] CRUZ@[facility] 01/21/2026 12:30 PM EDT Appointment [facility], Nuclear Medicine - [address] [address] Frances Prescott MD [address] [place] [address] CRUZ@[facility] 02/03/2026 3:00 PM EDT Telemedicine [facility] Pulmonary Hypertension Clinic [address] [facility], 2nd Floor, [address] [place] [address] Frances Prescott MD [address] [facility] [address] [place] [address] CRUZ@matt .[facility] documented as of this encounter Visit Diagnoses Not on filedocumented in this encounter Care Teams Foundry Supervisor Relationship Specialty Start Date End Date Alvaro Blue MD [address] [place] [address] PCP - General Internal Medicine 11/24/22 01/23/24 Arnold Cox MD 40 [place] [address] [email or web address] PCP - General Internal Medicine 01/24/24 Arnold Cox MD 40 [place] [address] [email or web address] Insurance Assigned Provider 02/08/24 documented as of this encounter Additional Source Comments The information contained in this document represents components of the legal health record. It is not the complete legal health record.[facility]
--- OUTSIDE RECORDS SUMMARY | 2025-03-19 14:07 | XMS_ITS | Encounter Summary ---
Author Organization [facility] Address [address] [place] [address] Phone Care Team Providers Care Marine Steamfitter Name Role Phone Alvaro Blue MD Primary Care Provider [phone] Arnold Cox MD Primary Care Provider [phone] Arnold Cox MD Unavailable Encounter Details Date Type Department Care Team (Late st Contact Info) Description 11/24/2022 Procedure Pass [facility] [address] [place] [address] Social History Tobacco Use Types Packs/Day Years [...] 01/21/2025 Procedure Pass [facility] Echo Lab 30 [place] [address] 03/23/2025 11:00 AM EDT Office [facility] [address] [facility], 2nd Floor, [address] [place] [address] Frances Prescott MD [address] [place] [address] CRUZ@[facility] 10/18/2025 1:30 PM EDT Office Visit [facility] Internal Medicine 40 [place] [address] Arnold Cox MD 40 [place] [address] [email or web address] 01/21/2026 11:30 AM EDT Appointment [facility] Echo Lab 30 [place] [address] Frances Prescott MD [address] [place] [address] CRUZ@[facility] 01/21/2026 12:30 PM EDT Appointment [facility], Nuclear Medicine - [address] [address] Frances Prescott MD [address] [place] [address] CRUZ@[facility] 02/03/2026 3:00 PM EDT Telemedicine [facility]pertension Clinic [address] [facility], 2nd Floor, [address] [place] [address] Frances Prescott MD [address] [place] [address] [email or web address] documented as of this encounter Visit Diagnoses Not on filedocumented in this encounter Care Teams Marine Steamfitter Relationship Specialty Start Date End Date Alvaro Blue MD [address] [place] [address] PCP - General Internal Medicine 11/24/22 01/23/24 Arnold Cox MD [address] [place] [address] PCP - General Internal Medicine 01/24/24 Arnold Cox MD [address] [place] [address] Insurance Assigned Provider 02/08/24 documented as of this encounter Additional Source Comments The information contained in this document represents components of the legal health record. It is not the complete legal health record.[facility]
--- OUTSIDE RECORDS SUMMARY | 2025-03-19 14:07 | XMS_ITS | Encounter Summary ---
Author Organization [facility] Address [address] [facility] [address] [place] [address] Phone Care Team Providers Care Food Storeroom Clerk Name Role Phone Alvaro Blue MD Primary Care Provider [phone] Arnold Cox MD Primary Care Provider [phone] Arnold Cox MD Unavailable Encounter Details Date Type Department Care Team (Late st Contact Info) Description 01/19/2023 Telephone [facility] Center for Hematology [address] [facility], 7th Floor, [address] [place] [address] Sadia Santos MD [address] [facility] [address] [place] [address] [email or web address] Social History Tobacco Use Types Packs/Day [...] st Contact Info) Description 01/21/2025 Procedure Pass [facility] Echo Lab 30 [place] [address] 03/23/2025 11:00 AM EDT Office Visit [facility] Pulmonary Hypertension Clinic [address] [facility], 2nd Floor, [address] [place] [address] Frances Prescott MD [address] [place] [address] CRUZ@[facility] 10/18/2025 1:30 PM EDT Office Visit [facility] Internal Medicine 40 [place] [address] Arnold Cox MD 40 [place] [address] [email or web address] 01/21/2026 11:30 AM EDT Appointment [facility] Echo Lab 30 [place] [address] Frances Prescott MD [address] [place] [address] CRUZ@[facility] 01/21/2026 12:30 PM EDT Appointment [facility], Nuclear Medicine - [address] [address] Frances Prescott MD [address] [place] [address] CRUZ@[facility] 02/03/2026 3:00 PM EDT Telemedicine [facility] Pulmonary Hypertension Clinic [address] [facility], 2nd Floor, [address] [place] [address] Frances Prescott MD [address] [facility] [address] [place] [address] CRUZ@matt .[facility] documented as of this encounter Visit Diagnoses Not on filedocumented in this encounter Care Teams Food Storeroom Clerk Relationship Specialty Start Date End Date Alvaro Blue MD [address] [place] [address] PCP - General Internal Medicine 11/24/22 01/23/24 Arnold Cox MD 40 [place] [address] [email or web address] PCP - General Internal Medicine 01/24/24 Arnold Cox MD 40 [place] [address] [email or web address] Insurance Assigned Provider 02/08/24 documented as of this encounter Additional Source Comments The information contained in this document represents components of the legal health record. It is not the complete legal health record.[facility]
--- OUTSIDE RECORDS SUMMARY | 2025-03-19 14:07 | XMS_ITS | Encounter Summary ---
Author Organization [facility] Address [address] [place] [address] Phone Care Team Providers Care Reducing Machine Operator Name Role Phone Arnold Cox MD Primary Care Provider [phone] Arnold Cox MD Unavailable Encounter Details Date Type Department Care Team ([facility] st Contact Info) Description 06/02/2024 Procedure Pass [facility] Echo Lab 30 [place] [address] Social History Tobacco Use Types Packs/Day Years [...] high school, GED, job training, learning the Bulgarian language, technical skills, or developing parenting skills)? [...] 01/21/2025 Procedure Pass [facility] Echo Lab [address] [place] [address] 03/23/2025 11:00 AM EDT [facility] [address] [facility], 2nd Floor, [address] [place] [address] Frances Prescott MD [address] [place] [address] CRUZ@[facility] 10/18/2025 1:30 PM EDT Office Visit [facility] Internal Medicine 40 [place] [address] Arnold Cox MD 40 [place] [address] [email or web address] 01/21/2026 11:30 AM EDT Appointment [facility] Echo Lab [address] [place] [address] Frances Prescott MD [address] [place] [address] CRUZ@[facility] 01/21/2026 12:30 PM EDT Appointment [facility], Nuclear Medicine - [address] [address] Frances Prescott MD [address] [place] [address] CRUZ@[facility] 02/03/2026 3:[address] [facility] Clinic [address] [place] [address], 2nd Floor, [address] [place] [address] Frances Prescott MD [address] [place] [address] CRUZ@[facility] documented as of this encounter Visit Diagnoses Not on filedocumented in this encounter Additional Health Concerns Assessment Noted Time PHQ-2 Depression Total Score: 0 10/09/19 25 9:04 AM EDT documented as of this encounter Care Teams Reducing Machine Operator Relationship Specialty Start Date End Date Arnold Cox MD [address] [place] [address] [email or web address] PCP - General Internal Medicine 01/24/24 Arnold Cox MD 40 [place] [address] [email or web address] Insurance Assigned Provider 02/08/24 documented as of this encounter Additional Source Comments The information contained in this document represents components of the legal health record. It is not the complete legal health record.[facility]
--- OUTSIDE RECORDS SUMMARY | 2025-03-19 14:07 | XMS_ITS | Encounter Summary ---
Author Organization [facility] Address [address] [place] [address] Phone Care Team Providers Care Car Rental Sales Assistant Name Role Phone Arnold Cox MD Primary Care Provider [phone] Arnold Cox MD Unavailable Encounter Details Date Type Department Care Team (Late st Contact Info) Description 03/16/2024 Procedure Pass [facility] Cardiac US [address] [place] [address] Social History Tobacco Use Types Packs/Day Years [...] high school, GED, job training, learning the Indian language, technical skills, or developing parenting skills)? [...] 01/21/2025 Procedure Pass [facility] Echo Lab [address] [place] [address] 03/23/2025 11:00 AM EDT Office Visit [facility] Pulmonary Hypertension Clinic [address] [facility], 2nd Floor, [address] [place] [address] Frances Prescott MD [address] [place] [address] CRUZ@[facility] 10/18/2025 1:30 PM EDT Office Visit [facility] Internal Medicine 40 [place] [address] Arnold Cox MD 40 [place] [address] [email or web address] 01/21/2026 11:30 AM EDT Appointment [facility] Echo Lab [address] [place] [address] Frances Prescott MD [address] [place] [address] CRUZ@[facility] 01/21/2026 12:30 PM EDT Appointment [facility], Nuclear Medicine - [address] [address] Frances Prescott MD [address] [place] [address] CRUZ@[facility] 02/03/2026 3:00 PM EDT Telemedicine [facility] Pulmonary Hypertension Clinic [address] [place] [address], 2nd Floor, [address] [place] [address] Frances Prescott MD [address] [place] [address] CRUZ@[facility] documented as of this encounter Visit Diagnoses Not on filedocumented in this encounter Additional Health Concerns Assessment Noted Time PHQ-2 Depression Total Score: 0 11/15/19 24 11:33 AM EDT documented as of this encounter Care Teams Car Rental Sales Assistant Relationship Specialty Start Date End Date Arnold Cox MD 40 [place] [address] [email or web address] PCP - General Internal Medicine 01/24/24 Arnold Cox MD 40 [place] [address] [email or web address] Insurance Assigned Provider 02/08/24 documented as of this encounter Additional Source Comments The information contained in this document represents components of the legal health record. It is not the complete legal health record.[facility]
--- OUTSIDE RECORDS SUMMARY | 2025-03-19 14:07 | XMS_ITS | Encounter Summary ---
Author Organization [facility] Address [address] [place] [address] [place] [address] Phone Care Team Providers Care Displayer Merchandise Name Role Phone Arnold Cox MD Primary Care Provider [phone] Arnold Cox MD Unavailable Encounter Details Date Type Department Care Team (Late st Contact Info) Description 01/25/2024 Procedure Pass [facility] [address] [place] [address] Social History Tobacco Use Types Packs/Day Years [...] 01/21/2025 Procedure Pass [facility] Echo Lab [address] [place] [address] 03/23/2025 11:00 AM EDT Office Visit [facility] Pulmonary Hypertension Clinic [address] [place] [address], 2nd Floor, [address] [place] [address] Frances Prescott MD [address] [place] [address] CRUZ@[facility] 10/18/2025 1:30 PM EDT Office Visit [facility] Internal Medicine 40 [place] [address] Arnold Cox MD 40 [place] [address] [email or web address] 01/21/2026 11:30 AM EDT Appointment [facility] Echo Lab [address] [place] [address] Frances Prescott MD [address] [place] [address] CRUZ@[facility] 01/21/2026 12:30 PM EDT Appointment [facility], Nuclear Medicine - [address] [address] Frances Prescott MD [address] [place] [address] CRUZ@[facility] 02/03/2026 3:00 PM EDT Telemedicine [facility] Pulmonary Hypertension Clinic [address] [place] [address], 2nd Floor, [address] [place] [address] Frances Prescott MD [address] [place] [address] CRUZ@[facility] documented as of this encounter Visit Diagnoses Not on filedocumented in this encounter Additional Health Concerns Assessment Noted Time PHQ-2 Depression Total Score: 0 11/15/19 24 11:33 AM EDT documented as of this encounter Care Teams Displayer Merchandise Relationship Specialty Start Date End Date Arnold oCx MD 40 [place] [address] [email or web address] PCP - General Internal Medicine 01/24/24 Arnold Cox MD 40 [place] [address] [email or web address] Insurance Assigned Provider 02/08/24 documented as of this encounter Additional Source Comments The information contained in this document represents components of the legal health record. It is not the complete legal health record.[facility]
[2025-03-19 14:08] LABS: Hematocrit 44.0 % (42.0-52.0); Hemoglobin 16.2 g/dl (14.0-18.0); Imm Gran Abs Auto 0.02 X10*3/uL (0.00-0.03); Imm Gran Pct Auto 0.2 % (0.0-0.4); Lymphocytes Absolute Auto 2.2 X10*3/uL (1.2-4.9); Mean Corpuscular HGB Conc 36.8 g/dl (31.0-36.0); Mean Corpuscular Hemoglobin 32.8 pg (27.0-33.0); Mean Corpuscular Volume 89.1 fL (80.0-98.0); NRBC Abs Auto 0.000 X10*3/uL (0.0-0.012); NRBC Pct Auto 0.0 /100WBC (0.0-0.2); Platelet Count 175 X10*3/uL (160-400); Red Blood Count 4.94 X10*6/uL (4.60-5.80); White Blood Count 9.5 X10*3/uL (4.8-10.8)
--- OUTSIDE RECORDS SUMMARY | 2025-03-19 14:08 | XMS_ITS | Encounter Summary ---
Author Organization [facility] Address [address] [place] [address] [address] [place] [address] Phone Care Team Providers Care Floor Molder Name Role Phone Arnold Cox MD Primary Care Provider [phone] Arnold Cox MD Unavailable Encounter Details Date Type Department Care Team (Late st Contact Info) Description 01/24/2024 Procedure Pass [facility] Cardiac Laundry Machine Operator [address] [facility], [address] 9, [address] [place] [address] Social History Tobacco Use Types [...] high school, GED, job training, learning the Cuban language, technical skills, or developing parenting skills)? [...] on file documented as of this encounter Functional Status * Calculated C-SSRS Risk Score (Lifetime/Recent) Answer Date of Assessment Author No Risk Indicated 01/24/2024 8:13 PM EDT Gely iRng, RN * [place] Suicide Severity Rating Scale (Screener/Recent Self-Report) Question Answer Date of Assessment Author 1. Wish to be (Past 1 Month) No 024 8:13 PM EDT Gely Ring RN 2. Non-Specific Active Suici anabella Thoughts (Past 1 Month) No 01/24/2024 8:13 PM EDT Becky Ring RN 6. Suicidal Behavior (Lifetime) No 8:13 PM EDT Gely Ring RN documented as of this encounter Plan of Treatment Upcoming Encounters Date Type Department Care Team (Late st Contact Info) Description 01/21/2025 Procedure Pass [facility] Echo Lab 30 [place] [address] 03/23/2025 11:00 AM EDT Office Visit [facility] Pulmonary Hypertension Clinic [address] [place] [address], 2nd Floor, [address] [place] [address] Frances Prescott MD [address] [place] [address] CRUZ@[facility] 10/18/2025 1:30 PM EDT Office Visit [facility] Internal Medicine [address] [place] [address] Arnold Cox MD 40 [place] [address] [email or web address] 01/21/2026 11:30 AM EDT Appointment [facility] Echo Lab [address] [place] [address] Frances Prescott MD [address] [place] [address] CRUZ@[facility] 01/21/2026 12:30 PM EDT Appointment [facility], Nuclear Medicine - [address] [address] Frances Prescott MD [address] [place] [address] CRUZ@m[facility] 02/03/2026 3:00 PM EDT Telemedicine [facility] Pulmonary Hypertension Clinic [address] [facility], 2nd Floor, [address] [place] [address] Frances Prescott MD [address] [place] [address] [address] [place] [address] CRUZ@matt .[facility] documented as of this encounter Visit Diagnoses Not on filedocumented in this encounter Additional Health Concerns Assessment Noted Time PHQ-2 Depression Total Score: 0 11/15/19 24 11:33 AM EDT documented as of this encounter Care Teams Floor Molder Relationship Specialty Start Date End Date Arnold Cox MD 40 [place] [address] [email or web address] PCP - General Internal Medicine 01/24/24 Arnold Cox MD 40 [place] [address] [email or web address] Insurance Assigned Provider 02/08/24 documented as of this encounter Additional Source Comments The information contained in this document represents components of the legal health record. It is not the complete legal health record.[facility]
--- OUTSIDE RECORDS SUMMARY | 2025-03-19 14:08 | XMS_ITS | Encounter Summary ---
Author Organization [facility] Address [address] [facility] [address] [place] [address] Phone Care Team Providers Care Contract Administration Coordinator Name Role Phone Arnold Cox MD Primary Care Provider [phone] Arnold Cox MD Unavailable Encounter Details Date Type Department Care Team ([facility] st Contact Info) Description 01/26/2024 Procedure Pass [facility] Holter Lab [address] [facility], 5th Floor, [address] [place] [address] Social History Tobacco Use Types Packs/Day Years [...] high school, GED, job training, learning the Uzbek language, technical skills, or developing parenting skills)? [...] 01/21/2025 Procedure Pass [facility] Echo Lab [address] [place] [address] 03/23/2025 11:00 AM EDT Office Visit [facility] Pulmonary Hypertension Clinic [address] [place] [address], 2nd Floor, [address] [place] [address] Frances Prescott MD [address] [place] [address] CRUZ@[facility] 10/18/2025 1:30 PM EDT Office Visit [facility] Internal Medicine 40 [place] [address] Arnold Cox MD 40 [place] [address] [email or web address] 01/21/2026 11:30 AM EDT Appointment [facility] Echo Lab [address] [place] [address] Frances Prescott MD [address] [place] [address] CRUZ@[facility] 01/21/2026 12:30 PM EDT Appointment [facility], Nuclear Medicine - [address] [address] Frances Prescott MD [address] [place] [address] CRUZ@[facility] 02/03/2026 3:00 PM EDT Telemedicine [facility] Pulmonary Hypertension Clinic [address] [place] [address], 2nd Floor, [address] [place] [address] Frances Prescott MD [address] [place] [address] CRUZ@[facility] documented as of this encounter Visit Diagnoses Not on filedocumented in this encounter Additional Health Concerns Assessment Noted Time PHQ-2 Depression Total Score: 0 11/15/19 24 11:33 AM EDT documented as of this encounter Care Teams Contract Administration Coordinator Relationship Specialty Start Date End Date Arnold Cox MD 40 [place] [address] [email or web address] PCP - General Internal Medicine 01/24/24 Arnold Cox MD [address] [place] [address] [email or web address] Insurance Assigned Provider 02/08/24 documented as of this encounter Additional Source Comments The information contained in this document represents components of the legal health record. It is not the complete legal health record.[facility]
--- OUTSIDE RECORDS SUMMARY | 2025-03-19 14:08 | XMS_ITS | Encounter Summary ---
Author Organization [facility] Address [address] [place] [address] [address] [place] [address] Phone Care Team Providers Care Milieu Coordinator Name Role Phone Arnold Cox MD Primary Care Provider [phone] Arnold Cox MD Unavailable Encounter Details Date Type Department Care Team (Late st Contact Info) Description 10/15/2024 Procedure Pass [facility] Cardiac Rheumatology Nurse [address] [facility], Floor 9, [address] [place] [address] Social History Tobacco Use Types [...] high school, GED, job training, learning the Turkmen language, technical skills, or developing parenting skills)? [...] Date of Assessment Author No Risk Indicated 10/15/2024 10:02 PM EDT Genoveva Benjamin RN * [place] Suicide Severity Rating Scale (Screener/Recent Self-Report) Question Answer Date of Assessment Author 1. Wish to be (Past 1 Month) No 10/15/2024 10:02 PM EDT Genoveva Benjamin RN 2. Non-Specific Active Suicidal Thoughts (Past 1 Month) No 10/15/2024 10:02 PM EDT Genoveva Benjamin RN 6. Suicidal Behavior (Lifetime) No 10/15/2024 10:02 PM EDT Genoveva Benjamin RN documented as of this encounter Plan of Treatment Upcoming Encounters Date Type Department Care Team (Late st Contact Info) Description 01/21/2025 Procedure Pass [facility] Echo Lab [address] [place] [address] 03/23/2025 11:00 AM EDT Office Visit [facility] Pulmonary Hypertension Clinic [address] [place] [address], 2nd Floor, [address] [place] [address] Frances Prescott MD [address] [place] [address] [email or web address] 10/18/2025 1:30 PM EDT Office Visit [facility] Internal Medicine [address] [place] [address] Arnold Cox MD 40 [place] [address] [email or web address] 01/21/2026 11:30 AM EDT Appointment [facility] Echo Lab [address] [place] [address] Frances Prescott MD [address] [place] [address] CRUZ@[facility] 01/21/2026 12:30 PM EDT Appointment [facility], Nuclear Medicine - [address] [address] Frances Prescott MD [address] [place] [address] [email or web address]@[email or web address] 02/03/2026 3:00 PM EDT Telemedicine [facility] Pulmonary Hypertension Clinic [address] [facility], 2nd Floor, [address] [place] [address] Frances Prescott MD [address] [facility] [address] [place] [address] [email or web address] documented as of this encounter Visit Diagnoses Not on filedocumented in this encounter Additional Health Concerns Assessment Noted Time PHQ-2 Depression Total Score: 0 10/09/19 25 9:04 AM EDT documented as of this encounter Care Teams Milieu Coordinator Relationship Specialty Start Date End Date Arnold Cox MD 40 [place] [address] [email or web address] PCP - General Internal Medicine 01/24/24 Arnold Cox MD 40 [place] [address] [email or web address] Insurance Assigned Provider 02/08/24 documented as of this encounter Additional Source Comments The information contained in this document represents components of the legal health record. It is not the complete legal health record.[facility]
--- OUTSIDE RECORDS SUMMARY | 2025-03-19 14:08 | XMS_ITS | Encounter Summary ---
Author Organization [facility] Address [address] [place] [address] [address] [place] [address] Phone Care Team Providers Care Skein Dyer Name Role Phone Arnold Cox MD Primary Care Provider [phone] Arnold Cox MD Unavailable Encounter Details Date Type Department Care Team ([facility] Contact Info) Description 03/09/2024 Telephone [facility] Center for Hematology [address] [facility], 7th Floor, [address] [place] [address] Sadia Santos MD 55 [facility] [address] [place] [address] [email or web address] Social History Tobacco Use Types Packs/Day [...] 01/21/2025 Procedure Pass [facility] Echo Lab [address] [place] [address] 03/23/2025 11:00 AM EDT Office Visit [facility] [address] [facility], 2nd Floor, [address] [place] [address] Frances Prescott MD [address] [place] [address] CRUZ@[facility] 10/18/2025 1:30 PM EDT Office Visit [facility] Internal Medicine 40 [place] [address] Arnold Cox MD 40 [place] [address] [email or web address] 01/21/2026 11:30 AM EDT Appointment [facility] Echo Lab 30 [place] [address] Frances Prescott MD [address] [place] [address] [email or web address]@[facility] 01/21/2026 12:30 PM EDT Appointment [facility], Nuclear Medicine - [address] [address] Frances Prescott MD [address] [place] [address] [email or web address] 02/03/2026 3:00 PM EDT Telemedicine [facility] [address] [facility], 2nd Floor, [address] [place] [address] Frances Prescott MD [address] [place] [address] [email or web address] documented as of this encounter Visit Diagnoses Not on filedocumented in this encounter Additional Health Concerns Assessment Noted Time PHQ-2 Depression Total Score: 0 11/15/19 11:33 AM EDT documented as of this encounter Care Teams Skein Dyer Relationship Specialty Start Date End Date Arnold Cox MD 40 [place] [address] PCP - General Internal Medicine 01/24/24 Arnold Cox MD 40 [place] [address] Insurance Assigned Provider 02/08/24 documented as of this encounter Additional Source Comments The information contained in this document represents components of the legal health record. It is not the complete legal health record.[facility]
--- OUTSIDE RECORDS SUMMARY | 2025-03-19 14:08 | XMS_ITS | Encounter Summary ---
Author Organization [facility] Address [address] [place] [address] Phone Care Team Providers Care Coach Operator Name Role Phone Pcp, Unknown Primary Care Provider UnavailAlvaro Shea MD Primary Care Provider [phone] Arnold Cox MD Primary Care Provider Arnold Cox MD Unavailable Encounter Details Date Type Department Care Team (Late st Contact Info) Description 11/23/2022 Procedure Pass [facility], Ct Scan - [address] [address] Social History Tobacco Use Types Packs/Day Years [...] Date of Assessment Author No Risk Indicated 11/23/2022 1:59 PM EDT Cecelia Pruett RN * [place] Suicide Severity Rating Scale (Screener/Recent Self-Report) Question Answer Date of Assessment Author 1. Wish to be (Past 1 Month) No 023 1:59 PM EDT Cecelia Pruett RN 2. Non-Specific Active Suici anabella Thoughts (Past 1 Month) No 11/23/2022 1:59 PM EDT Cecelia Pruett RN 6. Suicidal Behavior (Lifetime) No 1:59 PM EDT Cecelia Pruett RN documented as of this encounter Plan of Treatment Upcoming Encounters Date Type Department Care Team (Late st Contact Info) Description 01/21/2025 Procedure Pass [facility] Echo Lab 30 [place] [address] 03/23/2025 11:00 AM EDT Office Visit [facility] Pulmonary Hypertension Clinic [address] [place] [address], 2nd Floor, [address] [place] [address] Frances Prescott MD [address] [place] [address] [email or web address] 10/18/2025 1:30 PM EDT Office Visit [facility] Internal Medicine [address] [place] [address] Arnold Cox MD 40 [place] [address] [email or web address] 01/21/2026 11:30 AM EDT Appointment [facility] Echo Lab 30 [place] [address] Frances Prescott MD [address] [place] [address] [email or web address] 01/21/2026 12:30 PM EDT Appointment [facility], Nuclear Medicine - [address] [address] Frances Prescott MD [address] [facility] [place] [address] [email or web address] 02/03/2026 3:00 PM EDT Telemedicine [facility] Pulmonary Hypertension Clinic [address] [facility], 2nd Floor, [address] [place] [address] Frances Prescott MD [address] [facility] [place] [address] [email or web address] documented as of this encounter Visit Diagnoses Not on filedocumented in this encounter Care Teams Coach Operator Relationship Specialty Start Date End Date Pcp, Unknown PCP - General 11/23/22 11/23/22 Alvaro Blue MD [address] [place] [address] PCP - General Internal Medicine 11/24/22 01/23/24 Arnold Cox MD [address] [place] [address] [email or web address] PCP - General Internal Medicine 01/24/24 Arnold Cox MD [address] [place] [address] Insurance Assigned Provider 02/08/24 documented as of this encounter Additional Source Comments The information contained in this document represents components of the legal health record. It is not the complete legal health record.[facility]
--- OUTSIDE RECORDS SUMMARY | 2025-03-19 14:08 | XMS_ITS | Encounter Summary ---
Author Organization [facility] Address [address] [place] [address] [place] [address] Phone Care Team Providers Care Health Worker Name Role Phone Arnold Cox MD Primary Care Provider Arnold Cox MD Unavailable Encounter Details Date Type Department Care Team (Late st Contact Info) Description 01/24/2024 Procedure Pass [facility] Emergency Imaging, [address], Floor 1 [place] [address] Social History Tobacco Use Types Packs/Day Years [...] high school, GED, job training, learning the Bolivian language, technical skills, or developing parenting skills)? [...] Risk Indicated 01/24/2024 8:13 PM EDT Gely Ring RN * [place] Suicide Severity Rating Scale (Screener/Recent Self-Report) Question [...] st Contact Info) Description 01/21/2025 Procedure Pass [facility] Echo Lab 30 [place] [address] 03/23/2025 11:00 AM EDT Office Visit [facility] Pulmonary Hypertension Clinic [address] [place] [address], 2nd Floor, [address] [place] [address] Frances Prescott MD [address] [place] [address] [email or web address] 10/18/2025 1:30 PM EDT Office Visit [facility] Internal Medicine [address] [place] [address] Arnold Cox MD [address] [place] [address] [email or web address] 01/21/2026 11:30 AM EDT Appointment [facility] Echo Lab [address] [place] [address] Frances Prescott MD [address] [place] [address] CRUZ@[facility] 01/21/2026 12:30 PM EDT Appointment [facility], Nuclear Medicine - [address] [address] Frances Prescott MD [address] [place] [address] CRUZ@[facility] 02/03/2026 3:00 PM EDT Telemedicine [facility]pertension Clinic [address] [facility], 2nd Floor, [address] [place] [address] Frances Prescott MD [address] [facility] [address] [place] [address] CRUZ@[facility] documented as of this encounter Visit Diagnoses Not on filedocumented in this encounter Additional Health Concerns Assessment Noted Time PHQ-2 Depression Total Score: 0 11/15/19 24 11:33 AM EDT documented as of this encounter Care Teams Health Worker Relationship Specialty Start Date End Date Arnold Cox MD 40 [place] [address] [email or web address] PCP - General Internal Medicine 01/24/24 Arnold Cox MD 40 [place] [address] [email or web address] Insurance Assigned Provider 02/08/24 documented as of this encounter Additional Source Comments The information contained in this document represents components of the legal health record. It is not the complete legal health record.[facility]
[2025-03-19 15:25] LABS: Iron 232 mcg/dL (45-160); Percent Iron Saturation 90 % (15-50); Total Iron Binding Capacity 257 mcg/dL (228-428); Unsaturated Iron Binding < 25 ug/dL
[2025-03-19 15:30] LABS: Ferritin 87 ng/mL (20-250)
== END 2025-03-19 13:59 | disposition home or self-care (01) ==
LOC: HO.BBR 13:58
PROVIDERS: PCP Internal Medicine; Visit Provider Internal Medicine
DX: E83.110 Hereditary hemochromatosis (principal)
CPT/HCPCS: 36415; 82728; 83540; 85025

== ENCOUNTER 2025-05-21 14:18 | Outpatient (REF) | payer OTHER, BC, SELFPAY ==
[2025-05-21 14:27] LABS: MANUAL DIFF FLAG NO
[2025-05-21 14:28] LABS: Hematocrit 45.4 % (42.0-52.0); Hemoglobin 16.5 g/dl (14.0-18.0); Imm Gran Abs Auto 0.02 X10*3/uL (0.00-0.03); Imm Gran Pct Auto 0.3 % (0.0-0.4); Lymphocytes Absolute Auto 2.8 X10*3/uL (1.2-4.9); Mean Corpuscular HGB Conc 36.3 g/dl (31.0-36.0); Mean Corpuscular Hemoglobin 33.0 pg (27.0-33.0); Mean Corpuscular Volume 90.8 fL (80.0-98.0); NRBC Abs Auto 0.000 X10*3/uL (0.0-0.012); NRBC Pct Auto 0.0 /100WBC (0.0-0.2); Platelet Count 167 X10*3/uL (160-400); Red Blood Count 5.00 X10*6/uL (4.60-5.80); White Blood Count 7.4 X10*3/uL (4.8-10.8)
--- OUTSIDE RECORDS SUMMARY | 2025-05-21 14:39 | XMS_ITS | Encounter Summary ---
Author Organization [facility] Address [address] [facility] [address] [place] [address] Phone Care Team Providers Care Supervisor Cell Efficiency Name Role Phone Alvaro Blue MD Primary Care Provider [phone] Arnold Cox MD Primary Care Provider [phone] Arnold Cox MD Unavailable Encounter Details Date Type Department Care Team (Late st Contact Info) Description 04/09/2023 Telephone [facility] Center for Hematology [address] [facility], 7th Floor, [address] [place] [address] Sadia Santos MD 55 [facility] [address] [place] [address] [email or web address] Social History Tobacco Use Types [...] 01/21/2025 Procedure Pass [facility] Echo Lab 30 [place] [address] 09/07/2025 2:30 PM EDT Telemedicine [facility] Center for Hematology [address] [facility], 7th Floor, [address] [place] [address] Sadia Santos MD 55 [facility] [address] [place] [address] [email or web address] 10/18/2025 1:30 PM EDT Office Visit [facility] Internal Medicine 40 [place] [address] Arnold Cox MD 40 [place] [address] [email or web address] 01/21/2026 11:30 AM EDT Appointment [facility] Echo Lab 30 [place] [address] Frances Prescott MD [address] [place] [address] CRUZ@[facility] 01/21/2026 12:30 PM EDT Appointment [facility], Nuclear Medicine - [facility] 30 [place] [address] Frances Prescott MD [address] [place] [address] CRUZ@[facility] 02/08/2026 11:30 AM EDT Telemedicine [facility] Pulmonary Hypertension Clinic [address] [facility], 2nd Floor, [address] [place] [address] Frances Prescott MD [address] [place] [address] [place] [address] CRUZ@[email or web address] documented as of this encounter Visit Diagnoses Not on filedocumented in this encounter Care Teams Supervisor Cell Efficiency Relationship Specialty Start Date End Date Alvaro Blue MD [address] [place] [address] PCP - General Internal Medicine 11/24/22 01/23/24 Arnold Cox MD 40 [place] [address] [email or web address] PCP - General Internal Medicine 01/24/24 Arnold Cox MD 40 [place] [address] [email or web address] Insurance Assigned Provider 02/08/24 documented as of this encounter Additional Source Comments The information contained in this document represents components of the legal health record. It is not the complete legal health record.[facility]
--- OUTSIDE RECORDS SUMMARY | 2025-05-21 14:39 | XMS_ITS | Encounter Summary ---
Author Organization [facility] Address [address] [place] [address] Phone Care Team Providers Care Body Builder Apprentice Name Role Phone Alvaro Blue MD Primary Care Provider [phone] Arnold Cox MD Primary Care Provider [phone] Arnold Cox MD Unavailable Encounter Details Date Type Department Care Team (Late st Contact Info) Description 06/13/2023 Procedure Pass [facility], Ct Scan - [address] [address] Social History Tobacco Use Types Packs/Day Years [...] st Contact Info) Description 01/21/2025 Procedure Pass [facility] Echo Lab 30 [place] [address] 09/07/2025 2:30 PM EDT Telemedicine [facility] Center for Hematology [address] [facility], 7th Floor, [address] [place] [address] Sadia Santos MD 55 [facility] [address] [place] [address] [email or web address] 10/18/2025 1:30 PM EDT Office Visit [facility] Internal Medicine 40 [place] [address] Arnold Cox MD 40 [place] [address] [email or web address] 01/21/2026 11:30 AM EDT Appointment [facility] Echo Lab 30 [place] [address] Frances Prescott MD [address] [place] [address] CRUZ@[facility] 01/21/2026 12:30 PM EDT Appointment [facility], Nuclear Medicine - [facility] 30 [place] [address] Frances Prescott MD [address] [place] [address] CRUZ@[facility] 02/08/2026 11:30 AM EDT Telemedicine [facility] Clinic [address] [facility], 2nd Floor, [address] [place] [address] Frances Prescott MD [address] [place] [address] CRUZ@[email or web address] documented as of this encounter Visit Diagnoses Not on filedocumented in this encounter Care Teams Body Builder Apprentice Relationship Specialty Start Date End Date Alvaro Blue MD [address] [place] [address] PCP - General Internal Medicine 11/24/22 01/23/24 Arnold Cox MD [address] [place] [address] PCP - General Internal Medicine 01/24/24 Arnold Cox MD [address] [place] [address] Insurance Assigned Provider 02/08/24 documented as of this encounter Additional Source Comments The information contained in this document represents components of the legal health record. It is not the complete legal health record.[facility]
--- OUTSIDE RECORDS SUMMARY | 2025-05-21 14:39 | XMS_ITS | Encounter Summary ---
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 Referral ID Status Reason Start Date Expiration Date Visits Re quested Visits Authorized [id number] Closed 04/15/2023 1 1 Encounter Details Date Type Department Care Team (Late st Contact Info) Description 05/24/[address] [facility] [address] [facility], 2nd Floor, [address] [place] [address] Frances Prescott MD [address] [place] [address] [address] [place] [address] CRUZ@ [facility] Acute saddle pulmonary embolism with acute [...] st Contact Info) Description 01/21/2025 Procedure Pass [facility] Echo Lab 30 [place] [address] 09/07/2025 2:[address] [facility] Center for Hematology 32 [facility], 7th Floor, [address] [place] [address] Sadia Santos MD [address] [facility] [address] [place] [address] [email or web address] 10/18/2025 1:30 PM EDT Office Visit [facility] Internal Medicine 40 [place] [address] Arnold Cox MD 40 [place] [address] 01/21/2026 11:30 AM EDT Appointment [facility] Echo Lab 30 [place] [address] Frances Prescott MD 55 [facility] [place] [address] CRUZ@[email or web address] 01/21/2026 12:30 PM EDT Appointment [facility], Nuclear Medicine - [address] [address] Frances Prescott MD [address] [place] [address] CRUZ@[facility] 02/08/2026 11:[address] [facility] Pulmonary Hypertension Clinic [address] [place] [address], 2nd Floor, [address] [place] [address] Frances Prescott MD [address] [place] [address] CRUZ@[facility] documented as of this encounter [...] [place] [address]. The test was terminated due to hypertension [...] pulmonale documented in this encounter Care Teams Hinging Machine Operator Relationship Specialty Start Date End Date Alvaro Blue MD [address] [place] [address] PCP - General Internal Medicine 11/24/22 01/23/24 Arnold Cox MD 40 [place] [address] [email or web address] PCP - General Internal Medicine 01/24/24 Arnold Cox MD 40 [place] [address] [email or web address] Insurance Assigned Provider 02/08/24 documented as of this encounter Additional Source Comments The information contained in this document represents components of the legal health record. It is not the complete legal health record.[facility]
--- OUTSIDE RECORDS SUMMARY | 2025-05-21 14:39 | XMS_ITS | Encounter Summary ---
Author Organization [facility] Address [address] [place] [address] Phone Care Team Providers Care Senior Water/Wastewater Engineer Name Role Phone Alvaro Blue MD Primary Care Provider [phone] Arnold Cox MD Primary Care Provider [phone] Arnold Cox MD Unavailable Encounter Details Date Type Department Care Team (Late st Contact Info) Description 11/24/2022 Procedure Pass [facility] [address] [place] [address] Social History Tobacco Use Types Packs/Day Years [...] 01/21/2025 Procedure Pass [facility] Echo Lab 30 [place] [address] 09/07/2025 2:30 PM EDT Telemedicine [facility] Center for Hematology [address] [facility], 7th Floor, [address] [place] [address] Sadia Santos MD 55 [facility] [address] [place] [address] [email or web address] 10/18/2025 1:30 PM EDT Office Visit [facility] Internal Medicine 40 [place] [address] Arnold Cox MD 40 [place] [address] [email or web address] 01/21/2026 11:30 AM EDT Appointment [facility] Echo Lab 30 [place] [address] Frances Prescott MD [address] [place] [address] CRUZ@[email or web address] 01/21/2026 12:30 PM EDT Appointment [facility], Nuclear Medicine - [facility] 30 [place] [address] Frances Prescott MD [address] [place] [address] CRUZ@[facility] 02/08/2026 11:30 AM EDT Telemedicine [facility] Pulmonary Hypertension Clinic [address] [facility], 2nd Floor, [address] [place] [address] Frances Prescott MD [address] [place] [address] CRUZ@[facility] documented as of this encounter Visit Diagnoses Not on filedocumented in this encounter Care Teams Senior Water/Wastewater Engineer Relationship Specialty Start Date End Date Alvaro Blue MD [address] [place] [address] PCP - General Internal Medicine 11/24/22 01/23/24 Arnold Cox MD [address] [place] [address] [email or web address] PCP - General Internal Medicine 01/24/24 Arnold Cox MD [address] [place] [address] [email or web address] Insurance Assigned Provider 02/08/24 documented as of this encounter Additional Source Comments The information contained in this document represents components of the legal health record. It is not the complete legal health record.[facility]
--- OUTSIDE RECORDS SUMMARY | 2025-05-21 14:39 | XMS_ITS | Encounter Summary ---
Author Organization [facility] Address [address] [place] [address] Phone Care Team Providers Care Laboratory Clerk Name Role Phone Arnold Cox MD Primary Care Provider [phone] Arnold Cox MD Unavailable Encounter Details Date Type Department Care Team (Late st Contact Info) Description 09/14/2024 Procedure Pass Non-Invasive Cardiology 30 [place] [address] Social History Tobacco Use Types Packs/Day Years [...] 01/21/2025 Procedure Pass [facility] [address] [place] [address] 09/07/2025 2:30 PM EDT Telemedicine [facility] Center for Hematology [address] [facility], 7th Floor, [address] [place] [address] Sadia Santos MD [address] [facility] [address] [place] [address] [email or web address] 10/18/2025 1:30 PM EDT Office Visit [facility] Internal Medicine 40 [place] [address] Arnold Cox MD 40 [place] [address] [email or web address] 01/21/2026 11:30 AM EDT Appointment [facility] [address] [place] [address] Frances Prescott MD [address] [place] [address] [email or web address]@[facility] 01/21/2026 12:30 PM EDT Appointment [facility], Nuclear Medicine - [address] [address] Frances Prescott MD [address] [place] [address] [email or web address]@[facility] 02/08/2026 11:30 AM EDT Telemedicine [facility] Pulmonary Hypertension Clinic [address] [place] [address], 2nd Floor, [address] [place] [address] Frances Prescott MD [address] [place] [address] [email or web address]@[facility] documented as of this encounter Visit Diagnoses Not on filedocumented in this encounter Additional Health Concerns Assessment Noted Time PHQ-2 Depression Total Score: 0 11/15/19 24 11:33 AM EDT documented as of this encounter Care Teams Laboratory Clerk Relationship Specialty Start Date End Date Arnold Cox MD 40 [place] [address] [email or web address] PCP - General Internal Medicine 01/24/24 Arnold Cox MD 40 [place] [address] [email or web address] Insurance Assigned Provider 02/08/24 documented as of this encounter Additional Source Comments The information contained in this document represents components of the legal health record. It is not the complete legal health record.[facility]
--- OUTSIDE RECORDS SUMMARY | 2025-05-21 14:39 | XMS_ITS | Encounter Summary ---
Author Organization [facility] Address [address] [facility] [address] [place] [address] Phone Care Team Providers Care Bell Attendant Name Role Phone Alvaro Blue MD Primary Care Provider Arnold Cox MD Primary Care Provider [phone] Arnold Cox MD Unavailable Encounter Details Date Type Department Care Team (Late st Contact Info) Description 01/19/2023 Telephone [facility] Center for Hematology [address] [facility], 7th Floor, [address] [place] [address] Sadia Santos MD [address] [facility] [address] [place] [address] [email or web address] du Social History Tobacco Use Types Packs/Day [...] 01/21/2025 Procedure Pass [facility] 30 [place] [address] 09/07/2025 2:30 PM EDT Telemedicine [facility] Center for Hematology [address] [facility], 7th Floor, [address] [place] [address] Sadia Santos MD 55 [facility] [address] [place] [address] [email or web address] 10/18/2025 1:30 PM EDT Office Visit [facility] Internal Medicine 40 [place] [address] Arnold Cox MD 40 [place] [address] [email or web address] 01/21/2026 11:30 AM EDT Appointment [facility] Echo Lab 30 [place] [address] Frances Prescott MD [address] [place] [address] [email or web address] 01/21/2026 12:30 PM EDT Appointment [facility], Nuclear Medicine - [facility] 30 [place] [address] Frances Prescott MD [address] [place] [address] CRUZ@[email or web address] 02/08/2026 11:30 AM EDT Telemedicine [facility] Pul[facility]pertension Clinic 55 [facility], 2nd Floor, [address] [place] [address] Frances Prescott MD [address] [place] [address] [place] [address] [email or web address] documented as of this encounter Visit Diagnoses Not on filedocumented in this encounter Care Teams Bell Attendant Relationship Specialty Start Date End Date Alvaro Blue MD [address] [place] [address] PCP - General Internal Medicine 11/24/22 01/23/24 Arnold Cox MD 40 [place] [address] [email or web address] PCP - General Internal Medicine 01/24/24 Arnold Cox MD 40 [place] [address] [email or web address] Insurance Assigned Provider 02/08/24 documented as of this encounter Additional Source Comments The information contained in this document represents components of the legal health record. It is not the complete legal health record.[facility]
--- OUTSIDE RECORDS SUMMARY | 2025-05-21 14:39 | XMS_ITS | Encounter Summary ---
Author Organization [facility] Address [address] [place] [address] Phone Care Team Providers Care Stove Mounter Name Role Phone Arnold Cox MD Primary Care Provider [phone] Arnold Cox MD Unavailable Encounter Details Date Type Department Care Team (Late st Contact Info) Description 08/10/2024 Transcribe Orders Non-Invasive Cardiology 30 [place] [address] Ivy Ramires, [facility] 55 [place] [address] [email or web address] Social History Tobacco Use Types Packs/Day [...] 01/21/2025 Procedure Pass [facility] 30 [place] [address] 09/07/2025 2:30 PM EDT Telemedicine [facility] for [facility]ology [address] [facility], 7th Floor, [address] [place] [address] Sadia Santos MD [address] [facility] [place] [address] [email or web address] 10/18/2025 1:30 PM EDT Office Visit [facility] Internal Medicine 40 [place] [address] Arnold Cox MD 40 [place] [address] [email or web address] 01/21/2026 11:30 AM EDT Appointment [facility] [address] [place] [address] Frances Prescott MD [address] [place] [address] CRUZ@[facility] 01/21/2026 12:30 PM EDT Appointment [facility], Nuclear Medicine - [facility] 30 [place] [address] Frances Prescott MD [address] [place] [address] CRUZ@[facility] 02/08/2026 11:30 AM EDT Telemedicine [facility] [address] [facility], 2nd Floor, [address] [place] [address] Frances Prescott MD [address] [place] [address] [email or web address]@[facility] documented as of this encounter Procedures Procedure Name Priority Date/Time Associated Diagnosis Comments ECG 12-LEAD Routine 08/10/2024 9:48 AM EST documented in this encounter Results * ECG 12-LEAD (08/10/2024 9:48 AM EST) Ventricular Rate EKG/MIN 55 BPM [facility] Atrial Rate 48 BPM [facility] FL Interval 206 ms [facility] QRS Duration 90 ms [facility] QT Interval 422 ms [facility] QTC Interval 403 ms [facility] P Marcellus 51 degrees [facility] R Wave Marcellus 55 degrees [facility] T Wave [place]cell[place] 42 degrees [facility] 08/10/2024 9:48 AM EST 08/10/2024 3:28 PM EST Narrative [facility] - 08/10/2024 3:28 PM EST Sinus bradycardia with Premature atrial complexes with Aberrant conduction Otherwise normal ECG When compared with ECG of 20-Jan-2024 12:01, Aberrant conduction is now Present Confirmed by Chandan Raya ([id number]) on 08/10/2024 3:28:45 PM Ivy Bearanne-marie BIAS CUTTING MACHINE OPERATOR VERTICAL ECG ORDERABLES Final Result [facility] documented in this encounter Visit Diagnoses Not on filedocumented in this encounter Additional Health Concerns Assessment Noted Time PHQ-2 Depression Total Score: 0 11/15/19 24 11:33 AM EDT documented as of this encounter Care Teams Stove Mounter Relationship Specialty Start Date End Date Arnold Cox MD 40 [place] [address] PCP - General Internal Medicine 01/24/24 Arnold Cox MD 40 [place] [address] Insurance Assigned Provider 02/08/24 documented as of this encounter Additional Source Comments The information contained in this document represents components of the legal health record. It is not the complete legal health record.[facility]
--- OUTSIDE RECORDS SUMMARY | 2025-05-21 14:39 | XMS_ITS | Encounter Summary ---
Author Organization [facility] Address [address] [place] [address] Phone Care Team Providers Care Medicine Assistant Name Role Phone Arnold Cox MD Primary Care Provider [phone] Arnold Cox MD Unavailable Encounter Details Date Type Department Care Team ([facility] st Contact Info) Description 06/02/2024 Procedure Pass [facility] 30 [place] [address] Social History Tobacco Use Types Packs/Day Years [...] high school, GED, job training, learning the Uruguayan language, technical skills, or developing parenting skills)? [...] 01/21/2025 Procedure Pass [facility] [address] [place] [address] 09/07/2025 2:30 PM EDT Telemedicine [facility] Center for Hematology [address] [facility], 7th Floor, [address] [place] [address] Sadia Santos MD [address] [facility] [address] [place] [address] [email or web address] 10/18/2025 1:30 PM EDT Office Visit [facility] Internal Medicine 40 [place] [address] Arnold Cox MD 40 [place] [address] [email or web address] 01/21/2026 11:30 AM EDT Appointment [facility] [address] [place] [address] Frances Prescott MD [address] [place] [address] [email or web address]@[facility] 01/21/2026 12:30 PM EDT Appointment [facility], Nuclear Medicine - [address] [address] Frances Prescott MD [address] [place] [address] CRUZ@[facility] 02/08/2026 11:30 AM EDT Telemedicine [facility] Pulmonary Hypertension Clinic [address] [place] [address], 2nd Floor, [address] [place] [address] Frances Prescott MD [address] [place] [address] [email or web address]@[facility] documented as of this encounter Visit Diagnoses Not on filedocumented in this encounter Additional Health Concerns Assessment Noted Time PHQ-2 Depression Total Score: 0 10/09/19 25 9:04 AM EDT documented as of this encounter Care Teams Medicine Assistant Relationship Specialty Start Date End Date Arnold Cox MD 40 [place] [address] PCP - General Internal Medicine 01/24/24 Arnold Cox MD 40 [place] [address] [email or web address] Insurance Assigned Provider 02/08/24 documented as of this encounter Additional Source Comments The information contained in this document represents components of the legal health record. It is not the complete legal health record.[facility]
--- OUTSIDE RECORDS SUMMARY | 2025-05-21 14:39 | XMS_ITS | Encounter Summary ---
Author Organization [facility] Address [address] [facility] [address] [place] [address] Phone Care Team Providers Care High School Librarian Name Role Phone Alvaro Blue MD Primary Care Provider Arnold Cox MD Primary Care Provider [phone] Arnold Cox MD Unavailable Encounter Details Date Type Department Care Team (Late st Contact Info) Description 04/09/2023 Telephone [facility] Center for Hematology [address] [facility], 7th Floor, [address] [place] [address] Ashley Polo MD, MPH [address] [facility] [address] [address] [email or web address]. du Social History Tobacco Use Types Packs/Day [...] 01/21/2025 Procedure Pass [facility] 30 [place] [address] 09/07/2025 2:30 PM EDT Telemedicine [facility] Center for Hematology [address] [facility], 7th Floor, [address] [place] [address] Sadia Santos MD [address] [facility] [address] [place] [address] [email or web address] 10/18/2025 1:30 PM EDT Office Visit [facility] Internal Medicine 40 [place] [address] Arnold Cox MD 40 [place] [address] [email or web address] 01/21/2026 11:30 AM EDT Appointment [facility] Echo Lab 30 [place] [address] Frances Prescott MD [address] [place] [address] CRUZ@[facility] 01/21/2026 12:30 PM EDT Appointment [facility], Nuclear Medicine - [facility] 30 [place] [address] Frances Prescott MD [address] [place] [address] CRUZ@[facility] 02/08/2026 11:30 AM EDT Telemedicine [facility] Pulmonary Hypertension Clinic [address] [facility], 2nd Floor, [address] [place] [address] Frances Prescott MD [address] [facility] [address] [place] [address] CRUZ@matt .[facility] documented as of this encounter Visit Diagnoses Not on filedocumented in this encounter Care Teams High School Librarian Relationship Specialty Start Date End Date Alvaro Blue MD [address] [place] [address] PCP - General Internal Medicine 11/24/22 01/23/24 Arnold Cox MD 40 [place] [address] [email or web address] PCP - General Internal Medicine 01/24/24 Arnold Cox MD 40 [place] [address] [email or web address] Insurance Assigned Provider 02/08/24 documented as of this encounter Additional Source Comments The information contained in this document represents components of the legal health record. It is not the complete legal health record.[facility]
--- OUTSIDE RECORDS SUMMARY | 2025-05-21 14:39 | XMS_ITS | Encounter Summary ---
Author Organization [facility] Address [address] [place] [address] Phone Care Team Providers Care Senior Electronics Design Engineer Name Role Phone Arnold Cox MD Primary Care Provider [phone] Arnold Cox MD Unavailable Encounter Details Date Type Department Care Team (Late st Contact Info) Description 03/16/2024 Procedure Pass [facility] Cardiac US [address] [place] [address] Social History Tobacco Use Types Packs/Day Years [...] high school, GED, job training, learning the Kyrgyz language, technical skills, or developing parenting skills)? [...] 01/21/2025 Procedure Pass [facility] [address] [place] [address] 09/07/2025 2:30 PM EDT Telemedicine [facility] Center for Hematology [address] [facility], 7th Floor, [address] [place] [address] Sadia Santos MD [address] [facility] [address] [place] [address] [email or web address] 10/18/2025 1:30 PM EDT Office Visit [facility] Internal Medicine 40 [place] [address] Arnold Cox MD 40 [place] [address] [email or web address] 01/21/2026 11:30 AM EDT Appointment [facility] [address] [place] [address] Frances Prescott MD [address] [place] [address] CRUZ@[facility] 01/21/2026 12:30 PM EDT Appointment [facility], Nuclear Medicine - [address] [address] Frances Prescott MD [address] [place] [address] CRUZ@[facility] 02/08/2026 11:30 AM EDT Telemedicine [facility] Pul[facility] Hypertension Clinic [address] [place] [address], 2nd Floor, [address] [place] [address] Frances Prescott MD [address] [place] [address] CRUZ@[facility] documented as of this encounter Visit Diagnoses Not on filedocumented in this encounter Additional Health Concerns Assessment Noted Time PHQ-2 Depression Total Score: 0 11/15/19 24 11:33 AM EDT documented as of this encounter Care Teams Senior Electronics Design Engineer Relationship Specialty Start Date End Date Arnold Cox MD 40 [place] [address] PCP - General Internal Medicine 01/24/24 Arnold Cox MD 40 [place] [address] [email or web address] Insurance Assigned Provider 02/08/24 documented as of this encounter Additional Source Comments The information contained in this document represents components of the legal health record. It is not the complete legal health record.[facility]
--- OUTSIDE RECORDS SUMMARY | 2025-05-21 14:40 | XMS_ITS | Encounter Summary ---
Author Organization [facility] Address [address] [place] [address] [address] [place] [address] Phone Care Team Providers Care Associate Professor Of Law Name Role Phone Arnold Cox MD Primary Care Provider [phone] Arnold Cox MD Unavailable Encounter Details Date Type Department Care Team ([facility] Contact Info) Description 03/09/2024 Telephone [facility] Center for Hematology [address] [facility], 7th Floor, [address] [place] [address] Sadia Santos MD 55 [facility] [address] [place] [address] [email or web address]. du Social History Tobacco Use Types Packs/Day [...] high school, GED, job training, learning the Guatemalan language, technical skills, or developing parenting skills)? [...] 01/21/2025 Procedure Pass [facility] [address] [place] [address] 09/07/2025 2:30 PM EDT Telemedicine [facility] Center for Hematology [address] [facility], 7th Floor, [address] [place] [address] Sadia Santos MD 55 [facility] [address] [place] [address] [email or web address] 10/18/2025 1:30 PM EDT Office Visit [facility] Internal Medicine 40 [place] [address] Arnold Cox MD 40 [place] [address] [email or web address] 01/21/2026 11:30 AM EDT Appointment [facility] Echo Lab 30 [place] [address] Frances Prescott MD [address] [place] [address] CRUZ@[facility] 01/21/2026 12:30 PM EDT Appointment [facility], Nuclear Medicine - [facility] 30 [place] [address] Frances Prescott MD [address] [place] [address] CRUZ@[facility] 02/08/2026 11:30 AM EDT Telemedicine [facility] Pulmonary Hypertension Clinic 55 [facility], 2nd Floor, [address] [place] [address] Frances Prescott MD [address] [place] [address] CRUZ@[facility] documented as of this encounter Visit Diagnoses Not on filedocumented in this encounter Additional Health Concerns Assessment Noted Time PHQ-2 Depression Total Score: 0 11/15/19 11:33 AM EDT documented as of this encounter Care Teams Associate Professor Of Law Relationship Specialty Start Date End Date Arnold Cox MD 40 [place] [address] [email or web address] PCP - General Internal Medicine 01/24/24 Arnold Cox MD 40 [place] [address] Insurance Assigned Provider 02/08/24 documented as of this encounter Additional Source Comments The information contained in this document represents components of the legal health record. It is not the complete legal health record.[facility]
--- OUTSIDE RECORDS SUMMARY | 2025-05-21 14:40 | XMS_ITS | Patient Health Record ---
Author Organization [facility] Address [address] [place] [address] Care Team Providers Care Plant Propagator Name Role Phone Livan Esteban MD Primary Care Provider Unavailab SummersCarolae Unavailable [phone] Reason For Referral No Information Social History [...] Insured Coverage Start Date Coverage End Date [facility] All Others [phone] [place] [address] [phone] [id number] Cara Kramer Spouse - patient is the spouse of the insured Medical (General) History Medical History History ICD Code Chicken pox Surgical History Surgery Date(Month/Year)
--- OUTSIDE RECORDS SUMMARY | 2025-05-21 14:40 | XMS_ITS | Encounter Summary ---
Author Organization [facility] Address [address] [place] [address] [address] [place] [address] Phone Care Team Providers Care Personnel Director Name Role Phone Arnold Cox MD Primary Care Provider [phone] Arnold Cox MD Unavailable Encounter Details Date Type Department Care Team ([facility] Contact Info) Description 03/03/2024 Telephone [facility] Center for Hematology 32 [facility], 7th Floor, [address] [place] [address] Sadia Santos MD [address] [facility] [address] [place] [address] [email or web address]. du Social History Tobacco Use Types Packs/Day [...] high school, GED, job training, learning the [place] language, technical skills, or developing parenting skills)? [...] 01/21/2025 Procedure Pass [facility] [address] [place] [address] 09/07/2025 2:30 PM EDT Telemedicine [facility] Center for Hematology [address] [facility], 7th Floor, [address] [place] [address] Sadia Santos MD [address] [facility] [address] [place] [address] [email or web address] 10/18/2025 1:30 PM EDT Office Visit [facility] Internal Medicine 40 [place] [address] Arnold Cox MD 40 [place] [address] [email or web address] 01/21/2026 11:30 AM EDT Appointment [facility] Echo Lab 30 [place] [address] Frances Prescott MD [address] [place] [address] CRUZ@[facility] 01/21/2026 12:30 PM EDT Appointment [facility], Nuclear [facility] - [facility] 30 [place] [address] Frances Prescott MD [address] [place] [address] CRUZ@[facility] 02/08/2026 11:30 AM EDT Telemedicine [facility] Pul[facility] Hypertension Clinic 55 [facility], 2nd Floor, [address] [place] [address] Frances Prescott MD [address] [place] [address] CRUZ@[facility] documented as of this encounter Visit Diagnoses Not on filedocumented in this encounter Additional Health Concerns Assessment Noted Time PHQ-2 Depression Total Score: 0 11/15/19 11:33 AM EDT documented as of this encounter Care Teams Personnel Director Relationship Specialty Start Date End Date Arnold Cox MD 40 [place] [address] [email or web address] PCP - General Internal Medicine 01/24/24 Arnold Cox MD 40 [place] [address] Insurance Assigned Provider 02/08/24 documented as of this encounter Additional Source Comments The information contained in this document represents components of the legal health record. It is not the complete legal health record.[facility]
--- OUTSIDE RECORDS SUMMARY | 2025-05-21 14:40 | XMS_ITS | Encounter Summary ---
Author Organization [facility] Address [address] [place] [address] [address] [place] [address] Phone Care Team Providers Care Customer Service Representative Teller Name Role Phone Arnold Cox MD Primary Care Provider [phone] Arnold Cox MD Unavailable Encounter Details Date Type Department Care Team (Late st Contact Info) Description 10/15/2024 Procedure Pass [facility] Cardiac Lieutenant Shift Supervisor [address] [facility], Floor 9, [address] [place] [address] Social History Tobacco Use Types [...] 10:02 PM EDT Genoveva Benjamin RN * Arnold Suicide Severity Rating Scale (Screener/Recent Self-Report) Question [...] st Contact Info) Description 01/21/2025 Procedure Pass [facility] Echo Lab 30 [place] [address] 09/07/2025 2:30 PM EDT Telemedicine [facility] Center for Hematology [address] [facility], 7th Floor, [address] [place] [address] Sadia Santos MD [address] [id number] [email or web address] 10/18/2025 1:30 PM EDT Office Visit [facility] Internal Medicine 40 [place] [address] Arnold Cox MD 40 [place] [address] [email or web address] 01/21/2026 11:30 AM EDT Appointment [facility] Echo Lab [address] [place] [address] Frances Prescott MD [address] [place] [address] [email or web address] 01/21/2026 12:30 PM EDT Appointment [facility], Nuclear Medicine - [address] [address] Frances Prescott MD [address] [place] [address] [email or web address] 02/08/2026 11:30 AM EDT Telemedicine [facility] Pulmonary Hypertension Clinic 55 [facility], 2nd Floor, [address] [place] [address] Frances Prescott MD 55 [facility] [address] [place] [address] [email or web address] documented as of this encounter Visit Diagnoses Not on filedocumented in this encounter Additional Health Concerns Assessment Noted Time PHQ-2 Depression Total Score: 0 10/09/19 25 9:04 AM EDT documented as of this encounter Care Teams Customer Service Representative Teller Relationship Specialty Start Date End Date Arnold Cox MD 40 [place] [address] [email or web address] PCP - General Internal Medicine 01/24/24 Arnold Cox MD 40 [place] [address] [email or web address] Insurance Assigned Provider 02/08/24 documented as of this encounter Additional Source Comments The information contained in this document represents components of the legal health record. It is not the complete legal health record.[facility]
--- OUTSIDE RECORDS SUMMARY | 2025-05-21 14:40 | XMS_ITS | Encounter Summary ---
Author Organization [facility] Address [address] [place] [address] [address] [place] [address] Phone Care Team Providers Care Supervisor Composing Room Name Role Phone Arnold Cox MD Primary Care Provider [phone] Arnold Cox MD Unavailable Encounter Details Date Type Department Care Team (Late st Contact Info) Description 01/24/2024 Procedure Pass [facility] Cardiac Bottom Filler [address] [facility], Floor 9, [address] [place] [address] Social History Tobacco Use Types [...] high school, GED, job training, learning the Mosotho language, technical skills, or developing parenting skills)? [...] Risk Indicated 01/24/2024 8:13 PM EDT Gely Ring, RN * [place] Suicide Severity Rating Scale (Screener/Recent Self-Report) Question [...] st Contact Info) Description 01/21/2025 Procedure Pass [facility] Echo Lab 30 [place] [address] 09/07/2025 2:30 PM EDT Telemedicine [facility] Center for Hematology [address] [facility], 7th Floor, [address] [place] [address] Sadia Santos MD [address] [address] [email or web address] 10/18/2025 1:30 PM EDT Office Visit [facility] Internal Medicine 40 [place] [address] Arnold Cox MD 40 [place] [address] [email or web address] 01/21/2026 11:30 AM EDT Appointment [facility] Echo Lab [address] [place] [address] Frances Prescott MD [address] [place] [address] [email or web address] 01/21/2026 12:30 PM EDT Appointment [facility], Nuclear Medicine - [address] [address] Frances Prescott MD [address] [place] [address] [email or web address] 02/08/2026 11:30 AM EDT Telemedicine [facility] Pulmonary Hypertension Clinic [address] [facility], 2nd Floor, [address] [place] [address] Frances Prescott MD 55 [facility] [address] [place] [address] [email or web address] documented as of this encounter Visit Diagnoses Not on filedocumented in this encounter Additional Health Concerns Assessment Noted Time PHQ-2 Depression Total Score: 0 11/15/19 11:33 AM EDT documented as of this encounter Care Teams Supervisor Composing Room Relationship Specialty Start Date End Date Arnold Cox MD 40 [place] [address] [email or web address] PCP - General Internal Medicine 01/24/24 Arnold Cox MD 40 [place] [address] [email or web address] Insurance Assigned Provider 02/08/24 documented as of this encounter Additional Source Comments The information contained in this document represents components of the legal health record. It is not the complete legal health record.[facility]
--- OUTSIDE RECORDS SUMMARY | 2025-05-21 14:40 | XMS_ITS | Encounter Summary ---
Author Organization [facility] Address [address] [place] [address] [address] [place] [address] Phone Care Team Providers Care Grading Machine Feeder Name Role Phone Arnold Cox MD Primary Care Provider [phone] Arnold Cox MD Unavailable Encounter Details Date Type Department Care Team ([facility] Contact Info) Description 02/03/2024 Telephone [facility] Center for Hematology [address] [facility], 7th Floor, [address] [place] [address] Sadia Santos MD 55 [facility] [address] [place] [address] [email or web address] Social History Tobacco Use Types Packs/Day [...] high school, GED, job training, learning the Monegasque language, technical skills, or developing parenting skills)? [...] 01/21/2025 Procedure Pass [facility] Echo Lab [address] [place] [address] 09/07/2025 2:30 PM EDT Telemedicine [facility] Center for Hematology [address] [facility], 7th Floor, [address] [place] [address] Sadia Santos MD 55 [facility] [address] [place] [address] [email or web address] 10/18/2025 1:30 PM EDT Office Visit [facility] Internal Medicine 40 [place] [address] Arnold Cox MD 40 [place] [address] [email or web address] 01/21/2026 11:30 AM EDT Appointment [facility] Echo Lab 30 [place] [address] Frances Prescott MD [address] [place] [address] [email or web address] 01/21/2026 12:30 PM EDT Appointment [facility], Nuclear Medicine - [facility] 30 [place] [address] Frances Prescott MD [address] [place] [address] [email or web address] 02/08/2026 11:30 AM EDT Telemedicine [facility] Pulmonary Hypertension Clinic [address] [facility], 2nd Floor, [address] [place] [address] Frances Prescott MD [address] [place] [address] [email or web address] documented as of this encounter Visit Diagnoses Not on filedocumented in this encounter Additional Health Concerns Assessment Noted Time PHQ-2 Depression Total Score: 0 11/15/19 11:33 AM EDT documented as of this encounter Care Teams Grading Machine Feeder Relationship Specialty Start Date End Date Arnold Cox MD 40 [place] [address] PCP - General Internal Medicine 01/24/24 Arnold Cox MD 40 [place] [address] [email or web address] Insurance Assigned Provider 02/08/24 documented as of this encounter Additional Source Comments The information contained in this document represents components of the legal health record. It is not the complete legal health record.[facility]
--- OUTSIDE RECORDS SUMMARY | 2025-05-21 14:40 | XMS_ITS | Clinical Summary ---
Author Organization [facility] Address [address] [place] [address] Phone Care Team Providers Care Truss Builder Name Role Phone Arnold Cox MD Primary Care Provider [phone] Aronld Cox MD Unavailable Allergies Active Allergy Reactions Criticality Noted Date Comments Other Erythema Low 10/15/2024 Medical tape - redness if left on for a day or two Medications loratadine (CLARITIN) 10 mg tablet Take 10 mg by mouth daily as needed for allergies. Active glucosamine-ch ondroitin 500-400 mg Cap Take 1 capsule by mouth 3 (three) times a day. Active ascorbic acid, vitamin C, (VITAMIN C) 250 MG tablet Take 500 mg by mouth 3 (three) times a week. Active ELIQUIS 5 mg tablet Take 1 tablet (5 mg total) by mouth 2 (two) times a day. 180 tablet 3 10/28/19 25 Active metoprolol succinate (TOPROL-XL) 25 MG 24 hr tablet TAKE 1 TABLET (25 MG TOTAL) BY MOUTH DAILY. 90 tablet 3 05/03/20 25 Active mometasone (ELOCON) 0.1 % cream APPLY TO THE HANDS TWICE A DAY FOR 2 WEEKS, BREAK FOR 1 WEEK, REPEAT NEEDED 45 g 1 05/12/20 25 Active mometasone (ELOCON) 0.1 % cream Apply topically 2 (two) times a day. Apply to the hands BID x 2 weeks, break for 1 week, repeat prn 45 g 1 01/27/20 24 11/12/2 025 Discontinued metoprolol succinate (TOPROL-XL) 25 MG 24 hr tablet Take 1 tablet (25 mg total) by mouth daily. 90 tablet 3 04/06/20 24 025 Discontinued Active Problems Problem Noted Date Diagnosed Date [...] might be 100% going through leads near [place]. That might be due to his insurance [...] arrhythmias over time. He will follow the machine shop repair technician order of not over exercising and limiting [...] December. 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 Going forward I can see him once a year for repeat physical. This visit was 35 minutes in length of [id number]-dy-[id number] time and 10 additional minutes to review [...] asked the patient to message to the communications electrician supervisor who is seeing him about hypercoagulation workup and see if lab work can be ordered regarding the hemochromatosis. That lab work can be done at [facility] and if patient is positive we can put in a referral locally. Encounters Date Type Department Care Team Description 05/09/2025 Refill [facility] Internal Medicine 40 [place] [address] Arnold Cox MD Medication Refill 05/02/2025 Refill [facility] Internal Medicine [address] [place] [address] Arnold Cox MD Medication Refill 03/29/2025 Documentation [facility] Center for Hematology [address] [facility], 7th Floor, [address] [place] [address] Shivani Mccullough RN 03/28/2025 Orders Only [facility] for Hematology [address] [facility], 7th Floor, [address] [place] [address] Sadia Santos MD Hereditary hemochromatosis (Primary Dx) 03/26/2025 Telephone [facility] Medicine [address] [place] [address] Paty Ortiz Referral 03/23/2025 11:00 AM EDT Office Visit [facility] Pulmonary Hypertension Clinic [address] [facility], 2nd Floor, [address] [place] [address] Frances Schwarz MD 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 30 [place] [address] Arnold Cox MD Discharge Disposition: Home or Self Care 03/09/2025 10:00 AM EDT Office Visit [facility] Internal Medicine [address] [place] [address] Arnold Cox MD Flu vaccine need (Primary Dx); Need for hepatitis C screening test; Screening for human immunodeficiency virus; Cervical disc disorder at C6-C7 level with radiculopathy 03/08/2025 2:40 PM EDT Telemedicine [facility] [address] [place] [address] Katie Rm, COLLINS Numbness and tingling in left arm (Primary Dx) 03/08/2025 Telephone [facility] Internal Medicine [address] [place] [address] Lily Vincent RN left arm pain from Last 3 Months Immunizations Immunization Administration [...] Quadrivalent w/ Pr eservative IM 04/21/2016 Influenza Recombinant Trival ent Preservative Free IM 03/23/2025 Influenza Split (Incl. Purif ied Surface Antigen) 05/13/2008,05/30/2006 Influenza, Injectable,aditya valent, Preservative Free, Ped 03/15/2021 Influenza, Unspecified Formulation 06/23,05/30/2020,05/20/2018,05/06,04/21/2016,04/14/2015,03/07/2014 ,04/11/2012,05/06/2011,04/13/2010,08/2006,05/30/2006,05/07/2005, 3,04/05/2002,09/05/2001,10/10/2000 Meningococcal MCV4P 11/16/2020,12/03/2015,2010 Meningococcal MPSV4 11/18/2005,10/10/2000 Novel [id number], Injectable 07/24/2009 PPD Test 11/13/2003, 3,11/11/2001,10/10 Smallpox [...] high school, GED, job training, learning the Kazakh language, technical skills, or developing parenting skills)? [...] Sign Reading Time Taken Comments Blood Pressure 128/76 03/23/2025 10:47 AM EDT Pulse 57 03/23/2025 10:47 AM EDT Temperature 35.8 C (96.5 F) 03/23/2025 10:47 AM EDT Respiratory Rate 16 03/23/2025 10:47 AM EDT Oxygen Saturation 96% 03/23/2025 10:47 AM EDT Inhaled Oxygen Concentration - - Weight 94.3 kg (208 lb) 03/23/2025 10:47 AM EDT Height 185.4 cm (6' 1 ) 03/23/2025 10:47 AM EDT Body Mass Index 27.44 03/23/2025 10:47 AM EDT Plan of Treatment Upcoming Encounters Date Type Department Care Team (Late st Contact Info) Description 01/21/2025 Procedure Pass [facility] Echo Lab 30 [place] [address] 09/07/2025 2:30 PM EDT Telemedicine [facility] Center for Hematology [address] [facility], 7th Floor, [address] [place] [address] Sadia Santos MD 55 [facility] [address] [place] [address] [email or web address] 10/18/2025 1:30 PM EDT Office Visit [facility] Internal Medicine 40 [place] [address] Arnold Cox MD 40 [place] [address] [email or web address] 01/21/2026 11:30 AM EDT Appointment [facility] Echo Lab [address] [place] [address] Frances Prescott MD [address] [place] [address] [email or web address] 01/21/2026 12:30 PM EDT Appointment [facility], Nuclear Medicine - [address] [address] Frances Prescott MD [address] [place] [address] [email or web address] 02/08/2026 11:30 AM EDT Telemedicine [facility] Pulmonary Hypertension Clinic [address] [place] [address], 2nd Floor, [address] [place] [address] Frances Prescott MD [address] [place] [address] [email or web address] Health Maintenance Due Date Last Done Comments HEPATITIS C SCREENING 11/20/1997 HIV ONE-TIME SCREENING (18-65 YEARS) 11/20/1997 COLOGUARD 11/20/2024 COLONOSCOPY 11/20/2024 COLORECTAL CANCER SCREENING 11/20/2024 FIT TEST 11/20/2024 FOBT 11/20/2024 SIGMOIDOSCOPY 11/20/2024 VIRTUAL COLONOSCOPY 11/20/2024 COVID-19 VACCINE ( season) 2025 03/29/2022, 05/22/2021, 08/26/2020, Additional history exists DEPRESSION SCREENING 10/08/2025 10/08/2024 CREATININE LEVEL 10/16/2025 10/16/2024, 08/2024, 01/24/2024, Additional history exists SCREENING FOR DIABETES 10/17/2027 10/16/2024, 2022 LIPID PANEL 10/16/2029 10/16/2024, 1209/2022, 06/03/2023, Additional history exists Adult Td,Tdap Booster 01/31/2031 01/31/2021 , 05/06/2011, 04/25/2001 HEPATITIS A VACCINES Aged Out 04/25/2001, 10/19/19 01 No longer eligible based on patient's age to complete this topic MENINGOCOCCAL VACCINES (ACWY) Aged Out 11/16/2020, 12/03/2015, 11/12/2010, Additional history exists No longer eligible based on patient's age to complete this topic SMOKING STATUS SCREENING (Once After 26 Yrs) Completed 03/09/2025 INFLUENZA VACCINE Completed 03/23/2025, , 04/15/2023, Additional history exists HIB VACCINES Aged Out No longer eligi [...] 10/16/2024 6:55 AM EDT BASIC METABOLIC PANEL (BMP) Routine 10/16/2024 6:55 AM EDT OUTSIDE GLUCOSE [...] clinician's provided indication for this examination in [facility]: Cervical radiculopathy, no red flags; left [...] clinician's provided indication for this examination in [facility]:Cervical radiculopathy, no red flags; left sided c6/7 COMPARISON: None FINDINGS: There is no evidence of acute fracture or malalignment. There is mildanterior degenerative endplate marginal osteophytosis and loss of discspace height at C6- C7. The prevertebral soft tissues are unremarkable. IMPRESSION: No evidence of acute fracture or malalignment. Mild degenerative change atC6-C7. Arnold Cox MD IMG XR SPINE Final Result * Lipid panel (10/16/2024 6:55 AM EDT) HDL 43 35 - 100 mg/dL [facility] CHOLESTEROL 162 <200 mg/dL [facility] TRIGLYCERIDES 109 40 - 150 mg/dL [facility] LDL 97 50 - 129 mg/dL [facility] CARDIAC RISK RATIO 3.8 0.0 - 5.0 [facility] NON-HDL CHOLESTEROL 119 mg/dL [facility] Comment:Guidelines suggest a non-HDL cholesterol goal 30 mg/dL higher than the patient-specific LDL goal. Blood 10/16/2024 6:55 AM EDT 10/16/2024 7:16 AM EDT Margaret Jerome Leslygiovanni JIG AND FIXTURE MAKER LAB BLOOD BKR ORDER ALIZE Final Result Performing Organization Address City/[facility]/ZIP Co de Phone Number [address] [address] * Basic metabolic panel (10/16/2024 6:55 AM EDT) SODIUM 139 135 - 145 mmol/L [facility] POTASSIUM 4.2 3.4 - 5.0 mmol/L [facility] CHLORIDE 106 98 - 108 mmol/L [facility] CO2 24 23 - 32 mmol/L [facility] BUN 14 8 - 25 mg/dL [facility] CREATININE 0.94 0.60 - 1.30 mg/dL [facility] GLUCOSE 99 70 - 110 mg/dL [facility] CALCIUM 8.8 8.5 - 10.5 mg/dL [facility] EGFR 103 >59 mL/min/1.7 3m2 [facility] Comment:Estimated glomerular filtration rate calculated using the CKD-EPI refit equation. ANION GAP 9 3 - 17 mmol/L [facility] Blood 10/16/2024 6:55 AM EDT 10/16/2024 7:16 AM EDT Margaret Camacho [facility] LAB BLOOD BKR ORDER ALIZE Final Result Performing Organization Address [facility] Co de Phone Number [address] [address] * (ABNORMAL) Outside Glucose,Fasting (06/03/2023) Glucose, fasting - External 106(A) 65 - 99 mg/dL Historical Provider LAB BLOOD ORDERABLES Melissa l Result from Last 3 Months or Most Recently Relevant to Health Maintenance Insurance [facility] [place] [address] [place] [address] [employer] [facility] [place] [address] [place] [address] [employer]AN [facility] PPO EPO [facility] FAMILY HEALTH PLAN [facility] Address: [address] [place] [phone] [facility] PPO EPO Member Subscriber Plan / Payer (Ef fective 2020-Present) Name:Alexys Flores Relation to Subscriber:Spouse Name:CARA FLORES Date of :1899 (Home) Address: [address] [place] [address] Payer ID:[id number] (NAIC) Type:PPO Address: 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[employer] Proxy 11/28/2022 1:09 PM * Full Code (Latest Code Status on File) Date Activated Date Inactivated Comments 10/15/2024 9:57 PM Question Answer Comments Code Status Confirmed With: PatientFamily * Full Code Date Activated Date Inactivated Comments 11/23/2022 8:36 PM 10/15/2024 9:57 PM Question Answer Comments Code Status Confirmed With: Patient Care Teams Truss Builder Relationship Specialty Start Date End Date Arnold oCx MD [address] [place] [address] [email or web address] PCP - General Internal Medicine 01/24/24 Arnold Cox MD [address] [place] [address] [email or web address] Insurance Assigned Provider 02/08/24 Additional Source Comments The information contained in this document represents components of the legal health record. It is not the complete legal health record.[facility]
--- OUTSIDE RECORDS SUMMARY | 2025-05-21 14:40 | XMS_ITS | Encounter Summary ---
Author Organization [facility] Address [address] [place] [address] [address] [place] [address] Phone Care Team Providers Care Railway Station Manager Name Role Phone Arnold Cox MD Primary Care Provider [phone] Arnold Cox MD Unavailable Encounter Details Date Type Department Care Team ([facility] Contact Info) Description 02/03/2024 Telephone [facility] [address] [facility], 7th Floor, [address] [place] [address] Sadia Santos MD [address] [facility] [address] [place] [address] [email or web address] Social History Tobacco Use Types Packs/Day [...] high school, GED, job training, learning the [place] language, technical skills, or developing parenting skills)? [...] 01/21/2025 Procedure Pass [facility] [address] [place] [address] 09/07/2025 2:30 PM EDT Telemedicine [facility] [address] [facility], 7th Floor, [address] [place] [address] Sadia Santos MD 55 [facility] [address] [place] [address] [email or web address] 10/18/2025 1:30 PM EDT Office Visit [facility] Internal Medicine 40 [place] [address] Arnold Cox MD 40 [place] [address] [email or web address] 01/21/2026 11:30 AM EDT Appointment [facility] Echo Lab 30 [place] [address] Frances Prescott MD [address] [place] [address] [email or web address] 01/21/2026 12:30 PM EDT Appointment [facility], Nuclear Medicine - [facility] 30 [place] [address] Frances Prescott MD [address] [place] [address] [email or web address]@[email or web address] 02/08/2026 11:30 AM EDT Telemedicine [facility] [address] [facility], 2nd Floor, [address] [place] [address] Frances Prescott MD [address] [place] [address] [email or web address]@[email or web address] documented as of this encounter Visit Diagnoses Not on filedocumented in this encounter Additional Health Concerns Assessment Noted Time PHQ-2 Depression Total Score: 0 11/15/19 11:33 AM EDT documented as of this encounter Care Teams Railway Station Manager Relationship Specialty Start Date End Date Arnold Cox MD 40 [place] [address] [email or web address] PCP - General Internal Medicine 01/24/24 Arnold Cox MD 40 [place] [address] [email or web address] Insurance Assigned Provider 02/08/24 documented as of this encounter Additional Source Comments The information contained in this document represents components of the legal health record. It is not the complete legal health record.[facility]
--- OUTSIDE RECORDS SUMMARY | 2025-05-21 14:40 | XMS_ITS | Encounter Summary ---
Author Organization [facility] Address [address] [facility] [address] [place] [address] Phone Care Team Providers Care Steersman Name Role Phone Arnold Cox MD Primary Care Provider Arnold Cox MD Unavailable Encounter Details Date Type Department Care Team ([facility] st Contact Info) Description 01/26/2024 Procedure Pass [facility] [place] [facility] [address] [facility], 5th Floor, [address] [place] [address] Social History Tobacco Use Types Packs/Day Years [...] 01/21/2025 Procedure Pass [facility] [address] [place] [address] 09/07/2025 2:30 PM EDT Telemedicine [facility] [place] [place] Center for Hematology [address] [facility], 7th Floor, [address] [place] [address] Sadia Santos MD [address] [facility] [address] [place] [address] [email or web address] 10/18/2025 1:30 PM EDT Office Visit [facility] Internal Medicine 40 [place] [address] Arnold Cox MD 40 [place] [address] [email or web address] 01/21/2026 11:30 AM EDT Appointment [facility] [address] [place] [address] Frances Prescott MD [address] [place] [address] [email or web address] 01/21/2026 12:30 PM EDT Appointment [facility], Nuclear Medicine - [address] [address] Frances Prescott MD [address] [place] [address] [email or web address] 02/08/2026 11:30 AM EDT Telemedicine [facility] [place] Pulmonary Hypertension Clinic [address] [place] [address], 2nd Floor, [address] [place] [address] Frances Prescott MD [address] [place] [address] [email or web address]@[facility] documented as of this encounter Visit Diagnoses Not on filedocumented in this encounter Additional Health Concerns Assessment Noted Time PHQ-2 Depression Total Score: 0 11/15/19 24 11:33 AM EDT documented as of this encounter Care Teams Steersman Relationship Specialty Start Date End Date Arnold Cox MD 40 [place] [address] [email or web address] PCP - General Internal Medicine 01/24/24 Arnold Cox MD 40 [place] [address] [email or web address] Insurance Assigned Provider 02/08/24 documented as of this encounter Additional Source Comments The information contained in this document represents components of the legal health record. It is not the complete legal health record.[facility]
--- OUTSIDE RECORDS SUMMARY | 2025-05-21 14:40 | XMS_ITS | Encounter Summary ---
Author Organization [facility] Address [address] [place] [address] Phone Care Team Providers Care Clinic Coordinator Name Role Phone Arnold Cox MD Primary Care Provider [phone] Arnold Cox MD Unavailable Reason for Visit * Reason Onset Date Comments Referral 03/26/2025 Encounter Details Date Type Department Care Team ([facility] st Contact Info) Description 03/26/2025 Telephone [facility] [address] [place] [address] Paty [email or web address] Referral Social History Tobacco Use Types Packs/Day Years [...] as of this encounter Progress Notes * Paty Ortiz - 03/26/2025 4:56 PM EDT Patient called in regarding the referral to [facility]. Pt stated they are requiring the referral to be ran through or billed under the secondary insurance as well as the primary insurance. Ptstated he has the referral for the primary insurance but needs the referral to go through the secondary insurance. Please contact and advise. Central Support Casting Coordinator (Please do not reply to this user; this inbox is not monitored.) Thank you. documented in this encounter Plan of Treatment Upcoming Encounters Date Type Department Care Team (Late st Contact Info) Description 01/21/2025 Procedure Pass [facility] Echo Lab [address] [place] [address] 09/07/2025 2:30 PM EDT Telemedicine [facility] for [facility] [address] [facility], 7th Floor, [address] [place] [address] Sadia Santos MD [address] [place] [address] [email or web address] 10/18/2025 1:30 PM EDT Office Visit [facility] Internal Medicine [address] [place] [address] Arnold Cox MD 40 [place] [address] [email or web address] 01/21/2026 11:30 AM EDT Appointment [facility] Echo Lab [address] [place] [address] Frances Prescott MD [address] [place] [address] [email or web address] 01/21/2026 12:30 PM EDT Appointment [facility], Nuclear Medicine - [address] [address] Frances Prescott MD [address] [place] [address] CRUZ@[facility] 02/08/2026 11:30 AM EDT Telemedicine [facility] [address] [facility], 2nd Floor, [address] [place] [address] Frances Prescott MD [address] [facility] [address] [place] [address] [email or web address] documented as of this encounter Visit Diagnoses Not on filedocumented in this encounter Additional Health Concerns Assessment Noted Time PHQ-2 Depression Total Score: 0 10/09/19 25 9:04 AM EDT documented as of this encounter Care Teams Clinic Coordinator Relationship Specialty Start Date End Date Arnold Cox MD 40 [place] [address] [email or web address] PCP - General Internal Medicine 01/24/24 Arnold Cox MD 40 [place] [address] [email or web address] Insurance Assigned Provider 02/08/24 documented as of this encounter Additional Source Comments The information contained in this document represents components of the legal health record. It is not the complete legal health record.[facility]
--- OUTSIDE RECORDS SUMMARY | 2025-05-21 14:40 | XMS_ITS | Encounter Summary ---
Author Organization [facility] Address [address] [place] [address] Phone Care Team Providers Care Guard Immigration Name Role Phone Pcp, Unknown Primary Care Provider UnavailAlvaro Shea MD Primary Care Provider [phone] Arnold Cox MD Primary Care Provider [phone] Arnold Cox MD Unavailable Encounter Details Date Type Department Care Team (Late st Contact Info) Description 11/23/2022 Procedure Pass [facility], Ct Scan - [address] [address] Social History Tobacco Use Types Packs/Day Years [...] 1:59 PM EDT Cecelia Pruett RN * [place] Suicide Severity Rating Scale (Screener/Recent Self-Report) Question Answer Date of Assessment Author 1. Wish to be (Past 1 Month) No 023 1:59 PM EDT Cecelia Pruett RN 2. Non-Specific Active Suici anabella Thoughts (Past 1 Month) No 11/23/2022 1:59 PM EDT Cecelia Pruett RN 6. Suicidal Behavior (Lifetime) No 3 1:59 PM EDT Cecelia Pruett RN documented as of this encounter Plan of Treatment Upcoming Encounters Date Type Department Care Team (Late st Contact Info) Description 01/21/2025 Procedure Pass [facility] 30 [place] [address] 09/07/2025 2:30 PM EDT Telemedicine [facility] Center for Hematology [address] [facility], 7th Floor, [address] [place] [address] Sadia Santos MD [address] [facility] [address] [place] [address] [email or web address] 10/18/2025 1:30 PM EDT Office Visit [facility] Internal Medicine 40 [place] [address] Arnold Cox MD 40 [place] [address] [email or web address] 01/21/2026 11:30 AM EDT Appointment [facility] Echo Lab 30 [place] [address] Frances Prescott MD [address] [facility] [place] [address] [email or web address] 01/21/2026 12:30 PM EDT Appointment [facility], Nuclear Medicine - [address] [address] Frances Prescott MD [address] [facility] [address] [place] [address] [email or web address] 02/08/2026 11:30 AM EDT Telemedicine [facility] Pulmonary Hypertension Clinic [address] [facility], 2nd Floor, [address] [place] [address] Frances Prescott MD [address] [facility] [place] [address] [email or web address] documented as of this encounter Visit Diagnoses Not on filedocumented in this encounter Care Teams Guard Immigration Relationship Specialty Start Date End Date Pcp, Unknown PCP - General 11/23/22 11/23/22 Alvaro Blue MD [address] [place] [address] PCP - General Internal Medicine 11/24/22 01/23/24 Arnold Cox MD [address] [place] [address] [email or web address] PCP - General Internal Medicine 01/24/24 Arnold Cox MD [address] [place] [address] Insurance Assigned Provider 02/08/24 documented as of this encounter Additional Source Comments The information contained in this document represents components of the legal health record. It is not the complete legal health record.[facility]
--- OUTSIDE RECORDS SUMMARY | 2025-05-21 14:40 | XMS_ITS | Encounter Summary ---
Author Organization [facility] Address [address] [place] [address] [place] [address] Phone Care Team Providers Care Stock Or Delivery Clerk Name Role Phone Arnold Cox MD Primary Care Provider [phone] Arnold Cox MD Unavailable Encounter Details Date Type Department Care Team (Late st Contact Info) Description 01/25/2024 Procedure Pass [facility] [address] [place] [address] Social History Tobacco Use Types Packs/Day Years [...] high school, GED, job training, learning the [place] language, technical skills, or developing parenting skills)? [...] 01/21/2025 Procedure Pass [facility] [address] [place] [address] 09/07/2025 2:30 PM EDT Telemedicine [facility] [place] [facility] [address] [facility], 7th Floor, [address] [place] [address] Sadia Santos MD [address] [facility] [address] [place] [address] [email or web address] 10/18/2025 1:30 PM EDT Office Visit [facility] Internal Medicine 40 [place] [address] Arnold Cox MD 40 [place] [address] [email or web address] 01/21/2026 11:30 AM EDT Appointment [facility] [address] [place] [address] Frances Prescott MD [address] [place] [address] [email or web address]@[email or web address] 01/21/2026 12:30 PM EDT Appointment [facility], Nuclear Medicine - [address] [address] Frances Prescott MD [address] [place] [address] [email or web address]@[facility] 02/08/2026 11:30 AM EDT Telemedicine [facility] [place] [facility] [address] [place] [address], 2nd Floor, [address] [place] [address] Frances Prescott MD [address] [place] [address] [email or web address]@[email or web address] documented as of this encounter Visit Diagnoses Not on filedocumented in this encounter Additional Health Concerns Assessment Noted Time PHQ-2 Depression Total Score: 0 11/15/19 24 11:33 AM EDT documented as of this encounter Care Teams Stock Or Delivery Clerk Relationship Specialty Start Date End Date Arnold Cox MD 40 [place] [address] [email or web address] PCP - General Internal Medicine 01/24/24 Arnold Cox MD 40 [place] [address] [email or web address] Insurance Assigned Provider 02/08/24 documented as of this encounter Additional Source Comments The information contained in this document represents components of the legal health record. It is not the complete legal health record.[facility]
--- OUTSIDE RECORDS SUMMARY | 2025-05-21 14:40 | XMS_ITS | Encounter Summary ---
Author Organization [facility] Address [address] [place] [address] [place] [address] Phone Care Team Providers Care Child Development Director Name Role Phone Arnold Cox MD Primary Care Provider [phone] Arnold Cox MD Unavailable Encounter Details Date Type Department Care Team (Late st Contact Info) Description 01/24/2024 Procedure Pass [facility], [address], Floor 1 [place] [address] Social History Tobacco Use Types Packs/Day Years [...] high school, GED, job training, learning the [place] language, technical skills, or developing parenting skills)? [...] 8:13 PM EDT Gely Ring RN * [place] Suicide Severity Rating Scale (Screener/Recent Self-Report) Question [...] st Contact Info) Description 01/21/2025 Procedure Pass [facility] Echo Lab 30 [place] [address] 09/07/2025 2:30 PM EDT Telemedicine [facility] for Hematology [address] [facility], 7th Floor, [address] [place] [address] Sadia Santos MD [address] [address] [email or web address] 10/18/2025 1:30 PM EDT Office Visit [facility] Internal Medicine 40 [place] [address] Arnold Cox MD 40 [place] [address] [email or web address] 01/21/2026 11:30 AM EDT Appointment [facility] Echo Lab [address] [place] [address] Frances Prescott MD [address] [place] [address] [email or web address] 01/21/2026 12:30 PM EDT Appointment [facility], Nuclear Medicine - [address] [address] Frances Prescott MD [address] [place] [address] [email or web address] .[email or web address] 02/08/2026 11:30 AM EDT Telemedicine [facility] [address] [facility], 2nd Floor, [address] [place] [address] Frances Prescott MD [address] [facility] [address] [place] [address] [email or web address]@[email or web address] .[email or web address] documented as of this encounter Visit Diagnoses Not on filedocumented in this encounter Additional Health Concerns Assessment Noted Time PHQ-2 Depression Total Score: 0 11/15/19 11:33 AM EDT documented as of this encounter Care Teams Child Development Director Relationship Specialty Start Date End Date Arnold Cox MD 40 [place] [address] [email or web address] PCP - General Internal Medicine 01/24/24 Arnold Cox MD 40 [place] [address] [email or web address] Insurance Assigned Provider 02/08/24 documented as of this encounter Additional Source Comments The information contained in this document represents components of the legal health record. It is not the complete legal health record.[facility]
[2025-05-21 15:17] LABS: Iron 148 mcg/dL (45-160); Percent Iron Saturation 62 % (15-50); Total Iron Binding Capacity 240 mcg/dL (228-428); Unsaturated Iron Binding 92 ug/dL
[2025-05-21 15:26] LABS: Ferritin 35 ng/mL (20-250)
== END 2025-05-21 14:19 | disposition home or self-care (01) ==
LOC: HO.BBR 14:18
PROVIDERS: PCP Internal Medicine; Visit Provider Internal Medicine
DX: E83.110 Hereditary hemochromatosis (principal)
CPT/HCPCS: 36415; 82728; 83540; 85025